=== PATIENT | male | born 1945 | race Caucasian/White ===

== ENCOUNTER 2017-06-06 15:30 | Outpatient (RCR) | payer MEDICARE, OTHER, SELFPAY ==
--- NOTE | 2017-05-15 10:22 | HP.PTEVAL ---
Patient's Visit Information OMAIRA MATTHEWS is a 71 year old M referred to Physical Therapy by Richa Barrientos with a diagnosis of B hip bursitis and balance issues. Date of Evaluation: 05/15/17 Physical Therapist: Jerad Salcedo DPT, OC - Visit Plan Frequency: 2x /Week Duration: 4 Weeks Plan: Neurocom balance assessment then. 2x/week for 4 weeks for balance per results adn stretch ITB/HS/quad/hip flexor also mat based hip strength as needed. - Subjective Subjective: Complained to doctor about dizzyness and balance problems. Feels unsteady but not dizzy. Usually when he walks gets unsteady , no falls. Putting shoes on standing is harder. No spinning, Has neuropathy from diabetes. On gabapentin for foot achiness. Sleep is OK with meds. B hip pain if lies on them, doctor put a shot in them. Has lateral hip pain with walking too much also to 6/10, stretching helps, That is intermittent. Not employed. 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 HEP: walking 1-1.25 miles irregularly. Basic ADLs are OK. Couple steps ion ranch home, they are not a problem - Pain feet ache Pain Intensity (Out of 10): 0 Pain Intensity Range: 0, 1 R hip Pain Intensity (Out of 10): 0 Pain Intensity Range: 0, 6 - Objective Walks into PT stiff but I without AD. Transfers I, steps reciprocally without rail. Slightly neuropathic gait pattern, slow. VOR walk is fair balance. FOAM romberg is challenging. LE AROM WFL, hips tight in the HS andITB adn hip flexors and quads B. Tender to palpation in B ITB and over GT bursa. reflexes LE 2/3 patella and achilles. Has full UE AROM. sensation LE WNL to gross light touch. Strength LE 4/5. - Balance Scores Functional Gait Assessment Score: 20 % Disability: 33.3400 - Goals Goal 1:: I approp HEP to minimize hip pain and maximize balance. Goal Time Frame: 4-6 Weeks Goal 2:: neurocom balance tests and review results. Goal Time Frame: 4-6 Weeks Goal 3:: FGA to minimize fall risk. Goal Time Frame: 4-6 Weeks Goal 4:: Pain in hips 1/10 at worst and no lost sleep. Goal Time Frame: 4-6 Weeks - Rehabilitation Potential Physical Therapy Diagnosis: B hip trochanteric bursitis, Balance deficits likely due to neuropathy Rehabilitation Potential: Fair - Anticipated Interventions Patient/Client Instruction: Educate patient on: Condition, Plan of Care For the Purpose of:: To decrease pain, To improve safety with gait Therapeutic Exercise to Include: Strength training, Balance training, Flexibilty training For the Purpose of:: To decrease pain, To improve ability of physical actions for home/community/work/leisure, To improve balance Thank you for the opportunity to evaluate your patient. For Medicare and Medicare HMO plans, please review the plan of care and approve it. It will need to be FAXED BACK to us at [phone] for Medicare purposes. Please let me know if there are questions or concerns regarding this plan of care. Physician Signature: Date:
--- NOTE | 2017-08-10 11:14 | HP.PT.NRP ---
HP - Discharge Summary (1) - Patient Information OMAIRA MATTHEWS was seen in my office for initial evaluation on 05/15/17. The following Plan of Care was established for this patient: Initial Frequency: 2x /Week Initial Duration: 4 Weeks - Anticipated Interventions Patient/Client Instruction: Educate patient on: Condition, Plan of Care For the Purpose of:: To decrease pain, To improve safety with gait Therapeutic Exercise to Include: Strength training, Balance training, Flexibilty training For the Purpose of:: To decrease pain, To improve ability of physical actions for home/community/work/leisure, To improve balance This patient was last seen in our office 06/06/17. Pertinent comments regarding their Physical therapy will appear below: Pt seen 6 visits of balance activity but neglected to return to complete plan of care including re-examination. At this point, it has been over two months and I will discontinue due to nonattendance. At this point I will be discontinuing this patient from physical therapy. I would be happy to see this patient again in the future if found appropriate by the physician. Thank you! Jerad Salcedo, DPT, OC
== END 2017-06-06 19:00 | disposition home or self-care (01) ==
LOC: PT 15:30
PROVIDERS: Family Provider Internal Medicine; PCP Internal Medicine; Visit Provider Internal Medicine
DX: M70.70 Other bursitis of hip, unspecified hip (principal)
CPT/HCPCS: 97110; 97162; 97530; 97750; G8978; G8979

== ENCOUNTER → 2017-08-02 14:10 | Outpatient (CLI) | payer MEDICARE, OTHER, SELFPAY ==
[2017-08-02 15:13] LABS: Hematocrit 37.9 % (40-54); Hemoglobin 12.4 g/dl (13.0-16.5); Mean Corp Hgb Conc 32.7 g/gl (32-36); Mean Corpuscular Hgb 32.3 pg (27.0-32.0); Mean Corpuscular Volume 98.7 fL (80-94); Mean Platelet Vol. 9.8 fl (6.2-12.0); Platelet Count 283 K/mm3 (150-450); RBC Distribution Width CV 12.8 % (11.6-14.6); RBC Distribution Width SD 45.1 fl (35.1-43.9); Red Blood Count 3.84 M/mm3 (4.6-6.2); White Blood Count 9.2 K/mm3 (4.4-11.0)
[2017-08-02 15:16] LABS: Scan Indicated on CBC? Y/N NO
[2017-08-02 16:03] LABS: Ferritin 87 ng/mL (26-388); Free T3 1.9 pg/mL (2.18-3.98); T4 Free Direct 0.92 ng/dL (0.76-1.46); Thyroid Stim Hormone (TSH) 1.94 uIU/mL (0.358-3.74)
[2017-08-04 07:13] LABS: Thyroid Peroxidase AB 12 IU/mL (0-34)
== END ==
PROVIDERS: Family Provider Internal Medicine; PCP Internal Medicine; Visit Provider Internal Medicine
DX: D50.0 Iron deficiency anemia secondary to blood loss (chronic) (principal); R94.6 Abnormal results of thyroid function studies
CPT/HCPCS: 36415; 82728; 84439; 84443; 84481; 85027; 86376

== ENCOUNTER → 2018-02-23 08:49 | Outpatient (CLI) | payer MEDICARE, OTHER, SELFPAY ==
--- NOTE | 2018-02-23 08:53 | RDU_ITS ---
Reason For Study: CKD stage III Right Renal Artery Left Renal Artery Right renal artery ostium 63/14 Left renal artery ostium 59/12 RSV/EDV. PSV/EDV. Right renal artery proximal 66/16 Left renal artery proximal PSV/EDV PSV/EDV. 55/12 . Right renal artery mid 73/14 Left renal artery mid 61/13 PSV/EDV. PSV/EDV . Right renal artery distal 48/10 Left renal artery distal 75/20 PSV/EDV. PSV/EDV. Right RAR 0.89. Left RAR 0.91. Right Renal Parenchyma Left Renal Parenchyma Upper Pole Medula 18/5 PSV/EDV. Left upper pole medulla 19/4 Right upper pole medulla EDR 0.28 . PSV/EDV . Right upper pole medulla R.I. Left upper pole medulla EDR 0.21 . 0.71 . Left upper pole medulla R.I. 0.79 . Upper [place]illy Cortx 14/4 PSV/EDV. UP Cortex 9/3 PSV/EDV. Right upper pole cortex EDR 0.29 . Left upper pole cortex EDR 0.33 . Right upper pole cortex R.I. 0.70 . Left upper pole cortex R.I. 0.63 . Right lower Pole medulla 16/4 Left lower Pole medulla 17/4 PSV/EDV . PSV/EDV . Right lower pole medulla EDR 0.25 . Left lower pole medulla EDR 0.24 . Right lower pole medulla R.I. Left lower pole medulla R.I. 0.74 . 0.78 . Lower Pole Cortx 12/4 PSV/EDV. Lower Pole Cortex 14/5 PSV/EDV. Left lower pole cortex EDR 0.33 . Right lower pole cortex EDR 0.36 . Left lower pole cortex R.I. 0.70 . Right lower pole cortex R.I. 0.62 . Left Renal Hilar Right Renal Hilar LT Hilar avg 31/7 PSV/EDV . Right Hilar avg 21/5 PSV/EDV. Left hilar acceleration time 44 Right hilar acceleration time 29 m/sec. m/sec. Left Renal Dimensions Right Renal Dimensions Left kidney size 11.7 cm . Right kidney size 12.9 cm . Left cortical dimension 1.38 cm . Right cortical dimension 1.33 cm . Aorta Proximal abdominal aorta 1.90cm x 1.91 cm . Proximal abdominal aorta peak systolic velocity is 82 cm/sec . Distal abdominal aorta 1.84cm x 1.82 cm . Distal abdominal aorta peak systolic velocity is 90 cm/sec . Interpretation Summary Dimensions of the intra-abdominal aorta appear normal, without evidence of aneurysmal dilatation. Renal artery velocities are bilaterally normal. Acceleration times are normal bilaterally. Renal- aortic ratios are also bilaterally normal. There is no evidence of hemodynamically significant renal artery stenosis on either side. Cortical dimensions are bilaterally normal. Kidneys are normal in size bilaterally, though the right kidney is more than one centimeter larger than the left kidney. Ordering Physician: Richa Barrientos Referring Physician: Richa Barrientos Performed By: Maribel Bhatt, RDCS, RVT
--- NOTE | 2018-02-23 08:53 | CDU_ITS ---
Reason For Study: Carotid Atherosclerosis Rt. Velocities/BP Lt. Velocities/BP Prox CCA 61/19 cm/sec. Prox CCA 72/18 cm/sec. Mid CCA 72/19 cm/sec. Mid CCA 89/16 cm/sec. Dist CCA 68/17 cm/sec. Dist CCA 62/20 cm/sec. Prox ICA 82/20 cm/sec. Prox ICA 62/22 cm/sec. Mid ICA 87/21 cm/sec. Mid ICA 66/21 cm/sec. Dist ICA 58/20 cm/sec. Dist ICA 68/25 cm/sec. Rt. ICA/CCA = 1.21. Lt. ICA/CCA = 0.76. Prox ECA 103/13 cm/sec. Prox ECA 118/18 cm/sec. Rt. Vert. 41/9 cm/sec. Lt. Vert. 32/10 cm/sec. Right Extracranial There is heterogeneous, irregular atherosclerotic plaque noted in the right common carotid artery. There is heterogeneous, irregular atherosclerotic plaque noted in the right internal carotid artery. There is heterogeneous, irregular atherosclerotic plaque noted in the right external carotid artery. Antegrade flow is noted in the right vertebral artery. Left Extracranial There is heterogeneous, irregular atherosclerotic plaque noted in the left common carotid artery. There is heterogeneous, irregular atherosclerotic plaque noted in the left internal carotid artery. There is heterogeneous, irregular atherosclerotic plaque noted in the left external carotid artery. Antegrade flow is noted in the left vertebral artery. Procedure Carotid Duplex [id number]. Exam performed in department. Interpretation Summary Mild (<50%) stenosis right extracranial internal carotid. Mild (<50%) stenosis left extracranial internal carotid. Flow within the vertebral arteries is antegrade bilaterally. Ordering Physician: Richa Barrientos Referring Physician: Richa Barrientos Performed By: Maribel Bhatt, RDCS, RVT
== END ==
PROVIDERS: Family Provider Internal Medicine; PCP Internal Medicine; Visit Provider Internal Medicine
DX: I65.23 Occlusion and stenosis of bilateral carotid arteries (principal); I12.9 Hypertensive chronic kidney disease with stage 1 through stage 4 chronic kidney disease, or unspecified chronic kidney disease; N18.3 Chronic kidney disease, stage 3 (moderate)
CPT/HCPCS: 93880; 93975

== ENCOUNTER 2018-04-06 01:50 | Inpatient (IN) | payer MEDICARE, OTHER, SELFPAY ==
[2018-04-06] VITALS (18 sets, daily range): BP systolic 118–148; BP diastolic 41–73; PULSE 46–66; RESP 16–20; TEMP 36.7–37.2; O2SAT 85–95; BMI 31.4; BMI 30.8
--- NOTE | 2018-04-06 02:16 | EKG12_ITS ---
Test Reason : SOB Blood Pressure : / mmHG Vent. Rate : 048 BPM Atrial Rate : 048 BPM P-R Int : 312 ms QRS Dur : 100 ms QT Int : 496 ms P-R-T Axes : -10 043 153 degrees QTc Int : 443 ms Sinus bradycardia with Type I 2nd degree AVB (wenkebach) ST & T wave abnormality, consider lateral ischemia Abnormal ECG Confirmed by SHERITA COUGHLIN ([id number]), food editor SUSY ANGELO ([id number]) on 04/10/2018 8:43:31 AM Referred By: JULEE Confirmed By:SHERITA COUGHLIN
--- NOTE | 2018-04-06 02:18 | ED.VIS.GEN ---
History of Present Illness Chief Complaint: Shortness of Breath Informant: Patient, Family Onset: Days - 2-3 Context: Gradual Onset Timing: Intermittent Quality: wheezing Location: chest Current Severity: Mild Maximum Severity: Severe - panting at home earlier Worsened by: exertion Relieved by: rest Associated Symptoms: MILIEU THERAPIST cough, rhinorrhea Narrative: No chest pain, fevers, sore throat, earache, GI symptoms, or other symptoms with this. Tonight, he had drank some caffeinated tea, so he took his usual gabapentin x2 and sleeping pill which is temazepam 15 mg, but took an additional temazepam to try to counteract the caffeine and get to sleep. states that he was a little more somnolent than usual after this, and was panting/dyspnea, hence coming to the emergency department. He does not have any history of lung problems. He had a CABG remotely and takes aspirin but no other anticoagulants or antiplatelets and no other history of heart problems that he knows of. - Past Medical History (1) H/O aortic valve replacement Status: Chronic Comment: 25 mm Felix-Wilcox Perimount Magna Valve ([facility]: 11/29/2012) (2) H/O coronary artery bypass surgery Status: Chronic Comment: CABG x 3 PATEL to LAD, SVG-Ramus, SVG-PLB of RCA 11/29/2012 (3) HLD (hyperlipidemia) Status: Chronic (4) HTN (hypertension) Status: Chronic (5) Paroxysmal atrial fibrillation Status: Chronic Past Medical History - Allergies and Home Meds Allergies/Adverse Reactions: Allergies No Known Allergies Allergy (Verified 04/06/18 01:55) Primary Care Physician: Richa Barrientos MD [Primary Care Provider] - Surgical History: cholecystectomy, coronary bypass surgery, TURP, - Lives: Spouse/ Significant Other Smoking Status: Never smoker - Family History Maternal Family History: Family History (Last Reviewed 12/19/17 @ 13:51 by Clint Rosas MD) Father CAD (coronary artery disease) Brother CAD (coronary artery disease) Family History: Reports: No pertinent history Paternal Family History: Family History (Last Reviewed 12/19/17 @ 13:51 by Clint Rosas MD) Father CAD (coronary artery disease) Brother CAD (coronary artery disease) Family History: Reports: Heart Disease Sibling Family History: Family History (Last Reviewed 12/19/17 @ 13:51 by Clint Rosas MD) Father CAD (coronary artery disease) Brother CAD (coronary artery disease) Family History: Reports: Heart Disease Review of Systems General: Reports: Malaise. Denies: Chills, Fever, Sweats Eyes: Denies: Visual changes - bilaterally, Diplopia ENT: Denies: Bilateral ear pain, Sore throat Cardiovascular: Denies: Chest pain, Palpitations, Heart racing Respiratory: Reports: Dyspnea, Cough, Dyspnea on exertion. Denies: Sputum, Orthopnea Gastrointestinal: Denies: Abdominal pain, Nausea, Vomiting, Diarrhea, Melena, Hematochezia Genitourinary: Denies: Dysuria, Hematuria, Frequency Musculoskeletal: Reports: Swelling - BLE, chronic. Denies: Neck pain, Back pain, Extremity Pain Skin: Denies: Rash, Wounds Neurological: Denies: Headache, Weakness, Numbness Physical Exam Vital Signs/Narrative: Vital Signs Temp Pulse Resp BP Pulse Ox 04/06/18 01:52 98.0 F 51 L 20 H 147/65 H 85 Inital Vital Signs reviewed: Yes General: Well nourished, Well developed Head: Normocephalic, Atraumatic Eyes: Perrl, EOMI ENT: Moist mucous membranes, No rhinorrhea. Negative for: Sinus tenderness Neck: Supple, Nontender, No lymphadenopathy, No JVD Cardiovascular: Regular rate, Regular rhythm, No murmurs, Irregular - occasionally Respiratory: No distress - conversational, CTA bilaterally, Chest nontender Abdomen: Soft, Nontender, Nondistended, Normal bowel sounds Back: Nontender, Normal Inspection Extremities: Nontender, Edema - 1+ BLE symmetric Skin: Normal color, No rash Neurological: Alert, Oriented x3, Cranial nerves II-XII grossly intact, Normal Strength, Normal Sensation Psychological: Normal affect Diagnostic/Tx/Re-eval Laboratory Tests 04/06/18 04/06/18 04/06/18 Range/Units 04:40 04:40 04:40 WBC (4.4-11.0) K/mm3 RBC (4.6-6.2) M/mm3 Hgb (13.0-16.5) g/dl Hct (40-54) % MCV (80-94) fL MCH (27.0-32.0) pg MCHC (32-36) g/gl RDW (11.6-14.6) % RDW Differential (35.1-43.9) fl Plt Count (150-450) K/mm3 MPV (6.2-12.0) fl Immature Gran % (Auto) (0.0-0.9) % Neut % (Auto) (47-70) % Lymph % (Auto) (19-41) % Gage % (Auto) (0-10) % Eos % (Auto) (0-5) % Baso % (Auto) (0-1) % Absolute Neuts (auto) (2.0-7.7) X10^3/uL Absolute Lymphs (auto) (0.83-4.51) X10^3/ul Total Counted D-Dimer Quant (PE/DVT) 0.61 H* (0.27-0.49) FEU/ug/m Sodium 146 H (136-145) mmol/L Potassium 4.0 (3.5-5.1) mmol/L Chloride 114 H (98-107) mmol/L Carbon Dioxide 25.0 (21.0-32.0) mmol/L Anion Gap 7 (5-15) BUN 35 H (7-18) mg/dL Creatinine 2.41 H (0.70-1.30) mg/dL Estim Creat Clear Calc 28.19 ml/min Est GFR (MDRD) Af Amer 34 L (>60) mL/min Est GFR (MDRD) Non-Af 28 L (>60) mL/min BUN/Creatinine Ratio 14.5 (10-20) RATIO Glucose 117 H (74-106) mg/dL Calcium 8.6 (8.5-10.1) mg/dL Troponin I 0.016 (<0.045) ng/mL B-Natriuretic Peptide 440.1 H (0-100) pg/mL 04/06/18 Range/Units 04:40 WBC 7.7 (4.4-11.0) K/mm3 RBC 3.13 L (4.6-6.2) M/mm3 Hgb 10.1 L (13.0-16.5) g/dl Hct 31.5 L (40-54) % MCV 100.6 H (80-94) fL MCH 32.3 H (27.0-32.0) pg MCHC 32.1 (32-36) g/gl RDW 13.2 (11.6-14.6) % RDW Differential 46.3 H (35.1-43.9) fl Plt Count 239 (150-450) K/mm3 MPV 10.0 (6.2-12.0) fl Immature Gran % (Auto) 0.100 (0.0-0.9) % Neut % (Auto) 74.3 H (47-70) % Lymph % (Auto) 14.0 L (19-41) % Gage % (Auto) 8.3 (0-10) % Eos % (Auto) 3.0 (0-5) % Baso % (Auto) 0.3 (0-1) % Absolute Neuts (auto) 5.8 (2.0-7.7) X10^3/uL Absolute Lymphs (auto) 1.08 (0.83-4.51) X10^3/ul Total Counted Not Reportable D-Dimer Quant (PE/DVT) (0.27-0.49) FEU/ug/m Sodium (136-145) mmol/L Potassium (3.5-5.1) mmol/L Chloride (98-107) mmol/L Carbon Dioxide (21.0-32.0) mmol/L Anion Gap (5-15) BUN (7-18) mg/dL Creatinine (0.70-1.30) mg/dL Estim Creat Clear Calc ml/min Est GFR (MDRD) Af Amer (>60) mL/min Est GFR (MDRD) Non-Af (>60) mL/min BUN/Creatinine Ratio (10-20) RATIO Glucose (74-106) mg/dL Calcium (8.5-10.1) mg/dL Troponin I (<0.045) ng/mL B-Natriuretic Peptide (0-100) pg/mL Clinical Impression(s) from Imaging Studies Chest X-Ray 04/06/18 03:35 IMPRESSION: Cardiomegaly with central vascular congestive changes and a small left-sided pleural effusion. Multiple nodular densities in the right lower lobe. Metastatic disease suspected Electronically Signed: Tez Hurst MD at 4:14 EDT Tel , Service support , Chest CT 04/06/18 05:47 IMPRESSION: Cardiomegaly with central vascular congestive changes and interstitial edema. Bilateral pleural effusions; more on the right than the left Extensive mediastinal adenopathy. Lymphoproliferative disorder suspected. No indication of any metastatic lung disease. A calcified granuloma in the right middle lobe and a 1.1 cm nodular density in the lingula division of the left upper lobe Electronically Signed: Tez Hurst MD at 7:02 EDT Tel , Service support , - Rhythm Strip Rhythm Strip: Sinus Rhythm Rate: 55 Ectopy: None - EKG Initial EKG Interpretation: Sinus Bradycardia, AV Block - Mobitz I / Wenchebach, Inverted T-Waves - lat - Medical Decision Making Labs show an elevated creatinine at 2.4, this is significantly elevated compared to his last creatinine less than 2 although that was a year ago. He states his last creatinine done by his merchandise examiner was 2.6, so that is relatively reassuring. His d-dimer is technically abnormal at 0.61, however when correcting for age, this is well within normal limits for a 72-year-old male, essentially ruling out acute pulmonary embolus in him at this time. His chest x-ray was interpreted by radiology as suspicious for metastatic disease. He had imaging a year ago including CT that simply showed 2 nodules, one in each lung. He does not need CT angiography, and the contrast could injure his kidneys further, so CT of the chest without contrast is performed and shows bilateral pleural effusions, significant mediastinal lymphadenopathy that could be related to a lymphoproliferative disorder. Discussed with Dr. Solis for admission and further workup and treatment. Clinically, on oxygen and resting in bed, he is doing well and feeling okay. With any little exertion he is dyspneic. His monitor has shown bradycardia throughout his visit, and he appears to be in Wenkebach according to his EKG. That will be continued to be monitored. ED Disposition - Plan for ED Patient: Disposition: Acute Care Hospital [facility] Chief Complaint: Overdose Diagnosis: Pleural effusion, bilateral, Hypoxemia, Pulmonary edema, Mediastinal lymphadenopathy, CRF (chronic renal failure), Mobitz (type) I (Wenckebach's) atrioventricular block Referrals: Richa Barrientos MD [Primary Care Provider] -
--- NOTE | 2018-04-06 02:25 | ED.DCSUM_ITS ---
History of Present Illness Chief Complaint: Shortness of Breath Informant: Patient, Family Onset: Days - 2-3 Context: Gradual Onset Timing: Intermittent Quality: wheezing Location: chest Current Severity: Mild Maximum Severity: Severe - panting at home earlier Worsened by: exertion Relieved by: rest Associated Symptoms: [employer] cough, rhinorrhea Narrative: No chest pain, fevers, sore throat, earache, GI symptoms, or other symptoms with this. Tonight, he had drank some caffeinated tea, so he took his usual gabapentin x2 and sleeping pill which is temazepam 15 mg, but took an additional temazepam to try to counteract the caffeine and get to sleep. states that he was a little more somnolent than usual after this, and was panting/dyspnea, hence coming to the emergency department. He does not have any history of lung problems. He had a CABG remotely and takes aspirin but no other anticoagulants or antiplatelets and no other history of heart problems that he knows of. - Past Medical History (1) H/O aortic valve replacement Status: Chronic Comment: 25 mm Felix-Wilcox Perimount Magna Valve ([facility]: 11/29/2012) (2) H/O coronary artery bypass surgery Status: Chronic Comment: CABG x 3 PATEL to LAD, SVG-Ramus, SVG-PLB of RCA 11/29/2012 (3) HLD (hyperlipidemia) Status: Chronic (4) HTN (hypertension) Status: Chronic (5) Paroxysmal atrial fibrillation Status: Chronic Past Medical History - Allergies and Home Meds Allergies/Adverse Reactions: Allergies No Known Allergies Allergy (Verified 04/06/18 01:55) Primary Care Physician: Richa Barrientos MD [Primary Care Provider] - Surgical History: cholecystectomy, coronary bypass surgery, TURP, - Lives: Spouse/ Significant Other Smoking Status: Never smoker - Family History Maternal Family History: Family History (Last Reviewed 12/19/17 @ 13:51 by Clint Rosas MD) Father CAD (coronary artery disease) Brother CAD (coronary artery disease) Family History: Reports: No pertinent history Paternal Family History: Family History (Last Reviewed 12/19/17 @ 13:51 by Clint Rosas MD) Father CAD (coronary artery disease) Brother CAD (coronary artery disease) Family History: Reports: Heart Disease Sibling Family History: Family History (Last Reviewed 12/19/17 @ 13:51 by Clint Rosas MD) Father CAD (coronary artery disease) Brother CAD (coronary artery disease) Family History: Reports: Heart Disease Review of Systems General: Reports: Malaise. Denies: Chills, Fever, Sweats Eyes: Denies: Visual changes - bilaterally, Diplopia ENT: Denies: Bilateral ear pain, Sore throat Cardiovascular: Denies: Chest pain, Palpitations, Heart racing Respiratory: Reports: Dyspnea, Cough, Dyspnea on exertion. Denies: Sputum, Orthopnea Gastrointestinal: Denies: Abdominal pain, Nausea, Vomiting, Diarrhea, Melena, Hematochezia Genitourinary: Denies: Dysuria, Hematuria, Frequency Musculoskeletal: Reports: Swelling - BLE, chronic. Denies: Neck pain, Back pain, Extremity Pain Skin: Denies: Rash, Wounds Neurological: Denies: Headache, Weakness, Numbness Physical Exam Vital Signs/Narrative: Vital Signs Temp Pulse Resp BP Pulse Ox 04/06/18 01:52 98.0 F 51 L 20 H 147/65 H 85 Inital Vital Signs reviewed: Yes General: Well nourished, Well developed Head: Normocephalic, Atraumatic Eyes: Perrl, EOMI ENT: Moist mucous membranes, No rhinorrhea. Negative for: Sinus tenderness Neck: Supple, Nontender, No lymphadenopathy, No JVD Cardiovascular: Regular rate, Regular rhythm, No murmurs, Irregular - occasionally Respiratory: No distress - conversational, CTA bilaterally, Chest nontender Abdomen: Soft, Nontender, Nondistended, Normal bowel sounds Back: Nontender, Normal Inspection Extremities: Nontender, Edema - 1+ BLE symmetric Skin: Normal color, No rash Neurological: Alert, Oriented x3, Cranial nerves II-XII grossly intact, Normal Strength, Normal Sensation Psychological: Normal affect Diagnostic/Tx/Re-eval Laboratory Tests 04/06/18 04/06/18 04/06/18 Range/Units 04:40 04:40 04:40 WBC (4.4-11.0) K/mm3 RBC (4.6-6.2) M/mm3 Hgb (13.0-16.5) g/dl Hct (40-54) % MCV (80-94) fL MCH (27.0-32.0) pg MCHC (32-36) g/gl RDW (11.6-14.6) % RDW Differential (35.1-43.9) fl Plt Count (150-450) K/mm3 MPV (6.2-12.0) fl Immature Gran % (Auto) (0.0-0.9) % Neut % (Auto) (47-70) % Lymph % (Auto) (19-41) % Creek % (Auto) (0-10) % Eos % (Auto) (0-5) % Baso % (Auto) (0-1) % Absolute Neuts (auto) (2.0-7.7) X10^3/uL Absolute Lymphs (auto) (0.83-4.51) X10^3/ul Total Counted D-Dimer Quant (PE/DVT) 0.61 H* (0.27-0.49) FEU/ug/m Sodium 146 H (136-145) mmol/L Potassium 4.0 (3.5-5.1) mmol/L Chloride 114 H (98-107) mmol/L Carbon Dioxide 25.0 (21.0-32.0) mmol/L Anion Gap 7 (5-15) BUN 35 H (7-18) mg/dL Creatinine 2.41 H (0.70-1.30) mg/dL Estim Creat Clear Calc 28.19 ml/min Est GFR (MDRD) Af Amer 34 L (>60) mL/min Est GFR (MDRD) Non-Af 28 L (>60) mL/min BUN/Creatinine Ratio 14.5 (10-20) RATIO Glucose 117 H (74-106) mg/dL Calcium 8.6 (8.5-10.1) mg/dL Troponin I 0.016 (<0.045) ng/mL B-Natriuretic Peptide 440.1 H (0-100) pg/mL 04/06/18 Range/Units 04:40 WBC 7.7 (4.4-11.0) K/mm3 RBC 3.13 L (4.6-6.2) M/mm3 Hgb 10.1 L (13.0-16.5) g/dl Hct 31.5 L (40-54) % MCV 100.6 H (80-94) fL MCH 32.3 H (27.0-32.0) pg MCHC 32.1 (32-36) g/gl RDW 13.2 (11.6-14.6) % RDW Differential 46.3 H (35.1-43.9) fl Plt Count 239 (150-450) K/mm3 MPV 10.0 (6.2-12.0) fl Immature Gran % (Auto) 0.100 (0.0-0.9) % Neut % (Auto) 74.3 H (47-70) % Lymph % (Auto) 14.0 L (19-41) % Creek % (Auto) 8.3 (0-10) % Eos % (Auto) 3.0 (0-5) % Baso % (Auto) 0.3 (0-1) % Absolute Neuts (auto) 5.8 (2.0-7.7) X10^3/uL Absolute Lymphs (auto) 1.08 (0.83-4.51) X10^3/ul Total Counted Not Reportable D-Dimer Quant (PE/DVT) (0.27-0.49) FEU/ug/m Sodium (136-145) mmol/L Potassium (3.5-5.1) mmol/L Chloride (98-107) mmol/L Carbon Dioxide (21.0-32.0) mmol/L Anion Gap (5-15) BUN (7-18) mg/dL Creatinine (0.70-1.30) mg/dL Estim Creat Clear Calc ml/min Est GFR (MDRD) Af Amer (>60) mL/min Est GFR (MDRD) Non-Af (>60) mL/min BUN/Creatinine Ratio (10-20) RATIO Glucose (74-106) mg/dL Calcium (8.5-10.1) mg/dL Troponin I (<0.045) ng/mL B-Natriuretic Peptide (0-100) pg/mL Clinical Impression(s) from Imaging Studies Chest X-Ray 04/06/18 03:35 IMPRESSION: Cardiomegaly with central vascular congestive changes and a small left-sided pleural effusion. Multiple nodular densities in the right lower lobe. Metastatic disease suspected Electronically Signed: Tez Hurst MD at 4:14 EDT Tel , Service support , Chest CT 04/06/18 05:47 IMPRESSION: Cardiomegaly with central vascular congestive changes and interstitial edema. Bilateral pleural effusions; more on the right than the left Extensive mediastinal adenopathy. Lymphoproliferative disorder suspected. No indication of any metastatic lung disease. A calcified granuloma in the right middle lobe and a 1.1 cm nodular density in the lingula division of the left upper lobe Electronically Signed: Tez Hurst MD at 7:02 EDT Tel , Service support , - Rhythm Strip Rhythm Strip: Sinus Rhythm Rate: 55 Ectopy: None - EKG Initial EKG Interpretation: Sinus Bradycardia, AV Block - Mobitz I / Wenchebach, Inverted T- Waves - lat - Medical Decision Making Labs show an elevated creatinine at 2.4, this is significantly elevated compared to his last creatinine less than 2 although that was a year ago. 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 His d-dimer is technically abnormal at 0.61, however when correcting for age, this is well within normal limits for a 72-year-old male, essentially ruling out acute pulmonary embolus in him at this time. His chest x-ray was interpreted by radiology as suspicious for metastatic disease. He had imaging a year ago including CT that simply showed 2 nodules, one in each lung. He does not need CT angiography, and the contrast could injure his kidneys further, so CT of the chest without contrast is performed and shows bilateral pleural effusions, significant mediastinal lymphadenopathy that could be related to a lymphoproliferative disorder. Discussed with Dr. Solis for admission and further workup and treatment. Clinically, on oxygen and resting in bed, he is doing well and feeling okay. With any little exertion he is dyspneic. His monitor has shown bradycardia throughout his visit, and he appears to be in Wenkebach according to his EKG. That will be continued to be monitored. ED Disposition - Plan for ED Patient: Disposition: Acute Care Hospital [facility] Chief Complaint: Overdose Diagnosis: Pleural effusion, bilateral, Hypoxemia, Pulmonary edema, Mediastinal lymphadenopathy, CRF (chronic renal failure), Mobitz (type) I (Wenckebach's) atrioventricular block Referrals: Richa Barrientos MD [Primary Care Provider] -
[2018-04-06] MEDS: Ipratropium/Albuterol Sulfate 3 ML AMPUL.NEB INHALATION (02:28)
--- NOTE | 2018-04-06 03:35 | RAD_ITS ---
STUDY: X-RAY CHEST REASON FOR EXAM: Male, 72 years old. Shortness of breath TECHNIQUE: 2 views COMPARISON: March 19, 2017 FINDINGS: There is cardiomegaly with central vascular congestion and left-sided pleural effusion. Nodular densities are seen in the right lower lobe. Metastatic disease suspected.. Degenerative changes of the thoracic spine. Normal visualized ribs, clavicles, and shoulders. There is no demonstrated abnormality of the visualized soft tissue structures of the upper abdomen. RAD/Chest PA and Lateral IMPRESSION: Cardiomegaly with central vascular congestive changes and a small left-sided pleural effusion. Multiple nodular densities in the right lower lobe. Metastatic disease suspected Electronically Signed: Tez Hurst MD at 4:14 EDT Tel , Service support ,
[2018-04-06 04:50] LABS: Absolute Lymphocyte Count 1.08 X10^3/ul (0.83-4.51); Absolute Neutrophil Count 5.8 X10^3/uL (2.0-7.7); Basophil# 0.02 X10^3/uL; Basophil% 0.3 % (0-1); Eosinophil# 0.23 X10^3/uL; Hematocrit 31.5 % (40-54); Hemoglobin 10.1 g/dl (13.0-16.5); Lymphocyte # 1.08 X10^3/ul (4.0); Mean Corp Hgb Conc 32.1 g/gl (32-36); Mean Corpuscular Hgb 32.3 pg (27.0-32.0); Mean Corpuscular Volume 100.6 fL (80-94); Monocyte# 0.64 X10^3/uL; Monocyte% 8.3 % (0-10); Neutrophil # 5.76 X10^3/uL (2.7-7.7); Neutrophil % 74.3 % (47-70); Platelet Count 239 K/mm3 (150-450); RBC Distribution Width CV 13.2 % (11.6-14.6); RBC Distribution Width SD 46.3 fl (35.1-43.9); Red Blood Count 3.13 M/mm3 (4.6-6.2); White Blood Count 7.7 K/mm3 (4.4-11.0)
[2018-04-06 04:52] LABS: POSITIVE COUNT NO; POSITIVE DIFFERENTIAL NO; POSITIVE MORPHOLOGY NO
[2018-04-06 05:01] LABS: Anion Gap 7 (5-15); BUN 35 mg/dL (7-18); BUN/Creat Ratio 14.5 RATIO (10-20); Calcium,Total 8.6 mg/dL (8.5-10.1); Chloride 114 mmol/L (98-107); Creatinine, Serum 2.41 mg/dL (0.70-1.30); EST Glomerular Filtration Rate 28 mL/min (>60); Est Glom Filt Rate - Afr Amer 34 mL/min (>60); Estimated Creatinine Clearance 28.19 ml/min; Glucose 117 mg/dL (74-106); Sodium Level 146 mmol/L (136-145)
[2018-04-06 05:17] LABS: BNP,B-Type NATRIURETIC PEPTIDE 440.1 pg/mL (0-100)
--- NOTE | 2018-04-06 05:47 | CT_ITS ---
STUDY: CT CHEST WITHOUT CONTRAST REASON FOR EXAM: Male, 72 years old. Shortness of breath RADIATION DOSAGE (If Supplied By Facility): CTDIvol = ( 18.82 ) mGy, DLP = ( 677.30 ) mGycm TECHNIQUE: Transaxial imaging was performed without the administration of intravenous contrast material. Individualized dose optimization techniques were used for this CT. COMPARISON: None. FINDINGS: : TRACHEA, THYROID, ESOPHAGUS: No tracheomalacia,stricture or wall thickening. Thyroid and esophagus are normal CARDIOVASCULAR SYSTEM: The thoracic aorta is grossly within normal limits. The pulmonary trunk and the left and right pulmonary arteries are also grossly within normal limits. There is mild cardiomegaly with aortic valve prosthesis in place. RYAN AND LYMPH NODES: A 1.9 x 1.1 cm Station 3 lymph node (prevascular). Multiple stations 6 lymph nodes (projecting over the arch) with the largest measuring 2.6 x 1.7 cm. A 2.7 x 1.7 cm Station 4R lymph node (right lower paratracheal). A 2.6 x 1.4 cm station 7 lymph node (subcarinal). Bilateral Station 10 lymph nodes (hilar) LUNGS, LOW-ATTENUATION: No traction bronchiectasis, honeycombing,emphysema, lung cysts or cavitations LUNGS, HIGH ATTENUATION: Extensive interstitial edema. A 1.2 cm calcified granuloma in the right middle lobe.. A 1.1 cm nodular density in the lingula division of the left upper lobe LUNGS, MOSAIC/CRAZY PAVING: Not evident PLEURA AND CHEST WALL: Bilateral pleural effusions. More on the right than the left UPPER ABDOMEN: A 2.3 cm benign nodule in the right adrenal gland . CT/Chest without Contrast IMPRESSION: Cardiomegaly with central vascular congestive changes and interstitial edema. Bilateral pleural effusions; more on the right than the left Extensive mediastinal adenopathy. Lymphoproliferative disorder suspected. No indication of any metastatic lung disease. A calcified granuloma in the right middle lobe and a 1.1 cm nodular density in the lingula division of the left upper lobe Electronically Signed: Tez Hurst MD at 7:02 EDT Tel , Service support ,
[2018-04-06 06:18] LABS: D-Dimer Quantitative (DVT/PE) 0.61 FEU/ug/m (0.27-0.49)
--- NOTE | 2018-04-06 06:19 | ED.RN ---
D-DIMER OF 0.[address] THOMPSON. VERBALIZED UNDERSTANDING
--- NOTE | 2018-04-06 07:17 | NURSING ---
DR AYOUB FOR DR THOMPSON
--- NOTE | 2018-04-06 07:35 | NURSING ---
PCU B/L HEART FAILURE, MEDIASTINAL ADENOPATHY DR AYOUB
--- NOTE | 2018-04-06 07:36 | NURSING ---
DR AYOUB IN ER
--- NOTE | 2018-04-06 08:06 | US_ITS ---
STUDY: SUPERFICIAL ULTRASOUND - PLEURAL SPACES. REASON FOR EXAM: Male, 72 years old. Pleural effusions. TECHNIQUE: A superficial ultrasound was performed with real-time and static lama-scale imaging. COMPARISON: None. FINDINGS: There are small bilateral pleural effusions. Not enough fluid for adequate thoracentesis. US/Chest IMPRESSION: Small bilateral pleural effusions. Electronically Signed: Mark Waller MD at 14:42 EDT Tel [phone], Service support ,
--- NOTE | 2018-04-06 08:06 | ECHOD_ITS ---
[id number] ECHO^ECHOD^Echo Complete [id number] TAG_START Cardiovascular Services Echocardiogram [address] [place], [place] [address] Ordering Physician: Kamar Solis TAG_ENDED TAG_START Name: OMAIRA MATTHEWS Study Date: 04/06/2018 02:07 PM BP: 142/41 mmHg [place] [facility] [place] BSA: 2.1 m2 : 1945 Gender: Male Height: 70 in Age: 72 yrs Weight: 214 lb History: ASHD, CABG X 3, HX DVT, GERD, HTN, HLD, MAYE, PAF, DM II., Hx AVR ( 23 mm Felix-Wilcox Perimount Magna Valave - @[facility] 11/29/2012) TAG_ENDED Reason For Study: B/L EFFUSION Procedure This was a 2D Doppler, Color Flow transthoracic echocardiogram. Exam performed portable in patient room. Left Ventricle Normal size and thickness. The estimated ejection fraction is 65 %. Septal motion consistent with IVCD. Stage 2 diastolic dysfunction. No regional wall motion abnormalities noted. TAG_START I Segments Size 1-2 small X - Cannot 1 - Normal 2 - 3 - Akinetic 4 - Dyskinetic3-5 moderate Interpret Hypokinetic 6-14 large 5 - Aneurysmal 15-16 diffuse TAG_ENDED Right Ventricle Mildly dilated right ventricle. Normal systolic function. Atria The left atrium is severely enlarged. Normal right atrium. Normal atrial septum. Mitral Valve Mild diffuse mitral valve thickening. Trivial mitral valve insufficiency. Tricuspid Valve Normal tricuspid valve. Mild (1+) tricuspid valve insufficiency. Right ventricular systolic pressure estimated to be 66 mmHg. Severe pulmonary hypertension. Aortic Valve Peak aortic valve gradient is 24 mmHg. Mean aortic valve gradient is 13 mmHg. Bioprosthetic aortic valve. Stable appearing bioprosthetic aortic valve apparatus. Pulmonic Valve Normal pulmonic valve. Great Vessels Normal aortic root. Normal arch. Normal inferior vena cava. Inferior vena cava collapse with sniff. Pericardium/Pleural No pericardial effusion. MMode/2D Measurements & Calculations LVIDd: 4.8 cm IVSd: 0.89 cm LVOT diam: 2.0 cm LVIDs: 3.2 cm LVPWd: 1.0 cm LVOT area: 3.2 cm2 RVDd: 4.1 cm FS: 34.0 % Ao root diam: 3.6 cm LAV(MOD-bp): 87.2 ml LA A4 area: 27.6 cm2 LA dimension: 5.6 cm LAV(MOD-bp) Indexed: 40.6 ml/m2 LAV(MOD-sp2): 69.8 ml LAV(MOD-sp4): 93.9 ml LA dimension(2D): 5.3 cm RA A4 area: 15.2 cm2 Time Measurements MV dec time: 0.20 sec Doppler Measurements & Calculations MV E max ger: 105.4 cm/sec Lat Peak E' Ger: 11.1 cm/sec Med Peak E' Ger: 5.8 cm/sec MV A max ger: 49.1 cm/sec E/E' lat: 9.5 E/E' med: 18.1 MV E/A: 2.1 Ao V2 max: 213.2 cm/sec LV V1 max: 119.5 cm/sec SV(LVOT): 93.6 ml Ao max P.2 mmHg LV V1 max P.7 mmHg Ao V2 mean: 157.6 cm/sec LV V1 mean P.3 mmHg Ao mean P.9 mmHg LV V1 mean: 85.6 cm/sec Ao V2 VTI: 51.6 cm LV V1 VTI: 29.0 cm DEANDRE(I,D): 1.8 cm2 DEANDRE(V,D): 1.8 cm2 PA V2 max: 115.3 cm/sec TR max ger: 389.3 cm/sec TR max P.6 mmHg Interpretation Summary The estimated ejection fraction is 65 %. Stage 2 diastolic dysfunction. Mildly dilated right ventricle. The left atrium is severely enlarged. Trivial mitral valve insufficiency. Mild (1+) tricuspid valve insufficiency. Right ventricular systolic pressure estimated to be 66 mmHg. Severe pulmonary hypertension. Bioprosthetic aortic valve. Stable appearing bioprosthetic aortic valve apparatus. Compared to echo report dated 10/22/2016, LV Function and AVR have remained the same. RVSP not noted on that exam. TAG_START TAG_ENDED Ordering Physician: Kamar Solis Referring Physician: KATYA WOODS Performed By: Kimmy Sultana, REGLACS, RVT
--- NOTE | 2018-04-06 08:22 | PCM.HP.STD ---
Problem List (1) CHF exacerbation Status: Acute (2) Pleural effusion, bilateral Status: Acute (3) Hypoxemia Status: Acute (4) Pulmonary edema Status: Acute (5) Mediastinal lymphadenopathy Status: Acute (6) CRF (chronic renal failure) Status: Chronic (7) Mobitz (type) I (Wenckebach's) atrioventricular block Status: Acute (8) Paroxysmal atrial fibrillation Status: Chronic (9) H/O aortic valve replacement Status: Chronic Comment: 25 mm Felix-Wilcox Perimount Magna Valve ([facility]: 11/29/2012) (10) Atherosclerosis of coronary artery of [place] heart without angina pectoris Status: Chronic Comment: CABG x 3 PATEL to LAD, SVG-Ramus, SVG-PLB of RCA 11/29/2012 (11) H/O coronary artery bypass surgery Status: Chronic Comment: CABG x 3 PATEL to LAD, SVG-Ramus, SVG-PLB of RCA 11/29/2012 (12) HTN (hypertension) Status: Chronic Qualifiers: Hypertension type: essential hypertension Qualified Code(s): I10 - Essential (primary) hypertension; I10 - Essential (primary) hypertension; I10 - Essential (primary) hypertension (13) HLD (hyperlipidemia) Status: Chronic Qualifiers: Hyperlipidemia type: pure hypercholesterolemia Qualified Code(s): E78.00 - Pure hypercholesterolemia, unspecified; E78.00 - Pure hypercholesterolemia, unspecified; E78.00 - Pure hypercholesterolemia, unspecified; E78.0 - Pure hypercholesterolemia (14) LEO on CKD stage 3 Status: Acute History of Present Illness Date of Admission: 04/06/18 Chief Complaint: Progressive worsening of shortness of breath for 1 month The patient is a 72 year old M with multiple comorbidities as listed including coronary artery disease status post CABG x3 in 2012, bioprosthetic aortic valve [place] [address] santiago came to ED with progressive worsening of shortness of breath for about 1 month. Patient also gets chest tightness, localized in midsternal region on exertion and takes about 5-10 minutes to relieve after taking rest. He denies chest tightness/pressure at rest. No palpitation, near syncope or syncope. In ED, In ED, chest x-ray shows pulmonary vascular congestion which led to chest CT scan which further showed bilateral pleural effusion, right more than left. It also shows extensive interstitial edema and nodular density in the lingular division of left upper lobe. Shows hilar and mediastinal lymphadenopathy EKG shows sinus bradycardia at 48 bpm with first-degree AV block and PACs in a pattern of bigeminy. Similar EKG in April 2017. Patient had echo in October 2016 reported as EF 55% with no regional wall motion abnormality. LA mildly enlarged. RA mildly enlarged. Normal RV size and systolic function. Normal mitral valve with trivial MR. Normal tricuspid valve with trivial TR. No pericardial effusion. the patient is further admitted for evaluation and management [] Past Medical History Past Medical History (Chronic Problems): Chronic Problems (Last Reviewed 12/19/17 @ 13:51 by Clint Santiago MD) CRF (chronic renal failure) (Chronic) Paroxysmal atrial fibrillation (Chronic) H/O aortic valve replacement (Chronic 11/29/12) 25 mm Felix-Wilcox Perimount Magna Valve ([facility]: 11/29/2012) Atherosclerosis of coronary artery of [place] heart without angina pectoris (Chronic) CABG x 3 PATEL to LAD, SVG-Ramus, SVG-PLB of RCA 11/29/2012 H/O coronary artery bypass surgery (Chronic 11/29/12) CABG x 3 PATEL to LAD, SVG-Ramus, SVG-PLB of RCA 11/29/2012 HTN (hypertension) (Chronic) HLD (hyperlipidemia) (Chronic) Medical History: Medical History (Last Reviewed 12/19/17 @ 13:51 by Clint Santiago MD) Paroxysmal atrial fibrillation (Chronic) I48.0 Atherosclerosis of coronary artery of [place] heart without angina pectoris (Chronic) I25.10 CABG x 3 PATEL to LAD, SVG-Ramus, SVG-PLB of RCA 11/29/2012 HTN (hypertension) (Chronic) I10 HLD (hyperlipidemia) (Chronic) E78.5 BPH (benign prostatic hyperplasia) N40.0 DVT (deep venous thrombosis) I82.409 GERD (gastroesophageal reflux disease) K21.9 Obstructive sleep apnea G47.33 Type 2 diabetes mellitus without complications E11.9 Allergies No Known Allergies Allergy (Verified 04/06/18 01:55) Home Medications: Ambulatory Orders Medication Instructions Recorded Amlodipine Besylate 10 mg PO DAILY 07/02/13 Atorvastatin Calcium [Lipitor] 20 mg PO QHS 01/21/14 Insulin Aspart [Novolog] 10 units SC TID 07/02/13 Aspirin [Aspirin, Baby] 81 mg PO DAILY@0800 02/09/15 Doxazosin Mesylate 4 mg PO DAILY 02/09/15 Insulin Glargine,Hum.rec.anlog 30 unit SQ BID 02/09/15 [Lantus] Losartan Potassium [Cozaar] 100 mg PO DAILY 12/09/15 Methyl-B12/l-Mefolate/B6 Phos 2 - 3 ea PO DAILY 12/09/15 [Foltanx Tablet] Temazepam [Restoril] 15 - 30 mg PO QHS PRN PRN 07/19/16 Metoprolol Tartrate [Lopressor 50 mg PO BID #60 tab 10/24/16 (beta hari)] amiodarone 200 mg tablet 100 mg PO DAILY tab 12/19/17 Surgical History: Surgical History (Last Reviewed 12/19/17 @ 13:51 by Clint Santiago MD) H/O aortic valve replacement (Chronic) Onset Date: 11/29/12 Z95.2 25 mm Felix-Wilcox Perimount Magna Valve ([facility]: 11/29/2012) H/O coronary artery bypass surgery (Chronic) Onset Date: 11/29/12 Z95.1 CABG x 3 PATEL to LAD, SVG-Ramus, SVG-PLB of RCA 11/29/2012 History of left heart catheterization Onset Date: 12/09/15 Z98.890 History of transurethral resection of prostate Z98.890, Z90.79 Hx of cholecystectomy Z90.49 Surgical History: cholecystectomy, coronary bypass surgery, TURP, - Lives: Spouse/ Significant Other Smoking Status: Never smoker - *Family History Maternal Family History: Family History (Last Reviewed 12/19/17 @ 13:51 by Clint Santiago MD) Father CAD (coronary artery disease) Brother CAD (coronary artery disease) History Items: No pertinent history Paternal Family History: Family History (Last Reviewed 12/19/17 @ 13:51 by Clint Santiago MD) Father CAD (coronary artery disease) Brother CAD (coronary artery disease) History Items: Heart Disease Sibling Family History: Family History (Last Reviewed 12/19/17 @ 13:51 by Clint Santiago MD) Father CAD (coronary artery disease) Brother CAD (coronary artery disease) History Items: Heart Disease Review of Systems Constitutional: Denies: Chills, Fever, Weight Change Eyes: Reports: - HEENT: Reports: - - Denies URI symptoms/flulike symptoms. Denies: Head Aches, Sinus Congestion, Sinus Drainage Cardiovascular: Reports: Chest Pressure, Chest Tightness, Edema, Orthopnea. Denies: Chest Pain, Palpitations Respiratory: Reports: Shortness of breath upon exertion. Denies: Cough, Shortness of breath at rest, Sputum production Gastrointestinal: Denies: Abdominal Pain, Nausea, Vomiting Genitourinary: Denies: Dysuria, Frequency, Hematuria, Nocturia Musculoskeletal: Denies: Joint Pain, Joint Tenderness Skin: Denies: Rash, Wounds Neurological: Denies: Numbness, Tingling, Focal weakness Psychiatric: Denies: Anxiety, Depression, Homicidal Ideations, Suicidal Ideations Hematologic/ Lymphatic: Denies: Easy Bruising, Easy Bleeding VTE Information - Inpt Only VTE Present on Admission: No VTE Mechan Device Prophylaxis: None VTE Pharm Prophylaxis ordered?: Yes Patient Problems: Active and Suspected Problems (Last Reviewed 12/19/17 @ 13:51 by Clint Santiago MD) Pleural effusion, bilateral (Acute) Hypoxemia (Acute) Pulmonary edema (Acute) Mediastinal lymphadenopathy (Acute) Mobitz (type) I (Wenckebach's) atrioventricular block (Acute) CHF exacerbation (Acute) LEO on CKD stage 3 (Acute) - Physical Exam General: Alert, Oriented x3, Cooperative HEENT: Atraumatic, PERRLA, EOMI, Normocephalic Oral: Moist Mucosa Neck: Supple, No JVD, Negative Carotid Bruits Lungs: Clear to auscultation, No rhonchi, No wheeze, No rales, Diminished - Entry diminished bilaterally, more on the right posterior half of lung., Short of Breath Cardiovascular: Normal S1, Normal S2, No murmurs, Bradycardic, - - Additional aortic valve click Abdomen: Bowel Sounds Present, Soft, Non Tender, Distended - Bursitis Extremities: Capillary Refill Less than 3 Seconds, Edema Skin: No rashes, No breakdown Musculoskeletal: No Tenderness to Palpation of Joints or Extremities, Arthritic Changes Neurological: Cranial nerves II-XII grossly intact Psych/Mental Status: Normal Affect, Appropriate Vital Signs Temp Pulse Resp BP Pulse Ox 98.0 F 56 L 17 141/73 H 95 04/06/18 01:52 04/06/18 07:33 04/06/18 07:33 04/06/18 07:33 04/06/18 07:33 Oxygen Flow Rate (L/min) 3 Oxygen Delivery Method Nasal Cannula Weight: 218 lb 11.177 oz Body Mass Index (BMI) 31.4 Finger Stick Blood Glucose 113 Laboratory Tests Past 24 Hrs 04/06/18 04/06/18 04/06/18 04:40 04:40 04:40 WBC 7.7 RBC 3.13 L Hgb 10.1 L Hct 31.5 L MCV 100.6 H MCH 32.3 H MCHC 32.1 RDW 13.2 RDW Differential 46.3 H Plt Count 239 MPV 10.0 Immature Gran % (Auto) 0.100 Neut % (Auto) 74.3 H Lymph % (Auto) 14.0 L [place] % (Auto) 8.3 Eos % (Auto) 3.0 Baso % (Auto) 0.3 Absolute Neuts (auto) 5.8 Absolute Lymphs (auto) 1.08 Total Counted Not Reportable D-Dimer Quant (PE/DVT) 0.61 H* Sodium 146 H Potassium 4.0 Chloride 114 H Carbon Dioxide 25.0 Anion Gap 7 BUN 35 H Creatinine 2.41 H Estim Creat Clear Calc 28.19 Est GFR (MDRD) Af Amer 34 L Est GFR (MDRD) Non-Af 28 L BUN/Creatinine Ratio 14.5 Glucose 117 H Calcium 8.6 Troponin I 0.016 B-Natriuretic Peptide 04/06/18 04:40 WBC RBC Hgb Hct MCV MCH MCHC RDW RDW Differential Plt Count MPV Immature Gran % (Auto) Neut % (Auto) Lymph % (Auto) [place] % (Auto) Eos % (Auto) Baso % (Auto) Absolute Neuts (auto) Absolute Lymphs (auto) Total Counted D-Dimer Quant (PE/DVT) Sodium Potassium Chloride Carbon Dioxide Anion Gap BUN Creatinine Estim Creat Clear Calc Est GFR (MDRD) Af Amer Est GFR (MDRD) Non-Af BUN/Creatinine Ratio Glucose Calcium Troponin I B-Natriuretic Peptide 440.1 H Assessment/Plan All Active Problems (Last Reviewed 12/19/17 @ 13:51 by Clint Santiago MD) Pleural effusion, bilateral (Acute) Hypoxemia (Acute) Pulmonary edema (Acute) Mediastinal lymphadenopathy (Acute) Mobitz (type) I (Wenckebach's) atrioventricular block (Acute) CHF exacerbation (Acute) LEO on CKD stage 3 (Acute) Chest pressure (Resolved) The patient is a 72 year old M with multiple comorbidities as listed including coronary artery disease status post CABG x3 in 2013, bioprosthetic aortic valve replacement [place] [address] santiago came to ED with progressive worsening of shortness of breath for about 1 month. Patient also gets chest tightness, localized in midsternal region on exertion and takes about 5-10 minutes to relieve after taking rest. He denies chest tightness/pressure at rest. No palpitation, near syncope or syncope. patient also complained of orthopnea. Has mild abdominal distention over 1 month probably from ascites and also bilateral lower extremity edema. In ED, chest x-ray shows pulmonary vascular congestion which led to chest CT scan which further showed bilateral pleural effusion, right more than left. It also shows extensive interstitial edema and nodular density in the lingular division of left upper lobe. Shows hilar and mediastinal lymphadenopathy EKG shows sinus bradycardia at 48 bpm with first-degree AV block and PACs in a pattern of bigeminy. Similar EKG in April 2017. Patient had echo in October 2016 reported as EF 55% with no regional wall motion abnormality. LA mildly enlarged. RA mildly enlarged. Normal RV size and systolic function. Normal mitral valve with trivial MR. Normal tricuspid valve with trivial TR. No pericardial effusion. the patient is further admitted for evaluation and management 1. Acute on chronic heart failure most probably HFpEF: Patient is being admitted in PCU. It is slowly progressive and exact precipitating factor unclear but will rule ACS. Serial cardiac enzymes. Cardiology consult. Repeat 2D echo. On Lasix 40 mg IV twice daily. Hold on beta-hari and SANIA inhibitor as patient is bradycardic and has LEO on CKD. BNP elevated. Chest x-ray and CT chest suggestive of heart failure. 2. Bilateral pleural effusion, right more than left with hilar and mediastinal adenopathy: Ultrasound-guided thoracocentesis ordered. PT/PTT ordered. Thoracocentesis panel ordered. Pulmonary consult for further opinion and recommendation. Chest x-ray and CT chest reviewed. 3. Probably unstable angina: Patient is on baby aspirin, nitro sublingual as needed. Rest as mentioned above. 4. LEO on CKD stage III: Admitting BUN/creatinine is 35/2.4. Baseline harbors around 1.5. Monitor intake and output. Monitor electrolytes and kidney function. If needed will consult transition nurse. 5. Other cardiac history: Arrhythmia, sinus bradycardia, Wenckebach Mobitz type I type I AV block coronary artery disease status post CABG and bioprosthetic aortic valve: 6. Diabetes mellitus type 2: On Accu-Cheks before meals and at bedtime and cover with NovoLog sliding scale. Continue home dose of NovoLog insulin. 7. Other comorbidities include dyslipidemia, BPH, hypertension and DVT joint disease: Home medication reconciliation done. DVT prophylaxis: On heparin 500 seconds twice daily. Hold the patient is going for thoracocentesis now Total time spent: 60 minutes in history, review of labs, imaging, previous record, and explanation of plan of management to the patient in the room. This note was generated with [employer] dictation software. Every effort was made to ensure accuracy, however computerized radio mechanic apprentice mistakes may persist. Code Visit Inpatient E&M: 97231 Init Hosp L3
--- NOTE | 2018-04-06 08:56 | CON.PCM_ITS ---
Reason for Consult Date of Consultation: 04/06/18 Reason for Consultation: Bilateral pleural effusions/mediastinal lymphadenopathy History of Present Illness: The patient is a 72-year-old male, with a history as outlined below, who presented to the emergency department on April 06 with complaints of shortness of breath. It appears that the patient follows with Dr. Rosas on an outpatient basis due to a history of coronary artery disease for which he is status post CABG x3, aortic valve replacement and paroxysmal atrial fibrillation. The patient's last surface echocardiogram revealed normal LV size and function with an ejection fraction of 55%. The patient denies a current or remote smoking history. On presentation to the emergency department, the patient was noted to be afebrile hemodynamically stable. He was hypoxic, requiring 3 L/min of supplemental oxygen to maintain appropriate saturations. Laboratory evaluation revealed no evidence of a leukocytosis. Chemistry profile revealed evidence of acute on chronic kidney disease with a creatinine of 2.41. D-dimer was elevated to 0.61. Troponin was negative. BNP was elevated to 440. CT chest was obtained. That imaging study revealed cardiomegaly and interstitial edema, along with mediastinal and hilar lymphadenopathy and bilateral pleural effusions. Prior chest CT from February 2017 did not reveal the adenopathy noted on this study. The patient was subsequently started on diuretics and admitted to the progressive care unit for ongoing management. Past Medical History Past Medical History (Chronic Problems): Chronic Problems (Last Reviewed 12/19/17 @ 13:51 by Clint Rosas MD) CRF (chronic renal failure) (Chronic) Paroxysmal atrial fibrillation (Chronic) H/O aortic valve replacement (Chronic 11/29/12) 25 mm Felix-Wilcox Perimount Magna Valve ([facility]: 11/29/2012) Atherosclerosis of coronary artery of [place] heart without angina pectoris (Chronic) CABG x 3 PATEL to LAD, SVG-Ramus, SVG-PLB of RCA 11/29/2012 H/O coronary artery bypass surgery (Chronic 11/29/12) CABG x 3 PATEL to LAD, SVG-Ramus, SVG-PLB of RCA 11/29/2012 HTN (hypertension) (Chronic) HLD (hyperlipidemia) (Chronic) Medical History: Medical History (Last Reviewed 12/19/17 @ 13:51 by Clint Rosas MD) Paroxysmal atrial fibrillation (Chronic) I48.0 Atherosclerosis of coronary artery of [place] heart without angina pectoris (Ch ronic) I25.10 CABG x 3 PATEL to LAD, SVG-Ramus, SVG-PLB of RCA 11/29/2012 HTN (hypertension) (Chronic) I10 HLD (hyperlipidemia) (Chronic) E78.5 BPH (benign prostatic hyperplasia) N40.0 DVT (deep venous thrombosis) I82.409 GERD (gastroesophageal reflux disease) K21.9 Obstructive sleep apnea G47.33 Type 2 diabetes mellitus without complications E11.9 Allergies No Known Allergies Allergy (Verified 04/06/18 01:55) Home Medications: Ambulatory Orders Medication Instructions Recorded Amlodipine Besylate 10 mg PO DAILY 07/02/13 Atorvastatin Calcium [Lipitor] 20 mg PO QHS 07/02/13 Insulin Aspart [Novolog] 10 units SC TID 07/02/13 Aspirin [Aspirin, Baby] 81 mg PO DAILY@0800 02/09/15 Doxazosin Mesylate 4 mg PO DAILY 02/09/15 Insulin Glargine,Hum.rec.anlog 30 unit SQ BID 02/09/15 [Lantus] Losartan Potassium [Cozaar] 100 mg PO DAILY 12/09/15 Methyl-B12/l-Mefolate/B6 Phos 2 - 3 ea PO DAILY 12/09/15 [Foltanx Tablet] Temazepam [Restoril] 15 - 30 mg PO QHS PRN PRN 07/19/16 Metoprolol Tartrate [Lopressor 50 mg PO BID #60 tab 10/24/16 (beta hari)] amiodarone 200 mg tablet 100 mg PO DAILY tab 12/19/17 Surgical History: Surgical History (Last Reviewed 12/19/17 @ 13:51 by Clint Rosas MD) H/O aortic valve replacement (Chronic) Onset Date: 11/29/12 Z95.2 25 mm Felix-Wilcox Perimount Magna Valve ([facility]: 11/29/2012) H/O coronary artery bypass surgery (Chronic) Onset Date: 11/29/12 Z95.1 CABG x 3 PATEL to LAD, SVG-Ramus, SVG-PLB of RCA 11/29/2012 History of left heart catheterization Onset Date: 12/09/15 Z98.890 History of transurethral resection of prostate Z98.890, Z90.79 Hx of cholecystectomy Z90.49 Surgical History: cholecystectomy, coronary bypass surgery, TURP, - Lives: Spouse/ Significant Other Smoking Status: Never smoker - *Family History Maternal Family History: Family History (Last Reviewed 12/19/17 @ 13:51 by Clint Rosas MD) Father CAD (coronary artery disease) Brother CAD (coronary artery disease) History Items: No pertinent history Paternal Family History: Family History (Last Reviewed 12/19/17 @ 13:51 by Clint Rosas MD) Father CAD (coronary artery disease) Brother CAD (coronary artery disease) History Items: Heart Disease Sibling Family History: Family History (Last Reviewed 12/19/17 @ 13:51 by Clint Rosas MD) Father CAD (coronary artery disease) Brother CAD (coronary artery disease) History Items: Heart Disease Review of Systems Constitutional: Denies: Chills, Fever, Fatigue Eyes: Denies: Blurred vision, Double vision HEENT: Denies: Head Aches, Sinus Congestion, Sinus Drainage Cardiovascular: Denies: Chest Pain, Palpitations Respiratory: Reports: Shortness of Breath. Denies: Cough Gastrointestinal: Denies: Abdominal Pain, Nausea, Vomiting Genitourinary: Denies: Dysuria Musculoskeletal: Denies: Joint Pain, Joint Tenderness Skin: Denies: Rash, Wounds Neurological: Denies: Numbness, Tingling, Focal weakness Psychiatric: Denies: Anxiety, Depression, Homicidal Ideations, Suicidal Ideations Hematologic/ Lymphatic: Denies: Easy Bruising, Easy Bleeding Patient Problems: Active and Suspected Problems (Last Reviewed 12/19/17 @ 13:51 by Clint Rosas MD) Pleural effusion, bilateral (Acute) Hypoxemia (Acute) Pulmonary edema (Acute) Mediastinal lymphadenopathy (Acute) Mobitz (type) I (Wenckebach's) atrioventricular block (Acute) CHF exacerbation (Acute) LEO on CKD stage 3 (Acute) Objective: The patient's most recent lab work, culture data and imaging studies have all been personally reviewed. - Physical Exam General: Alert, Oriented x3, Cooperative, No apparent distress, - - is present at the bedside. HEENT: Atraumatic, PERRLA, Normocephalic Oral: No Gingival or Mucosal Lesions/ Ulcerations Neck: Supple, No Nodes, Trachea Midline Lungs: No rhonchi, No wheeze, No rales, Diminished Cardiovascular: Normal S1, Normal S2, Bradycardic, Murmur - Click Abdomen: Bowel Sounds Present, Soft, Non Tender, Obese Extremities: No clubbing, No cyanosis, Edema Skin: No breakdown Musculoskeletal: No Tenderness to Palpation of Joints or Extremities, No Muscle Wasting Lymphatic: No Cervical, Supraclavicular, or Inguinal Adenopathy Neurological: Cranial nerves II-XII grossly intact, Neuro grossly intact Psych/Mental Status: Alert and oriented to time, place, person, mood and affect Vital Signs Temp Pulse Resp BP Pulse Ox 98.0 F 57 L 16 142/41 H 93 04/06/18 08:31 04/06/18 08:31 04/06/18 08:31 04/06/18 08:31 04/06/18 08:31 Oxygen Flow Rate (L/min) 2 Oxygen Delivery Method Nasal Cannula Weight: 214 lb 11.684 oz Body Mass Index (BMI) 30.8 Finger Stick Blood Glucose 113 Laboratory Tests Past 24 Hrs 04/06/18 04/06/18 04/06/18 04:40 04:40 04:40 WBC 7.7 RBC 3.13 L Hgb 10.1 L Hct 31.5 L MCV 100.6 H MCH 32.3 H MCHC 32.1 RDW 13.2 RDW Differential 46.3 H Plt Count 239 MPV 10.0 Immature Gran % (Auto) 0.100 Neut % (Auto) 74.3 H Lymph % (Auto) 14.0 L Mer[place] % (Auto) 8.3 Eos % (Auto) 3.0 Baso % (Auto) 0.3 Absolute Neuts (auto) 5.8 Absolute Lymphs (auto) 1.08 Total Counted Not Reportable D-Dimer Quant (PE/DVT) 0.61 H* Sodium 146 H Potassium 4.0 Chloride 114 H Carbon Dioxide 25.0 Anion Gap 7 BUN 35 H Creatinine 2.41 H Estim Creat Clear Calc 28.19 Est GFR (MDRD) Af Amer 34 L Est GFR (MDRD) Non-Af 28 L BUN/Creatinine Ratio 14.5 Glucose 117 H Calcium 8.6 Troponin I 0.016 B-Natriuretic Peptide 04/06/18 04:40 WBC RBC Hgb Hct MCV MCH MCHC RDW RDW Differential Plt Count MPV Immature Gran % (Auto) Neut % (Auto) Lymph % (Auto) Merrick % (Auto) Eos % (Auto) Baso % (Auto) Absolute Neuts (auto) Absolute Lymphs (auto) Total Counted D-Dimer Quant (PE/DVT) Sodium Potassium Chloride Carbon Dioxide Anion Gap BUN Creatinine Estim Creat Clear Calc Est GFR (MDRD) Af Amer Est GFR (MDRD) Non-Af BUN/Creatinine Ratio Glucose Calcium Troponin I B-Natriuretic Peptide 440.1 H Clinical Impression(s) from Imaging Studies Chest X-Ray 04/06/18 03:35 IMPRESSION: Cardiomegaly with central vascular congestive changes and a small left-sided pleural effusion. Multiple nodular densities in the right lower lobe. Metastatic disease suspected Electronically Signed: Tez Hurst MD at 4:14 EDT Tel , Service support , Chest CT 04/06/18 05:47 IMPRESSION: Cardiomegaly with central vascular congestive changes and interstitial edema. Bilateral pleural effusions; more on the right than the left Extensive mediastinal adenopathy. Lymphoproliferative disorder suspected. No indication of any metastatic lung disease. A calcified granuloma in the right middle lobe and a 1.1 cm nodular density in the lingula division of the left upper lobe Electronically Signed: Tez Hurst MD at 7:02 EDT Tel , Service support , Assessment/Plan All Active Problems (Last Reviewed 12/19/17 @ 13:51 by Clint Rosas MD) Pleural effusion, bilateral (Acute) Hypoxemia (Acute) Pulmonary edema (Acute) Mediastinal lymphadenopathy (Acute) Mobitz (type) I (Wenckebach's) atrioventricular block (Acute) CHF exacerbation (Acute) LEO on CKD stage 3 (Acute) Chest pressure (Resolved) RECOMMENDATIONS: 1. Agree with IV diuretics. 2. Obtain ultrasound guided thoracentesis. 3. Send pleural fluid for LDH, total protein, cell count, cultures and cytology. 4. In addition to the above, given the patient's adenopathy noted on CT chest, send pleural fluid for flow cytometry. 5. Wean supplemental oxygen as tolerated. 6. Encourage incentive spirometer use and mobilize patient as tolerated. IMPRESSIONS: 1. Acute hypoxic respiratory insufficiency in the setting of bilateral pleural effusions Initial concern for decompensated heart failure with preserved ejection fraction. Cardiology is following. Agree with volume optimization with IV diuretics. An order has been placed for an ultrasound-guided thoracentesis. Please send pleural fluid studies, including LDH, total protein, cell count, cultures and cytology. In addition, given the patient's mediastinal adenopathy noted on CT chest, recommend adding flow cytometry as well. Wean supplemental oxygen to maintain saturations at or above 90%. Encourage incentive spirometer use. Mobilize patient as tolerated. Additional recommendations will be forthcoming, pending the results of his pleural fluid analysis. 2. Mediastinal and hilar lymphadenopathy Unclear etiology, although it does not appear that this degree of adenopathy was present on his prior chest CT. Considerations include infectious, inflammatory and malignant etiologies. Will await pleural fluid analysis. If additional workup is to be undertaken, this would need to be accomplished on an outpatient basis. This can be discussed and coordinated further pending the outcome of his current hospital course. 3. Acute on chronic kidney disease Agree with diuretics. Continue to monitor urine output. No indication for renal replacement therapy at this time. 4. Obesity/diabetes/hyperlipidemia/hypertension Complicates care, management, recovery and prognosis. Likely okay to continue home medications at this time. This note was generated with boo-box dictation software. It may contain incorrect words, spelling, and punctuation that were not noted in checking the note before signing. Code Visit Inpatient E&M: 32427 Init Hosp L3
[2018-04-06 09:02] LABS: International Normalized Ratio 1.2; Prothrombin Time (Protime)PT. 14.7 SECONDS (11.7-14.9)
[2018-04-06 09:03] LABS: Partial Thromboplast Time 33.7 Seconds (24.1-36.2)
[2018-04-06 09:15] LABS: AST(SGOT) 17 U/L (15-37); Alanine Aminotransfer ALT/SGPT 23 U/L (16-61); Albumin, Serum 3.2 g/dL (3.2-5.0); Alkaline Phosphatase 91 U/L (45-117); Bilirubin, Direct 0.17 mg/dL (0.00-0.30); Globulin 3.6 g/dL (2.2-4.2); LDH 201 U/L (87-241); Protein, Total 6.8 g/dL (6.4-8.2)
[2018-04-06 09:54] LABS: BNP,B-Type NATRIURETIC PEPTIDE 420.3 pg/mL (0-100)
--- NOTE | 2018-04-06 10:06 | EKG12_ITS ---
Test Reason : CP ADMISSION Blood Pressure : / mmHG Vent. Rate : 052 BPM Atrial Rate : 052 BPM P-R Int : 272 ms QRS Dur : 100 ms QT Int : 474 ms P-R-T Axes : 021 043 123 degrees QTc Int : 440 ms Sinus bradycardia with marked sinus arrhythmia with 1st degree A-V block ST & T wave abnormality, consider lateral ischemia Abnormal ECG When compared with ECG of 06-APR-2018 02:05, MANUAL COMPARISON REQUIRED, DATA IS UNCONFIRMED Confirmed by SHERITA COUGHLIN ([id number]), multimedia editor SUSY ANGELO ([id number]) on 04/10/2018 12:50:17 PM Referred By: KIRA AYOUB Confirmed By:SHERITA COUGHLIN
[2018-04-06] MEDS: Doxazosin 4 MG Tablet PO (10:34)
[2018-04-06] MEDS: Amiodarone 200 MG Tablet 100 MG PO (10:34)
[2018-04-06] MEDS: Furosemide 40 MG/4 ML Vial IV ×2 (10:35→17:00)
[2018-04-06] MEDS: Metoprolol Tartrate 25 MG Tablet 12.5 MG PO (10:35)
[2018-04-06] MEDS: amLODIPine 10 MG Tablet PO (10:35)
[2018-04-06] MEDS: Polyethylene Glycol 3350 17 GM PACKET PO (10:35)
[2018-04-06 11:01] LABS: Bedside Glucose 98 mg/dL (70-110)
--- NOTE | 2018-04-06 11:59 | CASEMGMT ---
LISETTE STEVENS INITIAL ASSESSMENT D/C PLAN: Home Face to Face with patient for initial transition planning/care coordination assessment. LISETTE STEVENS introduced self and role at [facility]. Care providers, pharmacy, and demographics verified. PCP: Dr Barrientos Specialists: Dr Harvey, Dr Rosas Preferred Pharmacy: [facility] Insurance: [employer], [facility] Prescription Benefit: [employer] Living Will/HPOA: Pt has both LW and HPOA who is his , Angelito. may be able to have someone bring in. LNOK: , Angelito Living Arrangements: Lives at home with his , Angelito. Lives in a one-story home with 1 step to enter. Transportation: Pt and . DME: Denies using any DME and denies needs. HHC/SNF: States has never used HHC or been to a SNF. Denies needs. Pt's plans on D/C: Wishes to return home. Pt denies any needs or concerns on discharge. States does not smoke or drink alcohol. CM to follow for any further discharge planning needs that may arise. Ceasar TIERNEY RN, CM
--- NOTE | 2018-04-06 12:37 | PCM.CONS.R ---
Problem List (1) CRF (chronic renal failure) Status: Chronic (2) CHF exacerbation Status: Acute (3) LEO on CKD stage 3 Status: Acute Consultation - Renal 04/06/18 PCP/ Referring MD: Requesting physician: Dr Solis Primary care physician: Richa Barrientos Reason for Consultation:: LEO - History of Present Illness History of Present Illness: The patient is a 72 year old M known to us from office. he has known history of CKD stage 3 with baseline creatinine around 1.4. recently creatinine increased from 1.4 to 2.1 within last 3 months. Renal USG last year was ok. ordered serology and other work up and was supposed to see me next week in office. now admitted to hospital with progressively worsening abdominal distention and dyspnea. CT chest showed effusions, lymphadenopathy. going for pleural tap today - Allergies Allergies: Allergies No Known Allergies Allergy (Verified 04/06/18 01:55) - Current Medications Current Medications: Current Medications Acetaminophen (Tylenol) 650 mg PO Q6H PRN PRN PRN Reason: Mild Pain (scale 0-3)/T>100.7 Al Hydroxide/Mg Hydroxide (Mylanta Ii) 30 ml PO Q6H PRN PRN PRN Reason: Gastric Burning Amiodarone HCl (Cordarone) 100 mg PO DAILY [facility] Last Admin: 04/06/18 10:34 Dose: 100 mg Amlodipine Besylate (Norvasc) 10 mg PO DAILY [facility] Last Admin: 04/06/18 10:35 Dose: 10 mg Aspirin (Aspirin, Baby) 81 mg PO DAILY@0800 [facility] Atorvastatin Calcium (Lipitor) 20 mg PO QHS [facility] Bisacodyl (Dulcolax) 10 mg RECTAL DAILY PRN PRN PRN Reason: Constipation Dextrose (D50w Syringe) 0 gm IV X1 PRN; Protocol PRN Reason: Hypoglycemia Docusate Sodium (Colace) 200 mg PO BID PRN PRN PRN Reason: Constipation Doxazosin Mesylate (Cardura) 4 mg PO DAILY [facility] Last Admin: 04/06/18 10:34 Dose: 4 mg Furosemide (Lasix) 40 mg IV BIDLX [facility] Last Admin: 04/06/18 10:35 Dose: 40 mg Glucagon () 1 mg IM .X1 PRN PRN Reason: Hypoglycemia Heparin Sodium (Porcine) (Heparin Na) 5,000 unit SC BID [facility] Last Admin: 04/06/18 10:50 Dose: Not Given Insulin Glargine (Lantus (Bkc)) 30 units SC 0800,2200 [facility] Insulin Human Lispro (Humalog Kwikpen (Bkc)) 10 unit SC 0800,1200,1700 [facility] Last Admin: 04/06/18 10:50 Dose: Not Given Insulin Human Lispro (Humalog Kwikpen (Bkc)) 0 unit SQ ACHS [facility]; Protocol Last Admin: 04/06/18 10:50 Dose: Not Given Metoprolol Tartrate (Lopressor (Beta Renee)) 12.5 mg PO BID [facility] Last Admin: 04/06/18 10:35 Dose: 12.5 mg Ondansetron HCl (Zofran) 4 mg IV Q8H PRN PRN PRN Reason: Nausea Oxycodone HCl (Oxyir) 5 mg PO Q4H PRN PRN PRN Reason: Moderate Pain (pain scale 4-5) Polyethylene Glycol (Miralax) 17 gm PO DAILY [facility] Last Admin: 04/06/18 10:35 Dose: 17 gm Temazepam (Restoril) 15 mg PO QHS PRN PRN PRN Reason: SLEEP - Past Medical History Past Medical History (Chronic Problems): Chronic Problems (Last Reviewed 12/19/17 @ 13:51 by Clint Rosas MD) CRF (chronic renal failure) (Chronic) Paroxysmal atrial fibrillation (Chronic) H/O aortic valve replacement (Chronic 11/29/12) 25 mm Felix-Wilcox Perimount Magna Valve ([facility]: 11/29/2012) Atherosclerosis of coronary artery of [place] heart without angina pectoris (Chronic) CABG x 3 PATEL to LAD, SVG-Ramus, SVG-PLB of RCA 11/29/2012 H/O coronary artery bypass surgery (Chronic 11/29/12) CABG x 3 PATEL to LAD, SVG-Ramus, SVG-PLB of RCA 11/29/2012 HTN (hypertension) (Chronic) HLD (hyperlipidemia) (Chronic) - Past Surgical History Surgical History: cholecystectomy, coronary bypass surgery, TURP, - - Social History Smoking Status: Never smoker - Family History Maternal Family History: Family History (Last Reviewed 12/19/17 @ 13:51 by Clint Rosas MD) Father CAD (coronary artery disease) Brother CAD (coronary artery disease) History Items: No pertinent history Paternal Family History: Family History (Last Reviewed 12/19/17 @ 13:51 by Clint Rosas MD) Father CAD (coronary artery disease) Brother CAD (coronary artery disease) History Items: Heart Disease Sibling Family History: Family History (Last Reviewed 12/19/17 @ 13:51 by Clint Rosas MD) Father CAD (coronary artery disease) Brother CAD (coronary artery disease) History Items: Heart Disease Review of Systems Comment: ROS negative except above Patient Problems: Active and Suspected Problems (Last Reviewed 12/19/17 @ 13:51 by Clint Rosas MD) Pleural effusion, bilateral (Acute) Hypoxemia (Acute) Pulmonary edema (Acute) Mediastinal lymphadenopathy (Acute) Mobitz (type) I (Wenckebach's) atrioventricular block (Acute) CHF exacerbation (Acute) LEO on CKD stage 3 (Acute) - Physical Exam General: Alert, Oriented x3, Cooperative HEENT: Atraumatic, PERRLA, EOMI, Normocephalic Neck: Supple, No JVD, Negative Carotid Bruits Lungs: Clear to auscultation, Normal air movement Cardiovascular: Regular rate, No murmurs Abdomen: Bowel Sounds Present, Soft, Non Tender Extremities: No edema, Capillary Refill Less than 3 Seconds Skin: No rashes, No breakdown Musculoskeletal: No Tenderness to Palpation of Joints or Extremities Neurological: Cranial nerves II-XII grossly intact Psych/Mental Status: Normal Affect, Appropriate Vital Signs Temp Pulse Resp BP Pulse Ox 98.0 F 66 16 142/41 H 93 04/06/18 08:31 04/06/18 10:58 04/06/18 08:31 04/06/18 08:31 04/06/18 08:31 Oxygen Flow Rate (L/min) 2 Oxygen Delivery Method Nasal Cannula Weight: 97.4 kg Body Mass Index (BMI) 30.8 Finger Stick Blood Glucose 113 Intake and Output for Last 24 Hours 04/04/18 04/05/18 04/06/18 23:59 23:59 23:59 Intake Total 360 / 360 Output Total 600 / 600 Balance -240 / -240 Laboratory Tests Past 24 Hrs 04/06/18 04/06/18 04/06/18 04:40 04:40 04:40 WBC 7.7 RBC 3.13 L Hgb 10.1 L Hct 31.5 L MCV 100.6 H MCH 32.3 H MCHC 32.1 RDW 13.2 RDW Differential 46.3 H Plt Count 239 MPV 10.0 Immature Gran % (Auto) 0.100 Neut % (Auto) 74.3 H Lymph % (Auto) 14.0 L [place] % (Auto) 8.3 Eos % (Auto) 3.0 Baso % (Auto) 0.3 Absolute Neuts (auto) 5.8 Absolute Lymphs (auto) 1.08 Total Counted Not Reportable PT INR APTT D-Dimer Quant (PE/DVT) 0.61 H* Sodium 146 H Potassium 4.0 Chloride 114 H Carbon Dioxide 25.0 Anion Gap 7 BUN 35 H Creatinine 2.41 H Estim Creat Clear Calc 28.19 Est GFR (MDRD) Af Amer 34 L Est GFR (MDRD) Non-Af 28 L BUN/Creatinine Ratio 14.5 Glucose 117 H Calcium 8.6 Total Bilirubin Direct Bilirubin AST ALT Alkaline Phosphatase Lactate Dehydrogenase Troponin I 0.016 B-Natriuretic Peptide Total Protein Albumin Globulin 04/06/18 04/06/18 04/06/18 04:40 04:40 04:40 WBC RBC Hgb Hct MCV MCH MCHC RDW RDW Differential Plt Count MPV Immature Gran % (Auto) Neut % (Auto) Lymph % (Auto) [place] % (Auto) Eos % (Auto) Baso % (Auto) Absolute Neuts (auto) Absolute Lymphs (auto) Total Counted PT 14.7 INR 1.2 APTT 33.7 D-Dimer Quant (PE/DVT) Sodium Potassium Chloride Carbon Dioxide Anion Gap BUN Creatinine Estim Creat Clear Calc Est GFR (MDRD) Af Amer Est GFR (MDRD) Non-Af BUN/Creatinine Ratio Glucose Calcium Total Bilirubin 0.60 Direct Bilirubin 0.17 AST 17 ALT 23 Alkaline Phosphatase 91 Lactate Dehydrogenase Troponin I B-Natriuretic Peptide 440.1 H Total Protein 6.8 Albumin 3.2 Globulin 3.6 04/06/18 04/06/18 04/06/18 04:40 08:58 09:23 WBC RBC Hgb Hct MCV MCH MCHC RDW RDW Differential Plt Count MPV Immature Gran % (Auto) Neut % (Auto) Lymph % (Auto) [place] % (Auto) Eos % (Auto) Baso % (Auto) Absolute Neuts (auto) Absolute Lymphs (auto) Total Counted PT INR APTT D-Dimer Quant (PE/DVT) Sodium Potassium Chloride Carbon Dioxide Anion Gap BUN Creatinine Estim Creat Clear Calc Est GFR (MDRD) Af Amer Est GFR (MDRD) Non-Af BUN/Creatinine Ratio Glucose Calcium Total Bilirubin Direct Bilirubin AST ALT Alkaline Phosphatase Lactate Dehydrogenase 201 Troponin I < 0.015 B-Natriuretic Peptide 420.3 H Total Protein Albumin Globulin 04/06/18 12:05 WBC RBC Hgb Hct MCV MCH MCHC RDW RDW Differential Plt Count MPV Immature Gran % (Auto) Neut % (Auto) Lymph % (Auto) [place] % (Auto) Eos % (Auto) Baso % (Auto) Absolute Neuts (auto) Absolute Lymphs (auto) Total Counted PT INR APTT D-Dimer Quant (PE/DVT) Sodium Potassium Chloride Carbon Dioxide Anion Gap BUN Creatinine Estim Creat Clear Calc Est GFR (MDRD) Af Amer Est GFR (MDRD) Non-Af BUN/Creatinine Ratio Glucose Calcium Total Bilirubin Direct Bilirubin AST ALT Alkaline Phosphatase Lactate Dehydrogenase Troponin I Pending B-Natriuretic Peptide Total Protein Albumin Globulin POC Glucose 04/06/18 10:33 POC Glucose 98 Assessment/Plan All Active Problems (Last Reviewed 12/19/17 @ 13:51 by Clint Rosas MD) Pleural effusion, bilateral (Acute) Hypoxemia (Acute) Pulmonary edema (Acute) Mediastinal lymphadenopathy (Acute) Mobitz (type) I (Wenckebach's) atrioventricular block (Acute) CHF exacerbation (Acute) LEO on CKD stage 3 (Acute) Chest pressure (Resolved) LEO CKD stage 3 CKD stage 3 was likely related to diabetes and HTN. last baseline from November was 1.6 creatinine is at 2.1 in february and now at 2.4 CT chest shows effusions, diffuse interstitial edema, lymphadenopathy ? infiltrative process will check ACEI, SPEP, complements and ANCA UA in office was benign. will repeat UA now will check USG abdomen to see if he has any ascitis and to r/o obstruction CHF. continue lasix IV
--- NOTE | 2018-04-06 12:42 | CON.PCM_ITS ---
Problem List (1) CRF (chronic renal failure) Status: Chronic (2) CHF exacerbation Status: Acute (3) LEO on CKD stage 3 Status: Acute Consultation - Renal 04/06/18 PCP/ Referring MD: Requesting physician: Dr Solis Primary care physician: Richa Barrientos Reason for Consultation:: LEO - History of Present Illness History of Present Illness: The patient is a 72 year old M known to us from office. he has known history of CKD stage 3 with baseline creatinine around 1.4. recently creatinine increased from 1.4 to 2.1 within last 3 months. Renal USG last year was ok. ordered serology and other work up and was supposed to see me next week in office. now admitted to hospital with progressively worsening abdominal distention and dyspnea. CT chest showed effusions, lymphadenopathy. going for pleural tap today - Allergies Allergies: Allergies No Known Allergies Allergy (Verified 04/06/18 01:55) - Current Medications Current Medications: Current Medications Acetaminophen (Tylenol) 650 mg PO Q6H PRN PRN PRN Reason: Mild Pain (scale 0-3)/T>100.7 Al Hydroxide/Mg Hydroxide (Mylanta Ii) 30 ml PO Q6H PRN PRN PRN Reason: Gastric Burning Amiodarone HCl (Cordarone) 100 mg PO DAILY [facility] Last Admin: 04/06/18 10:34 Dose: 100 mg Amlodipine Besylate (Norvasc) 10 mg PO DAILY [facility] Last Admin: 04/06/18 10:35 Dose: 10 mg Aspirin (Aspirin, Baby) 81 mg PO DAILY@0800 [facility] Atorvastatin Calcium (Lipitor) 20 mg PO QHS [facility] Bisacodyl (Dulcolax) 10 mg RECTAL DAILY PRN PRN PRN Reason: Constipation Dextrose (D50w Syringe) 0 gm IV X1 PRN; Protocol PRN Reason: Hypoglycemia Docusate Sodium (Colace) 200 mg PO BID PRN PRN PRN Reason: Constipation Doxazosin Mesylate (Cardura) 4 mg PO DAILY [facility] Last Admin: 04/06/18 10:34 Dose: 4 mg Furosemide (Lasix) 40 mg IV BIDLX [facility] Last Admin: 04/06/18 10:35 Dose: 40 mg Glucagon () 1 mg IM .X1 PRN PRN Reason: Hypoglycemia Heparin Sodium (Porcine) (Heparin Na) 5,000 unit SC BID [facility] Last Admin: 04/06/18 10:50 Dose: Not Given Insulin Glargine (Lantus (Bkc)) 30 units SC 0800,2200 EF[facility] Insulin Human Lispro (Humalog Kwikpen (Bkc)) 10 unit SC 0800,1200,1700 [facility]N Last Admin: 04/06/18 10:50 Dose: Not Given Insulin Human Lispro (Humalog Kwikpen (Bkc)) 0 unit SQ ACHS [facility]RAÍN; Protocol Last Admin: 04/06/18 10:50 Dose: Not Given Metoprolol Tartrate (Lopressor (Beta Renee)) 12.5 mg PO BID [facility] Last Admin: 04/06/18 10:35 Dose: 12.5 mg Ondansetron HCl (Zofran) 4 mg IV Q8H PRN PRN PRN Reason: Nausea Oxycodone HCl (Oxyir) 5 mg PO Q4H PRN PRN PRN Reason: Moderate Pain (pain scale 4-5) Polyethylene Glycol (Miralax) 17 gm PO DAILY [facility] Last Admin: 04/06/18 10:35 Dose: 17 gm Temazepam (Restoril) 15 mg PO QHS PRN PRN PRN Reason: SLEEP - Past Medical History Past Medical History (Chronic Problems): Chronic Problems (Last Reviewed 12/19/17 @ 13:51 by Clint Rosas MD) CRF (chronic renal failure) (Chronic) Paroxysmal atrial fibrillation (Chronic) H/O aortic valve replacement (Chronic 11/29/12) 25 mm Felix-Wilcox Perimount Magna Valve ([facility]: 11/29/2012) Atherosclerosis of coronary artery of [place] heart without angina pectoris (Chronic) CABG x 3 PATEL to LAD, SVG-Ramus, SVG-PLB of RCA 11/29/2012 H/O coronary artery bypass surgery (Chronic 11/29/12) CABG x 3 PATEL to LAD, SVG-Ramus, SVG-PLB of RCA 11/29/2012 HTN (hypertension) (Chronic) HLD (hyperlipidemia) (Chronic) - Past Surgical History Surgical History: cholecystectomy, coronary bypass surgery, TURP, - - Social History Smoking Status: Never smoker - Family History Maternal Family History: Family History (Last Reviewed 12/19/17 @ 13:51 by Clint Rosas MD) Father CAD (coronary artery disease) Brother CAD (coronary artery disease) History Items: No pertinent history Paternal Family History: Family History (Last Reviewed 12/19/17 @ 13:51 by Clint Rosas MD) Father CAD (coronary artery disease) Brother CAD (coronary artery disease) History Items: Heart Disease Sibling Family History: Family History (Last Reviewed 12/19/17 @ 13:51 by Clint Rosas MD) Father CAD (coronary artery disease) Brother CAD (coronary artery disease) History Items: Heart Disease Review of Systems Comment: ROS negative except above Patient Problems: Active and Suspected Problems (Last Reviewed 12/19/17 @ 13:51 by Clint Rosas MD) Pleural effusion, bilateral (Acute) Hypoxemia (Acute) Pulmonary edema (Acute) Mediastinal lymphadenopathy (Acute) Mobitz (type) I (Wenckebach's) atrioventricular block (Acute) CHF exacerbation (Acute) LEO on CKD stage 3 (Acute) - Physical Exam General: Alert, Oriented x3, Cooperative HEENT: Atraumatic, PERRLA, EOMI, Normocephalic Neck: Supple, No JVD, Negative Carotid Bruits Lungs: Clear to auscultation, Normal air movement Cardiovascular: Regular rate, No murmurs Abdomen: Bowel Sounds Present, Soft, Non Tender Extremities: No edema, Capillary Refill Less than 3 Seconds Skin: No rashes, No breakdown Musculoskeletal: No Tenderness to Palpation of Joints or Extremities Neurological: Cranial nerves II-XII grossly intact Psych/Mental Status: Normal Affect, Appropriate Vital Signs Temp Pulse Resp BP Pulse Ox 98.0 F 66 16 142/41 H 93 04/06/18 08:31 04/06/18 10:58 04/06/18 08:31 04/06/18 08:31 04/06/18 08:31 Oxygen Flow Rate (L/min) 2 Oxygen Delivery Method Nasal Cannula Weight: 97.4 kg Body Mass Index (BMI) 30.8 Finger Stick Blood Glucose 113 Intake and Output for Last 24 Hours 04/04/18 04/05/18 04/06/18 23:59 23:59 23:59 Intake Total 360 / 360 Output Total 600 / 600 Balance -240 / -240 Laboratory Tests Past 24 Hrs 04/06/18 04/06/18 04/06/18 04:40 04:40 04:40 WBC 7.7 RBC 3.13 L Hgb 10.1 L Hct 31.5 L MCV 100.6 H MCH 32.3 H MCHC 32.1 RDW 13.2 RDW Differential 46.3 H Plt Count 239 MPV 10.0 Immature Gran % (Auto) 0.100 Neut % (Auto) 74.3 H Lymph % (Auto) 14.0 L [place] % (Auto) 8.3 Eos % (Auto) 3.0 Baso % (Auto) 0.3 Absolute Neuts (auto) 5.8 Absolute Lymphs (auto) 1.08 Total Counted Not Reportable PT INR APTT D-Dimer Quant (PE/DVT) 0.61 H* Sodium 146 H Potassium 4.0 Chloride 114 H Carbon Dioxide 25.0 Anion Gap 7 BUN 35 H Creatinine 2.41 H Estim Creat Clear Calc 28.19 Est GFR (MDRD) Af Amer 34 L Est GFR (MDRD) Non-Af 28 L BUN/Creatinine Ratio 14.5 Glucose 117 H Calcium 8.6 Total Bilirubin Direct Bilirubin AST ALT Alkaline Phosphatase Lactate Dehydrogenase Troponin I 0.016 B-Natriuretic Peptide Total Protein Albumin Globulin 04/06/18 04/06/18 04/06/18 04:40 04:40 04:40 WBC RBC Hgb Hct MCV MCH MCHC RDW RDW Differential Plt Count MPV Immature Gran % (Auto) Neut % (Auto) Lymph % (Auto) [place] % (Auto) Eos % (Auto) Baso % (Auto) Absolute Neuts (auto) Absolute Lymphs (auto) Total Counted PT 14.7 INR 1.2 APTT 33.7 D-Dimer Quant (PE/DVT) Sodium Potassium Chloride Carbon Dioxide Anion Gap BUN Creatinine Estim Creat Clear Calc Est GFR (MDRD) Af Amer Est GFR (MDRD) Non-Af BUN/Creatinine Ratio Glucose Calcium Total Bilirubin 0.60 Direct Bilirubin 0.17 AST 17 ALT 23 Alkaline Phosphatase 91 Lactate Dehydrogenase Troponin I B-Natriuretic Peptide 440.1 H Total Protein 6.8 Albumin 3.2 Globulin 3.6 04/06/18 04/06/18 04/06/18 04:40 08:58 09:23 WBC RBC Hgb Hct MCV MCH MCHC RDW RDW Differential Plt Count MPV Immature Gran % (Auto) Neut % (Auto) Lymph % (Auto) [place] % (Auto) Eos % (Auto) Baso % (Auto) Absolute Neuts (auto) Absolute Lymphs (auto) Total Counted PT INR APTT D-Dimer Quant (PE/DVT) Sodium Potassium Chloride Carbon Dioxide Anion Gap BUN Creatinine Estim Creat Clear Calc Est GFR (MDRD) Af Amer Est GFR (MDRD) Non-Af BUN/Creatinine Ratio Glucose Calcium Total Bilirubin Direct Bilirubin AST ALT Alkaline Phosphatase Lactate Dehydrogenase 201 Troponin I < 0.015 B-Natriuretic Peptide 420.3 H Total Protein Albumin Globulin 04/06/18 12:05 WBC RBC Hgb Hct MCV MCH MCHC RDW RDW Differential Plt Count MPV Immature Gran % (Auto) Neut % (Auto) Lymph % (Auto) [place] % (Auto) Eos % (Auto) Baso % (Auto) Absolute Neuts (auto) Absolute Lymphs (auto) Total Counted PT INR APTT D-Dimer Quant (PE/DVT) Sodium Potassium Chloride Carbon Dioxide Anion Gap BUN Creatinine Estim Creat Clear Calc Est GFR (MDRD) Af Amer Est GFR (MDRD) Non-Af BUN/Creatinine Ratio Glucose Calcium Total Bilirubin Direct Bilirubin AST ALT Alkaline Phosphatase Lactate Dehydrogenase Troponin I Pending B-Natriuretic Peptide Total Protein Albumin Globulin POC Glucose 04/06/18 10:33 POC Glucose 98 Assessment/Plan All Active Problems (Last Reviewed 12/19/17 @ 13:51 by Clint Rosas MD) Pleural effusion, bilateral (Acute) Hypoxemia (Acute) Pulmonary edema (Acute) Mediastinal lymphadenopathy (Acute) Mobitz (type) I (Wenckebach's) atrioventricular block (Acute) CHF exacerbation (Acute) LEO on CKD stage 3 (Acute) Chest pressure (Resolved) LEO CKD stage 3 CKD stage 3 was likely related to diabetes and HTN. last baseline from November was 1.6 creatinine is at 2.1 in february and now at 2.4 CT chest shows effusions, diffuse interstitial edema, lymphadenopathy ? infiltrative process will check ACEI, SPEP, complements and ANCA UA in office was benign. will repeat UA now will check USG abdomen to see if he has any ascitis and to r/o obstruction CHF. continue lasix IV
--- NOTE | 2018-04-06 12:42 | VDLE_ITS ---
[id number] VL^VDU^Venous Duplex US - Jarrett Extrem [id number] TAG_START [facility] Venous Doppler [address] [place] [address] Ordering Physician: Kamar Solis TAG_ENDED TAG_START Name: OMAIRA MATTHEWS Study Date: 04/06/2018 03:07 PM Patient Location: [facility]^1 : 1945 Gender: Male Age: 72 yrs TAG_ENDED Reason For Study: SHORTNESS OF BREATH RIGHT LEFT GSV is normal. CFV is compressible, spontaneous, phasic, CFV is compressible, spontaneous, phasic, competent, and demonstrates normal competent and demonstrates normal augmentation. augmentation. FV is compressible, spontaneous, phasic, FV is compressible, spontaneous, phasic, competent and demonstrates normal competent and demonstrates normal augmentation. augmentation. POP V is compressible, spontaneous, phasic, POP V is compressible, spontaneous, phasic, competent and demonstrates normal competent and demonstrates normal augmentation. augmentation. T/P Trunk is compressible. T/P Trunk is compressible. PTV is compressible. PTV is compressible. LT PerV is compressible. RT PerV is compressible. GSV harvested. Procedure Exam performed portable in patient room. A preliminary report was called and/or faxed to [facility]. <> Interpretation Summary No evidence for acute deep venous thrombosis bilateral lower extremities with patent and compressible right great saphenous and surgically absent left great saphenous vein. TAG_START TAG_ENDED Ordering Physician: Kamar Solis Referring Physician: Richa Barrientos M.D. Performed By: Sera Doe RVT
--- NOTE | 2018-04-06 12:48 | CT_ITS ---
STUDY: CT ABDOMEN AND PELVIS WITHOUT CONTRAST REASON FOR EXAM: Male, 72 years old. Lymphadenopathy RADIATION DOSAGE (If Supplied By Facility): CTDIvol = ( ) mGy, DLP = ( 858.96 ) mGycm TECHNIQUE: Transaxial images were obtained from the dome of the diaphragm to the symphysis pubis with oral contrast, and without intravenous contrast. Sagittal and coronal images were reconstructed. Individualized dose optimization techniques were used for this CT. COMPARISON: Previous study of 02/09/2015 FINDINGS: There is bilateral lower lobe atelectasis. There is a moderate-sized right-sided pleural effusion and small left-sided effusion. The heart size is within normal limits. There is no pericardial effusion. Coronary arterial calcifications are present. Normal liver. There is non-visualization of the gallbladder, which may be secondary to either contraction or a prior cholecystectomy. Normal spleen. Normal pancreas. There is a low-attenuation nodule of the right adrenal measuring 1.7 x 1.3 cm consistent with an adenoma. 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 Normal right kidney. There is a nonobstructing 3 mm calculus of the lower pole of the left kidney. There is a 1.6 cm left renal cyst. Normal visualized stomach. Normal small intestine. There is colonic diverticulosis with no evidence of associated diverticulitis. There is non-visualization of the appendix. There are calcified plaques of the abdominal aorta. Normal inferior vena cava. Normal retroperitoneum. Normal urinary bladder. The prostate, seminal vesicles, and seminal vesicle angles appear within normal limits. There is a small fat-containing umbilical hernia. There are diffuse degenerative changes of the visualized thoracolumbar spine. CT/Abdomen/Pelvis without Cont IMPRESSION: 1. Bilateral lower lobe atelectasis. 2. Moderate sized right-sided pleural effusion and small left-sided effusion. 3. Nonvisualization of the gallbladder. 4. Low-attenuation right adrenal nodule measuring 1.7 x 1.3 cm consistent with an adenoma. This is slightly increased in size from the prior study. 5. 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 6. Nonobstructing 3 mm calculus of the lower pole of the left kidney. 1.6 cm left renal cyst. 7. Colonic diverticulosis with no evidence of associated diverticulitis. 8. Small fat-containing umbilical hernia. 9. There is no evidence of free intra-abdominal or intrapelvic air or fluid. Electronically Signed: Paul Dozier MD at 17:34 EDT , Service support ,
[2018-04-06 16:40] LABS: Bedside Glucose 155 mg/dL (70-110)
--- NOTE | 2018-04-06 16:46 | CON.PCM_ITS ---
Problem List (1) Pleural effusion, bilateral Status: Acute (2) Hypoxemia Status: Acute (3) Pulmonary edema Status: Acute (4) Mobitz (type) I (Wenckebach's) atrioventricular block Status: Acute (5) CHF exacerbation Status: Acute (6) LEO on CKD stage 3 Status: Acute (7) Paroxysmal atrial fibrillation Status: Chronic (8) H/O aortic valve replacement Status: Chronic Comment: 25 mm Felix-Wilcox Perimount Magna Valve ([facility]: 11/29/2012) (9) Atherosclerosis of coronary artery of [place] heart without angina pectoris Status: Chronic Comment: CABG x 3 PATEL to LAD, SVG-Ramus, SVG-PLB of RCA 11/29/2012 (10) H/O coronary artery bypass surgery Status: Chronic Comment: CABG x 3 PATEL to LAD, SVG-Ramus, SVG-PLB of RCA 11/29/2012 (11) HTN (hypertension) Status: Chronic Qualifiers: Hypertension type: essential hypertension Qualified Code(s): I10 - Essential (primary) hypertension; I10 - Essential (primary) hypertension; I10 - Essential (primary) hypertension (12) HLD (hyperlipidemia) Status: Chronic Qualifiers: Hyperlipidemia type: pure hypercholesterolemia Qualified Code(s): E78.00 - Pure hypercholesterolemia, unspecified; E78.00 - Pure hypercholesterolemia, unspecified; E78.00 - Pure hypercholesterolemia, unspecified; E78.0 - Pure hypercholesterolemia Reason for Consult Date of Consultation: 04/06/18 Reason for Consultation: Coronary artery disease status post bypass, aortic valve replacement, hypertension, hyperlipidemia, diabetes, paroxysmal atrial fibrillation History of Present Illness: The patient is a 72 year old M, patient of Dr. Garrett, last seen on 12/19/17 with a history of hypertension, hypercholesterolemia, coronary artery disease status post bypass surgery as well as aortic valve replacement. He underwent a PATEL to the LAD, saphenous vein graft to the ramus intermedius, saphenous vein graft to the posterior circumflex, and saphenous vein graft to the RCA as well as a compartment TA Wilcox bioprosthetic aortic valve on 11/29/12 at [facility]. Apparently his most recent catheterization took place on 12/09/15 which showed severe three-vessel coronary disease, and widely patent grafts. No additional intervention was performed at that time. Addition the patient apparently has a history of atrial fibrillation and is on chronic amiodarone therapy. He does not appear to be on anticoagulation. The patient was in normal health up into the last 2-1/2-3 weeks but actually his symptoms started around 6 months ago. Recently he has had increasing fatigue, exhaustion, shortness of breath and dyspnea on exertion. He denies any fevers, chills, dizziness. Patient underwent a walking stress echocardiogram on 03/30/17 which was negative for inducible ischemia at an average workload. Apparently last evening he took 2 sleeping pills as well as a gabapentin for his lower extremity neuropathy, and became somewhat confused and slurred his speech. With his shortness of breath he was brought to the emergency room where he was evaluated and underwent a chest x-ray which showed a small left pleural effusion. He underwent a CTA which showed bilateral pleural effusions, right greater than left. He was evaluated with ultrasound for possible thoracentesis but was then canceled due to small amount of fluid. [] Past Medical History Allergies/Adverse Reactions: Allergies No Known Allergies Allergy (Verified 04/06/18 01:55) Home Medications: Ambulatory Orders Medication Instructions Recorded Amlodipine Besylate 10 mg PO DAILY 07/02/13 Atorvastatin Calcium [Lipitor] 20 mg PO QHS 07/02/13 Insulin Aspart [Novolog] 10 units SC TID 07/02/13 Aspirin [Aspirin, Baby] 81 mg PO DAILY@0800 02/09/15 Doxazosin Mesylate 4 mg PO DAILY 02/09/15 Insulin Glargine,Hum.rec.anlog 30 unit SQ BID 02/09/15 [Lantus] Losartan Potassium [Cozaar] 100 mg PO DAILY 12/09/15 Methyl-B12/l-Mefolate/B6 Phos 2 - 3 ea PO DAILY 12/09/15 [Foltanx Tablet] Temazepam [Restoril] 15 - 30 mg PO QHS PRN PRN 07/19/16 Metoprolol Tartrate [Lopressor 50 mg PO BID #60 tab 10/24/16 (beta hari)] amiodarone 200 mg tablet 100 mg PO DAILY tab 12/19/17 Past Medical History (Chronic Problems): Chronic Problems (Last Reviewed 12/19/17 @ 13:51 by Clint Rosas MD) CRF (chronic renal failure) (Chronic) Paroxysmal atrial fibrillation (Chronic) H/O aortic valve replacement (Chronic 11/29/12) 25 mm Felix-Wilcox Perimount Magna Valve ([facility]: 11/29/2012) Atherosclerosis of coronary artery of [place] heart without angina pectoris (Chronic) CABG x 3 PATEL to LAD, SVG-Ramus, SVG-PLB of RCA 11/29/2012 H/O coronary artery bypass surgery (Chronic 11/29/12) CABG x 3 PATEL to LAD, SVG-Ramus, SVG-PLB of RCA 11/29/2012 HTN (hypertension) (Chronic) HLD (hyperlipidemia) (Chronic) Surgical History: cholecystectomy, coronary bypass surgery, TURP, - - *Family History Maternal Family History: Family History (Last Reviewed 12/19/17 @ 13:51 by Clint Rosas MD) Father CAD (coronary artery disease) Brother CAD (coronary artery disease) History Items: No pertinent history Paternal Family History: Family History (Last Reviewed 12/19/17 @ 13:51 by Clint Rosas MD) Father CAD (coronary artery disease) Brother CAD (coronary artery disease) History Items: Heart Disease Sibling Family History: Family History (Last Reviewed 12/19/17 @ 13:51 by Clint Rosas MD) Father CAD (coronary artery disease) Brother CAD (coronary artery disease) History Items: Heart Disease Lives: Spouse/ Significant Other Smoking Status: Never smoker Review of Systems - Review of Systems General: Reports: Weakness. Denies: Fever, Fatigue, Night Sweats Cardiovascular: Reports: Shortness of Breath, Shortness of Breath at Rest. Denies: Chest Discomfort, Orthopnea, PND, Peripheral Edema, Palpitations, Lightheadedness, Dizziness, Near Syncope, Syncope Respiratory: Denies: Cough, Sputum Production, Hemoptysis Gastrointestinal: Denies: Hematemesis, Hematochezia, Melena Genitourinary: Denies: Dysuria, Hematuria Skin: Denies: Rash Subjectve: Patient laying in bed, no acute distress. Objective: Vital Signs Temp Pulse Resp BP Pulse Ox 98.9 F 57 L 16 121/45 H 93 04/06/18 14:31 04/06/18 14:45 04/06/18 14:31 04/06/18 14:31 04/06/18 14:50 Oxygen Flow Rate (L/min) 1 Oxygen Delivery Method Nasal Cannula Weight: 214 lb 11.684 oz Body Mass Index (BMI) 30.8 Finger Stick Blood Glucose 113 Intake and Output for Last 24 Hours 04/04/18 04/05/18 04/06/18 23:59 23:59 23:59 Intake Total 360 / 360 Output Total 600 / 600 Balance -240 / -240 General: Awake, Alert, Oriented x 3 HEENT: PERRL, EOMI, Sclera Non Icteric Neck: Supple, Good ROM, No Lymph Node Enlargement Lungs: Clear to auscultation Cardiovascular: Regular Rhythm, Normal S1, Normal S2, No Murmurs, No Rubs, No Gallops 04/06/18 04:40: WBC 7.7, RBC 3.13 L, Hgb 10.1 L, Hct 31.5 L, MCV 100.6 H, MCH 32.3 H, MCHC 32.1, RDW 13.2, RDW Differential 46.3 H, Plt Count 239, MPV 10.0, Immature Gran % (Auto) 0.100, Neut % (Auto) 74.3 H, Lymph % (Auto) 14.0 L, [place] % (Auto) 8.3, Eos % (Auto) 3.0, Baso % (Auto) 0.3, Absolute Neuts (auto) 5.8, Total Counted Not Reportable 04/06/18 04:40: D-Dimer Quant (PE/DVT) 0.61 H* 04/06/18 04:40: Sodium 146 H, Potassium 4.0, Chloride 114 H, Carbon Dioxide 25.0, Anion Gap 7, BUN 35 H, Creatinine 2.41 H, Est GFR (MDRD) Af Amer 34 L, Est GFR (MDRD) Non-Af 28 L, BUN/Creatinine Ratio 14.5, Glucose 117 H, Calcium 8.6, Troponin I 0.016 04/06/18 04:40: B-Natriuretic Peptide 440.1 H 04/06/18 04:40: PT 14.7, INR 1.2, APTT 33.7 04/06/18 04:40: Total Bilirubin 0.60, Direct Bilirubin 0.17 04/06/18 08:58: B-Natriuretic Peptide 420.3 H 04/06/18 09:23: Troponin I < 0.015 04/06/18 12:05: Troponin I < 0.015 Rhythm: EKG: Sinus bradycardia with type I second-degree AV block, nonspecific ST and T wave changes. ECHO: Pending Stress Test: Cardiac Cath: PCI: CT Surgery: Holter monitor: EPS: PPM: CXR: Chest CT Scan: Assessment/Plan 1. Congestive heart failure: Patient apparently has normal LV function with what appears to be bilateral pleural effusions, right greater than left. However, they appear to be too small for ultrasound-guided thoracenteses. Would recommend Lasix 40 mg IV twice daily until his pleural effusions improve to the point where he is able to lay down flat. He recently underwent a walking treadmill echocardiogram in 2016 which was negative for inducible ischemia. Prior to that in 2015 he underwent repeat catheterization which showed widely patent grafts and no intervention was performed. CT scan of his chest was negative for pulmonary emboli. Patient had abdominal CT with results pending later on today. 2. Coronary artery disease: The patient has no anginal symptoms and his most recent stress test in March 2017 was negative for inducible ischemia. Do not believe a repeat stress test or catheterization is indicated at this time. I would however recommend a repeat echocardiogram and if his LV function has deteriorated since his last one he may require repeat catheterization. His troponins have been negative thus far. 3. Hyperlipidemia: Continue Lipitor therapy. 4. Paroxysmal atrial fibrillation: Patient's EKG showed sinus bradycardia with intermittent type I second-degree AV block. And this is most likely con tributing to the patient's congestive heart failure symptoms and overall fatigue. He is currently on low-dose amiodarone therapy and may require a dual- chamber pacemaker to be implanted by Dr. Rosas when he returns this Monday. My suspicion is the patient may require long-standing amiodarone therapy to protect against paroxysmal atrial fibrillation. In the meantime recommend discontinuation of Lopressor, and we use the beta- hari component of amiodarone for heart rate control. If the patient continues to have intermittent high-grade AV block, particularly if it symptomatic, he will require a dual-chamber pacemaker at some point in the near future. We will check an echocardiogram tomorrow to evaluate his bioprosthetic aortic valve as well. He has had no fevers or chills, so my suspicion of endocarditis is low, but he has been fairly fatigued. 5. Thank you very much for the opportunity to participate in the cardiac care of your patient. Consultation time took place between 930 and 10 AM. Code Visit Inpatient E&M: 37190 Init Hosp L2
[2018-04-06] MEDS: Insulin Lispro 100 UNIT/ML INSULN.PEN 10 UNIT SC (16:57)
[2018-04-06] MEDS: Insulin Lispro 100 UNIT/ML INSULN.PEN SQ ×2 (16:58→21:37)
[2018-04-06] MEDS: 0.9% NaCl Peripheral Flush Adult/Peds IV (17:00)
[2018-04-06] MEDS: Heparin Injection (Vial) 5,000 UNIT/ML VIAL 5000 UNIT SC (21:36)
[2018-04-06] MEDS: Atorvastatin Calcium 20 MG Tablet PO (21:37)
[2018-04-06 22:35] LABS: Bedside Glucose 203 mg/dL (70-110)
[2018-04-06] MEDS: Temazepam 15 MG Capsule PO (23:21)
[2018-04-07] VITALS (12 sets, daily range): BP systolic 97–126; BP diastolic 53–87; PULSE 54–87; RESP 10–21; TEMP 36.6–37; O2SAT 93–96
[2018-04-07 06:54] LABS: Absolute Neutrophil Count 5.3 X10^3/uL (2.0-7.7); Basophil# 0.01 X10^3/uL; Basophil% 0.1 % (0-1); Eosinophil# 0.24 X10^3/uL; Eosinophils% 3.4 % (0-5); Hemoglobin 11.9 g/dl (13.0-16.5); Lymphocyte % 12.8 % (19-41); Mean Corp Hgb Conc 32.2 g/gl (32-36); Mean Corpuscular Hgb 31.9 pg (27.0-32.0); Mean Corpuscular Volume 99.2 fL (80-94); Mean Platelet Vol. 10.1 fl (6.2-12.0); Monocyte# 0.55 X10^3/uL; Monocyte% 7.8 % (0-10); Neutrophil # 5.32 X10^3/uL (2.7-7.7); Neutrophil % 75.6 % (47-70); POSITIVE COUNT NO; POSITIVE DIFFERENTIAL NO; POSITIVE MORPHOLOGY NO; Platelet Count 263 K/mm3 (150-450); RBC Distribution Width CV 13.3 % (11.6-14.6); Red Blood Count 3.73 M/mm3 (4.6-6.2)
[2018-04-07 06:55] LABS: Bedside Glucose 121 mg/dL (70-110)
--- NOTE | 2018-04-07 06:56 | PCM.PROGNOTE ---
Patient Problems: Active and Suspected Problems (Last Reviewed 12/19/17 @ 13:51 by Clint Rosas MD) Pleural effusion, bilateral (Acute) Hypoxemia (Acute) Pulmonary edema (Acute) Mediastinal lymphadenopathy (Acute) Mobitz (type) I (Wenckebach's) atrioventricular block (Acute) CHF exacerbation (Acute) LEO on CKD stage 3 (Acute) Subjective: The patient was seen and examined at the bedside this morning. Events from the last 24 hours have been reviewed. The patient is currently afebrile, hemodynamically stable and maintaining appropriate oxygen saturations on room air. The patient is currently overall net -2.1 L for the admission. The patient's thoracentesis was canceled yesterday. Breathing is improved. Objective: The patient's most recent lab work, culture data and imaging studies have all been personally reviewed. CT chest revealed cardiomegaly and interstitial edema, along with mediastinal and hilar lymphadenopathy and bilateral pleural effusions. Prior chest CT from February 2017 did not reveal the adenopathy noted on this study. - Physical Exam General: Alert, Cooperative, No apparent distress HEENT: Atraumatic, PERRLA, Normocephalic Oral: Moist Mucosa Neck: Supple, No Nodes, Trachea Midline Lungs: No rhonchi, No wheeze, No rales, Diminished Cardiovascular: Regular rate, Regular Rhythm, Normal S1, Normal S2, Murmur Abdomen: Bowel Sounds Present, Soft, Non Tender Extremities: No clubbing, No cyanosis, No edema Skin: No breakdown Musculoskeletal: No Tenderness to Palpation of Joints or Extremities, No Muscle Wasting Lymphatic: No Cervical, Supraclavicular, or Inguinal Adenopathy Neurological: Neuro grossly intact Psych/Mental Status: Normal Affect, Appropriate Vital Signs Temp Pulse Resp BP Pulse Ox 98.3 F 62 21 H 126/87 H 96 04/07/18 02:19 04/07/18 03:00 04/07/18 02:19 04/07/18 02:19 04/07/18 02:19 Oxygen Flow Rate (L/min) 1 Oxygen Delivery Method Room Air Weight: 214 lb 11.684 oz Body Mass Index (BMI) 30.8 Finger Stick Blood Glucose 113 Intake and Output for Last 24 Hours 04/05/18 04/06/18 04/07/18 23:59 23:59 23:59 Intake Total 1000 / 1000 Output Total 3125 / 3125 Balance -2125 / -2125 Laboratory Tests Past 24 Hrs 04/06/18 04/06/18 04/06/18 04:40 04:40 04:40 WBC RBC Hgb Hct MCV MCH MCHC RDW RDW Differential Plt Count MPV Immature Gran % (Auto) Neut % (Auto) Lymph % (Auto) [place] % (Auto) Eos % (Auto) Baso % (Auto) Absolute Neuts (auto) Absolute Lymphs (auto) Total Counted PT 14.7 INR 1.2 APTT 33.7 Sodium Potassium Chloride Carbon Dioxide Anion Gap BUN Creatinine Est GFR (MDRD) Af Amer Est GFR (MDRD) Non-Af BUN/Creatinine Ratio Glucose Calcium Total Bilirubin 0.60 Direct Bilirubin 0.17 AST 17 ALT 23 Alkaline Phosphatase 91 Lactate Dehydrogenase 201 Troponin I B-Natriuretic Peptide Total Protein 6.8 Total Protein (PEP) Albumin 3.2 Globulin 3.6 Triglycerides Cholesterol LDL Cholesterol VLDL Cholesterol HDL Cholesterol Angiotensin Convert Enz TSH IgG IgA IgM Albumin (ALEIDA) Albumin/Globulin (ALEIDA) Txqao-7-Lxtaufdcg ALEIDA Lbzbf-8-Quyuffood ALEIDA Beta-Globulins (ALEIDA) Gamma Globulins (ALEIDA) ALEIDA M-Paulie c-ANCA Antibody p-ANCA Antibody 04/06/18 04/06/18 04/06/18 08:58 09:23 12:05 WBC RBC Hgb Hct MCV MCH MCHC RDW RDW Differential Plt Count MPV Immature Gran % (Auto) Neut % (Auto) Lymph % (Auto) [place] % (Auto) Eos % (Auto) Baso % (Auto) Absolute Neuts (auto) Absolute Lymphs (auto) Total Counted PT INR APTT Sodium Potassium Chloride Carbon Dioxide Anion Gap BUN Creatinine Est GFR (MDRD) Af Amer Est GFR (MDRD) Non-Af BUN/Creatinine Ratio Glucose Calcium Total Bilirubin Direct Bilirubin AST ALT Alkaline Phosphatase Lactate Dehydrogenase Troponin I < 0.015 < 0.015 B-Natriuretic Peptide 420.3 H Total Protein Total Protein (PEP) Albumin Globulin Triglycerides Cholesterol LDL Cholesterol VLDL Cholesterol HDL Cholesterol Angiotensin Convert Enz TSH IgG IgA IgM Albumin (ALEIDA) Albumin/Globulin (ALEIDA) Onqwe-1-Utylczfnp ALEIDA Pzgky-9-Bygjobaql ALEIDA Beta-Globulins (ALEIDA) Gamma Globulins (ALEIDA) ALEIDA M-Paulie c-ANCA Antibody p-ANCA Antibody 04/07/18 04/07/18 04/07/18 06:20 06:20 06:20 WBC 7.0 RBC 3.73 L Hgb 11.9 L Hct 37.0 L MCV 99.2 H MCH 31.9 MCHC 32.2 RDW 13.3 RDW Differential 46.0 H Plt Count 263 MPV 10.1 Immature Gran % (Auto) 0.300 Neut % (Auto) 75.6 H Lymph % (Auto) 12.8 L [place] % (Auto) 7.8 Eos % (Auto) 3.4 Baso % (Auto) 0.1 Absolute Neuts (auto) 5.3 Absolute Lymphs (auto) 0.90 Total Counted Not Reportable PT INR APTT Sodium Pending Potassium Pending Chloride Pending Carbon Dioxide Pending Anion Gap Pending BUN Pending Creatinine Pending Est GFR (MDRD) Af Amer Pending Est GFR (MDRD) Non-Af Pending BUN/Creatinine Ratio Pending Glucose Pending Calcium Pending Total Bilirubin Direct Bilirubin AST ALT Alkaline Phosphatase Lactate Dehydrogenase Pending Troponin I B-Natriuretic Peptide Total Protein Total Protein (PEP) Pending Albumin Globulin Triglycerides Pending Cholesterol Pending LDL Cholesterol Pending VLDL Cholesterol Pending HDL Cholesterol Pending Angiotensin Convert Enz Pending TSH Pending IgG Pending IgA Pending IgM Pending Albumin (ALEIDA) Pending Albumin/Globulin (ALEIDA) Pending Fmauz-8-Dcxbqflod ALEIDA Pending Wumti-8-Ivhzdlmlp ALEIDA Pending Beta-Globulins (ALEIDA) Pending Gamma Globulins (ALEIDA) Pending ALEIDA M-Paulie Pending c-ANCA Antibody p-ANCA Antibody 04/07/18 06:20 WBC RBC Hgb Hct MCV MCH MCHC RDW RDW Differential Plt Count MPV Immature Gran % (Auto) Neut % (Auto) Lymph % (Auto) [place] % (Auto) Eos % (Auto) Baso % (Auto) Absolute Neuts (auto) Absolute Lymphs (auto) Total Counted PT INR APTT Sodium Potassium Chloride Carbon Dioxide Anion Gap BUN Creatinine Est GFR (MDRD) Af Amer Est GFR (MDRD) Non-Af BUN/Creatinine Ratio Glucose Calcium Total Bilirubin Direct Bilirubin AST ALT Alkaline Phosphatase Lactate Dehydrogenase Troponin I B-Natriuretic Peptide Total Protein Total Protein (PEP) Albumin Globulin Triglycerides Cholesterol LDL Cholesterol VLDL Cholesterol HDL Cholesterol Angiotensin Convert Enz TSH IgG IgA IgM Albumin (ALEIDA) Albumin/Globulin (ALEIDA) Dqffb-5-Ejtjsyowf ALEIDA Ajciw-8-Iwuwcycdb ALEIDA Beta-Globulins (ALEIDA) Gamma Globulins (ALEIDA) ALEIDA M-Paulie c-ANCA Antibody Pending p-ANCA Antibody Pending POC Glucose 04/07/18 04/06/18 04/06/18 06:48 21:34 16:03 POC Glucose 121 H 203 H 155 H 04/06/18 10:33 POC Glucose 98 Clinical Impression(s) from Imaging Studies Chest X-Ray 04/06/18 03:35 IMPRESSION: Cardiomegaly with central vascular congestive changes and a small left-sided pleural effusion. Multiple nodular densities in the right lower lobe. Metastatic disease suspected Electronically Signed: Tez Hurst MD at 4:14 EDT Tel , Service support , Chest CT 04/06/18 05:47 IMPRESSION: Cardiomegaly with central vascular congestive changes and interstitial edema. Bilateral pleural effusions; more on the right than the left Extensive mediastinal adenopathy. Lymphoproliferative disorder suspected. No indication of any metastatic lung disease. A calcified granuloma in the right middle lobe and a 1.1 cm nodular density in the lingula division of the left upper lobe Electronically Signed: Tez Hurst MD at 7:02 EDT Tel , Service support , Chest Ultrasound 04/06/18 08:06 IMPRESSION: Small bilateral pleural effusions. Electronically Signed: Mark Waller MD at 14:42 EDT Tel [phone], Service support , Abdomen/Pelvis CT 04/06/18 12:48 IMPRESSION: 1. Bilateral lower lobe atelectasis. 2. Moderate sized right-sided pleural effusion and small left-sided effusion. 3. Nonvisualization of the gallbladder. 4. Low-attenuation right adrenal nodule measuring 1.7 x 1.3 cm consistent with an adenoma. This is slightly increased in size from the prior study. 5. 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 6. Nonobstructing 3 mm calculus of the lower pole of the left kidney. 1.6 cm left renal cyst. 7. Colonic diverticulosis with no evidence of associated diverticulitis. 8. Small fat-containing umbilical hernia. 9. There is no evidence of free intra-abdominal or intrapelvic air or fluid. Electronically Signed: Paul Dozier MD at 17:34 EDT , Service support , Medical Necessity - Tobacco Use Smoking Status: Never smoker Assessment/Plan All Active Problems (Last Reviewed 12/19/17 @ 13:51 by Clint Rosas MD) Pleural effusion, bilateral (Acute) Hypoxemia (Acute) Pulmonary edema (Acute) Mediastinal lymphadenopathy (Acute) Mobitz (type) I (Wenckebach's) atrioventricular block (Acute) CHF exacerbation (Acute) LEO on CKD stage 3 (Acute) Chest pressure (Resolved) RECOMMENDATIONS: 1. Continue diuretics 2. Wean oxygen as tolerated. 3. Encourage incentive spirometer use and mobilize patient as tolerated. 4. Recommend outpatient pulmonary follow-up. IMPRESSIONS: 1. Acute hypoxic respiratory insufficiency in the setting of bilateral pleural effusions Initial concern for decompensated heart failure with preserved ejection fraction. Cardiology is following. Agree with volume optimization with IV diuretics. Although initially considered, an ultrasound-guided thoracentesis was subsequently canceled. Wean supplemental oxygen to maintain saturations at or above 90. Encourage incentive spirometer use. Mobilize patient as tolerated. 2. Mediastinal and hilar lymphadenopathy Unclear etiology, although it does not appear that this degree of adenopathy was present on his prior chest CT. Considerations include infectious, inflammatory and malignant etiologies. Will await pleural fluid analysis. If additional workup is to be undertaken, this would need to be accomplished on an outpatient basis. This can be discussed and coordinated further pending the outcome of his current hospital course. 3. Acute on chronic kidney disease Agree with diuretics. Continue to monitor urine output. No indication for renal replacement therapy at this time. 4. Obesity/diabetes/hyperlipidemia/hypertension Complicates care, management, recovery and prognosis. Likely okay to continue home medications at this time. This note was generated with [employer]ome[employer] software. It may contain incorrect words, spelling, and punctuation that were not noted in checking the note before signing. Code Visit Inpatient E&M: 31472 Subs Hosp L2
--- NOTE | 2018-04-07 06:59 | PN_ITS ---
Patient Problems: Active and Suspected Problems (Last Reviewed 12/19/17 @ 13:51 by Clint Rosas MD) Pleural effusion, bilateral (Acute) Hypoxemia (Acute) Pulmonary edema (Acute) Mediastinal lymphadenopathy (Acute) Mobitz (type) I (Wenckebach's) atrioventricular block (Acute) CHF exacerbation (Acute) LEO on CKD stage 3 (Acute) Subjective: The patient was seen and examined at the bedside this morning. Events from the last 24 hours have been reviewed. The patient is currently afebrile, hemodynamically stable and maintaining appropriate oxygen saturations on room air. The patient is currently overall net -2.1 L for the admission. The patient's thoracentesis was canceled yesterday. Breathing is improved. Objective: The patient's most recent lab work, culture data and imaging studies have all been personally reviewed. CT chest revealed cardiomegaly and interstitial edema, along with mediastinal and hilar lymphadenopathy and bilateral pleural effusions. Prior chest CT from February 2017 did not reveal the adenopathy noted on this study. - Physical Exam General: Alert, Cooperative, No apparent distress HEENT: Atraumatic, PERRLA, Normocephalic Oral: Moist Mucosa Neck: Supple, No Nodes, Trachea Midline Lungs: No rhonchi, No wheeze, No rales, Diminished Cardiovascular: Regular rate, Regular Rhythm, Normal S1, Normal S2, Murmur Abdomen: Bowel Sounds Present, Soft, Non Tender Extremities: No clubbing, No cyanosis, No edema Skin: No breakdown Musculoskeletal: No Tenderness to Palpation of Joints or Extremities, No Muscle Wasting Lymphatic: No Cervical, Supraclavicular, or Inguinal Adenopathy Neurological: Neuro grossly intact Psych/Mental Status: Normal Affect, Appropriate Vital Signs Temp Pulse Resp BP Pulse Ox 98.3 F 62 21 H 126/87 H 96 04/07/18 02:19 04/07/18 03:00 04/07/18 02:19 04/07/18 02:19 04/07/18 02:19 Oxygen Flow Rate (L/min) 1 Oxygen Delivery Method Room Air Weight: 214 lb 11.684 oz Body Mass Index (BMI) 30.8 Finger Stick Blood Glucose 113 Intake and Output for Last 24 Hours 04/05/18 04/06/18 04/07/18 23:59 23:59 23:59 Intake Total 1000 / 1000 Output Total 3125 / 3125 Balance -2125 / -2125 Laboratory Tests Past 24 Hrs 04/06/18 04/06/18 04/06/18 04:40 04:40 04:40 WBC RBC Hgb Hct MCV MCH MCHC RDW RDW Differential Plt Count MPV Immature Gran % (Auto) Neut % (Auto) Lymph % (Auto) [place] % (Auto) Eos % (Auto) Baso % (Auto) Absolute Neuts (auto) Absolute Lymphs (auto) Total Counted PT 14.7 INR 1.2 APTT 33.7 Sodium Potassium Chloride Carbon Dioxide Anion Gap BUN Creatinine Est GFR (MDRD) Af Amer Est GFR (MDRD) Non-Af BUN/Creatinine Ratio Glucose Calcium Total Bilirubin 0.60 Direct Bilirubin 0.17 AST 17 ALT 23 Alkaline Phosphatase 91 Lactate Dehydrogenase 201 Troponin I B-Natriuretic Peptide Total Protein 6.8 Total Protein (PEP) Albumin 3.2 Globulin 3.6 Triglycerides Cholesterol LDL Cholesterol VLDL Cholesterol HDL Cholesterol Angiotensin Convert Enz TSH IgG IgA IgM Albumin (ALEIDA) Albumin/Globulin (ALEIDA) Dtata-6-Aobdgolqy ALEIDA Bjdxr-8-Letaqbcax ALEIDA Beta-Globulins (ALEIDA) Gamma Globulins (ALEIDA) ALEIDA M-Paulie c-ANCA Antibody p-ANCA Antibody 04/06/18 04/06/18 04/06/18 08:58 09:23 12:05 WBC RBC Hgb Hct MCV MCH MCHC RDW RDW Differential Plt Count MPV Immature Gran % (Auto) Neut % (Auto) Lymph % (Auto) [place] % (Auto) Eos % (Auto) Baso % (Auto) Absolute Neuts (auto) Absolute Lymphs (auto) Total Counted PT INR APTT Sodium Potassium Chloride Carbon Dioxide Anion Gap BUN Creatinine Est GFR (MDRD) Af Amer Est GFR (MDRD) Non-Af BUN/Creatinine Ratio Glucose Calcium Total Bilirubin Direct Bilirubin AST ALT Alkaline Phosphatase Lactate Dehydrogenase Troponin I < 0.015 < 0.015 B-Natriuretic Peptide 420.3 H Total Protein Total Protein (PEP) Albumin Globulin Triglycerides Cholesterol LDL Cholesterol VLDL Cholesterol HDL Cholesterol Angiotensin Convert Enz TSH IgG IgA IgM Albumin (ALEIDA) Albumin/Globulin (ALEIDA) Tcehg-4-Xohaxugww ALEIDA Evggy-9-Bfxhuesew ALEIDA Beta-Globulins (ALEIDA) Gamma Globulins (ALEIDA) ALEIDA M-Paulie c-ANCA Antibody p-ANCA Antibody 04/07/18 04/07/18 04/07/18 06:20 06:20 06:20 WBC 7.0 RBC 3.73 L Hgb 11.9 L Hct 37.0 L MCV 99.2 H MCH 31.9 MCHC 32.2 RDW 13.3 RDW Differential 46.0 H Plt Count 263 MPV 10.1 Immature Gran % (Auto) 0.300 Neut % (Auto) 75.6 H Lymph % (Auto) 12.8 L [place] % (Auto) 7.8 Eos % (Auto) 3.4 Baso % (Auto) 0.1 Absolute Neuts (auto) 5.3 Absolute Lymphs (auto) 0.90 Total Counted Not Reportable PT INR APTT Sodium Pending Potassium Pending Chloride Pending Carbon Dioxide Pending Anion Gap Pending BUN Pending Creatinine Pending Est GFR (MDRD) Af Amer Pending Est GFR (MDRD) Non-Af Pending BUN/Creatinine Ratio Pending Glucose Pending Calcium Pending Total Bilirubin Direct Bilirubin AST ALT Alkaline Phosphatase Lactate Dehydrogenase Pending Troponin I B-Natriuretic Peptide Total Protein Total Protein (PEP) Pending Albumin Globulin Triglycerides Pending Cholesterol Pending LDL Cholesterol Pending VLDL Cholesterol Pending HDL Cholesterol Pending Angiotensin Convert Enz Pending TSH Pending IgG Pending IgA Pending IgM Pending Albumin (ALEIDA) Pending Albumin/Globulin (ALEIDA) Pending Micoq-7-Hiohcyelt ALEIDA Pending Fpwmk-8-Grotxnard ALEIDA Pending Beta-Globulins (ALEIDA) Pending Gamma Globulins (ALEIDA) Pending ALEIDA M-Paulie Pending c-ANCA Antibody p-ANCA Antibody 04/07/18 06:20 WBC RBC Hgb Hct MCV MCH MCHC RDW RDW Differential Plt Count MPV Immature Gran % (Auto) Neut % (Auto) Lymph % (Auto) [place] % (Auto) Eos % (Auto) Baso % (Auto) Absolute Neuts (auto) Absolute Lymphs (auto) Total Counted PT INR APTT Sodium Potassium Chloride Carbon Dioxide Anion Gap BUN Creatinine Est GFR (MDRD) Af Amer Est GFR (MDRD) Non-Af BUN/Creatinine Ratio Glucose Calcium Total Bilirubin Direct Bilirubin AST ALT Alkaline Phosphatase Lactate Dehydrogenase Troponin I B-Natriuretic Peptide Total Protein Total Protein (PEP) Albumin Globulin Triglycerides Cholesterol LDL Cholesterol VLDL Cholesterol HDL Cholesterol Angiotensin Convert Enz TSH IgG IgA IgM Albumin (ALEIDA) Albumin/Globulin (ALEIDA) Pahdo-8-Rgcpgmrwe ALEIDA Qykll-7-Dypydamgb ALEIDA Beta-Globulins (ALEIDA) Gamma Globulins (ALEIDA) ALEIDA M-Paulie c-ANCA Antibody Pending p-ANCA Antibody Pending POC Glucose 04/07/18 04/06/18 04/06/18 06:48 21:34 16:03 POC Glucose 121 H 203 H 155 H 04/06/18 10:33 POC Glucose 98 Clinical Impression(s) from Imaging Studies Chest X-Ray 04/06/18 03:35 IMPRESSION: Cardiomegaly with central vascular congestive changes and a small left-sided pleural effusion. Multiple nodular densities in the right lower lobe. Metastatic disease suspected Electronically Signed: Tez Hurst MD at 4:14 EDT Tel , Service support , Chest CT 04/06/18 05:47 IMPRESSION: Cardiomegaly with central vascular congestive changes and interstitial edema. Bilateral pleural effusions; more on the right than the left Extensive mediastinal adenopathy. Lymphoproliferative disorder suspected. No indication of any metastatic lung disease. A calcified granuloma in the right middle lobe and a 1.1 cm nodular density in the lingula division of the left upper lobe Electronically Signed: Tez Hurst MD at 7:02 EDT Tel , Service support , Chest Ultrasound 04/06/18 08:06 IMPRESSION: Small bilateral pleural effusions. Electronically Signed: Mark Waller MD at 14:42 EDT Tel [phone], Service support , Abdomen/Pelvis CT 04/06/18 12:48 IMPRESSION: 1. Bilateral lower lobe atelectasis. 2. Moderate sized right-sided pleural effusion and small left-sided effusion. 3. Nonvisualization of the gallbladder. 4. Low-attenuation right adrenal nodule measuring 1.7 x 1.3 cm consistent with an adenoma. This is slightly increased in size from the prior study. 5. 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 6. Nonobstructing 3 mm calculus of the lower pole of the left kidney. 1.6 cm left renal cyst. 7. Colonic diverticulosis with no evidence of associated diverticulitis. 8. Small fat-containing umbilical hernia. 9. There is no evidence of free intra-abdominal or intrapelvic air or fluid. Electronically Signed: Paul Dozier MD at 17:34 EDT , Service support , Medical Necessity - Tobacco Use Smoking Status: Never smoker Assessment/Plan All Active Problems (Last Reviewed 12/19/17 @ 13:51 by Clint Rosas MD) Pleural effusion, bilateral (Acute) Hypoxemia (Acute) Pulmonary edema (Acute) Mediastinal lymphadenopathy (Acute) Mobitz (type) I (Wenckebach's) atrioventricular block (Acute) CHF exacerbation (Acute) LEO on CKD stage 3 (Acute) Chest pressure (Resolved) RECOMMENDATIONS: 1. Continue diuretics 2. Wean oxygen as tolerated. 3. Encourage incentive spirometer use and mobilize patient as tolerated. 4. Recommend outpatient pulmonary follow-up. IMPRESSIONS: 1. Acute hypoxic respiratory insufficiency in the setting of bilateral pleural effusions Initial concern for decompensated heart failure with preserved ejection fraction. Cardiology is following. Agree with volume optimization with IV diuretics. Although initially considered, an ultrasound-guided thoracentesis was subsequently canceled. Wean supplemental oxygen to maintain saturations at or above 90. Encourage incentive spirometer use. Mobilize patient as tolerated. 2. Mediastinal and hilar lymphadenopathy Unclear etiology, although it does not appear that this degree of adenopathy was present on his prior chest CT. Considerations include infectious, inflammatory and malignant etiologies. Will await pleural fluid analysis. If additional workup is to be undertaken, this would need to be accomplished on an outpatient basis. This can be discussed and coordinated further pending the outcome of his current hospital course. 3. Acute on chronic kidney disease Agree with diuretics. Continue to monitor urine output. No indication for renal replacement therapy at this time. 4. Obesity/diabetes/hyperlipidemia/hypertension Complicates care, management, recovery and prognosis. Likely okay to continue home medications at this time. This note was generated with [employer] software. It may contain incorrect words, spelling, and punctuation that were not noted in checking the note before signing. Code Visit Inpatient E&M: 07951 Subs Hosp L2
[2018-04-07 07:45] LABS: Anion Gap 9 (5-15); BUN 29 mg/dL (7-18); BUN/Creat Ratio 11.8 RATIO (10-20); Calcium,Total 8.9 mg/dL (8.5-10.1); Chloride 107 mmol/L (98-107); Cholesterol 103 mg/dL (200); Creatinine, Serum 2.45 mg/dL (0.70-1.30); EST Glomerular Filtration Rate 28 mL/min (>60); Est Glom Filt Rate - Afr Amer 33 mL/min (>60); Estimated Creatinine Clearance 27.73 ml/min; Glucose 105 mg/dL (74-106); High Density Lipoprotein 43 mg/dL; LDH 218 U/L (87-241); Potassium 3.8 mmol/L (3.5-5.1); Sodium Level 144 mmol/L (136-145); Thyroid Stim Hormone (TSH) 3.06 uIU/mL (0.358-3.74); Triglycerides 119 mg/dL; Very Low Density Lipoprotein 24 mg/dL (5-40)
[2018-04-07] MEDS: Aspirin 81 MG TAB.CHEW PO (08:28)
[2018-04-07] MEDS: Insulin Lispro 100 UNIT/ML INSULN.PEN 10 UNIT SC ×3 (08:28→16:32)
[2018-04-07] MEDS: Doxazosin 4 MG Tablet PO (08:30)
[2018-04-07] MEDS: Amiodarone 200 MG Tablet 100 MG PO (08:31)
[2018-04-07] MEDS: Furosemide 40 MG/4 ML Vial IV (08:32)
[2018-04-07] MEDS: Heparin Injection (Vial) 5,000 UNIT/ML VIAL 5000 UNIT SC ×2 (08:32→21:32)
[2018-04-07] MEDS: amLODIPine 10 MG Tablet PO (08:33)
[2018-04-07] MEDS: Polyethylene Glycol 3350 17 GM PACKET PO (08:42)
--- NOTE | 2018-04-07 11:09 | PCM.PN.CARD ---
Subjectve: Patient doing very well this morning. Telemetry showed normal sinus rhythm, no Wenckebach, beta-hari held yesterday and the patient feels much better. Patient able to lay down flat. Bilateral pleural effusions were too small for thoracentesis. Patient had net -2700 cc diuresed since admission. Objective: Vital Signs Temp Pulse Resp BP Pulse Ox 97.9 F 74 16 118/87 H 93 04/07/18 08:23 04/07/18 08:23 04/07/18 08:23 04/07/18 08:23 04/07/18 08:23 Oxygen Flow Rate (L/min) 1 Oxygen Delivery Method Room Air Weight: 214 lb 11.684 oz Body Mass Index (BMI) 30.8 Finger Stick Blood Glucose 113 Intake and Output for Last 24 Hours 04/05/18 04/06/18 04/07/18 23:59 23:59 23:59 Intake Total 1000 / 1000 0 / 0 Output Total 3125 / 3125 585 / 585 Balance -2125 / -2125 -585 / -585 General: Awake, Alert, Oriented x 3 HEENT: PERRL, EOMI, Sclera Non Icteric Neck: Supple, Good ROM, No Lymph Node Enlargement Lungs: Clear to auscultation Cardiovascular: Regular Rhythm, Normal S1, Normal S2, No Rubs, No Gallops Murmur Murmur: Grade 2/6, Crescendo-Decrescendo Vascular: No Carotid Bruits, Normal Femoral Pulses, Normal Radial Pulses, Normal Dorsalis Pedal Pulse, Normal Posterior Tibial Pulses Abdomen: Bowel Sounds Present, Soft, Non Tender, No HSM, No Organomegaly Extremities: No Cyanosis, No Clubbing, No edema Neurological: No Focal Motor or Sensory Deficit 04/06/18 12:05: Troponin I < 0.015 04/07/18 06:20: WBC 7.0, RBC 3.73 L, Hgb 11.9 L, Hct 37.0 L, MCV 99.2 H, MCH 31.9, MCHC 32.2, RDW 13.3, RDW Differential 46.0 H, Plt Count 263, MPV 10.1, Immature Gran % (Auto) 0.300, Neut % (Auto) 75.6 H, Lymph % (Auto) 12.8 L, [place] % (Auto) 7.8, Eos % (Auto) 3.4, Baso % (Auto) 0.1, Absolute Neuts (auto) 5.3, Total Counted Not Reportable 04/07/18 06:20: Sodium 144, Potassium 3.8, Chloride 107, Carbon Dioxide 28.0, Anion Gap 9, BUN 29 H, Creatinine 2.45 H, Est GFR (MDRD) Af Amer 33 L, Est GFR (MDRD) Non-Af 28 L, BUN/Creatinine Ratio 11.8, Glucose 105, Calcium 8.9, Triglycerides 119, Cholesterol 103, LDL Cholesterol 36, VLDL Cholesterol 24, HDL Cholesterol 43 Rhythm: EKG: ECHO: LVEF of 65%, normal functioning bioprosthetic aortic valve, RVSP of approximately 66 mmHg. Stress Test: Cardiac Cath: PCI: CT Surgery: Holter monitor: EPS: PPM: CXR: Chest CT Scan: Medical Necessity - Tobacco Use Smoking Status: Never smoker Assessment/Plan 1. Congestive heart failure: Patient apparently has normal LV function with what appears to be bilateral pleural effusions, right greater than left. However, they appear to be too small for ultrasound-guided thoracenteses. Patient responded very well to IV diuretic therapy, with a net -2700 cc diuresis since admission. Recommend switching him to Lasix 40 mg p.o. daily. He was on no diuretic at home prior to this. He recently underwent a walking treadmill echocardiogram in 2016 which was negative for inducible ischemia. Prior to that in 2015 he underwent repeat catheterization which showed widely patent grafts and no intervention was performed. CT scan of his chest was negative for pulmonary emboli. Patient had abdominal CT with results pending later on today. Echocardiogram done yesterday demonstrated severe pulmonary hypertension with an RVSP of 66 mmHg. Again recommend diuretic therapy for pulmonary hypertension. Continue losartan and amlodipine for hypertension. Will hold beta-hari therapy given his congestive heart failure symptoms, and may resume at 25 mg p.o. daily assuming his heart rate and blood pressure are stable. 2. Coronary artery disease: The patient has no anginal symptoms and his most recent stress test in March 2017 was negative for inducible ischemia. Do not believe a repeat stress test or catheterization is indicated at this time. I would however recommend a repeat echocardiogram and if his LV function has deteriorated since his last one he may require repeat catheterization. His troponins have been negative thus far. 3. Hyperlipidemia: Continue Lipitor therapy. 4. Paroxysmal atrial fibrillation: Patient's EKG showed sinus bradycardia with intermittent type I second-degree AV block. And this is most likely contributing to the patient's congestive heart failure symptoms and overall fatigue. He is currently on low-dose amiodarone therapy and may require a dual-chamber pacemaker to be implanted by Dr. Rosas when he returns this Monday. My suspicion is the patient may require long-standing amiodarone therapy to protect against paroxysmal atrial fibrillation. In the meantime recommend discontinuation of Lopressor, and we use the beta-hari component of amiodarone for heart rate control. If the patient continues to have intermittent high-grade AV block, particularly if it symptomatic, he will require a dual-chamber pacemaker at some point in the near future. Would recommend a 30-day event monitor to determine if the patient has intermittent symptomatic low-grade or high-grade block which may mandate dual-chamber pacemaker in order for the patient to enjoy the benefits of beta-hari therapy. He will follow-up with Dr. Rosas. 5. Thank you very much for the opportunity to participate in the cardiac care of your patient. Patient may be discharged home tomorrow morning assuming he has no spikes in his blood pressure or heart rate. Code Visit Inpatient E&M: 37860 Subs Hosp L2
--- NOTE | 2018-04-07 11:13 | PN.CARD_ITS ---
Subjectve: Patient doing very well this morning. Telemetry showed normal sinus rhythm, no Wenckebach, beta-hari held yesterday and the patient feels much better. Patient able to lay down flat. Bilateral pleural effusions were too small for thoracentesis. Patient had net -2700 cc diuresed since admission. Objective: Vital Signs Temp Pulse Resp BP Pulse Ox 97.9 F 74 16 118/87 H 93 04/07/18 08:23 04/07/18 08:23 04/07/18 08:23 04/07/18 08:23 04/07/18 08:23 Oxygen Flow Rate (L/min) 1 Oxygen Delivery Method Room Air Weight: 214 lb 11.684 oz Body Mass Index (BMI) 30.8 Finger Stick Blood Glucose 113 Intake and Output for Last 24 Hours 04/05/18 04/06/18 04/07/18 23:59 23:59 23:59 Intake Total 1000 / 1000 0 / 0 Output Total 3125 / 3125 585 / 585 Balance -2125 / -2125 -585 / -585 General: Awake, Alert, Oriented x 3 HEENT: PERRL, EOMI, Sclera Non Icteric Neck: Supple, Good ROM, No Lymph Node Enlargement Lungs: Clear to auscultation Cardiovascular: Regular Rhythm, Normal S1, Normal S2, No Rubs, No Gallops Murmur Murmur: Grade 2/6, Crescendo-Decrescendo Vascular: No Carotid Bruits, Normal Femoral Pulses, Normal Radial Pulses, Normal Dorsalis Pedal Pulse, Normal Posterior Tibial Pulses Abdomen: Bowel Sounds Present, Soft, Non Tender, No HSM, No Organomegaly Extremities: No Cyanosis, No Clubbing, No edema Neurological: No Focal Motor or Sensory Deficit 04/06/18 12:05: Troponin I < 0.015 04/07/18 06:20: WBC 7.0, RBC 3.73 L, Hgb 11.9 L, Hct 37.0 L, MCV 99.2 H, MCH 31.9, MCHC 32.2, RDW 13.3, RDW Differential 46.0 H, Plt Count 263, MPV 10.1, Immature Gran % (Auto) 0.300, Neut % (Auto) 75.6 H, Lymph % (Auto) 12.8 L, [place] % (Auto) 7.8, Eos % (Auto) 3.4, Baso % (Auto) 0.1, Absolute Neuts (auto) 5.3, Total Counted Not Reportable 04/07/18 06:20: Sodium 144, Potassium 3.8, Chloride 107, Carbon Dioxide 28.0, Anion Gap 9, BUN 29 H, Creatinine 2.45 H, Est GFR (MDRD) Af Amer 33 L, Est GFR (MDRD) Non-Af 28 L, BUN/Creatinine Ratio 11.8, Glucose 105, Calcium 8.9, Triglycerides 119, Cholesterol 103, LDL Cholesterol 36, VLDL Cholesterol 24, HDL Cholesterol 43 Rhythm: EKG: ECHO: LVEF of 65%, normal functioning bioprosthetic aortic valve, RVSP of approximately 66 mmHg. Stress Test: Cardiac Cath: PCI: CT Surgery: Holter monitor: EPS: PPM: CXR: Chest CT Scan: Medical Necessity - Tobacco Use Smoking Status: Never smoker Assessment/Plan 1. Congestive heart failure: Patient apparently has normal LV function with what appears to be bilateral pleural effusions, right greater than left. Seals calixto, they appear to be too small for ultrasound-guided thoracenteses. Patient responded very well to IV diuretic therapy, with a net -2700 cc diuresis since admission. Recommend switching him to Lasix 40 mg p.o. daily. He was on no diuretic at home prior to this. He recently underwent a walking treadmill echocardiogram in 2016 which was negative for inducible ischemia. Prior to that in 2015 he underwent repeat catheterization which showed widely patent grafts and no intervention was performed. CT scan of his chest was negative for pulmonary emboli. Patient had abdominal CT with results pending later on today. Echocardiogram done yesterday demonstrated severe pulmonary hypertension with an RVSP of 66 mmHg. Again recommend diuretic therapy for pulmonary hypertension. Continue losartan and amlodipine for hypertension. Will hold beta-hari therapy given his congestive heart failure symptoms, and may resume at 25 mg p.o. daily assuming his heart rate and blood pressure are stable. 2. Coronary artery disease: The patient has no anginal symptoms and his most recent stress test in March 2017 was negative for inducible ischemia. Do not believe a repeat stress test or catheterization is indicated at this time. I would however recommend a repeat echocardiogram and if his LV function has deteriorated since his last one he may require repeat catheterization. His troponins have been negative thus far. 3. Hyperlipidemia: Continue Lipitor therapy. 4. Paroxysmal atrial fibrillation: Patient's EKG showed sinus bradycardia with intermittent type I second-degree AV block. And this is most likely contributing to the patient's congestive heart failure symptoms and overall fatigue. He is currently on low-dose amiodarone therapy and may require a dual- chamber pacemaker to be implanted by Dr. Rosas when he returns this Monday. My suspicion is the patient may require long-standing amiodarone therapy to protect against paroxysmal atrial fibrillation. In the meantime recommend discontinuation of Lopressor, and we use the beta- hari component of amiodarone for heart rate control. If the patient continues to have intermittent high-grade AV block, particularly if it symptomatic, he will require a dual-chamber pacemaker at some point in the near future. Would recommend a 30-day event monitor to determine if the patient has intermittent symptomatic low-grade or high-grade block which may mandate dual- chamber pacemaker in order for the patient to enjoy the benefits of beta-hari therapy. He will follow-up with Dr. Rosas. 5. Thank you very much for the opportunity to participate in the cardiac care of your patient. Patient may be discharged home tomorrow morning assuming he has no spikes in his blood pressure or heart rate. Code Visit Inpatient E&M: 76808 Subs Hosp L2
[2018-04-07] MEDS: Insulin Lispro 100 UNIT/ML INSULN.PEN SQ ×2 (11:22→16:33)
[2018-04-07 11:56] LABS: Bedside Glucose 201 mg/dL (70-110)
--- NOTE | 2018-04-07 16:02 | PCM.PN.HOSP ---
Patient Problems: Active and Suspected Problems (Last Reviewed 12/19/17 @ 13:51 by Clint Rosas MD) Pleural effusion, bilateral (Acute) Hypoxemia (Acute) Pulmonary edema (Acute) Mediastinal lymphadenopathy (Acute) Mobitz (type) I (Wenckebach's) atrioventricular block (Acute) CHF exacerbation (Acute) LEO on CKD stage 3 (Acute) Subjective: Patient was seen and examined. Denies any complaint. Denies chest pain or dizziness or shortness of breath. He is eager to be discharged. Vitals/I&O's: Vital Signs Temp Pulse Resp BP Pulse Ox 97.8 F 63 16 97/63 95 04/07/18 14:15 04/07/18 15:07 04/07/18 14:15 04/07/18 14:15 04/07/18 14:15 Oxygen Flow Rate (L/min) 1 Oxygen Delivery Method Room Air Weight: 97.4 kg Body Mass Index (BMI) 30.8 Finger Stick Blood Glucose 113 Intake and Output for Last 24 Hours 04/05/18 04/06/18 04/07/18 23:59 23:59 23:59 Intake Total 1000 / 1000 720 / 720 Output Total 3125 / 3125 1085 / 1085 Balance -2125 / -2125 -365 / -365 General: Alert, Oriented x3, Cooperative, No apparent distress HEENT: Atraumatic, PERRLA, EOMI, Normocephalic Neck: Supple, No JVD Lungs: Clear to auscultation, Normal air movement Cardiovascular: Regular rate, Regular Rhythm, Normal S1, Normal S2, No murmurs Abdomen: Bowel Sounds Present, Soft, Non Tender, Non-Distended, No Hepato-splenomegaly Extremities: No edema Skin: No rashes, No breakdown Musculoskeletal: No Tenderness to Palpation of Joints or Extremities Lymphatic: No Cervical, Supraclavicular, or Inguinal Adenopathy Neurological: Cranial nerves II-XII grossly intact, Neuro grossly intact Psych/Mental Status: Normal Affect, Appropriate Laboratory Results 04/06/18 16:03: POC Glucose 155 H 04/06/18 21:34: POC Glucose 203 H 04/07/18 06:20: WBC 7.0, RBC 3.73 L, Hgb 11.9 L, Hct 37.0 L, MCV 99.2 H, MCH 31.9, MCHC 32.2, RDW 13.3, RDW Differential 46.0 H, Plt Count 263, MPV 10.1, Immature Gran % (Auto) 0.300, Neut % (Auto) 75.6 H, Lymph % (Auto) 12.8 L, [place] % (Auto) 7.8, Eos % (Auto) 3.4, Baso % (Auto) 0.1, Absolute Neuts (auto) 5.3, Absolute Lymphs (auto) 0.90, Total Counted Not Reportable 04/07/18 06:20: Sodium 144, Potassium 3.8, Chloride 107, Carbon Dioxide 28.0, Anion Gap 9, BUN 29 H, Creatinine 2.45 H, Estim Creat Clear Calc 27.73, Est GFR (MDRD) Af Amer 33 L, Est GFR (MDRD) Non-Af 28 L, BUN/Creatinine Ratio 11.8, Glucose 105, Calcium 8.9, Lactate Dehydrogenase 218, Triglycerides 119, Cholesterol 103, LDL Cholesterol 36, VLDL Cholesterol 24, HDL Cholesterol 43, TSH 3.06 04/07/18 06:20: Total Protein (PEP) Pending, Angiotensin Convert Enz Pending, IgG Pending, IgA Pending, IgM Pending, Albumin (ALEIDA) Pending, Albumin/Globulin (ALEIDA) Pending, [id number] ALEIDA Pending, [id number] ALEIDA Pending, Beta-Globulins (ALEIDA) Pending, Gamma Globulins (ALEIDA) Pending, ALEIDA M-Paulie Pending 04/07/18 06:20: c-ANCA Antibody Pending, p-ANCA Antibody Pending 04/07/18 06:48: POC Glucose 121 H 04/07/18 11:19: POC Glucose 201 H Current Medications Acetaminophen (Tylenol) 650 mg PO Q6H PRN PRN PRN Reason: Mild Pain (scale 0-3)/T>100.7 Al Hydroxide/Mg Hydroxide (Mylanta Ii) 30 ml PO Q6H PRN PRN PRN Reason: Gastric Burning Amiodarone HCl (Cordarone) 100 mg PO DAILY [facility] Last Admin: 04/07/18 08:31 Dose: 100 mg Amlodipine Besylate (Norvasc) 10 mg PO DAILY [facility] Last Admin: 04/07/18 08:33 Dose: 10 mg Aspirin (Aspirin, Baby) 81 mg PO DAILY@0800 [facility] Last Admin: 04/07/18 08:28 Dose: 81 mg Atorvastatin Calcium (Lipitor) 20 mg PO QHS [facility] Last Admin: 04/06/18 21:37 Dose: 20 mg Bisacodyl (Dulcolax) 10 mg RECTAL DAILY PRN PRN PRN Reason: Constipation Dextrose (D50w Syringe) 0 gm IV X1 PRN; Protocol PRN Reason: Hypoglycemia Docusate Sodium (Colace) 200 mg PO BID PRN PRN PRN Reason: Constipation Doxazosin Mesylate (Cardura) 4 mg PO DAILY [facility] Last Admin: 04/07/18 08:30 Dose: 4 mg Furosemide (Lasix) 40 mg PO DAILY [facility] Glucagon () 1 mg IM .X1 PRN PRN Reason: Hypoglycemia Heparin Sodium (Porcine) (Heparin Na) 5,000 unit SC BID [facility] Last Admin: 04/07/18 08:32 Dose: 5,000 unit Insulin Glargine (Lantus (Bkc)) 30 units SC 0800,2200 [facility] Last Admin: 04/07/18 08:29 Dose: 30 u Insulin Human Lispro (Humalog Kwikpen (Bkc)) 10 unit SC 0800,1200,1700 [facility] Last Admin: 04/07/18 11:21 Dose: 10 units Insulin Human Lispro (Humalog Kwikpen (Bkc)) 0 unit SQ ACHS [facility]; Protocol Last Admin: 04/07/18 11:22 Dose: 4 units Ondansetron HCl (Zofran) 4 mg IV Q8H PRN PRN PRN Reason: Nausea Oxycodone HCl (Oxyir) 5 mg PO Q4H PRN PRN PRN Reason: Moderate Pain (pain scale 4-5) Polyethylene Glycol (Miralax) 17 gm PO DAILY [facility] Last Admin: 04/07/18 08:42 Dose: 17 gm Sodium Chloride () 5 - 30 ml IV UD PRN PRN Reason: SALINE FLUSH Last Admin: 04/06/18 17:00 Dose: 10 ml Temazepam (Restoril) 15 mg PO QHS PRN PRN PRN Reason: SLEEP Last Admin: 04/06/18 23:21 Dose: 15 mg Medical Necessity - Tobacco Use Smoking Status: Never smoker Assessment/Plan All Active Problems (Last Reviewed 12/19/17 @ 13:51 by Clint Rosas MD) Pleural effusion, bilateral (Acute) Hypoxemia (Acute) Pulmonary edema (Acute) Mediastinal lymphadenopathy (Acute) Mobitz (type) I (Wenckebach's) atrioventricular block (Acute) CHF exacerbation (Acute) LEO on CKD stage 3 (Acute) Chest pressure (Resolved) 72 y/o male with CAD status post CABG x3, status post bioprosthetic aortic valve replacement, follows with cardiology comes in with progressive shortness of breath and has been managed as acute on chronic heart failure. 1. Acute hypoxic respiratory insufficiency secondary to acute on chronic CHF exacerbation/bilateral pleural effusion, resolved, patient is saturating well on room air 2. Acute on chronic diastolic CHF, improved, currently on Lasix 40 mg p.o. daily, continue strict I's and O's, daily weights, blood restriction 3. Paroxysmal atrial fibrillation, sinus rhythm, 10 EKG shows sinus bradycardia with type I second-degree AV block ,patient will be discharged on 30-day event monitor, not on beta-blockers on account of tachycardia, continue on amiodarone, will up with cardiology in the outpatient 4. Bilateral pleural effusion secondary to acute on chronic CHF, improving, will continue as above 5. LEO on CKD stage III, creatinine remains the same, baseline creatinine is around 1.4, nephrology consulted, will continue to trend labs 6. Type II DM, on Lantus and premeal insulin, sugars are fairly controlled 7. Hypertension, controlled, continue on amlodipine and doxazosin 8. Hyperlipidemia, on statin 9. BPH, on cardura 10. DVT prophylaxis -heparin subcu 11. Disposition: Possible DC in a.m. Code Visit Inpatient E&M: 88273 Subs Hosp L2
--- NOTE | 2018-04-07 16:09 | PN_ITS ---
Patient Problems: Active and Suspected Problems (Last Reviewed 12/19/17 @ 13:51 by Clint Rosas MD) Pleural effusion, bilateral (Acute) Hypoxemia (Acute) Pulmonary edema (Acute) Mediastinal lymphadenopathy (Acute) Mobitz (type) I (Wenckebach's) atrioventricular block (Acute) CHF exacerbation (Acute) LEO on CKD stage 3 (Acute) Subjective: Patient was seen and examined. Denies any complaint. Denies chest pain or dizziness or shortness of breath. He is eager to be discharged. Vitals/I&O's: Vital Signs Temp Pulse Resp BP Pulse Ox 97.8 F 63 16 97/63 95 04/07/18 14:15 04/07/18 15:07 04/07/18 14:15 04/07/18 14:15 04/07/18 14:15 Oxygen Flow Rate (L/min) 1 Oxygen Delivery Method Room Air Weight: 97.4 kg Body Mass Index (BMI) 30.8 Finger Stick Blood Glucose 113 Intake and Output for Last 24 Hours 04/05/18 04/06/18 04/07/18 23:59 23:59 23:59 Intake Total 1000 / 1000 720 / 720 Output Total 3125 / 3125 1085 / 1085 Balance -2125 / -2125 -365 / -365 General: Alert, Oriented x3, Cooperative, No apparent distress HEENT: Atraumatic, PERRLA, EOMI, Normocephalic Neck: Supple, No JVD Lungs: Clear to auscultation, Normal air movement Cardiovascular: Regular rate, Regular Rhythm, Normal S1, Normal S2, No murmurs Abdomen: Bowel Sounds Present, Soft, Non Tender, Non-Distended, No Hepato- splenomegaly Extremities: No edema Skin: No rashes, No breakdown Musculoskeletal: No Tenderness to Palpation of Joints or Extremities Lymphatic: No Cervical, Supraclavicular, or Inguinal Adenopathy Neurological: Cranial nerves II-XII grossly intact, Neuro grossly intact Psych/Mental Status: Normal Affect, Appropriate Laboratory Results 04/06/18 16:03: POC Glucose 155 H 04/06/18 21:34: POC Glucose 203 H 04/07/18 06:20: WBC 7.0, RBC 3.73 L, Hgb 11.9 L, Hct 37.0 L, MCV 99.2 H, MCH 31.9, MCHC 32.2, RDW 13.3, RDW Differential 46.0 H, Plt Count 263, MPV 10.1, Immature Gran % (Auto) 0.300, Neut % (Auto) 75.6 H, Lymph % (Auto) 12.8 L, [place] % (Auto) 7.8, Eos % (Auto) 3.4, Baso % (Auto) 0.1, Absolute Neuts (auto) 5.3, Absolute Lymphs (auto) 0.90, Total Counted Not Reportable 04/07/18 06:20: Sodium 144, Potassium 3.8, Chloride 107, Carbon Dioxide 28.0, Anion Gap 9, BUN 29 H, Creatinine 2.45 H, Estim Creat Clear Calc 27.73, Est GFR (MDRD) Af Amer 33 L, Est GFR (MDRD) Non-Af 28 L, BUN/Creatinine Ratio 11.8, Glucose 105, Calcium 8.9, Lactate Dehydrogenase 218, Triglycerides 119, Cholesterol 103, LDL Cholesterol 36, VLDL Cholesterol 24, HDL Cholesterol 43, TSH 3.06 04/07/18 06:20: Total Protein (PEP) Pending, Angiotensin Convert Enz Pending, IgG Pending, IgA Pending, IgM Pending, Albumin (ALEIDA) Pending, Albumin/Globulin (ALEIDA) Pending, Bwcib-2-Lzknzmqve ALEIDA Pending, Ldcoe-3-Xcvuwhgzy ALEIDA Pending, Beta-Globulins (ALEIDA) Pending, Gamma Globulins (ALEIDA) Pending, ALEIDA M-Paulie Pending 04/07/18 06:20: c-ANCA Antibody Pending, p-ANCA Antibody Pending 04/07/18 06:48: POC Glucose 121 H 04/07/18 11:19: POC Glucose 201 H Current Medications Acetaminophen (Tylenol) 650 mg PO Q6H PRN PRN PRN Reason: Mild Pain (scale 0-3)/T>100.7 Al Hydroxide/Mg Hydroxide (Mylanta Ii) 30 ml PO Q6H PRN PRN PRN Reason: Gastric Burning Amiodarone HCl (Cordarone) 100 mg PO DAILY [facility] Last Admin: 04/07/18 08:31 Dose: 100 mg Amlodipine Besylate (Norvasc) 10 mg PO DAILY [facility] Last Admin: 04/07/18 08:33 Dose: 10 mg Aspirin (Aspirin, Baby) 81 mg PO DAILY@0800 [facility] Last Admin: 04/07/18 08:28 Dose: 81 mg Atorvastatin Calcium (Lipitor) 20 mg PO QHS [facility] Last Admin: 04/06/18 21:37 Dose: 20 mg Bisacodyl (Dulcolax) 10 mg RECTAL DAILY PRN PRN PRN Reason: Constipation Dextrose (D50w Syringe) 0 gm IV X1 PRN; Protocol PRN Reason: Hypoglycemia Docusate Sodium (Colace) 200 mg PO BID PRN PRN PRN Reason: Constipation Doxazosin Mesylate (Cardura) 4 mg PO DAILY [facility] Last Admin: 04/07/18 08:30 Dose: 4 mg Furosemide (Lasix) 40 mg PO DAILY [facility] Glucagon () 1 mg IM .X1 PRN PRN Reason: Hypoglycemia Heparin Sodium (Porcine) (Heparin Na) 5,000 unit SC BID [facility] Last Admin: 04/07/18 08:32 Dose: 5,000 unit Insulin Glargine (Lantus (Bkc)) 30 units SC 0800,2200 [facility] Last Admin: 04/07/18 08:29 Dose: 30 u Insulin Human Lispro (Humalog Kwikpen (Bkc)) 10 unit SC 0800,1200,1700 [facility] Last Admin: 04/07/18 11:21 Dose: 10 units Insulin Human Lispro (Humalog Kwikpen (Bkc)) 0 unit SQ ACHS [facility]; Protocol Last Admin: 04/07/18 11:22 Dose: 4 units Ondansetron HCl (Zofran) 4 mg IV Q8H PRN PRN PRN Reason: Nausea Oxycodone HCl (Oxyir) 5 mg PO Q4H PRN PRN PRN Reason: Moderate Pain (pain scale 4-5) Polyethylene Glycol (Miralax) 17 gm PO DAILY [facility] Last Admin: 04/07/18 08:42 Dose: 17 gm Sodium Chloride () 5 - 30 ml IV UD PRN PRN Reason: SALINE FLUSH Last Admin: 04/06/18 17:00 Dose: 10 ml Temazepam (Restoril) 15 mg PO QHS PRN PRN PRN Reason: SLEEP Last Admin: 04/06/18 23:21 Dose: 15 mg Medical Necessity - Tobacco Use Smoking Status: Never smoker Assessment/Plan All Active Problems (Last Reviewed 12/19/17 @ 13:51 by Clint Rosas MD) Pleural effusion, bilateral (Acute) Hypoxemia (Acute) Pulmonary edema (Acute) Mediastinal lymphadenopathy (Acute) Mobitz (type) I (Wenckebach's) atrioventricular block (Acute) CHF exacerbation (Acute) LEO on CKD stage 3 (Acute) Chest pressure (Resolved) 72 y/o male with CAD status post CABG x3, status post bioprosthetic aortic valve replacement, follows with cardiology comes in with progressive shortness of breath and has been managed as acute on chronic heart failure. 1. Acute hypoxic respiratory insufficiency secondary to acute on chronic CHF exacerbation/bilateral pleural effusion, resolved, patient is saturating well on room air 2. Acute on chronic diastolic CHF, improved, currently on Lasix 40 mg p.o. daily, continue strict I's and O's, daily weights, blood restriction 3. Paroxysmal atrial fibrillation, sinus rhythm, 10 EKG shows sinus bradycardia with type I second-degree AV block ,patient will be discharged on 30-day event monitor, not on beta-blockers on account of tachycardia, continue on amiodarone, will up with cardiology in the outpatient 4. Bilateral pleural effusion secondary to acute on chronic CHF, improving, will continue as above 5. LEO on CKD stage III, creatinine remains the same, baseline creatinine is around 1.4, nephrology consulted, will continue to trend labs 6. Type II DM, on Lantus and premeal insulin, sugars are fairly controlled 7. Hypertension, controlled, continue on amlodipine and doxazosin 8. Hyperlipidemia, on statin 9. BPH, on cardura 10. DVT prophylaxis -heparin subcu 11. Disposition: Possible DC in a.m. Code Visit Inpatient E&M: 35943 Subs Hosp L2
--- NOTE | 2018-04-07 18:19 | PN.RENAL_ITS ---
Patient Problems: Active and Suspected Problems (Last Reviewed 12/19/17 @ 13:51 by Clint Rosas MD) Pleural effusion, bilateral (Acute) Hypoxemia (Acute) Pulmonary edema (Acute) Mediastinal lymphadenopathy (Acute) Mobitz (type) I (Wenckebach's) atrioventricular block (Acute) CHF exacerbation (Acute) LEO on CKD stage 3 (Acute) Subjective: Patient is doing fine. Breathing is okay. No chest pain. No nausea no vomiting - Physical Exam General: Alert, Oriented x3 HEENT: Atraumatic Oral: Moist Mucosa Neck: Supple, No JVD Lungs: Clear to auscultation, Normal air movement, No rhonchi, No wheeze Cardiovascular: Regular rate, Regular Rhythm, Normal S1, Normal S2 Abdomen: Bowel Sounds Present, Soft, Non Tender Extremities: No clubbing, No cyanosis, No edema Skin: No rashes Musculoskeletal: No Tenderness to Palpation of Joints or Extremities Lymphatic: No Cervical, Supraclavicular, or Inguinal Adenopathy Neurological: Cranial nerves II-XII grossly intact, Neuro grossly intact Psych/Mental Status: Normal Affect Vital Signs Temp Pulse Resp BP Pulse Ox 97.8 F 63 16 97/63 95 04/07/18 14:15 04/07/18 15:07 04/07/18 14:15 04/07/18 14:15 04/07/18 14:15 Oxygen Flow Rate (L/min) 1 Oxygen Delivery Method Room Air Weight: 97.4 kg Body Mass Index (BMI) 30.8 Finger Stick Blood Glucose 113 Intake and Output for Last 24 Hours 04/05/18 04/06/18 04/07/18 23:59 23:59 23:59 Intake Total 1000 / 1000 1200 / 1200 Output Total 3125 / 3125 1635 / 1635 Balance -2125 / -2125 -435 / -435 Laboratory Tests Past 24 Hrs 04/07/18 04/07/18 04/07/18 06:20 06:20 06:20 WBC 7.0 RBC 3.73 L Hgb 11.9 L Hct 37.0 L MCV 99.2 H MCH 31.9 MCHC 32.2 RDW 13.3 RDW Differential 46.0 H Plt Count 263 MPV 10.1 Immature Gran % (Auto) 0.300 Neut % (Auto) 75.6 H Lymph % (Auto) 12.8 L [place] % (Auto) 7.8 Eos % (Auto) 3.4 Baso % (Auto) 0.1 Absolute Neuts (auto) 5.3 Absolute Lymphs (auto) 0.90 Total Counted Not Reportable Sodium 144 Potassium 3.8 Chloride 107 Carbon Dioxide 28.0 Anion Gap 9 BUN 29 H Creatinine 2.45 H Estim Creat Clear Calc 27.73 Est GFR (MDRD) Af Amer 33 L Est GFR (MDRD) Non-Af 28 L BUN/Creatinine Ratio 11.8 Glucose 105 Calcium 8.9 Lactate Dehydrogenase 218 Total Protein (PEP) Pending Triglycerides 119 Cholesterol 103 LDL Cholesterol 36 VLDL Cholesterol 24 HDL Cholesterol 43 Angiotensin Convert Enz Pending TSH 3.06 IgG Pending IgA Pending IgM Pending Albumin (ALEIDA) Pending Albumin/Globulin (ALEIDA) Pending [id number]-[id number] ALEIDA Pending Xjlrr-1-Dzwvfrzyn ALEIDA Pending Beta-Globulins (ALEIDA) Pending Gamma Globulins (ALEIDA) Pending ALEIDA M-Paulie Pending c-ANCA Antibody p-ANCA Antibody 04/07/18 06:20 WBC RBC Hgb Hct MCV MCH MCHC RDW RDW Differential Plt Count MPV Immature Gran % (Auto) Neut % (Auto) Lymph % (Auto) [place] % (Auto) Eos % (Auto) Baso % (Auto) Absolute Neuts (auto) Absolute Lymphs (auto) Total Counted Sodium Potassium Chloride Carbon Dioxide Anion Gap BUN Creatinine Estim Creat Clear Calc Est GFR (MDRD) Af Amer Est GFR (MDRD) Non-Af BUN/Creatinine Ratio Glucose Calcium Lactate Dehydrogenase Total Protein (PEP) Triglycerides Cholesterol LDL Cholesterol VLDL Cholesterol HDL Cholesterol Angiotensin Convert Enz TSH IgG IgA IgM Albumin (ALEIDA) Albumin/Globulin (ALEIDA) Zjmxv-2-Sqtrempow ALEIDA Qvbtv-1-Abeinnffm ALEIDA Beta-Globulins (ALEIDA) Gamma Globulins (ALEIDA) ALEIDA M-Paulie c-ANCA Antibody Pending p-ANCA Antibody Pending POC Glucose 04/07/18 04/07/18 04/06/18 11:19 06:48 21:34 POC Glucose 201 H 121 H 203 H Medical Necessity - Tobacco Use Smoking Status: Never smoker Assessment/Plan All Active Problems (Last Reviewed 12/19/17 @ 13:51 by Clint Rosas MD) Pleural effusion, bilateral (Acute) Hypoxemia (Acute) Pulmonary edema (Acute) Mediastinal lymphadenopathy (Acute) Mobitz (type) I (Wenckebach's) atrioventricular block (Acute) CHF exacerbation (Acute) LEO on CKD stage 3 (Acute) Chest pressure (Resolved) LEO on chronic kidney disease. Baseline creatinine seems around 1.6 two, three months ago. Creatinine increased slightly to 2.1. This might be from cardiorenal syndrome. Patient was admitted with CHF. I agree with diuresing the patient with Lasix 40 mg once a day now. Creatinine stable at 2.4 for the last 24-hour. I will do UA along with urine sodium and urine creatinine to calculate FeNa Abdomen/pelvis CAT scan did not show hydronephrosis. Hypertension: Blood pressure is well controlled. Continue Norvasc. Avoid SANIA inhibitor/ARB with diuresis CHF. There is service is following. Continue Lasix daily weight. Renal team will continue to follow
[2018-04-07 21:12] LABS: Bacteria 0 SEEN /hpf (None Seen); Mucous, Urine 0 SEEN /hpf (<or=2+); Red Blood Cells-Urine 0 SEEN /hpf (0-5); Squamous Epithelial Cells - UA 0 SEEN /hpf (0-5); White Blood Cells 0 SEEN /hpf (0-5)
[2018-04-07 21:14] LABS: Color, Urine Yellow (Yellow); Glucose, Dipstick Normal (Normal); Ketone-Dipstick Negative (Negative); Leukocyte Esterase-Dipstick Negative /ul (Negative); Nitrite-Dipstick Negative (Negative); Occult Blood-Urine Negative /ul (Negative); Protein-Dipstick 30 mg/dl (Negative); Urine Bilirubin Dipstick Negative (Negative); Urine Clarity Clear (Clear); Urine Urobilinogen Normal (Normal)
[2018-04-07 21:15] LABS: Bedside Glucose 186 mg/dL (70-110)
[2018-04-07 21:20] LABS: Urine Sodium 89 mmol/L (Not Establ.)
[2018-04-07] MEDS: Atorvastatin Calcium 20 MG Tablet PO (21:32)
[2018-04-07] MEDS: Temazepam 15 MG Capsule PO (23:52)
[2018-04-08 01:01] LABS: Bedside Glucose 143 mg/dL (70-110)
[2018-04-08 03:05] VITALS: PULSE 83
[2018-04-08] MEDS: Acetaminophen 325 MG Tablet 650 MG PO (03:31)
[2018-04-08 03:34] VITALS: BP 128/65; PULSE 82; RESP 17; TEMP 36.4; O2SAT 94
[2018-04-08 07:00] LABS: Bedside Glucose 133 mg/dL (70-110)
--- NOTE | 2018-04-08 07:17 | PN_ITS ---
Patient Problems: Active and Suspected Problems (Last Reviewed 12/19/17 @ 13:51 by Clint Rosas MD) Pleural effusion, bilateral (Acute) Hypoxemia (Acute) Pulmonary edema (Acute) Mediastinal lymphadenopathy (Acute) Mobitz (type) I (Wenckebach's) atrioventricular block (Acute) CHF exacerbation (Acute) LEO on CKD stage 3 (Acute) Subjective: The patient was seen and examined at the bedside this morning. Events from the last 24 hours have been reviewed. The patient is currently afebrile, hemodynamically stable and maintaining appropriate oxygen saturations on room air. The patient denies any shortness of breath, chest pain or cough this morning. He is anxious to be discharged home. Objective: The patient's most recent lab work, culture data and imaging studies have all been personally reviewed. CT chest revealed cardiomegaly and interstitial edema, along with mediastinal and hilar lymphadenopathy and bilateral pleural effusions. Prior chest CT from February 2017 did not reveal the adenopathy noted on this study. Surface echocardiogram revealed stage II diastolic dysfunction with preserved ejection fraction. Right ventricular systolic pressure was estimated to be 66 mmHg. - Physical Exam General: Alert, Oriented x3, Cooperative, No apparent distress HEENT: Atraumatic, PERRLA, Normocephalic Oral: No Gingival or Mucosal Lesions/ Ulcerations Neck: Supple, No Nodes, Trachea Midline Lungs: Normal air movement, No rhonchi, No wheeze, No rales Cardiovascular: Regular rate, Regular Rhythm, Normal S1, Normal S2, Murmur Abdomen: Bowel Sounds Present, Soft, Non Tender, Non-Distended Extremities: No clubbing, No cyanosis, No edema Skin: No breakdown Musculoskeletal: No Tenderness to Palpation of Joints or Extremities, No Muscle Wasting Lymphatic: No Cervical, Supraclavicular, or Inguinal Adenopathy Neurological: Cranial nerves II-XII grossly intact, Neuro grossly intact Psych/Mental Status: Alert and oriented to time, place, person, mood and affect Vital Signs Temp Pulse Resp BP Pulse Ox 97.6 F L 82 17 128/65 H 94 04/08/18 03:34 04/08/18 03:34 04/08/18 03:34 04/08/18 03:34 04/08/18 03:34 Oxygen Flow Rate (L/min) 1 Oxygen Delivery Method Room Air Weight: 202 lb 2.622 oz Body Mass Index (BMI) 30.8 Finger Stick Blood Glucose 113 Intake and Output for Last 24 Hours 04/06/18 04/07/18 04/08/18 23:59 23:59 23:59 Intake Total 1000 / 1000 1680 / 1680 120 / 120 Output Total 3125 / 3125 2460 / 2460 Balance -2125 / -2125 -780 / -780 120 / 120 Laboratory Tests Past 24 Hrs 04/07/18 04/07/18 04/07/18 06:20 20:15 20:15 Sodium 144 Potassium 3.8 Chloride 107 Carbon Dioxide 28.0 Anion Gap 9 BUN 29 H Creatinine 2.45 H Estim Creat Clear Calc 27.73 Est GFR (MDRD) Af Amer 33 L Est GFR (MDRD) Non-Af 28 L BUN/Creatinine Ratio 11.8 Glucose 105 Calcium 8.9 Lactate Dehydrogenase 218 Triglycerides 119 Cholesterol 103 LDL Cholesterol 36 VLDL Cholesterol 24 HDL Cholesterol 43 TSH 3.06 Urine Color Yellow Urine Clarity Clear Urine pH 8.0 Ur Specific [place] 1.010 Urine Protein 30 H Urine Glucose (UA) Normal Urine Ketones Negative Urine Occult Blood Negative Urine Nitrite Negative Urine Bilirubin Negative Urine Urobilinogen Normal Ur Leukocyte Esterase Negative Urine RBC 0 SEEN Urine WBC 0 SEEN Ur Squamous Epith Cells 0 SEEN Urine Bacteria 0 SEEN Urine Mucus 0 SEEN Ur Random Sodium Urine Creatinine 106.00 04/07/18 04/08/18 20:15 06:15 Sodium Pending Potassium Pending Chloride Pending Carbon Dioxide Pending Anion Gap Pending BUN Pending Creatinine Pending Estim Creat Clear Calc Est GFR (MDRD) Af Amer Pending Est GFR (MDRD) Non-Af Pending BUN/Creatinine Ratio Pending Glucose Pending Calcium Pending Lactate Dehydrogenase Triglycerides Cholesterol LDL Cholesterol VLDL Cholesterol HDL Cholesterol TSH Urine Color Urine Clarity Urine pH Ur Specific [place] Urine Protein Urine Glucose (UA) Urine Ketones Urine Occult Blood Urine Nitrite Urine Bilirubin Urine Urobilinogen Ur Leukocyte Esterase Urine RBC Urine WBC Ur Squamous Epith Cells Urine Bacteria Urine Mucus Ur Random Sodium 89 Urine Creatinine POC Glucose 04/08/18 04/07/18 04/07/18 06:44 21:30 16:30 POC Glucose 133 H 143 H 186 H 04/07/18 11:19 POC Glucose 201 H Clinical Impression(s) from Imaging Studies Chest X-Ray 04/06/18 03:35 IMPRESSION: Cardiomegaly with central vascular congestive changes and a small left-sided pleural effusion. Multiple nodular densities in the right lower lobe. Metastatic disease suspected Electronically Signed: Tez Hurst MD at 4:14 EDT Tel , Service support , Chest CT 04/06/18 05:47 IMPRESSION: Cardiomegaly with central vascular congestive changes and interstitial edema. Bilateral pleural effusions; more on the right than the left Extensive mediastinal adenopathy. Lymphoproliferative disorder suspected. No indication of any metastatic lung disease. A calcified granuloma in the right middle lobe and a 1.1 cm nodular density in the lingula division of the left upper lobe Electronically Signed: Tez Hurst MD at 7:02 EDT Tel , Service support , Chest Ultrasound 04/06/18 08:06 IMPRESSION: Small bilateral pleural effusions. Electronically Signed: Mark Waller MD at 14:42 EDT Tel [phone], Service support , Abdomen/Pelvis CT 04/06/18 12:48 IMPRESSION: 1. Bilateral lower lobe atelectasis. 2. Moderate sized right-sided pleural effusion and small left-sided effusion. 3. Nonvisualization of the gallbladder. 4. Low-attenuation right adrenal nodule measuring 1.7 x 1.3 cm consistent with an adenoma. This is slightly increased in size from the prior study. 5. 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 6. Nonobstructing 3 mm calculus of the lower pole of the left kidney. 1.6 cm left renal cyst. 7. Colonic diverticulosis with no evidence of associated diverticulitis. 8. Small fat-containing umbilical hernia. 9. There is no evidence of free intra-abdominal or intrapelvic air or fluid. Electronically Signed: Paul Dozier MD at 17:34 EDT , Service support , Medical Necessity - Tobacco Use Smoking Status: Never smoker Assessment/Plan All Active Problems (Last Reviewed 12/19/17 @ 13:51 by Clint Rosas MD) Pleural effusion, bilateral (Acute) Hypoxemia (Acute) Pulmonary edema (Acute) Mediastinal lymphadenopathy (Acute) Mobitz (type) I (Wenckebach's) atrioventricular block (Acute) CHF exacerbation (Acute) LEO on CKD stage 3 (Acute) Chest pressure (Resolved) RECOMMENDATIONS: 1. Encourage incentive spirometer use and mobilize patient as tolerated. 2. Continue diuretic regimen per cardiology recommendations. 3. Recommend that the patient follow-up with the pulmonary medicine clinic within 2 weeks of his discharge from the hospital for additional workup and longitudinal monitoring of the patient's mediastinal adenopathy. IMPRESSIONS: 1. Acute hypoxic respiratory insufficiency in the setting of bilateral pleural effusions Concern for decompensated heart failure with preserved ejection fraction. Cardiology is following. Agree with volume optimization with diuretics. Although initially considered, an ultrasound-guided thoracentesis was subsequently canceled, as there was not enough pleural fluid present to perform the procedure. The patient has been subsequently weaned to room air and is doing well from a respiratory perspective. 2. Mediastinal and hilar lymphadenopathy Unclear etiology, although it does not appear that this degree of adenopathy was present on his prior chest CT. Considerations include infectious, inflammatory and malignant etiologies. If additional workup is to be undertaken, this would need to be accomplished on an outpatient basis. I recommended that the patient follow-up in the pulmonary medicine clinic so that the adenopathy can be followed longitudinally in additional testing undertaken, if clinically ind icated. 3. Acute on chronic kidney disease Agree with diuretics. Continue to monitor urine output. No indication for renal replacement therapy at this time. 4. Obesity/diabetes/hyperlipidemia/hypertension Complicates care, management, recovery and prognosis. Likely okay to continue home medications at this time. This note was generated with [employer] dictation software. It may contain incorrect words, spelling, and punctuation that were not noted in checking the note before signing. DISPOSITION: Given the patient's lack of ongoing pulmonary needs, will sign off. Please call with any additional questions. The patient should ideally follow up in the pulmonary medicine clinic within 2 weeks of his discharge from the hos pital. Code Visit Inpatient E&M: [id number] Subs Hosp L2
[2018-04-08 07:30] VITALS: PULSE 81
[2018-04-08 07:49] LABS: Anion Gap 10 (5-15); BUN 29 mg/dL (7-18); BUN/Creat Ratio 11.2 RATIO (10-20); Calcium,Total 8.8 mg/dL (8.5-10.1); Chloride 108 mmol/L (98-107); Creatinine, Serum 2.59 mg/dL (0.70-1.30); EST Glomerular Filtration Rate 26 mL/min (>60); Est Glom Filt Rate - Afr Amer 31 mL/min (>60); Estimated Creatinine Clearance 26.23 ml/min; Glucose 129 mg/dL (74-106); Potassium 3.6 mmol/L (3.5-5.1); Sodium Level 145 mmol/L (136-145)
[2018-04-08] MEDS: Aspirin 81 MG TAB.CHEW PO (08:23)
[2018-04-08] MEDS: Insulin Lispro 100 UNIT/ML INSULN.PEN 10 UNIT SC ×2 (08:25→11:16)
[2018-04-08] MEDS: Doxazosin 4 MG Tablet PO (08:26)
[2018-04-08] MEDS: Amiodarone 200 MG Tablet 100 MG PO (08:26)
[2018-04-08] MEDS: Heparin Injection (Vial) 5,000 UNIT/ML VIAL 5000 UNIT SC (08:28)
[2018-04-08] MEDS: amLODIPine 10 MG Tablet PO (08:29)
[2018-04-08] MEDS: Polyethylene Glycol 3350 17 GM PACKET PO (08:42)
[2018-04-08] MEDS: Furosemide 40 MG Tablet PO (08:42)
[2018-04-08 09:34] VITALS: BP 112/60; PULSE 69; RESP 16; TEMP 36.6; O2SAT 98
[2018-04-08] MEDS: Insulin Lispro 100 UNIT/ML INSULN.PEN SQ (11:18)
--- NOTE | 2018-04-08 11:29 | DCINST_ITS ---
- Discharge Diagnoses Current Active Problems: Current Active and Chronic Problems (Last Reviewed 12/19/17 @ 13:51 by Clint Rosas MD) Pleural effusion, bilateral (Acute) Hypoxemia (Acute) Pulmonary edema (Acute) Mediastinal lymphadenopathy (Acute) CRF (chronic renal failure) (Chronic) Mobitz (type) I (Wenckebach's) atrioventricular block (Acute) CHF exacerbation (Acute) LEO on CKD stage 3 (Acute) Reason(s) for Visit for Discharge Instructions: Shortness of breath You will use the following diet at home:: Calorie/Carbohydrate Controlled (specify 1200, 1400, etc), Cardiac, Fluid restricted (specify 2000 mls, 1500 mls) - 1500mls Your food should be the consistency of: Regular Your liquids should be the consistency of: Regular/Thin Discharge Activity: Return to Normal Activity Additional Instructions: Please follow a low salt diet. Continue to remain active. Follow-up closely with pulmonology, nephrology and cardiology in the outpatient in 2 weeks. Weigh daily; let your doctor know if you gain weight more 4 pounds. Allergies/Adverse Reactions: Allergies No Known Allergies Allergy (Verified 04/06/18 01:55) Medications to take at Discharge Amlodipine Besylate 10 mg PO DAILY 07/02/13 Atorvastatin Calcium [Lipitor] 20 mg PO QHS 07/02/13 Insulin Aspart [Novolog] 10 units SC TID 07/02/13 Aspirin [Aspirin, Baby] 81 mg PO DAILY@0800 02/09/15 Doxazosin Mesylate 4 mg PO DAILY 02/09/15 Insulin Glargine,Hum.rec.anlog [Lantus] 30 unit SQ BID 02/09/15 Methyl-B12/l-Mefolate/B6 Phos [Foltanx Tablet] 2 - 3 ea PO DAILY 12/09/15 Temazepam [Restoril] 15 - 30 mg PO QHS PRN PRN 07/19/16 amiodarone 200 mg tablet 100 mg PO DAILY tab 12/19/17 Furosemide [Lasix] 20 mg PO DAILY #30 tablet 04/08/18 The following prescriptions were given: Furosemide [Lasix] 20 mg PO DAILY #30 tablet Orders to be completed after discharge: Basic Metabolic Profile (BMP) Location: Laboratory Primary Care Physician: Richa Barrientos MD [Primary Care Provider] - Please follow up with your Primary Care Physician in: within 1-2 weeks Test Results: Test results from this visit will be discussed in further detail at your follow- up appointment, if applicable. Please Follow Up With: Armani Garcia MD When: in 2 weeks When: Wes Please Follow Up With: within 1-2 weeks Proposed Discharge Date: 04/08/18
--- NOTE | 2018-04-08 11:34 | DS.PCM_ITS ---
Discharge Date and Diagnosis Date of Admission: 04/06/18 Date of Discharge: 04/08/18 - Primary Discharge Diagnosis Active and Suspected Problems (Last Reviewed 12/19/17 @ 13:51 by Clint Rosas MD) Pleural effusion, bilateral (Acute) Hypoxemia (Acute) Pulmonary edema (Acute) Mediastinal lymphadenopathy (Acute) Mobitz (type) I (Wenckebach's) atrioventricular block (Acute) CHF exacerbation (Acute), acute on chronic diastolic CHF LEO on CKD stage 3 (Acute) Acute hypoxic respiratory failure - Secondary Discharge Diagnosis Chronic Problems (Last Reviewed 12/19/17 @ 13:51 by Clint Rosas MD) CRF (chronic renal failure) (Chronic) Paroxysmal atrial fibrillation (Chronic) H/O aortic valve replacement (Chronic 11/29/12) 25 mm Felix-Wilcox [place] Magna Valve ([facility]: 11/29/2012) Atherosclerosis of coronary artery of [place] without angina pectoris (Chronic) CABG x 3 PATEL to LAD, SVG-Ramus, SVG-PLB of RCA 11/29/2012 H/O coronary artery bypass surgery (Chronic 11/29/12) CABG x 3 PATEL to LAD, SVG-Ramus, SVG-PLB of RCA 11/29/2012 HTN (hypertension) (Chronic) HLD (hyperlipidemia) (Chronic) Hospital Course and Treatment Imaging Results: Clinical Impression(s) from Imaging Studies Chest X-Ray 04/06/18 03:35 IMPRESSION: Cardiomegaly with central vascular congestive changes and a small left-sided pleural effusion. Multiple nodular densities in the right lower lobe. Metastatic disease suspected Electronically Signed: Tez Hurst MD at 4:14 EDT Tel , Service support , Chest CT 04/06/18 05:47 IMPRESSION: Cardiomegaly with central vascular congestive changes and interstitial edema. Bilateral pleural effusions; more on the right than the left Extensive mediastinal adenopathy. Lymphoproliferative disorder suspected. No indication of any metastatic lung disease. A calcified granuloma in the right middle lobe and a 1.1 cm nodular density in the lingula division of the left upper lobe Electronically Signed: Tez Hurst MD at 7:02 EDT Tel , Service support , Chest Ultrasound 04/06/18 08:06 IMPRESSION: Small bilateral pleural effusions. Electronically Signed: Mark Waller MD at 14:42 EDT Tel [phone], Service support , Abdomen/Pelvis CT 04/06/18 12:48 IMPRESSION: 1. Bilateral lower lobe atelectasis. 2. Moderate sized right-sided pleural effusion and small left-sided effusion. 3. Nonvisualization of the gallbladder. 4. Low-attenuation right adrenal nodule measuring 1.7 x 1.3 cm consistent with an adenoma. This is slightly increased in size from the prior study. 5. 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 6. Nonobstructing 3 mm calculus of the lower pole of the left kidney. 1.6 cm left renal cyst. 7. Colonic diverticulosis with no evidence of associated diverticulitis. 8. Small fat-containing umbilical hernia. 9. There is no evidence of free intra-abdominal or intrapelvic air or fluid. Electronically Signed: Paul Dozier MD at 17:34 EDT , Service support , Cardiology Nephrology Operations: None, TURP Procedures: 2-D Echocardiogram Summary of Care Provided: 72 y/o male with CAD status post CABG x3, status post bioprosthetic aortic valve replacement, follows with cardiology admitted with progressive shortness of breath and managed as acute on chronic heart failure. 1. Acute hypoxic respiratory insufficiency secondary to acute on chronic CHF exacerbation/bilateral pleural effusion, resolved, patient did not qualify for home oxygen 2. Acute on chronic diastolic CHF, improved, discharged on Lasix 20 mg p.o. d aily, CHF education was given 3. Paroxysmal atrial fibrillation, sinus rhythm, admitting EKG shows sinus bradycardia with type I second-degree AV block, Discharged on a beta-hari account of bradycardia Discharged in a 30-day event monitor continued on amiodarone, will follow-up with cardiology in the outpatient 4. Bilateral pleural effusion secondary to acute on chronic CHF, improving, tho racocentesis was not done as planned because pleural effusion that appears to have improved. Follow-up with pulmonology in the outpatient 5. LEO on CKD stage III, creatinine appears to have trended up, nephrology was consulted, discharge creatinine was 2.59, he would repeat labs in the outpatient and follow with nephrology 6. Type II DM, on Lantus and premeal insulin 7. Hypertension, on amlodipine and doxazosin 8. Hyperlipidemia, on statin 9. BPH, on cardura Subjective: On the day of discharge, patient was seen and examined. Denied any new complain ts. Eager to be discharged. No acute events on telemetry. Plan of care was discussed with the patient and his at the bedside on discharge. Objective: General: Alert, Oriented x3, Cooperative, No apparent distress HEENT: Atraumatic, PERRLA, EOMI, Normocephalic Neck: Supple, No JVD Lungs: Clear to auscultation, Normal air movement Cardiovascular: Regular rate, Regular Rhythm, Normal S1, Normal S2, No murmurs Abdomen: Bowel Sounds Present, Soft, Non Tender, Non-Distended, No Hepato- splenomegaly Extremities: No edema Skin: No rashes, No breakdown Musculoskeletal: No Tenderness to Palpation of Joints or Extremities Lymphatic: No Cervical, Supraclavicular, or Inguinal Adenopathy Neurological: Cranial nerves II-XII grossly intact, Neuro grossly intact Psych/Mental Status: Normal Affect, Appropriate - Physical Exam Vital Signs Temp Pulse Resp BP Pulse Ox 97.8 F 69 16 112/60 98 04/08/18 09:34 04/08/18 09:34 04/08/18 09:34 04/08/18 09:34 04/08/18 09:34 Oxygen Flow Rate (L/min) 1 Oxygen Delivery Method Room Air Weight: 91.7 kg Body Mass Index (BMI) 30.8 Finger Stick Blood Glucose 113 Intake and Output for Last 24 Hours 04/06/18 04/07/18 04/08/18 23:59 23:59 23:59 Intake Total 1000 / 1000 1680 / 1680 600 / 600 Output Total 3125 / 3125 2460 / 2460 450 / 450 Balance -2125 / -2125 -780 / -780 150 / 150 Laboratory Tests Past 24 Hrs 04/07/18 04/07/18 04/07/18 20:15 20:15 20:15 Sodium Potassium Chloride Carbon Dioxide Anion Gap BUN Creatinine Estim Creat Clear Calc Est GFR (MDRD) Af Amer Est GFR (MDRD) Non-Af BUN/Creatinine Ratio Glucose Calcium Urine Color Yellow Urine Clarity Clear Urine pH 8.0 Ur Specific [place] 1.010 Urine Protein 30 H Urine Glucose (UA) Normal Urine Ketones Negative Urine Occult Blood Negative Urine Nitrite Negative Urine Bilirubin Negative Urine Urobilinogen Normal Ur Leukocyte Esterase Negative Urine RBC 0 SEEN Urine WBC 0 SEEN Ur Squamous Epith Cells 0 SEEN Urine Bacteria 0 SEEN Urine Mucus 0 SEEN Ur Random Sodium 89 Urine Creatinine 106.00 04/08/18 06:15 Sodium 145 Potassium 3.6 Chloride 108 H Carbon Dioxide 27.0 Anion Gap 10 BUN 29 H Creatinine 2.59 H Estim Creat Clear Calc 26.23 Est GFR (MDRD) Af Amer 31 L Est GFR (MDRD) Non-Af 26 L BUN/Creatinine Ratio 11.2 Glucose 129 H Calcium 8.8 Urine Color Urine Clarity Urine pH Ur Specific [place] Urine Protein Urine Glucose (UA) Urine Ketones Urine Occult Blood Urine Nitrite Urine Bilirubin Urine Urobilinogen Ur Leukocyte Esterase Urine RBC Urine WBC Ur Squamous Epith Cells Urine Bacteria Urine Mucus Ur Random Sodium Urine Creatinine POC Glucose 04/08/18 04/07/18 04/07/18 06:44 21:30 16:30 POC Glucose 133 H 143 H 186 H 04/07/18 11:19 POC Glucose 201 H Discharge Diet: Low fat/ Low Cholesterol, 8 Cup Fluid Restriciton, 2000 mg Sodium Diet Discharge Activity: Return to Normal Activity Home Medications: Medications to take at Discharge Amlodipine Besylate 10 mg PO DAILY 07/02/13 Atorvastatin Calcium [Lipitor] 20 mg PO QHS 07/02/13 Insulin Aspart [Novolog] 10 units SC TID 07/02/13 Aspirin [Aspirin, Baby] 81 mg PO DAILY@0800 02/09/15 Doxazosin Mesylate 4 mg PO DAILY 02/09/15 Insulin Glargine,Hum.rec.anlog [Lantus] 30 unit SQ BID 02/09/15 Methyl-B12/l-Mefolate/B6 Phos [Foltanx Tablet] 2 - 3 ea PO DAILY 06/29/16 Temazepam [Restoril] 15 - 30 mg PO QHS PRN PRN 07/19/16 amiodarone 200 mg tablet 100 mg PO DAILY tab 12/19/17 Furosemide [Lasix] 20 mg PO DAILY #30 tablet 04/08/18 Following Prescrptions Were Given to Patient: Furosemide [Lasix] 20 mg PO DAILY #30 tablet Other Amb Orders: 30-Day Event Recorder [[facility]] Location: None Selected Basic Metabolic Profile (BMP) Location: Laboratory Primary Care Physician: Richa Barrientos MD [Primary Care Provider] - Please follow up with your Primary Care Physician in: within 1-2 weeks Please Follow Up With: Armani Garcia MD When: in 2 weeks When: Wes Please Follow Up With: within 1-2 weeks Disposition: Home Minutes spent on discharge:: 45 Patient Condition:: Stable Medical Necessity - Tobacco Use Smoking Status: Never smoker Meaningful Use Info Meaningful Use Diagnoses (Choose all that apply): CHF - CHF SANIA/ARB ordered at discharge?: Yes Documented LVEF (%): 65 Code Visit Inpatient E&M: 33047 Disch Hosp
[2018-04-08 12:16] LABS: Bedside Glucose 162 mg/dL (70-110)
--- NOTE | 2018-04-08 12:38 | PCM.PN.CARD ---
Subjectve: Patient doing very well today. Ambulated without difficulty. Telemetry shows normal sinus rhythm with PAC, no low-grade or high-grade blocks. Lower extremity edema markedly improved and shortness of breath resolved. Objective: Vital Signs Temp Pulse Resp BP Pulse Ox 97.8 F 69 16 112/60 98 04/08/18 09:34 04/08/18 09:34 04/08/18 09:34 04/08/18 09:34 04/08/18 09:34 Oxygen Flow Rate (L/min) 1 Oxygen Delivery Method Room Air Weight: 202 lb 2.622 oz Body Mass Index (BMI) 30.8 Finger Stick Blood Glucose 113 Intake and Output for Last 24 Hours 04/06/18 04/07/18 04/08/18 23:59 23:59 23:59 Intake Total 1000 / 1000 1680 / 1680 600 / 600 Output Total 3125 / 3125 2460 / 2460 450 / 450 Balance -2125 / -2125 -780 / -780 150 / 150 General: Awake, Alert, Oriented x 3 HEENT: PERRL, EOMI, Sclera Non Icteric Neck: Supple, Good ROM, No Lymph Node Enlargement Lungs: Clear to auscultation Cardiovascular: Regular Rhythm, Normal S1, Normal S2, No Murmurs, No Rubs, No Gallops Vascular: No Carotid Bruits, Normal Femoral Pulses, Normal Radial Pulses, Normal Dorsalis Pedal Pulse, Normal Posterior Tibial Pulses Abdomen: Bowel Sounds Present, Soft, Non Tender, No HSM, No Organomegaly Extremities: No Cyanosis, No Clubbing, No edema Neurological: No Focal Motor or Sensory Deficit 04/07/18 20:15: Urine Color Yellow, Urine Clarity Clear, Urine pH 8.0, Ur Specific [place] 1.010, Urine Protein 30 H, Urine Glucose (UA) Normal, Urine Ketones Negative, Urine Occult Blood Negative, Urine Nitrite Negative, Urine Bilirubin Negative, Urine Urobilinogen Normal, Ur Leukocyte Esterase Negative, Urine RBC 0 SEEN, Urine WBC 0 SEEN 04/08/18 06:15: Sodium 145, Potassium 3.6, Chloride 108 H, Carbon Dioxide 27.0, Anion Gap 10, BUN 29 H, Creatinine 2.59 H, Est GFR (MDRD) Af Amer 31 L, Est GFR (MDRD) Non-Af 26 L, BUN/Creatinine Ratio 11.2, Glucose 129 H, Calcium 8.8 Rhythm: EKG: ECHO: Stress Test: Cardiac Cath: PCI: CT Surgery: Holter monitor: EPS: PPM: CXR: Chest CT Scan: Medical Necessity - Tobacco Use Smoking Status: Never smoker Assessment/Plan 1. Congestive heart failure: Patient apparently has normal LV function with what appears to be bilateral pleural effusions, right greater than left. However, they appear to be too small for ultrasound-guided thoracenteses. Patient responded very well to IV diuretic therapy, with a net -2700 cc diuresis since admission. Recommend switching him to Lasix 40 mg p.o. daily. He was on no diuretic at home prior to this. He recently underwent a walking treadmill echocardiogram in 2016 which was negative for inducible ischemia. Prior to that in 2015 he underwent repeat catheterization which showed widely patent grafts and no intervention was performed. CT scan of his chest was negative for pulmonary emboli. Patient had abdominal CT with results pending later on today. Echocardiogram done yesterday demonstrated severe pulmonary hypertension with an RVSP of 66 mmHg. Again recommend diuretic therapy for pulmonary hypertension. Continue losartan and amlodipine for hypertension. Will hold beta-hari therapy given his congestive heart failure symptoms, and may resume at 25 mg p.o. daily assuming his heart rate and blood pressure are stable. 2. Coronary artery disease: The patient has no anginal symptoms and his most recent stress test in March 2017 was negative for inducible ischemia. Do not believe a repeat stress test or catheterization is indicated at this time. His troponins have been negative thus far. 3. Hyperlipidemia: Continue Lipitor therapy. 4. Paroxysmal atrial fibrillation: Patient's EKG showed sinus bradycardia with intermittent type I second-degree AV block. And this is most likely contributing to the patient's congestive heart failure symptoms and overall fatigue. He is currently on low-dose amiodarone therapy and may require a dual-chamber pacemaker to be implanted by Dr. Rosas when he returns this Monday. My suspicion is the patient may require long-standing amiodarone therapy to protect against paroxysmal atrial fibrillation. In the meantime recommend discontinuation of Lopressor, and we use the beta-hari component of amiodarone for heart rate control. If the patient continues to have intermittent high-grade AV block, particularly if it symptomatic, he will require a dual-chamber pacemaker at some point in the near future. At this point, with cessation of his beta-hari he has had no further Wenkebach. Would recommend a 30-day event monitor to determine if the patient has intermittent symptomatic low-grade or high-grade block which may mandate dual-chamber pacemaker in order for the patient to enjoy the benefits of beta-ahri therapy. He will follow-up with Dr. Rosas. 5. Thank you very much for the opportunity to participate in the cardiac care of your patient. Patient may be discharged home today morning assuming he has no spikes in his blood pressure or heart rate. He will follow-up with Dr. Rosas going forward. Code Visit Inpatient E&M: 81258 Subs Hosp L2
--- NOTE | 2018-04-08 12:43 | PN.CARD_ITS ---
Subjectve: Patient doing very well today. Ambulated without difficulty. Telemetry shows normal sinus rhythm with PAC, no low-grade or high-grade blocks. Lower extremity edema markedly improved and shortness of breath resolved. Objective: Vital Signs Temp Pulse Resp BP Pulse Ox 97.8 F 69 16 112/60 98 04/08/18 09:34 04/08/18 09:34 04/08/18 09:34 04/08/18 09:34 04/08/18 09:34 Oxygen Flow Rate (L/min) 1 Oxygen Delivery Method Room Air Weight: 202 lb 2.622 oz Body Mass Index (BMI) 30.8 Finger Stick Blood Glucose 113 Intake and Output for Last 24 Hours 04/06/18 04/07/18 04/08/18 23:59 23:59 23:59 Intake Total 1000 / 1000 1680 / 1680 600 / 600 Output Total 3125 / 3125 2460 / 2460 450 / 450 Balance -2125 / -2125 -780 / -780 150 / 150 General: Awake, Alert, Oriented x 3 HEENT: PERRL, EOMI, Sclera Non Icteric Neck: Supple, Good ROM, No Lymph Node Enlargement Lungs: Clear to auscultation Cardiovascular: Regular Rhythm, Normal S1, Normal S2, No Murmurs, No Rubs, No Gallops Vascular: No Carotid Bruits, Normal Femoral Pulses, Normal Radial Pulses, Normal Dorsalis Pedal Pulse, Normal Posterior Tibial Pulses Abdomen: Bowel Sounds Present, Soft, Non Tender, No HSM, No Organomegaly Extremities: No Cyanosis, No Clubbing, No edema Neurological: No Focal Motor or Sensory Deficit 04/07/18 20:15: Urine Color Yellow, Urine Clarity Clear, Urine pH 8.0, Ur Specific [place] 1.010, Urine Protein 30 H, Urine Glucose (UA) Normal, Urine Ketones Negative, Urine Occult Blood Negative, Urine Nitrite Negative, Urine Bilirubin Negative, Urine Urobilinogen Normal, Ur Leukocyte Esterase Negative, Urine RBC 0 SEEN, Urine WBC 0 SEEN 04/08/18 06:15: Sodium 145, Potassium 3.6, Chloride 108 H, Carbon Dioxide 27.0, Anion Gap 10, BUN 29 H, Creatinine 2.59 H, Est GFR (MDRD) Af Amer 31 L, Est GFR (MDRD) Non-Af 26 L, BUN/Creatinine Ratio 11.2, Glucose 129 H, Calcium 8.8 Rhythm: EKG: ECHO: Stress Test: Cardiac Cath: PCI: CT Surgery: Holter monitor: EPS: PPM: CXR: Chest CT Scan: Medical Necessity - Tobacco Use Smoking Status: Never smoker Assessment/Plan 1. Congestive heart failure: Patient apparently has normal LV function with what appears to be bilateral pleural effusions, right greater than left. However, they appear to be too small for ultrasound-guided thoracenteses. Patient responded very well to IV diuretic therapy, with a net -2700 cc diuresis since admission. Recommend switching him to Lasix 40 mg p.o. daily. He was on no diuretic at home prior to this. He recently underwent a walking treadmill echocardiogram in 2016 which was negative for inducible ischemia. Prior to that in 2015 he underwent repeat catheterization which showed widely patent grafts and no intervention was performed. CT scan of his chest was negative for pulmonary emboli. Patient had abdominal CT with results pending later on today. Echocardiogram done yesterday demonstrated severe pulmonary hypertension with an RVSP of 66 mmHg. Again recommend diuretic therapy for pulmonary hypertension. Continue losartan and amlodipine for hypertension. Will hold beta-hari therapy given his congestive heart failure symptoms, and may resume at 25 mg p.o. daily assuming his heart rate and blood pressure are stable. 2. Coronary artery disease: The patient has no anginal symptoms and his most recent stress test in March 2017 was negative for inducible ischemia. Do not believe a repeat stress test or catheterization is indicated at this time. His troponins have been negative thus far. 3. Hyperlipidemia: Continue Lipitor therapy. 4. Paroxysmal atrial fibrillation: Patient's EKG showed sinus bradycardia with intermittent type I second-degree AV block. And this is most likely contributing to the patient's congestive heart failure symptoms and overall fatigue. He is currently on low-dose amiodarone therapy and may require a dual- chamber pacemaker to be implanted by Dr. Rosas when he returns this Monday. My suspicion is the patient may require long-standing amiodarone therapy to protect against paroxysmal atrial fibrillation. In the meantime recommend discontinuation of Lopressor, and we use the beta- hari component of amiodarone for heart rate control. If the patient continues to have intermittent high-grade AV block, particularly if it symptomatic, he will require a dual-chamber pacemaker at some point in the near future. At this point, with cessation of his beta-hari he has had no further Wenkebach. Would recommend a 30-day event monitor to determine if the patient has intermittent symptomatic low-grade or high-grade block which may mandate dual- chamber pacemaker in order for the patient to enjoy the benefits of beta-hari therapy. He will follow-up with Dr. Rosas. 5. Thank you very much for the opportunity to participate in the cardiac care of your patient. Patient may be discharged home today morning assuming he has no spikes in his blood pressure or heart rate. He will follow-up with Dr. Rosas going forward. Code Visit Inpatient E&M: 96945 Subs Hosp L2
[2018-04-09 16:08] LABS: Cytoplasmic Ab (C-ANCA) <1:20 titer (Neg:<1:20)
[2018-04-09 16:09] LABS: Albumin 3.6 g/dL (2.9-4.4); Alpha-1-Globulins 0.3 g/dL (0.0-0.4); Alpha-2-Globulins 0.8 g/dL (0.4-1.0); Gamma Globulin 1.2 g/dL (0.4-1.8); Immunoglobulin A 313 mg/dL (61-437); Immunoglobulin G 1153 mg/dL (700-1600); Immunoglobulin M 75 mg/dL (15-143)
[2018-04-10 11:20] LABS: Angiotensin Convert Enzyme 28 U/L (14-82)
[2018-04-10 11:21] LABS: Perinuclear Ab (P-ANCA) <1:20 titer (Neg:<1:20)
--- NOTE | 2018-04-10 16:23 | CASEMGMT ---
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 In the short time this RN CM did have him on the phone, pt states has been doing 'pretty good' since discharge and states no questions regarding discharge instructions or medications at this time. Pt voices no further concerns/needs at this time. [place] RN RODNEY
== END 2018-04-08 12:53 | disposition home or self-care (01) | DRG 291 ==
LOC: ED 07:25 → PCU 07:50
PROVIDERS: Internal Medicine Nephrology; Admitting Provider Internal Medicine; Emergency Provider Emergency Medicine; Family Provider Internal Medicine; PCP Internal Medicine; Visit Provider Internal Medicine
DX: I13.0 Hypertensive heart and chronic kidney disease with heart failure and stage 1 through stage 4 chronic kidney disease, or unspecified chronic kidney disease (principal); I50.33 Acute on chronic diastolic (congestive) heart failure; N17.9 Acute kidney failure, unspecified; J91.8 Pleural effusion in other conditions classified elsewhere; Z23 Encounter for immunization; N18.3 Chronic kidney disease, stage 3 (moderate); I25.10 Atherosclerotic heart disease of native coronary artery without angina pectoris; I44.1 Atrioventricular block, second degree; E11.22 Type 2 diabetes mellitus with diabetic chronic kidney disease; R06.89 Other abnormalities of breathing; R09.02 Hypoxemia; E78.5 Hyperlipidemia, unspecified; N40.0 Benign prostatic hyperplasia without lower urinary tract symptoms; I48.0 Paroxysmal atrial fibrillation; Z95.3 Presence of xenogenic heart valve; Z95.1 Presence of aortocoronary bypass graft; Z79.4 Long term (current) use of insulin
CPT/HCPCS: 36415; 71046; 71250; 74176; 76604; 80048; 80061; 80076; 81001; 82164; 82570; 82784; 82962; 83615; 83880; 84165; 84300; 84443; 84484; 85025; 85379; 85610; 85730; 86256; 86334; 93005; 93306; 93970; 94640; 97802; 99285; 90686; A4216; J1940

== ENCOUNTER → 2018-04-10 10:36 | Outpatient (REF) | payer SELFPAY | LOC: CVS 10:36 | PROVIDERS: Family Provider Internal Medicine; PCP Internal Medicine; Referring Provider Internal Medicine; Visit Provider Internal Medicine | DX: R00.1 Bradycardia, unspecified (principal); I48.0 Paroxysmal atrial fibrillation ==

== ENCOUNTER → 2018-05-07 08:26 | Outpatient (CLI) | payer MEDICARE, OTHER, SELFPAY ==
[2018-04-27 09:56] VITALS: BMI 29.4
--- NOTE | 2018-05-07 09:00 | PET_ITS ---
EXAMINATION: FDG PET/CT INDICATIONS: A 72-year-old male with reported history of pulmonary nodularity and mediastinal lymphadenopathy. COMPARISON EXAMINATION: CT of the chest, abdomen and pelvis reports dated 04/06/18 INDEX LESION SIZE SUV INTERPRETATION Mediastinum, bilateral thoracic perihilum (n=multiple) 40.1-mm (largest) (frame) 220 4.6 (max) May necessitate histopathologic investigation, if a conservative management appropriate is undertaken, repeat FDG PET imaging in 9-12 weeks is recommended to ensure stability, involution NON-INDEX LESION SIZE SUV INTERPRETATION Bilateral adrenal glands 1.6 Quantitative criteria for viable neoplasm are not fulfilled TECHNIQUE: Following the intravenous administration of 14.4 mCi of F-18 deoxyglucose via the left antecubital fossa, multiplanar image acquisitions of the neck, chest, abdomen and pelvis to level of mid thigh, obtained at one hour post radiopharmaceutical administration contemporaneously interpreted with the current CT of the neck, chest, abdomen and pelvis to level of mid thigh, dated 05/07/[address] of the chest, abdomen and pelvis reports dated 04/06/18 reveal: SERUM GLUCOSE LEVEL: 127 mg/dl. HEIGHT: 70 inches. WEIGHT: 201 lbs. FINDINGS: 1. Multifocal increased glucose metabolism is defined in the pre-subcarinal mediastinum and bilateral thoracic perihilar regions generating a calculated maximal standard uptake value of 4.6. The maximal axial diameter of the largest individual non-calcified hypermetabolic soft tissue density on review of CT of the chest dated 05/07/18 is approximately 40.1-mm (AP). 2. Mild increased glucose concentration is observed in the bilateral upper abdomen contiguous to the right and left adrenal glands generating a calculated maximal standard uptake value of 1.6. Quantitative criteria for viable neoplasm are not fulfilled. 3. Normal physiologic distribution of the radiopharmaceutical is apparent in the hepatic (3.2) and splenic parenchyma, both renal units, bladder and visualized intestinal tract. The visualized portion of the cerebral cortex demonstrate symmetric and preserved glucose metabolism. Diffuse radiopharmaceutical concentration is noted in all four quadrants of the abdomen and pelvis, most accentuated at the level of the proximal ascending colon. There are no corresponding morphologic changes noted in the analogous location on review of the diagnostic CT of the abdomen and pelvis report dated 04/06/18 in the analogous location. Pertinent CT findings are as follows: CHEST: Bilateral axillary soft tissue densities demonstrate no evidence of increased glucose metabolism. There is evidence of prior median sternotomy. There is atherosclerotic calcification defined in the thoracic aorta without evidence of dilatation-aneurysm formation. Coronary arterial calcification is observed. A prosthetic aortic valve is defined. A calcified density demonstrated in the right lower anterior lung field is non-glucose avid. There are no parenchymal densities-nodules noted in the right-left hemithorax demonstrating discernible increased glucose metabolism. ABDOMEN AND PELVIS: Soft tissue densities noted in the left upper abdomen presumably representing splenule formation are ametabolic. There is atherosclerotic calcification defined in the abdominal aorta without evidence of dilatation-aneurysm formation. Abdominal-pelvic arterial calcification is observed. Calcifications are defined within the left kidney. Right-left inguinal soft tissue densities are ametabolic. SKELETAL: Degenerative changes are noted in the cervical, thoracic and lumbar spine. PET/PET/CT Tumor Base -Thigh Init IMPRESSION: 1. Increased glucose concentration multifocally apparent in the mediastinal structures, bilateral thoracic perihilum may necessitate histopathologic investigation secondary to the quantitative degree of uptake. If a conservative management approach is undertaken, repeat FDG PET imaging in 9-12 weeks is recommended to ensure stability, involution. 2. Mild enhanced FDG concentration noted in the bilateral adrenal glands does not fulfill quantitative criteria for viable adrenal gland neoplasm. (Joel and Lenore, Journal of Nuclear Medicine 42:151 P2002 Vidhi manning al, Journal of Nuclear Medicine 45:1340, 2004). 3. Prominent intestinal tract distribution of radiopharmaceutical noted in the right mid pelvic mesentery in the region of the proximal ascending colon is most consistent with physiologic distribution of the radiopharmaceutical. (Florencia et al, Journal of Nuclear Medicine, 30:S276, 2003). Electronic Signature José Manuel Hercules D.O. Electronically Signed: José Manuel Hercules DO at 22:34 EST Tel , Service support ,
== END ==
PROVIDERS: Family Provider Internal Medicine; PCP Internal Medicine; Referring Provider Internal Medicine; Visit Provider Internal Medicine
DX: R91.1 Solitary pulmonary nodule (principal)
CPT/HCPCS: 78815; A9552

== ENCOUNTER 2018-05-25 11:23 | Day surgery (SDC) | payer MEDICARE, OTHER, SELFPAY ==
[2018-04-27 09:56] VITALS: BMI 29.4
[2018-05-21 15:22] LABS: Absolute Neutrophil Count 5.6 X10^3/uL (2.0-7.7); Basophil# 0.03 X10^3/uL; Basophil% 0.4 % (0-1); Eosinophil# 0.28 X10^3/uL; Eosinophils% 3.8 % (0-5); Hematocrit 40.5 % (40-54); Hemoglobin 13.2 g/dl (13.0-16.5); Lymphocyte % 12.1 % (19-41); Mean Corp Hgb Conc 32.6 g/gl (32-36); Mean Corpuscular Hgb 31.4 pg (27.0-32.0); Mean Corpuscular Volume 96.2 fL (80-94); Mean Platelet Vol. 10.5 fl (6.2-12.0); Monocyte# 0.56 X10^3/uL; Monocyte% 7.5 % (0-10); Neutrophil # 5.64 X10^3/uL (2.7-7.7); Neutrophil % 75.9 % (47-70); Platelet Count 264 K/mm3 (150-450); RBC Distribution Width CV 12.5 % (11.6-14.6); RBC Distribution Width SD 42.3 fl (35.1-43.9); Red Blood Count 4.21 M/mm3 (4.6-6.2); White Blood Count 7.4 K/mm3 (4.4-11.0)
[2018-05-21 15:23] LABS: POSITIVE COUNT NO; POSITIVE DIFFERENTIAL NO; POSITIVE MORPHOLOGY NO
[2018-05-21 15:45] LABS: BUN 34 mg/dL (7-18); Creatinine, Serum 2.12 mg/dL (0.70-1.30); EST Glomerular Filtration Rate 33 mL/min (>60); Est Glom Filt Rate - Afr Amer 40 mL/min (>60)
[2018-05-21 15:58] LABS: Partial Thromboplast Time 32.5 Seconds (24.1-36.2); Prothrombin Time (Protime)PT. 13.5 SECONDS (11.7-14.9)
[2018-05-25] VITALS (8 sets, daily range): BP systolic 83–142; BP diastolic 52–92; PULSE 56–77; RESP 16–18; TEMP 36.2–36.6; O2SAT 94–100; BMI 28.8
--- NOTE | 2018-05-25 | ASPS_PTH ---
PATIENT: OMAIRA MATTHEWS LOC: EN U#:[id number] AGE/SX: 72/M ROOM: RE05/25/[address]: Dr. Bo Almanza DO : 1945 BED: DIS: 05/25/2018 SPEC #: [id number] RECD: 05/25/18 04:54 STATUS: JOYCE REMarcio #: [id number] ASHLYN: 05/25/18 00:[address]: Bo Almanza DEPT: CYTOLOGY RECD BY: José Manuel Oneill ENTERED: 05/28/18 04:57 SP TYPE: ASPIRATION OTHR DR: Dr. Richa Barrientos MD Tissues: A - Lung, NOS B - Lung, NOS C - Lung, NOS D - Lung, NOS E - Lung, NOS F - Lung, NOS G - Lung, NOS H - Lung, NOS I - Lung, NOS Procedures: Special Stain Group II Surgery Specimen Level IV Diff Quik Stain (control) Cell Block Cytology Other HEADER OPERATION: Endobronchial ultrasound, TBNA PRE-OP DIAGNOSIS: Mediastinal LAD TISSUE SUBMITTED: A & B - EBUS FNA site 7, C & D - EBUS FNA site 4R, E & F - EBUS FNA site 10L, G - Site 7, H - Site 4R, I - Site 10L DIAGNOSIS CYTOLOGY A. EBUS aspiration #1, site 7: Adequate for evaluation. Negative for malignant cells. B. EBUS aspiration #2, site 7: Suboptimal for evaluation. Blood. Negative for malignant cells. C. EBUS aspiration #3, site 4R: Adequate for evaluation. Negative for malignant cells. D. EBUS aspiration #4, site 4R: Nondiagnostic. Blood and bronchial epithelial cells. E. EBUS aspiration #5, site 10L: Adequate for evaluation. Negative for malignant cells. F. EBUS aspiration #6, site 10L: Nondiagnostic. Blood. G. EBUS aspiration, site 7 (cell block): Negative for malignant cells. H. EBUS aspiration, site 4R (cell block): Negative for malignant cells. I. EBUS aspiration, site 10L (cell block): Negative for malignant cells. AM:[place] 05/29/18 COMMENT The specimen is evaluated at the time of procedure by Dr. Alvarado. Immediate Evaluation: A. EBUS aspiration #1, site 7: Adequate for evaluation. Negative for malignant cells. B. EBUS aspiration #2, site 7: Suboptimal for evaluation. Blood. Negative for malignant cells. C. EBUS aspiration #3, site 4R: Adequate for evaluation. Negative for malignant cells. D. EBUS aspiration #4, site 4R: Nondiagnostic. Blood and bronchial epithelial cells. E. EBUS aspiration #5, site 10L: Adequate for evaluation. Negative for malignant cells. F. EBUS aspiration #6, site 10L: Nondiagnostic. Blood. Flow cytometric analysis of aspirate material reveals no immunophenotypic evidence of a monoclonal B-cell or aberrant T-cell population. The complete flow cytometric analysis report is viewable in patient's EMR. Case has been reviewed in consultation with Dr. Solano who concurs with the above diagnosis. IDC:SJ CYTOLOGY STUDY Slides are reviewed. CYTOLOGY GROSS A - Received labeled with the patient's name and and designated EBUS FNA, aspiration #1, site 7. The specimen consists of two smears. The smears are submitted for immediate cytologic evaluation (wet read). B - Received labeled with the patient's name and and designated EBUS FNA, aspiration #2, site 7. The specimen consists of two smears. The smears are submitted for immediate cytologic evaluation (wet read). C - Received labeled with the patient's name and and designated EBUS FNA, aspiration #3, site 4R. The specimen consists of two smears. The smears are submitted for immediate cytologic evaluation (wet read). D - Received labeled with the patient's name and and designated EBUS FNA, aspiration #4, site 4R. The specimen consists of two smears. The smears are submitted for immediate cytologic evaluation (wet read). E - Received labeled with the patient's name and and designated EBUS FNA, aspiration #5, site 10L. The specimen consists of two smears. The smears are submitted for immediate cytologic evaluation (wet read). F - Received labeled with the patient's name and and designated EBUS FNA, aspiration #6, site 10L. The specimen consists of two smears. The smears are submitted for immediate cytologic evaluation (wet read). G - Received in RPMI media with the patient's name and and designated site 7. The specimen is submitted for cell block preparation. H - Received in RPMI media with the patient's name and and designated site 4R. The specimen is submitted for cell block preparation. I - Received in RPMI media with the patient's name and and designated site 10L. The specimen is submitted for cell block preparation. / AM:[place] 05/25/18 TC:5 CPT: 50297 x3, 09089 x6, 34054 x3
--- NOTE | 2018-05-25 09:46 | PCM.HP.STD ---
History of Present Illness Date of Admission: 05/25/18 Chief Complaint: PET positive mediastinal lymphadenopathy The patient is a 72-year-old male, who I initially saw in consultation when he was admitted to the hospital in March 2018 with shortness of breath. The patient has a history of coronary artery disease for which he is status post CABG x3, aortic valve replacement and paroxysmal atrial fibrillation. Chest imaging in the form of a CAT scan obtained during that hospitalization revealed evidence of cardiomegaly, interstitial edema and mediastinal/hilar lymphadenopathy, along with bilateral pleural effusions. Prior chest imaging from February 2017 did not reveal the adenopathy noted on that study. The patient then went on to complete a PET scan, ordered by his PCP, in April 2018. PET scan did reveal increased glucose concentration apparent in the mediastinal structures, bilateral thoracic perihilum, necessitating further histopathologic investigation. Therefore, the decision was made to proceed with mediastinal lymph node sampling via EBUS. Past Medical History Past Medical History (Chronic Problems): Chronic Problems (Last Reviewed 04/27/18 @ 10:49 by Clint Rosas MD) Chronic kidney disease (CKD) (Chronic) Secondary pulmonary arterial hypertension (Chronic) Acute on chronic diastolic (congestive) heart failure (Chronic) Essential (primary) hypertension (Chronic) Paroxysmal atrial fibrillation (Chronic) H/O aortic valve replacement (Chronic 11/29/12) 25 mm Felix-Wilcox Perimount Magna Valve ([facility]: 11/29/2012) Atherosclerosis of coronary artery of [place] heart without angina pectoris (Chronic) CABG x 3 PATEL to LAD, SVG-Ramus, SVG-PLB of RCA 11/29/2012 H/O coronary artery bypass surgery (Chronic 11/29/12) CABG x 3 PATEL to LAD, SVG-Ramus, SVG-PLB of RCA 11/29/2012 HLD (hyperlipidemia) (Chronic) Medical History: Medical History (Last Reviewed 04/27/18 @ 10:49 by Clint Rosas MD) Mediastinal lymphadenopathy (Acute) R59.0 Chronic kidney disease (CKD) (Chronic) N18.9 Secondary pulmonary arterial hypertension (Chronic) I27.21 Acute on chronic diastolic (congestive) heart failure (Chronic) I50.33 Essential (primary) hypertension (Chronic) I10 Paroxysmal atrial fibrillation (Chronic) I48.0 Atherosclerosis of coronary artery of [place] heart without angina pectoris (Chronic) I25.10 CABG x 3 PATEL to LAD, SVG-Ramus, SVG-PLB of RCA 11/29/2012 HLD (hyperlipidemia) (Chronic) E78.5 BPH (benign prostatic hyperplasia) N40.0 DVT (deep venous thrombosis) I82.409 GERD (gastroesophageal reflux disease) K21.9 Obstructive sleep apnea G47.33 Type 2 diabetes mellitus without complications E11.9 Bicuspid aortic valve Q23.1 Allergies No Known Allergies Allergy (Verified 05/23/18 13:05) Home Medications: Ambulatory Orders Medication Instructions Recorded Atorvastatin Calcium [Lipitor] 20 mg PO QHS 07/02/13 Insulin Aspart [Novolog] 10 units SC TID 07/02/13 Aspirin [Aspirin, Baby] 81 mg PO DAILY@0800 02/09/15 Doxazosin Mesylate 4 mg PO DAILY 02/09/15 Insulin Glargine,Hum.rec.anlog 30 unit SQ BID 02/09/15 [Lantus] Methyl-B12/l-Mefolate/B6 Phos 1 ea PO DAILY 12/09/15 [Foltanx Tablet] Temazepam [Restoril] 15 mg PO QHS PRN PRN 07/19/16 amiodarone 200 mg tablet 100 mg PO DAILY tab 12/19/17 Furosemide [Lasix] 20 mg PO DAILY #30 tab 04/08/18 gabapentin 300 mg capsule 300 mg PO DAILY cap 04/20/18 liraglutide 0.6 mg/0.1 mL (18 mg/3 0.6 mg SC BID 04/27/18 mL) subcutaneous pen injector Amlodipine Besylate [Norvasc] 10 mg PO DAILY 05/23/18 Cholecalciferol (VIT D3) [Vitamin 2,000 unit PO DAILY 05/23/18 D] Surgical History: Surgical History (Last Reviewed 04/27/18 @ 10:49 by Clint Rosas MD) H/O aortic valve replacement (Chronic) Onset Date: 11/29/12 Z95.2 25 mm Felix-Wilcox Perimount Magna Valve ([facility]: 11/29/2012) H/O coronary artery bypass surgery (Chronic) Onset Date: 11/29/12 Z95.1 CABG x 3 PATEL to LAD, SVG-Ramus, SVG-PLB of RCA 11/29/2012 History of left heart catheterization Onset Date: 12/09/15 Z98.890 History of transurethral resection of prostate Z98.890, Z90.79 Hx of cholecystectomy Z90.49 Surgical History: cholecystectomy, coronary bypass surgery, TURP, - Smoking Status: Never smoker Tobacco Use: Non-smoker - *Family History Maternal Family History: Family History (Last Reviewed 04/27/18 @ 10:49 by Clint Rosas MD) Father CAD (coronary artery disease) Brother CAD (coronary artery disease) History Items: No pertinent history Paternal Family History: Family History (Last Reviewed 04/27/18 @ 10:49 by Clint Rosas MD) Father CAD (coronary artery disease) Brother CAD (coronary artery disease) History Items: Heart Disease Sibling Family History: Family History (Last Reviewed 04/27/18 @ 10:49 by Clint Rosas MD) Father CAD (coronary artery disease) Brother CAD (coronary artery disease) History Items: Heart Disease Review of Systems Constitutional: Denies: Chills, Fever, Weight Change HEENT: Denies: Head Aches, Sinus Congestion, Sinus Drainage Cardiovascular: Denies: Chest Pain, Palpitations Respiratory: Denies: Cough, Shortness of breath at rest, Sputum production Gastrointestinal: Denies: Abdominal Pain, Nausea, Vomiting Genitourinary: Denies: Dysuria Musculoskeletal: Denies: Joint Pain, Joint Tenderness Skin: Denies: Rash, Wounds Neurological: Denies: Numbness, Tingling, Focal weakness Psychiatric: Denies: Anxiety, Depression, Homicidal Ideations, Suicidal Ideations Hematologic/ Lymphatic: Denies: Easy Bruising, Easy Bleeding VTE Information - Inpt Only VTE Present on Admission: No VTE Mechan Device Prophylaxis: None VTE Pharm Prophylaxis ordered?: No Reason prophylaxis not ordered:: Treatment Not Indicated - Physical Exam General: Alert, Oriented x3, Cooperative HEENT: Atraumatic, PERRLA, EOMI, Normocephalic Neck: Supple, No JVD, Negative Carotid Bruits Lungs: Clear to auscultation, Normal air movement Cardiovascular: Regular rate, No murmurs Abdomen: Bowel Sounds Present, Soft, Non Tender Extremities: No edema, Capillary Refill Less than 3 Seconds Skin: No rashes, No breakdown Musculoskeletal: No Tenderness to Palpation of Joints or Extremities Neurological: Cranial nerves II-XII grossly intact, Neuro grossly intact Psych/Mental Status: Normal Affect, Appropriate Body Mass Index (BMI) 29.4 Finger Stick Blood Glucose 113 Assessment/Plan All Active Problems (Last Reviewed 04/27/18 @ 10:49 by Clint Rosas MD) Mediastinal lymphadenopathy (Acute) Pleural effusion, bilateral (Acute) Mobitz (type) I (Wenckebach's) atrioventricular block (Acute) Chest pressure (Resolved) Hypoxemia (Resolved) Pulmonary edema (Resolved) Mediastinal and hilar lymphadenopathy The patient underwent a PET scan in April which revealed avidity in the mediastinal and hilar structures, necessitating further evaluation with direct lymph node sampling via EBUS. The risks and benefits of such a procedure were discussed with the patient at length. Questions were answered accordingly. The patient is in agreement to proceed. The patient will need to have a CBC and coags obtained prior to his procedure today.
[2018-05-25 11:55] LABS: Bedside Glucose 161 mg/dL (70-110)
--- NOTE | 2018-05-25 13:46 | OP.ENDO_ITS ---
Patient Name: Kulwant Cobos Procedure Date: 05/25/2018 11:56 AM Date of : 1945 Age: 72 Procedure: Bronchoscopy Indications: Mediastinal adenopathy Providers: Bo Almanza MD Referring MD: Bo Almanza MD Medicines: General Anesthesia Complications: No immediate complications Procedure: Pre-Anesthesia Assessment: - [place] Protocol: - Pre-procedure Verification: Prior to the procedure, the patient's identity was verified by full name and date of . The patient's identity was verified on all pertinent medical records, including History and Physical. Also prior to the procedure, a History and Physical was performed, and patient medications, allergies and sensitivities were reviewed. The patient's tolerance of previous anesthesia was reviewed. The risks and benefits of the procedure and the sedation options and risks were discussed with the patient. All questions were answered and informed consent was obtained. - Time-Out: Prior to the start of the procedure, the patient's identification, proposed procedure, accurate signed consent, correctly labeled images and records, and need for prophylactic antibiotics were verified by the physician and the nurse in the procedure room. - The risks and benefits of the procedure and the sedation options and risks were discussed with the patient. All questions were answered and informed consent was obtained. After I obtained informed consent, the scope was passed under direct vision. Throughout the procedure, the patient's blood pressure, pulse, and oxygen saturations were monitored continuously. The bronchoscope was introduced through the mouth, via laryngeal mask airway and advanced to the tracheobronchial tree. The procedure was accomplished without difficulty. The patient tolerated the procedure well. Findings: The laryngeal mask airway is in good position. The vocal cords appear normal. The subglottic space is normal. The trachea is of normal caliber. The verónica is sharp. The tracheobronchial tree was examined to at least the first subsegmental level. Bronchial mucosa and anatomy are normal; there are no endobronchial lesions, and no secretions. The scope was withdrawn and replaced with the EBUS bronchoscope to accomplish the ultrasound examination. Lymph Nodes: An endobronchial ultrasound endoscope was utilized to systematically examine the right lower paratracheal region (level 4R), subcarinal mediastinum (level 7) and left hilar region (level 10L) in order to assist with fine needle aspiration. Lymph node sizing was performed via endobronchial ultrasound. Sampling by transbronchial needle aspiration was also performed using an Olympus EBUS-TBNA 19 gauge needle in the right lower paratracheal region (level 4R), subcarinal mediastinum (level 7) and left hilar region (level 10L). - The 7 (subcarinal) node was sampled. Two samples with the needle were obtained. - The 4R (lower paratracheal) node was sampled. Two samples with the needle were obtained. - The 10L (hilar) node was sampled. Two samples with the needle were obtained. Impression: - Mediastinal adenopathy - The airway examination was normal. - Endobronchial ultrasound was performed. - Lymph node sizing and sampling was performed. Recommendation: - Await cytology and flow cytometry results. - Follow up in clinic as previously scheduled. Procedure Code(s): --- Professional --- 97212, Bronchoscopy, rigid or flexible, including fluoroscopic guidance, when performed; with endobronchial ultrasound (EBUS) guided transtracheal and/or transbronchial sampling (eg, aspiration[s]/biopsy[ies]), 3 or more mediastinal and/or hilar lymph node stations or structures CPT copyright 2017 [employer] [place] [employer]. All rights reserved. The codes documented in this report are preliminary and upon helmet coverer review may be revised to meet current compliance requirements. DO Bo Kirby MD 05/25/2018 1:46:09 PM This report has been signed electronically. Number of Addenda: 0 Note Initiated On: 05/25/2018 11:56 AM
--- OUTSIDE RECORDS SUMMARY | 2018-07-11 04:47 | XMS RPT_ITS ---
:1945 Author Organization OHIP Support Name Relationship Address Phone SERGIO COBOS [address] + [place] [address] R Unknown Unavailable Unavailable SERGIO COBOS [address] + [place] [address] R Unknown Unavailable Unavailable SERGOI COBOS [address] + [place] [address] R Unknown Unavailable Unavailable SERGIO COBOS [address] + [place] [address] R Unknown Unavailable Unavailable SERGIO COBOS [address] + [place] [address] R Unknown Unavailable Unavailable SERGIO COBOS [address] + [place] [address] R Unknown Unavailable Unavailable SERGIO COBOS [address] + [place] [address] R Unknown Unavailable Unavailable SERGIO COBOS [address] + [place] [address] R Unknown Unavailable Unavailable SERGIO COBOS [address] + [place] [address] R Unknown Unavailable Unavailable SERGIO COBOS [address] + [place] [address] R Unknown Unavailable Unavailable SERGIO COBOS [address] + [place] [address] R Unknown Unavailable Unavailable SERGIO COBOS [address] + [place] [address] R Unknown Unavailable Unavailable SERGIO COBOS [address] + [place] [address] R Unknown Unavailable Unavailable BYRONSERGIO SIMENTAL [address] + [place] [address] R Unknown Unavailable Unavailable SERGIO COBOS [address] + [place] [address] R Unknown Unavailable Unavailable SERGIO COBOS [address] + [place] [address] R Unknown Unavailable Unavailable SERGIO COBOS [address] + [place] [address] R Unknown Unavailable Unavailable SERGIO COBOS [address] + [place] [address] R Unknown Unavailable Unavailable SERGIO COBOS [address] + [place] [address] R Unknown Unavailable Unavailable SERGIO COBOS [address] + [place] [address] R Unknown Unavailable Unavailable SERGIO COBOS[address] + [place] [address] R Unknown Unavailable Unavailable SERGIO COBOS NA + [place], [place] R Unknown Unavailable Unavailable SERGIO COBOS [place] + [place], [place] R Unknown Unavailable Unavailable SERIGO COBOS NA + [place], [place] R Unknown Unavailable Unavailable Care Team Providers Name Role Phone Katya Woods MD Attending Unavailable Katya Woods MD Referring Unavailable Katya Woods MD Consulting Unavailable Bo Almanza D.O. Attending Unavailable Bo Almanza D.O. Referring Unavailable Katya Woods Primary Care Unavailable Bo Almanza D.O. Consulting Unavailable Clint Santiago Attending Unavailable Clint Santiago Referring Unavailable Katya Woods Attending Unavailable Katya Woods Referring Unavailable Iliana Katya Primary Care Unavailable Eli Sepncer Attending Unavailable Ralph, Clint Attending Unavailable Iliana Katya Referring Unavailable Bonezzi, Katya Primary Care Unavailable Stacey Fitch Attending Unavailable Bonezzi, Katya Referring Unavailable Bonezzi, Katya Attending Unavailable Bonezzi, Katya Referring Unavailable Bonezzi, Katya Primary Care Unavailable Bonezzi, Katya Primary Care Unavailable Will, Kamar Admitting Unavailable Bo Almanza D.O. Consulting Unavailable Paintsil, Brandon Attending Unavailable Armani Coughlin Consulting Unavailable Wes, Jayaprakash Consulting Unavailable Will, Kamar Admitting Unavailable Will, Kamar Attending Unavailable Bonezzi, Katya Primary Care Unavailable Bo Almanza D.O. Consulting Unavailable Armani Coughlin Consulting Unavailable Will, Kamar Consulting Unavailable Will, Kamar Admitting Unavailable Bo Almanza D.O. Attending Unavailable Bonezzi, Katya Primary Care Unavailable Bo Almanza D.O. Consulting Unavailable Armani Coughlin Consulting Unavailable Wes, Jayaprakash Consulting Unavailable Will, Kamar Consulting Unavailable Will, Kamar Admitting Unavailable Armani Coughlin Attending Unavailable Bonezzi, Katya Primary Care Unavailable Bo Almanza D.O. Consulting Unavailable Armani Coughlin Consulting Unavailable Wes, Jayaprakash Consulting Unavailable Will, Kamar Consulting Unavailable Will, Kamar Admitting Unavailable Armani Coughlin Attending Unavailable Bonezzi, Katya Primary Care Unavailable Bo Almanza D.O. Consulting Unavailable Armani Coughlin Consulting Unavailable Wes, Jayaprakash Consulting Unavailable Paintsil, Brandon Consulting Unavailable Will, Kamar Admitting Unavailable Paintsil, Brandon Attending Unavailable Bonezzi, Katya Primary Care Unavailable Bo Almanza D.O. Consulting Unavailable Armani Coughlin Consulting Unavailable Wes, Jayaprakash Consulting Unavailable Paintsil, Brandon Consulting Unavailable Will, Kamar Admitting Unavailable Bo Almanza D.O. Attending Unavailable Bonezzi, Katya Primary Care Unavailable Bo Almanza D.O. Consulting Unavailable Armani Coughlin Consulting Unavailable Wes, Jayaprakash Consulting Unavailable Paintsil, Brandon Consulting Unavailable Will, Kamar Admitting Unavailable Bo Almanza D.O. Attending Unavailable Bonezzi, Katya Primary Care Unavailable Bo Almanza D.O. Consulting Unavailable Armani Coughlin Consulting Unavailable Wes, Jayaprakash Consulting Unavailable Paintsil, Brandon Consulting Unavailable Will, Kamar Admitting Unavailable Paintsil, Brandon Attending Unavailable Bonezzi, Katya Primary Care Unavailable Bo Almanza D.O. Consulting Unavailable Armani Coughlin Consulting Unavailable Wes, Pauly Consulting Unavailable Paintsil, Brandon Consulting Unavailable Paintsil, Brandon Attending Unavailable Paintsil, Brandon Referring Unavailable Bonezzi, Katya Primary Care Unavailable Logan Choudhary Attending Unavailable Will, Kamar Referring Unavailable Stacey Fitch Attending Unavailable Bonezzi, Katya Referring Unavailable Armani Coughlin Attending Unavailable Will, Kamar Referring Unavailable Eli Spencer Attending Unavailable Ralph, Clint Attending Unavailable Bonezzi, Katya Referring Unavailable Bonezzi, Katya Attending Unavailable Bonezzi, Katya Referring Unavailable Bonezzi, Katya Primary Care Unavailable Bo Almanza D.O. Attending Unavailable Bo Almanza D.O. Referring Unavailable Bonezzi, Katya Primary Care Unavailable Purpose Purpose PROBLEMS PROBLEMS DATE TYPE CONDITION / CODE ATTENDING STATUS SOURCE 06/07/2018 Unknown R59.0 - Localized Bo Almanza, Active [facility] enlarged lymph nodes / D.O[facility] Community R59.0(ICD-10) Hospital Repository 05/25/2018 Unknown I27.21 - Secondary Bo Almanza, Active [facility] pulmonary arterial D.O. Community hypertension / Hospital I27.21(ICD-10) Repository 05/25/2018 Unknown J90 - Pleural Bo Almanza, Active [facility] effusion, not D.O. Community elsewhere classified / Hospital J90(ICD-10) Repository 05/25/2018 Unknown N18.9 - Chronic kidney Bo Almanza, Active [facility] disease, unspecified / D.O. Community N18.9(ICD-10) Hospital Repository 04/27/2018 Unknown Z95.2 - Presence of Ralph, Griffith Active [facility] prosthetic heart valve Community / Z95.2(ICD-10) Hospital Repository 04/27/2018 Unknown I10 - Essential Ralph, Griffith Active [facility] (primary) hypertension Community / I10(ICD-10) Hospital Repository 04/27/2018 Unknown E78.00 - Pure Ralph, Griffith Active [facility] hypercholesterolemia, Community unspecified / Hospital E78.00(ICD-10) Repository 04/27/2018 Unknown I50.33 - Acute on Ralph, Griffith Active [facility] chronic diastolic Community (congestive) heart Hospital failure / Repository I50.33(ICD-10) 04/27/2018 Unknown Z95.1 - Presence of Ralph, Clint Active [facility] aortocoronary bypass Community graft / Z95.1(ICD-10) Hospital Repository 04/27/2018 Unknown I44.1 - Ralph, Clint Active [facility] Atrioventricular Community block, second degree / Hospital I44.1(ICD-10) Repository 05/28/2018 Unknown R00.1 - Bradycardia, Ralph, Griffith Active [facility] unspecified / Community R00.1(ICD-10) Hospital Repository 04/19/2018 Unknown J98.9 - Respiratory Cebul, Logan Active [facility] disorder, unspecified Community / J98.9(ICD-10) Hospital Repository 12/19/2017 Unknown I25.10 - Ralph, Griffith Active [facility] Atherosclerotic heart Community disease of [facility] coronary artery Repository without angina pectoris / I25.10(ICD-10) 12/19/2017 Unknown I48.0 - Paroxysmal Ralph, Griffith Active [facility] atrial fibrillation / Community I48.0(ICD-10) Hospital Repository 08/02/2017 Unknown R94.6 - Abnormal Bonezzi, Katya Active [facility] results of thyroid Community function studies / Hospital R94.6(ICD-10) Repository PROCEDURES PROCEDURES No Procedure Records FoundVITAL SIGNS VITAL SIGNS No Vital Signs Records FoundRESULTS RESULTS PULMONARY VISIT REPORT Observed: 05/31/2018 Status: F Source: [place] 9:45 AM [facility] REPOSITORY [facility] Pulmonary Medicine [address] [place] [address] OFFICE VISIT Date of Service: 05/31/18 MR#: [id number] Acct: [id number] Name: OMAIRA COBOS Rep #: [id number] : 1945 Provider: Stacey Fitch Age/Sex: 72/M Location: [facility] Status: Signed Assessment AND Plan 1. Mediastinal lymphadenopathy R59.0 Plan Biopsy results negative. No further imaging at this time. Follow-up with Dr. Almanza in 6 months. Contact the office with any new or worsening symptoms in the meantime. 2. Acute on chronic diastolic (congestive) heart failure I50.33 Plan No shortness of breath at this time. No additional testing at this time. Contact the office if shortness of breath returns, otherwise follow-up with Dr. Almanza in 6 months. Plan Detail Follow Up 6 Months (DMB) HPI EBUS RESULTS: Chief Complaint: none HPI Comments Details: Presents the office today to follow-up after recently having a biopsy completed. He is ambulatory, currently in room air and accompanied today by his . The patient reports that overall he feels good, did report some soreness on Monday which was just 2 days after his biopsy. He does have an occasional dry cough, denies any sputum production or hemoptysis. He denies any shortness of breath at rest, during conversation or even on exertion. He denies any wheezing, chest tightness, chest pain or palpitations. He denies any fever, chills or body aches. He denies any lower extremity edema. He reports weighing himself daily watching for fluid changes. Is not currently on any maintenance inhalers. He is compliant with 20 mg of Lasix daily. He does watch his sodium intake. He is not currently on any rescue inhalers. Endobronchial ultrasound-guided biopsy completed on May 25, 2018, 9 total passes were obtained. 7 passes were found to be negative for malignant cells and 2 passes were found to be nondiagnostic. 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 Accompanied by: Allergies No Known Allergies Allergy (Verified 05/31/18 09:12) Medications Atorvastatin Calcium [Lipitor] 20 mg PO QHS 07/02/13 [History Confirmed 05/31/18] Insulin Aspart [Novolog] 10 units SC TID 07/02/13 [History Confirmed 05/31/18] Aspirin [Aspirin, Baby] 81 mg PO DAILY@0800 02/09/15 [History Confirmed 05/31/18] Doxazosin Mesylate 4 mg PO DAILY 02/09/15 [History Confirmed 05/31/18] Insulin Glargine,Hum.rec.anlog [Lantus] 30 unit SQ BID 02/09/15 [History Confirmed 05/31/18] Methyl-B12/l-Mefolate/B6 Phos [Foltanx Tablet] 1 ea PO DAILY 12/09/15 [History Confirmed 05/31/18] Temazepam [Restoril] 15 mg PO QHS PRN PRN 07/19/16 [History Confirmed 05/31/18] amiodarone 200 mg tablet 100 mg PO DAILY tab 12/19/17 [History Confirmed 05/31/18] Furosemide [Lasix] 20 mg PO DAILY #30 tab 04/08/18 [Rx Confirmed 05/31/18] gabapentin 300 mg capsule 300 mg PO DAILY cap 04/20/18 [History Confirmed 05/31/18] liraglutide 0.6 mg/0.1 mL (18 mg/3 mL) subcutaneous pen injector 0.6 mg SC BID 04/27/18 [History Confirmed 05/31/18] Amlodipine Besylate [Norvasc] 10 mg PO DAILY 05/23/18 [History Confirmed 05/31/18] Cholecalciferol (VIT D3) [Vitamin D] 2,000 unit PO DAILY 05/23/18 [History Confirmed 05/31/18] COUNTS INCLUDE 234 BEDS AT THE [facility] Medical History Mediastinal lymphadenopathy (Acute) Chronic kidney disease (CKD) (Chronic) Secondary pulmonary arterial hypertension (Chronic) Acute on chronic diastolic (congestive) heart failure (Chronic) Essential (primary) hypertension (Chronic) Paroxysmal atrial fibrillation (Chronic) Atherosclerosis of coronary artery of [place] heart without angina pectoris (Chronic) HLD (hyperlipidemia) (Chronic) BPH (benign prostatic hyperplasia) (Chronic) DVT (deep venous thrombosis) (Chronic) GERD (gastroesophageal reflux disease) (Chronic) Obstructive sleep apnea (Chronic) Type 2 diabetes mellitus without complications (Chronic) Bicuspid aortic valve (Resolved) Surgical History H/O aortic valve replacement (Chronic 11/29/12) H/O coronary artery bypass surgery (Chronic 11/29/12) History of left heart catheterization (Chronic 12/09/15) History of transurethral resection of prostate (Chronic) Hx of cholecystectomy (Chronic) Family History Father CAD (coronary artery disease) Brother CAD (coronary artery disease) Social History Smoking Status: Never smoker Review of Systems Const CONSTITUTIONAL: Negative anorexia, body ache, chills, daytime sleepiness, fever(s), night sweats, oral thrush, stops breathing during sleep, weight loss, sleeping in chair, fatigue, weight loss, weight gain, frequent colds, seasonal allergies, other, headache(s) or orthopnea EETM Ear Nose Throat Mouth: Positive hearing normal; negative hard of hearing, hoarseness, dry mouth in morning, change in vision, itchy eyes, eye pain, swallowing Difficulty, ear pain, nose bleed, headache(s), mouth pain, nasal congestion, nasal discharge, post nasal drip, sinus pain, sinus pressure, sore throat or other Cardio Cardiovascular: Positive murmur; negative chest pain, chest pain at rest, chest pain with activity, irregular heart rhythm, edema, shortness of breath when lying down, palpitations or other Resp Respiratory: Positive as per HPI and cough cough: Positive non-productive; negative shortness of breath, pain with cough, wheezing, chest congestion, chest tightness, pain on inspiration, inhalers, increase use of rescue inhalers, snoring, apnea or other Gastro Gastrointestional: Negative bloody stools, change in appetite, difficulty swallowing, reflux, hematemesis, melena stool, loose stool, constipation or other Genitourinary: Negative blood in urine, nocturia, pain with urination or other Musc Musculoskeletal: Negative body pain, back pain, neck pain or other Skin/Breast Skin/Breast: Negative dry skin, itching, rash, unusual bruising, breast lump or other Neuro Neurological: Negative restless legs, confusion, weakness or other Psych Psychocological: Negative abnormal sleep pattern, anxiety, thoughts of hurting self/others, hopelessness or other Lymph Lymphatic: Negative easy bleeding, easy bruising, swollen lymph nodes or other Exam Const Constitutional: Positive conversant, cooperative, in no acute respiratory distress, healthy appearing, well developed, well nourished and good hygiene Head Head: Positive normocephalic and atraumatic; negative cyanosis of lips/distal nose Eyes Eye: Positive clear conjunctiva; negative nystagmus or scleral abnormality Ears Ear: Positive hearing normal and external ears normal; negative hard of hearing Nose Nose: Positive external nose normal and no nasal discharge; negative epistaxis Mouth Mouth: Positive oral mucosae normal, no lesions, dentures and crowded posterior oropharynx; negative post nasal drip, malodorous breath or oral thrush present Mallampati Score: III: Mallampati Score Neck Neck: Positive normal visual inspection, full ROM, trachea midline and thick neck; negative lymphadenopathy, JVD or tender Chest Wall Chest: Positive normal inspection of the chest and symmetric chest movement; negative increased A/P diameter Resp lung sounds: Positive clear to auscultation, good air exchange, normal expiratory time and normal respiratory effort; negative diminished, wheezes, rhonchi, rales, dullness to percussion or wheeze present on forced exhalation Cardio Cardiac: Positive murmur murmur: Positive systolic and LUSB, regular rate, regular rhythm, S1 normal and S2 normal GI GI: Positive normal to inspection; negative distended Genitourinary: Positive deferred Musc Musculoskeletal: Positive steady gait and ROM normal; negative kyphosis or scoliosis Skin Pulmonary Skin Exam: Positive intact; negative rash Pulses Pulse: Yes pulses normal x4 extremities Extremities Extremities: Yes capillary refill normal, No clubbing, No cyanosis, No edema Neuro Neurologic: Yes conversant, Yes no focal neuro deficits, Yes normal concentration, Yes understands questions, Yes cooperative, Yes normal cognition, Yes normal coordination, No tremor Lymph Lymphatic: No lymphadenopathy, No tenderness, No cervical adenopathy Psych Appearance: Positive grossly normal, eye contact and well kempt Mental Status: Positive mental status grossly normal Mood: Positive congruent mood Affect: Positive normal affect Coding Level of Care Code Off vis,est,level 3 Diagnoses Mediastinal lymphadenopathy R59.0 Acute on chronic diastolic (congestive) heart failure I50.33 05/31/18 0945 <Electronically signed by Stacey MORALES> Date Stacey MORALES Cosigner Signature: Date (if applicable) CC: Katya Woods MD MISCELLANEOUS LAB Collected: 05/25/2018 Status: F Source: [place] PROCEDURE 2:00 PM [facility] [place] [place] REPOSITORY Order Comment: Comments: [id number] EBUS subcarina 7, right paratracheal 4R, left hilar 10L Test(s) Ordered: Flow [id number] TYPE CODE TESTS RESULT OUT OF RANGE REFERENCE UNITS LAB L801.1541 Normal [facility] LAB FLOW SEE PATH TEST Performed By: #### L801.1541 #### [facility] [address] [place], [address] HISTORY AND PHYSICAL Observed: 05/25/2018 Status: F Source: [place] EXAM 1:58 PM [facility] [place] [place] REPOSITORY [facility] Medical Records Department [address] [place] [address] History and Physical 05/25/18 0946 MR#: [id number] Acct: [id number] Name: OMAIRA COBOS Rep #: [id number] : 1945 72 From: Bo Almanza DO PCP: Katya Woods MD Status: [facility] Location: [place] [address] History of Present Illness Date of Admission: 05/25/18 Chief Complaint: PET positive mediastinal lymphadenopathy The patient is a 72-year-old male, who I initially saw in consultation when he was admitted to the hospital in March 2018 with shortness of breath. The patient has a history of coronary artery disease for which he is status post CABG x3, aortic valve replacement and paroxysmal atrial fibrillation. Chest imaging in the form of a CAT scan obtained during that hospitalization revealed evidence of cardiomegaly, interstitial edema and mediastinal/hilar lymphadenopathy, along with bilateral pleural effusions. Prior chest imaging from February 2017 did not reveal the adenopathy noted on that study. The patient then went on to complete a PET scan, ordered by his PCP, in April 2018. PET scan did reveal increased glucose concentration apparent in the mediastinal structures, bilateral thoracic perihilum, necessitating further histopathologic investigation. Therefore, the decision was made to proceed with mediastinal lymph node sampling via EBUS. Past Medical History Past Medical History (Chronic Problems): Chronic Problems (Last Reviewed 04/27/18 @ 10:49 by Clint Santiago MD) Chronic kidney disease (CKD) (Chronic) Secondary pulmonary arterial hypertension (Chronic) Acute on chronic diastolic (congestive) heart failure (Chronic) Essential (primary) hypertension (Chronic) Paroxysmal atrial fibrillation (Chronic) H/O aortic valve replacement (Chronic 11/29/12) 25 mm Felix-Wilcox Perimount Magna Valve ([facility]: 11/29/2012) Atherosclerosis of coronary artery of [place] heart without angina pectoris (Chronic) CABG x 3 PATEL to LAD, SVG-Ramus, SVG-PLB of RCA 11/29/2012 H/O coronary artery bypass surgery (Chronic 11/29/12) CABG x 3 PATEL to LAD, SVG-Ramus, SVG-PLB of RCA 11/29/2012 HLD (hyperlipidemia) (Chronic) Medical History: Medical History (Last Reviewed 04/27/18 @ 10:49 by Clint Santiago MD) Mediastinal lymphadenopathy (Acute) R59.0 Chronic kidney disease (CKD) (Chronic) N18.9 Secondary pulmonary arterial hypertension (Chronic) I27.21 Acute on chronic diastolic (congestive) heart failure (Chronic) I50.33 Essential (primary) hypertension (Chronic) I10 Paroxysmal atrial fibrillation (Chronic) I48.0 Atherosclerosis of coronary artery of [place] heart without angina pectoris (Chronic) I25.10 CABG x 3 PATEL to LAD, SVG-Ramus, SVG-PLB of RCA 11/29/2012 HLD (hyperlipidemia) (Chronic) E78.5 BPH (benign prostatic hyperplasia) N40.0 DVT (deep venous thrombosis) I82.409 GERD (gastroesophageal reflux disease) K21.9 Obstructive sleep apnea G47.33 Type 2 diabetes mellitus without complications E11.9 Bicuspid aortic valve Q23.1 Allergies No Known Allergies Allergy (Verified 05/23/18 13:05) Home Medications: Ambulatory Orders Medication Instructions Recorded Surgical History: Surgical History (Last Reviewed 04/27/18 @ 10:49 by Clint Santiago MD) H/O aortic valve replacement (Chronic) Onset Date: 11/29/12 Z95.2 25 mm Felix-Wilcox Perimount Magna Valve ([facility]: 11/29/2012) H/O coronary artery bypass surgery (Chronic) Onset Date: 11/29/12 Z95.1 CABG x 3 PATEL to LAD, SVG-Ramus, SVG-PLB of RCA 11/29/2012 History of left heart catheterization Onset Date: 12/09/15 Z98.890 History of transurethral resection of prostate Z98.890, Z90.79 Hx of cholecystectomy Z90.49 Surgical History: cholecystectomy, coronary bypass surgery, TURP, - Smoking Status: Never smoker Tobacco Use: Non-smoker - *Family History Maternal Family History: Family History (Last Reviewed 04/27/18 @ 10:49 by Clint Santiago MD) Father CAD (coronary artery disease) Brother CAD (coronary artery disease) History Items: No pertinent history Paternal Family History: Family History (Last Reviewed 04/27/18 @ 10:49 by Clint Santiago MD) Father CAD (coronary artery disease) Brother CAD (coronary artery disease) History Items: Heart Disease Sibling Family History: Family History (Last Reviewed 04/27/18 @ 10:49 by Clint Santiago MD) Father CAD (coronary artery disease) Brother CAD (coronary artery disease) History Items: Heart Disease Review of Systems Constitutional: Denies: Chills, Fever, Weight Change HEENT: Denies: Head Aches, Sinus Congestion, Sinus Drainage Cardiovascular: Denies: Chest Pain, Palpitations Respiratory: Denies: Cough, Shortness of breath at rest, Sputum production Gastrointestinal: Denies: Abdominal Pain, Nausea, Vomiting Genitourinary: Denies: Dysuria Musculoskeletal: Denies: Joint Pain, Joint Tenderness Skin: Denies: Rash, Wounds Neurological: Denies: Numbness, Tingling, Focal weakness Psychiatric: Denies: Anxiety, Depression, Homicidal Ideations, Suicidal Ideations Hematologic/ Lymphatic: Denies: Easy Bruising, Easy Bleeding VTE Information - Inpt Only VTE Present on Admission: No VTE Mechan Device Prophylaxis: None VTE Pharm Prophylaxis ordered?: No Reason prophylaxis not ordered:: Treatment Not Indicated - Physical Exam General: Alert, Oriented x3, Cooperative HEENT: Atraumatic, PERRLA, EOMI, Normocephalic Neck: Supple, No JVD, Negative Carotid Bruits Lungs: Clear to auscultation, Normal air movement Cardiovascular: Regular rate, No murmurs Abdomen: Bowel Sounds Present, Soft, Non Tender Extremities: No edema, Capillary Refill Less than 3 Seconds Skin: No rashes, No breakdown Musculoskeletal: No Tenderness to Palpation of Joints or Extremities Neurological: Cranial nerves II-XII grossly intact, Neuro grossly intact Psych/Mental Status: Normal Affect, Appropriate Body Mass Index (BMI) 29.4 Finger Stick Blood Glucose 113 Assessment/Plan All Active Problems (Last Reviewed 04/27/18 @ 10:49 by Clint Santiago MD) Mediastinal lymphadenopathy (Acute) Pleural effusion, bilateral (Acute) Mobitz (type) I (Wenckebach's) atrioventricular block (Acute) Chest pressure (Resolved) Hypoxemia (Resolved) Pulmonary edema (Resolved) Mediastinal and hilar lymphadenopathy The patient underwent a PET scan in April which revealed avidity in the mediastinal and hilar structures, necessitating further evaluation with direct lymph node sampling via EBUS. The risks and benefits of such a procedure were discussed with the patient at length. Questions were answered accordingly. The patient is in agreement to proceed. The patient will need to have a CBC and coags obtained prior to his procedure today. 05/25/18 1358 <Electronically signed by Bo Almanza DO> Date Bo Almanza DO Cosigner Signature: Date (if applicable) CC: Katya Woods MD; Bo Almanza D.O. Signed OPERATIVE REPORT - Observed: 05/25/2018 Status: F Source: [facility] 1:46 PM [facility] [place], [place] REPOSITORY [facility] Medical Records Department [address] [place] [id number] Operative Report - Endoscopy MR#: [id number] Acct: [id number] Name: OMAIRA COBOS Rep #: [id number] : 1945 72 From: Bo Almanza DO PCP: Katya Woods MD Status: REG [facility] [place] Patient Name: Omaira Cobos Procedure Date: 05/25/2018 11:56 AM Date of : 1945 Age: 72 Procedure: Bronchoscopy Indications: Mediastinal adenopathy Providers: Bo Almanza MD Referring MD: Bo Almanza MD Medicines: General Anesthesia Complications: No immediate complications Procedure: Pre-Anesthesia Assessment: - [place] Protocol: - Pre-procedure Verification: Prior to the procedure, the patient's identity was verified by full name and date of . The patient's identity was verified on all pertinent medical records, including History and Physical. Also prior to the procedure, a History and Physical was performed, and patient medications, allergies and sensitivities were reviewed. The patient's tolerance of previous anesthesia was reviewed. The risks and benefits of the procedure and the sedation options and risks were discussed with the patient. All questions were answered and informed consent was obtained. - Time-Out: Prior to the start of the procedure, the patient's identification, proposed procedure, accurate signed consent, correctly labeled images and records, and need for prophylactic antibiotics were verified by the physician and the nurse in the procedure room. - The risks and benefits of the procedure and the sedation options and risks were discussed with the patient. All questions were answered and informed consent was obtained. After I obtained informed consent, the scope was passed under direct vision. Throughout the procedure, the patient's blood pressure, pulse, and oxygen saturations were monitored continuously. The bronchoscope was introduced through the mouth, via laryngeal mask airway and advanced to the tracheobronchial tree. The procedure was accomplished without difficulty. The patient tolerated the procedure well. Findings: The laryngeal mask airway is in good position. The vocal cords appear normal. The subglottic space is normal. The trachea is of normal caliber. The verónica is sharp. The tracheobronchial tree was examined to at least the first subsegmental level. Bronchial mucosa and anatomy are normal; there are no endobronchial lesions, and no secretions. The scope was withdrawn and replaced with the EBUS bronchoscope to accomplish the ultrasound examination. Lymph Nodes: An endobronchial ultrasound endoscope was utilized to systematically examine the right lower paratracheal region (level 4R), subcarinal mediastinum (level 7) and left hilar region (level 10L) in order to assist with fine needle aspiration. Lymph node sizing was performed via endobronchial ultrasound. Sampling by transbronchial needle aspiration was also performed using an Olympus EBUS- TBNA 19 gauge needle in the right lower paratracheal region (level 4R), subcarinal mediastinum (level 7) and left hilar region (level 10L). - The 7 (subcarinal) node was sampled. Two samples with the needle were obtained. - The 4R (lower paratracheal) node was sampled. Two samples with the needle were obtained. - The 10L (hilar) node was sampled. Two samples with the needle were obtained. Impression: - Mediastinal adenopathy - The airway examination was normal. - Endobronchial ultrasound was performed. - Lymph node sizing and sampling was performed. Recommendation: - Await cytology and flow cytometry results. - Follow up in clinic as previously scheduled. Procedure Code(s): --- Professional --- 84083, Bronchoscopy, rigid or flexible, including fluoroscopic guidance, when performed; with endobronchial ultrasound (EBUS) guided transtracheal and/or transbronchial sampling (eg, aspiration[s]/biopsy[ies]), 3 or more mediastinal and/or hilar lymph node stations or structures CPT copyright 2017 [employer] [place] [employer]. All rights reserved. The codes documented in this report are preliminary and upon circulation supervisor review may be revised to meet current compliance requirements. DO Bo Kirby MD 05/25/2018 1:46:09 PM This report has been signed electronically. Number of Addenda: 0 Note Initiated On: 05/25/2018 11:56 AM 05/25/18 1346 Date Bo Almanza DO Cosigner Signature: Date (if indicated) CC: Katya Woods; Katya Woods MD; Bo Almanza D.O. Date Dictated: 05/25/18 1156 Date Transcribed: Overweaver: JORGE Signed CBC W/DIFF, AUTOMATED Collected: 05/25/2018 Status: F Source: [facility] 12:00 PM [facility] [place], [place] REPOSITORY TYPE CODE TESTS RESULT OUT OF RANGE REFERENCE UNITS LAB L100.1000 4.4-11.0 K/mm3 Normal WBC 7.4 LAB L100.1200 4.6-6.2 M/mm3 Low RBC 4.21 LAB L100.1300 13.0-16.5 g/dl Normal HGB 13.2 LAB L100.1400 40-54 % Normal HCT 40.5 LAB L100.1500 80-94 fL High MCV 96.2 LAB L100.1600 27.0-32.0 pg Normal MCH 31.4 LAB L100.1700 32-36 g/gl Normal MCHC 32.6 LAB L100.1810 11.6-14.6 % Normal RDW CV 12.5 LAB L100.1820 35.1-43.9 fl Normal RDW SD 42.3 LAB L100.1900 150-450 K/mm3 Normal PLT 264 LAB L100.2000 6.2-12.0 fl Normal MPV 10.5 LAB L100.2100 47-70 % High NEUT% 75.9 LAB L100.2200 19-41 % Low LY% 12.1 LAB L100.2300 0-10 % Normal MONO% 7.5 LAB L100.2400 0-5 % Normal EO% 3.8 LAB L100.2500 0-1 % Normal BASO% 0.4 LAB L100.2550 0.0-0.9 % Normal IM GRAN % 0.300 Result Comment: IG% - Immature Granulocytes (promyelocytes, myelocytes and metamyelocytes) > 1% indicates that a LEFT SHIFT is Present. LAB L100.2620 2.0-7.7 X10 3/uL Normal Absolute Neut 5.6 LAB L100.2720 0.83-4.51 X10 3/ul Normal Absolute Lymph 0.90 Performed By: #### L100.0100 #### [facility] [address] [place], [place], [address] BUN Collected: 05/25/2018 Status: F Source: [facility] 12:00 PM [facility] [place], [place] REPOSITORY TYPE CODE TESTS RESULT OUT OF RANGE REFERENCE UNITS LAB L501.1000 7-18 mg/dL High BUN 34 Performed By: #### L501.1000, L501.1105 #### [facility] [address] [place], [address] SERUM CREATININE AND Collected: 05/25/2018 Status: F Source: [facility] GFR 12:00 PM [facility] [place] [place] REPOSITORY TYPE CODE TESTS RESULT OUT OF RANGE REFERENCE UNITS LAB L501.1100 0.70-1.30 mg/dL High 2.12 CREAT,SERUM Result Comment: The validity of the calculated GFR AND GFRAA in patients over 70 years has not been determined. Clinical correlation is essential. LAB L501.1110 >60 mL/min Low EST GFR 33 Result Comment: Non- GFR Calc LAB L501.1115 >60 mL/min Low EST GFR - AA 40 Result Comment: GFR Calc Performed By: #### L501.1000, L501.1105 #### [facility] [address] [place], [address] PROTHROMBIN TIME W/INR Collected: 05/25/2018 Status: F Source: [facility] 12:00 PM [facility] [place] [place] REPOSITORY TYPE CODE TESTS RESULT OUT OF RANGE REFERENCE UNITS LAB L300.4150 11.7-14.9 SECONDS Normal PROTIME 13.5 LAB L300.4200 Normal INR 1.0 Performed By: #### L300.3900, L300.4310 #### [facility] [address] [place], [address] PARTIAL THROMBOPLAST Collected: 05/25/2018 Status: F Source: [facility] TIME 12:00 PM [facility] [place] [place] REPOSITORY TYPE CODE TESTS RESULT OUT OF RANGE REFERENCE UNITS LAB L300.4310 24.1-36.2 Seconds Normal PTT 32.5 Performed By: #### L300.3900, L300.4310 #### [facility] [address] [place], [address] BEDSIDE GLUCOSE Collected: 05/25/2018 Status: F Source: [facility] 11:48 AM [facility] [place] [place] REPOSITORY TYPE CODE TESTS RESULT OUT OF REFERENCE UNITS RANGE LAB L501.080 70-110 mg/dL High BEDSIDE GLU 161 Result Comment: MANAGEMENT OF PATIENT CARE PER NURSING PROTOCOL Performed By: #### L501.080 #### [facility] Point of Care [address] [place] [address] ASPIRATION (SLIDES Observed: 05/25/2018 Status: F Source: [facility] ONLY) 12:00 AM [facility] [place] [place] REPOSITORY Patient: OMAIRA COBOS : 1945 (72/M) Acct Num: [id number] Phys: Bo Almanza D.O. Unit Num: [id number] Loc: EN Specimen: [id number] Received: 05/25/18 - 0454 Spec Type: ASPIRATION TISSUES 1 TISSUES: A. Lung, NOS B. Lung, NOS C. Lung, NOS D. Lung, NOS E. Lung, NOS F. Lung, NOS G. Lung, NOS H. Lung, NOS I. Lung, NOS COMMENT The specimen is evaluated at the time of procedure by Dr. Alvarado. Immediate Evaluation: A. EBUS aspiration #1, site 7: Adequate for evaluation. Negative for malignant cells. B. EBUS aspiration #2, site 7: Suboptimal for evaluation. Blood. Negative for malignant cells. C. EBUS aspiration #3, site 4R: Adequate for evaluation. Negative for malignant cells. D. EBUS aspiration #4, site 4R: Nondiagnostic. Blood and bronchial epithelial cells. E. EBUS aspiration #5, site 10L: Adequate for evaluation. Negative for malignant cells. F. EBUS aspiration #6, site 10L: Nondiagnostic. Blood. Flow cytometric analysis of aspirate material reveals no immunophenotypic evidence of a monoclonal B-cell or aberrant T-cell population. The complete flow cytometric analysis report is viewable in patient's EMR. Case has been reviewed in consultation with Dr. Solano who concurs with the above diagnosis. IDC:SJ CYTOLOGY GROSS A - Received labeled with the patient's name and and designated EBUS FNA, aspiration #1, site 7. The specimen consists of two smears. The smears are submitted for immediate cytologic evaluation (wet read). B - Received labeled with the patient's name and and designated EBUS FNA, aspiration #2, site 7. The specimen consists of two smears. The smears are submitted for immediate cytologic evaluation (wet read). C - Received labeled with the patient's name and and designated EBUS FNA, aspiration #3, site 4R. The specimen consists of two smears. The smears are submitted for immediate cytologic evaluation (wet read). D - Received labeled with the patient's name and and designated EBUS FNA, aspiration #4, site 4R. The specimen consists of two smears. The smears are submitted for immediate cytologic evaluation (wet read). E - Received labeled with the patient's name and and designated EBUS FNA, aspiration #5, site 10L. The specimen consists of two smears. The smears are submitted for immediate cytologic evaluation (wet read). F - Received labeled with the patient's name and and designated EBUS FNA, aspiration #6, site 10L. The specimen consists of two smears. The smears are submitted for immediate cytologic evaluation (wet read). G - Received in RPMI media with the patient's name and and designated site 7. The specimen is submitted for cell block preparation. H - Received in RPMI media with the patient's name and and designated site 4R. The specimen is submitted for cell block preparation. I - Received in RPMI media with the patient's name and and designated site 10L. The specimen is submitted for cell block preparation. / AM:[place] 05/25/18 TC:5 CPT: 64883 x3, 86204 x6, 07991 x3 CYTOLOGY STUDY Slides are reviewed. DIAGNOSIS CYTOLOGY A. EBUS aspiration #1, site 7: Adequate for evaluation. Negative for malignant cells. B. EBUS aspiration #2, site 7: Suboptimal for evaluation. Blood. Negative for malignant cells. C. EBUS aspiration #3, site 4R: Adequate for evaluation. Negative for malignant cells. D. EBUS aspiration #4, site 4R: Nondiagnostic. Blood and bronchial epithelial cells. E. EBUS aspiration #5, site 10L: Adequate for evaluation. Negative for malignant cells. F. EBUS aspiration #6, site 10L: Nondiagnostic. Blood. G. EBUS aspiration, site 7 (cell block): Negative for malignant cells. H. EBUS aspiration, site 4R (cell block): Negative for malignant cells. I. EBUS aspiration, site 10L (cell block): Negative for malignant cells. AM:[place] 05/29/18 HEADER OPERATION: Endobronchial ultrasound, TBNA PRE-OP DIAGNOSIS: Mediastinal LAD TISSUE SUBMITTED: A AND B - EBUS FNA site 7, C AND D - EBUS FNA site 4R, E AND F - EBUS FNA site 10L, G - Site 7, H - Site 4R, I - Site 10L Signed Darrinpraful AlvaradoDO 05/29/18 <signature on file> Performed By: #### PASPS #### [facility] [address] [place], [address] PET/CT TUMOR BASE Observed: 05/07/2018 Status: F Source: [facility] -THIGH INIT 5:46 AM [facility] [place] [place] REPOSITORY [facility] Imaging Services [address] [place] [address] PET/CT Tumor Base -Thigh Init MR#: [id number] Acct: [id number] Name: OMAIRA COBOS Rep #: [id number] : 1945 M 72 From: José Manuel Hercules DO PCP: Katya Woods MD Status: REG CLI Study: PET/CT Tumor Base -Thigh Init Date of Exam: 05/07/18 Exam# [id number] Ordering Dr: Katya Woods MD EXAMINATION: FDG PET/CT INDICATIONS: A 72-year-old male with reported history of pulmonary nodularity and mediastinal lymphadenopathy. COMPARISON EXAMINATION: CT of the chest, abdomen and pelvis reports dated 04/06/18 INDEX LESION SIZE SUV INTERPRETATION Mediastinum, bilateral thoracic perihilum (n=multiple) 40.1- mm (largest) (frame) 220 4.6 (max) May necessitate histopathologic investigation, if a conservative management appropriate is undertaken, repeat FDG PET imaging in 9-12 weeks is recommended to ensure stability, involution NON-INDEX LESION SIZE SUV INTERPRETATION Bilateral adrenal glands 1.6 Quantitative criteria for viable neoplasm are not fulfilled TECHNIQUE: Following the intravenous administration of 14.4 mCi of F-18 deoxyglucose via the left antecubital fossa, multiplanar image acquisitions of the neck, chest, abdomen and pelvis to level of mid thigh, obtained at one hour post radiopharmaceutical administration contemporaneously interpreted with the current CT of the neck, chest, abdomen and pelvis to level of mid thigh, dated 05/07/[address] of the chest, abdomen and pelvis reports dated 04/06/18 reveal: SERUM GLUCOSE LEVEL: 127 mg/dl. HEIGHT: 70 inches. WEIGHT: 201 lbs. FINDINGS: 1. Multifocal increased glucose metabolism is defined in the pre-subcarinal mediastinum and bilateral thoracic perihilar regions generating a calculated maximal standard uptake value of 4.6. The maximal axial diameter of the largest individual non-calcified hypermetabolic soft tissue density on review of CT of the chest dated 05/07/18 is approximately 40.1-mm (AP). 2. Mild increased glucose concentration is observed in the bilateral upper abdomen contiguous to the right and left adrenal glands generating a calculated maximal standard uptake value of 1.6. Quantitative criteria for viable neoplasm are not fulfilled. 3. Normal physiologic distribution of the radiopharmaceutical is apparent in the hepatic (3.2) and splenic parenchyma, both renal units, bladder and visualized intestinal tract. The visualized portion of the cerebral cortex demonstrate symmetric and preserved glucose metabolism. Diffuse radiopharmaceutical concentration is noted in all four quadrants of the abdomen and pelvis, most accentuated at the level of the proximal ascending colon. There are no corresponding morphologic changes noted in the analogous location on review of the diagnostic CT of the abdomen and pelvis report dated 04/06/18 in the analogous location. Pertinent CT findings are as follows: CHEST: Bilateral axillary soft tissue densities demonstrate no evidence of increased glucose metabolism. There is evidence of prior median sternotomy. There is atherosclerotic calcification defined in the thoracic aorta without evidence of dilatation-aneurysm formation. Coronary arterial calcification is observed. A prosthetic aortic valve is defined. A calcified density demonstrated in the right lower anterior lung field is non- glucose avid. There are no parenchymal densities-nodules noted in the right-left hemithorax demonstrating discernible increased glucose metabolism. ABDOMEN AND PELVIS: Soft tissue densities noted in the left upper abdomen presumably representing splenule formation are ametabolic. There is atherosclerotic calcification defined in the abdominal aorta without evidence of dilatation-aneurysm formation. Abdominal-pelvic arterial calcification is observed. Calcifications are defined within the left kidney. Right-left inguinal soft tissue densities are ametabolic. SKELETAL: Degenerative changes are noted in the cervical, thoracic and lumbar spine. PET/PET/CT Tumor Base -Thigh Init IMPRESSION: 1. Increased glucose concentration multifocally apparent in the mediastinal structures, bilateral thoracic perihilum may necessitate histopathologic investigation secondary to the quantitative degree of uptake. If a conservative management approach is undertaken, repeat FDG PET imaging in 9-12 weeks is recommended to ensure stability, involution. 2. Mild enhanced FDG concentration noted in the bilateral adrenal glands does not fulfill quantitative criteria for viable adrenal gland neoplasm. (Joel and Lenore, Journal of Nuclear Medicine 42:151 P2002 Devyn, Journal of Nuclear Medicine 45:1340, 2004). 3. Prominent intestinal tract distribution of radiopharmaceutical noted in the right mid pelvic mesentery in the region of the proximal ascending colon is most consistent with physiologic distribution of the radiopharmaceutical. (Florencia et al, Journal of Nuclear Medicine, 30:S256, 2003). Electronic Signature José Manuel Hercules D.O. Electronically Signed: José Manuel Hercules DO at 22:34 EST Tel , Service support , CC: Katya Woods MD Overweaver: Signed CARDIOLOGY VISIT Observed: 04/27/2018 Status: F Source: [facility] 10:58 AM [facility] [place] [place] REPOSITORY [facility] [address] [place] [address] OFFICE VISIT Date of Service: 04/27/18 MR#: [id number] Acct: [id number] Name: OMAIRA COBOS Rep #: [id number] : 1945 Provider: Clint Santiago MD Age/Sex: 72/M Location: [facility] Status: Signed HPI HPI Details: OMAIRA COBOS, is a 72 M who presents to the office today for follow-up visit. He has a history of coronary artery disease with bypass surgery and aortic valve replacement. He had an PATEL to the LAD, SVG to the ramus intermedius, posterior circumflex and RCA. He has a [employer] bioprosthetic aortic valve. He also has a history of hypertension, hyperlipidemia and diabetes. You remember he had complained of not feeling well and therefore he had a heart catheterization in 2017 which demonstrated patency of all vessels. He was recently admitted to the hospital with an episode of congestive heart failure he required intravenous diuresis with Lasix and an echocardiogram was performed. It demonstrated preserved ejection fraction of 65% as well as pulmonary artery systolic pressures noted in the 60s. 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 Thus far no high-grade AV block has been noted. He has been doing well since denying any chest pain or shortness breath or paroxysmal nocturnal dyspnea pedal edema he still feels pretty active and has been compliant with all his medications. He has had no neck arm or jaw discomfort suggest angina no dizziness or diaphoresis no near syncope or syncope and no claudication. His physical exam demonstrates clear lung de la fuente regular rate and rhythm soft 1/6 systolic murmur noted left sternal border Intake Vital Signs04/27/18 Height 5 ft 10 in Intake Visit Reasons: DC 10- (2-4 wk f/up) Allergies No Known Allergies Allergy (Verified 04/27/18 09:56) Medications Atorvastatin Calcium [Lipitor] 20 mg PO QHS 07/02/13 [History Confirmed 04/27/18] Insulin Aspart [Novolog] 10 units SC TID 07/02/13 [History Confirmed 04/27/18] Aspirin [Aspirin, Baby] 81 mg PO DAILY@0800 02/09/15 [History Confirmed 04/27/18] Doxazosin Mesylate 4 mg PO DAILY 02/09/15 [History Confirmed 04/27/18] Insulin Glargine,Hum.rec.anlog [Lantus] 30 unit SQ BID 02/09/15 [History Confirmed 04/27/18] Methyl-B12/l-Mefolate/B6 Phos [Foltanx Tablet] 2 - 3 ea PO DAILY 12/09/15 [History Confirmed 04/27/18] Temazepam [Restoril] 15 - 30 mg PO QHS PRN PRN 07/19/16 [History Confirmed 04/27/18] amiodarone 200 mg tablet 100 mg PO DAILY tab 12/19/17 [History Confirmed 04/27/18] Furosemide [Lasix] 20 mg PO DAILY #30 tab 04/08/18 [Rx Confirmed 04/27/18] gabapentin 300 mg capsule 600 mg PO DAILY cap 04/20/18 [History Confirmed 04/27/18] amlodipine 5 mg tablet 5 mg PO DAILY #90 tab 04/27/18 [Rx Confirmed 04/27/18] liraglutide 0.6 mg/0.1 mL (18 mg/3 mL) subcutaneous pen injector 0.6 mg SC DAILY 04/27/18 [History Confirmed 04/27/18] COUNTS INCLUDE 234 BEDS AT THE [facility] Medical History Mediastinal lymphadenopathy (Acute) Chronic kidney disease (CKD) (Chronic) Secondary pulmonary arterial hypertension (Chronic) Acute on chronic diastolic (congestive) heart failure (Chronic) Essential (primary) hypertension (Chronic) Paroxysmal atrial fibrillation (Chronic) Atherosclerosis of coronary artery of [place] heart without angina pectoris (Chronic) HLD (hyperlipidemia) (Chronic) Bicuspid aortic valve (Resolved) BPH (benign prostatic hyperplasia) (Chronic) DVT (deep venous thrombosis) (Chronic) GERD (gastroesophageal reflux disease) (Chronic) Obstructive sleep apnea (Chronic) Type 2 diabetes mellitus without complications (Chronic) Surgical History H/O aortic valve replacement (Chronic 11/29/12) H/O coronary artery bypass surgery (Chronic 11/29/12) History of left heart catheterization (Chronic 12/09/15) History of transurethral resection of prostate (Chronic) Hx of cholecystectomy (Chronic) Family History Father CAD (coronary artery disease) Brother CAD (coronary artery disease) Social History Smoking Status: Never smoker ROS Const Const: Negative for fatigue, weakness, difficulty sleeping, frequent falls, excessive sweating or headache(s) Eyes Eyes: Negative for loss of peripheral vision, transient loss of vision, blurry vision, tunnel vision or double vision ENT ENT: Negative for headache(s), dizziness, Nosebleed/epistaxis or balance problems Cardio Chest Pain: No Palpitations: No Edema: None Muscle aches with walking: None Resp Respiratory: Negative for SOB with activity, SOB at rest, SOB orthopnea\SOB lying down, paroxysmal nocturnal dyspnea or Cough GI GI: Negative nausea, heartburn, black,tarry stools or vomiting : Negative for hematuria Musc Musc: Negative for balance problems, muscle aches/ myalgia, muscle weakness or joint pain Skin Skin: Negative non-healing lesions, unusual bruising or rash Neuro Neuro: Positive for orthostatic symptoms (occasional); negative for weakness, frequent falls, headache(s), blurry vision, double vision, dizziness, lightheadedness, near syncope, syncope or lack of coordination Estrada Hematologic/Lymphatic: Negative for easy bruising or easy bleeding Endo Endo: Negative for fatigue, excessive sweating or increased thirst/drinking Psych Psych: Negative for anxiety or depression Allergy Allergy/Immunology: Negative for hives, Negative for rash Cardiology Exam Const Appearance: cooperative, healthy appearing, well developed, well groomed and no acute distress Nutritional Appearance: well nourished and average body habitus Orientation: alert, awake and oriented x3 Head Head: normal to inspection, normocephalic and atraumatic Ears: hearing grossly normal bilaterally and external ears normal Nose: external nose normal, nasal mucous membranes and turbinates normal, nares normal, septum normal, no nasal discharge Face and Sinus: face symmetric Mouth: oral mucosae normal, tongue normal, oropharynx normal and moist mucous membranes Teeth and gingiva: dentition normal Throat: posterior oropharynx normal, tonsils normal and uvula midline Eyes General: appearance normal, both eyes and all related structures Eyelids: eyelids normal Conjunctivae: conjunctivae normal Pupils: PERRL, normal by confrontation and accommodation normal EOM: EOM intact bilaterally Neck Neck: normal visual inspection, trachea midline and no JVD JVD: +5 Carotids: normal carotid upstroke and bounding pulses Chest Chest inspection: normal inspection of the chest, symmetric chest movement and normal respiratory effort Auscultation: Bilateral: Clear to Auscultation Cardio Palpation: normal PMI Rate: regular rate Rhythm: regular rhythm Heart sounds: S1 normal, S2 normal and normal, physiologic split S2; negative rub, gallop or murmur GI GI: normal to inspection, soft, no hepatosplenomegaly and bowel sounds present Neuro General: alert, awake, oriented x3, no focal sensory deficit, gait normal and moves all extremities Skin Skin: no rashes or lesions noted Extremities Pulses: Normal: Right Femoral Pulse, Left Femoral Pulse, Right Dorsalis Pedis Pulse, Left Dorsalis Pedis Pulse, Right Posterior Tibial Pulse, Left Posterior Tibial Pulse, Right Radial Pulse, Left Radial Pulse Lower Extremity Edema: None: Bilateral Musculoskel Musculoskeletal: No joint tenderness Psych Psychological: normal affect Assessment AND Plan 1. Acute on chronic diastolic (congestive) heart failure I50.33 Plan He does have evidence of acute on chronic diastolic heart failure he appears to have come out of this and currently is on a stable dose of diuretic. His ejection fraction as I noted was 65% with pulmonary systolic pressure noted to be in the high 60s. He apparently has been evaluated as well by the syrup mixer. I suspect this is likely all secondary to left ventricular and valve issues. 2. Essential (primary) hypertension I10 Plan He does have a history of hypertension. He tells me that his recent visits to primary care physicians have demonstrated normal blood pressures. He will therefore remain on his current dose of his calcium channel hari. 3. H/O aortic valve replacement Z95.2 25 mm Felix-Wilcox Perimount Magna Valve ([facility]: 11/29/2012) Plan He does have a history of aortic valve replacement. His most recent echocardiogram demonstrated a stable bioprosthetic aortic valve. We will continue to monitor this serially. Unfortunately however his pulmonary pressures were noted to be elevated. 4. H/O coronary artery bypass surgery Z95.1 CABG x 3 PATEL to LAD, SVG-Ramus, SVG-PLB of RCA 11/29/2012 Plan He is status post coronary bypass surgery. He underwent a treadmill in 2017 which was negative for inducible ischemia and a cardiac catheterization in 2016 which demonstrated widely patent grafts. No intervention was performed he will continue with medical therapy. 5. Pure hypercholesterolemia E78.00 Plan He does have a history of hyperlipidemia and will continue with aggressive risk factor modification and lipid-lowering. His most recent lipid profile demonstrated total cholesterol 103, LDL 36, and HDL of 43. 6. Mobitz (type) I (Wenckebach's) atrioventricular block I44.1 Plan He was noted to have episodes of Wenckebach periodicity. His event monitor thus far has not demonstrated any evidence of high-grade AV block. At this time I do not think that there is any indication for permanent pacemaker implantation. He has not had any syncope or presyncope. He remains on amiodarone 100 mg a day which will be continued. 7. Chronic kidney disease (CKD) N18.9 Plan He does have evidence of chronic kidney disease. He continues to follow-up with a construction technician. They decline in his renal function is not entirely clear to me at this particular time. I suspect that it was on the basis of the above that he presented with heart failure because of evidence of diuretic resistance. Plan Detail Other Medications New: Follow Up 4 Months (jhr) Coding Level of Care Code Off vis,est,level 5 Diagnoses Acute on chronic diastolic (congestive) heart failure I50.33 Essential (primary) hypertension I10 H/O aortic valve replacement Z95.2 H/O coronary artery bypass surgery Z95.1 Pure hypercholesterolemia E78.00 Hyperlipidemia type: pure hypercholesterolemia Mobitz (type) I (Wenckebach's) atrioventricular block I44.1 Chronic kidney disease (CKD) N18.9 Coding Level of Care Code Off vis,est,level 5 Diagnoses Acute on chronic diastolic (congestive) heart failure I50.33 Essential (primary) hypertension I10 H/O aortic valve replacement Z95.2 H/O coronary artery bypass surgery Z95.1 Pure hypercholesterolemia E78.00 Hyperlipidemia type: pure hypercholesterolemia Mobitz (type) I (Wenckebach's) atrioventricular block I44.1 Chronic kidney disease (CKD) N18.9 04/27/18 1058 <Electronically signed by Clint Santiago MD> Date Clint Santiago MD Cosigner Signature: Date (if applicable) CC: Katya Woods MD PULMONARY VISIT REPORT Observed: 04/20/2018 Status: F Source: [place] 3:20 PM [facility] [place], [place] REPOSITORY [facility] [address] [place] [address] OFFICE VISIT Date of Service: 04/20/18 MR#: [id number] Acct: [id number] Name: BYRONOMAIRA E Rep #: [id number] : 1945 Provider: Stacey Fitch Age/Sex: 72/M Location: [facility] Status: Signed Assessment AND Plan 1. Pleural effusion, bilateral J90 Plan Symptoms have improved. No additional testing at this time. Repeat CT of the chest in 3 months. Contact the office with any new or worsening symptoms in the meantime. 2. Mediastinal lymphadenopathy R59.0 Plan Lengthy discussion about the possible pathophysiology of the lymphadenopathy. Plan for repeat surveillance, CT of the chest in 3 months, follow-up with Dr. Almanza after discuss test results. If malignancy is suspected patient will likely require a PET scan and/or biopsy. This was discussed at length with the patient today. Orders Orders: 3. LEO on CKD stage 3 Plan Complicates exam, plan, care and prognosis. Further management to nephrology. Patient Instructions Thank you for the consultation and the opportunity to participate in this patient's care. This note was generated with [employer] dictation software. It may contain incorrect words, spelling, and punctuation that were not noted in checking the note before signing. Plan Detail Follow Up 3 Months (DMB) HPI hospital f/u: Chief Complaint: None HPI Comments Details: This is a 72 year old very pleasant M, currently under the care of Katya Woods, here to follow up after a recent hospitalization at [facility], from April 06 - April 08, 2018 for acute hypoxemia secondary to bilateral pleural effusions, pulmonary edema and mediastinal lymphadenopathy. The hospital stay was complicated by temporary requirement of supplemental oxygen. 40 pages of hospital documentation was reviewed, and found to be significant for chest x-ray completed on April 06 showing cardiomegaly with central vascular congestion changes and a small left-sided pleural effusion, multiple nodular densities in the right lower lobe metastatic disease suspected. CT of the chest completed on April 06 showed cardiomegaly with central vascular congestion changes and interstitial edema, bilateral pleural effusions, more on the right and the left, extensive mediastinal lymphadenopathy, lymphoma proliferative disorder suspected, no indication of any metastatic lung disease. A calcified granuloma in the right middle lobe and a 1.1 cm nodular density in the lingula division of the left upper lobe. Chest ultrasound completed on April 06 showed small bilateral pleural effusions, unable to perform a thoracentesis secondary to inadequate fluid. Upon discharge, the patient placed on Lasix 20 mg daily. Today, the patient presents to the office ambulatory, currently on room air and accompanied by his . He states that he has completely returned to his baseline. He denies any shortness of breath at rest, during conversation or even on exertion. He denies any cough, sputum production or hemoptysis. He denies any hematemesis, hematochezia or melena stools. He denies any unintentional weight loss. He denies any lymphadenopathy. He denies any wheezing, chest tightness, chest pain or palpitations. He also denies any fever, chills or body aches. See complete review of systems. 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 Accompanied by: Is patient in pain?: No Allergies No Known Allergies Allergy (Verified 04/20/18 11:24) Medications Atorvastatin Calcium [Lipitor] 20 mg PO QHS 07/02/13 [History Confirmed 04/20/18] Insulin Aspart [Novolog] 10 units SC TID 07/02/13 [History Confirmed 04/20/18] Aspirin [Aspirin, Baby] 81 mg PO DAILY@0800 02/09/15 [History Confirmed 04/20/18] Doxazosin Mesylate 4 mg PO DAILY 02/09/15 [History Confirmed 04/20/18] Insulin Glargine,Hum.rec.anlog [Lantus] 30 unit SQ BID 02/09/15 [History Confirmed 04/20/18] Methyl-B12/l-Mefolate/B6 Phos [Foltanx Tablet] 2 - 3 ea PO DAILY 12/09/15 [History Confirmed 04/20/18] Temazepam [Restoril] 15 - 30 mg PO QHS PRN PRN 07/19/16 [History Confirmed 04/20/18] amiodarone 200 mg tablet 100 mg PO DAILY tab 12/19/17 [History Confirmed 04/20/18] Furosemide [Lasix] 20 mg PO DAILY #30 tab 04/08/18 [Rx Confirmed 04/20/18] amlodipine 10 mg tablet 5 mg PO DAILY tab 04/20/18 [History Confirmed 04/20/18] gabapentin 300 mg capsule 600 mg PO DAILY cap 04/20/18 [History Confirmed 04/20/18] COUNTS INCLUDE 234 BEDS AT THE [facility] Medical History Paroxysmal atrial fibrillation (Chronic) Atherosclerosis of coronary artery of [place] heart without angina pectoris (Chronic) HTN (hypertension) (Chronic) HLD (hyperlipidemia) (Chronic) BPH (benign prostatic hyperplasia) (Chronic) DVT (deep venous thrombosis) (Chronic) GERD (gastroesophageal reflux disease) (Chronic) Obstructive sleep apnea (Chronic) Type 2 diabetes mellitus without complications (Chronic) Surgical History H/O aortic valve replacement (Chronic 11/29/12) H/O coronary artery bypass surgery (Chronic 11/29/12) History of left heart catheterization (Chronic 12/09/15) History of transurethral resection of prostate (Chronic) Hx of cholecystectomy (Chronic) Family History Father CAD (coronary artery disease) Brother CAD (coronary artery disease) Social History Smoking Status: Never smoker Review of Systems Const CONSTITUTIONAL: Negative anorexia, body ache, chills, daytime sleepiness, fever(s), night sweats, oral thrush, stops breathing during sleep, weight loss, sleeping in chair, fatigue, weight loss, weight gain, frequent colds, seasonal allergies, other, headache(s) or orthopnea EETM Ear Nose Throat Mouth: Positive hearing normal; negative hard of hearing, hoarseness, dry mouth in morning, change in vision, itchy eyes, eye pain, swallowing Difficulty, ear pain, nose bleed, headache(s), mouth pain, nasal congestion, nasal discharge, post nasal drip, sinus pain, sinus pressure, sore throat or other Cardio Cardiovascular: Positive murmur; negative chest pain, chest pain at rest, chest pain with activity, irregular heart rhythm, edema, shortness of breath when lying down, palpitations or other Resp Respiratory: Positive as per HPI; negative shortness of breath, pain with cough, wheezing, chest congestion, cough, chest tightness, pain on inspiration, inhalers, increase use of rescue inhalers, snoring, apnea or other Gastro Gastrointestional: Negative bloody stools, change in appetite, difficulty swallowing, reflux, hematemesis, melena stool, loose stool, constipation or other Genitourinary: Negative blood in urine, nocturia, pain with urination or other Musc Musculoskeletal: Negative body pain, back pain, neck pain or other Skin/Breast Skin/Breast: Negative dry skin, itching, rash, unusual bruising, breast lump or other Neuro Neurological: Negative restless legs, confusion, weakness or other Psych Psychocological: Negative abnormal sleep pattern, anxiety, thoughts of hurting self/others, hopelessness or other Lymph Lymphatic: Negative easy bleeding, easy bruising, swollen lymph nodes or other Exam Const Constitutional: Positive conversant, cooperative, in no acute respiratory distress, healthy appearing, well developed, well nourished and good hygiene Head Head: Positive normocephalic and atraumatic; negative cyanosis of lips/distal nose Eyes Eye: Positive clear conjunctiva; negative nystagmus or scleral abnormality Ears Ear: Positive hearing normal and external ears normal; negative hard of hearing Nose Nose: Positive external nose normal and no nasal discharge; negative epistaxis Mouth Mouth: Positive oral mucosae normal, no lesions, good dentition and posterior oropharynx is adequate; negative post nasal drip, malodorous breath or oral thrush present Mallampati Score: I: Mallampati Score Neck Neck: Positive normal visual inspection, full ROM and trachea midline; negative lymphadenopathy, JVD or tender Chest Wall Chest: Positive normal inspection of the chest and symmetric chest movement; negative increased A/P diameter Resp lung sounds: Positive clear to auscultation, good air exchange, normal expiratory time and normal respiratory effort; negative diminished, wheezes, rhonchi, rales, dullness to percussion or wheeze present on forced exhalation Cardio Cardiac: Positive murmur murmur: Positive systolic, LUSB and RUSB, regular rate, regular rhythm, S1 normal and S2 normal GI GI: Positive normal to inspection; negative distended Genitourinary: Positive deferred Musc Musculoskeletal: Positive steady gait and ROM normal; negative kyphosis or scoliosis Skin Pulmonary Skin Exam: Positive intact; negative rash Pulses Pulse: Yes pulses normal x4 extremities Extremities Extremities: Yes capillary refill normal, No clubbing, No cyanosis, No edema Neuro Neurologic: Yes conversant, Yes no focal neuro deficits, Yes normal concentration, Yes understands questions, Yes cooperative, Yes normal cognition, Yes normal coordination, No tremor Lymph Lymphatic: No lymphadenopathy, No tenderness, No cervical adenopathy, No axillary adenopathy Patient plans to do weekly lymph node checks at home Psych Appearance: Positive grossly normal, eye contact and well kempt Mental Status: Positive mental status grossly normal Mood: Positive congruent mood Affect: Positive normal affect Coding Level of Care Code Off vis,est,level 4 Diagnoses Pleural effusion, bilateral J90 Mediastinal lymphadenopathy R59.0 LEO on CKD stage 3 04/20/18 1520 <Electronically signed by Stacey HENRYC> Date Stacey Fitch NP-C Cosigner Signature: Date (if applicable) CC: Katya Woods MD 12 LEAD ELECTROCARDIOGRAM Observed: 04/10/2018 Status: F Source: [place] 12:50 PM [facility] [place] [place] REPOSITORY [facility] Cardiovascular Services [facility] [place] [address] 12 Lead EKG 04/06/18 1026 MR#: [id number] Acct: [id number] Name: OMAIRA COBOS Rep #: [id number] : 1945 72 From: Armani Coughlin MD Attending Dr: Maryse Sandhu MD Status: DIS IN Ordering Dr: Kamar Ayoub MD Date: 04/06/18 Location: [facility] Sex: M C Admitted: 04/06/18 Test Reason : CP ADMISSION Blood Pressure : / mmHG Vent. Rate : 052 BPM Atrial Rate : 052 BPM P-R Int : 272 ms QRS Dur : 100 ms QT Int : 474 ms P-R-T Axes : 021 043 123 degrees QTc Int : 440 ms Sinus bradycardia with marked sinus arrhythmia with 1st degree A-V block ST AND T wave abnormality, consider lateral ischemia Abnormal ECG When compared with ECG of 06-APR-2018 02:05, MANUAL COMPARISON REQUIRED, DATA IS UNCONFIRMED Confirmed by ARMANI COUGHLIN ([id number]), food expeditor SUSY ANGELO ([id number]) on 04/10/2018 12:50:17 PM Referred By: KAMAR AYOUB Confirmed By:ARMANI COUGHLIN 04/10/18 1250 Date Armani Coughlin MD CC: Maryse Sandhu MD; Katya Woods MD; Kamar Ayoub MD Signed 12 LEAD ELECTROCARDIOGRAM Observed: 04/10/2018 Status: F Source: [place] 8:43 AM [facility] [place] [place] REPOSITORY [facility] Cardiovascular Services [address] [place] [address] 12 Lead EKG 04/06/18 0205 MR#: [id number] Acct: [id number] Name: OMAIRA COBOS Rep #: [id number] : 1945 72 From: Armani Coughlin MD Attending Dr: Maryse Sandhu MD Status: DIS IN Ordering Dr: Zander Thompson MD Date: 04/06/18 Location: [facility] Sex: M C Admitted: 04/06/18 Test Reason : SOB Blood Pressure : / mmHG Vent. Rate : 048 BPM Atrial Rate : 048 BPM P-R Int : 312 ms QRS Dur : 100 ms QT Int : 496 ms P-R-T Axes : -10 043 153 degrees QTc Int : 443 ms Sinus bradycardia with Type I 2nd degree AVB (wenkebach) ST AND T wave abnormality, consider lateral ischemia Abnormal ECG Confirmed by ARMANI COUGHLIN ([id number]), food expeditor SUSY ANGELO ([id number]) on 04/10/2018 8:43:31 AM Referred By: BB Confirmed By:ARMANI COUGHLIN 04/10/18 0843 Date Armani Coughlin MD CC: Maryse Sandhu MD; ZANDER THOMPSON MD; Katya Woods MD Signed DISCHARGE SUMMARY Observed: 04/09/2018 Status: F Source: [place] 5:19 PM [facility] [place] [place] REPOSITORY [facility] Medical Records Department [address] [place] [address] Discharge Summary 04/08/18 1133 MR#: [id number] Acct: [id number] Name: OMAIRA COBOS Rep #: [id number] : 1945 72 From: Maryse Sandhu MD PCP: Katya Woods MD Status: DIS IN Y Location: [place] [id number] Discharge Date and Diagnosis Date of Admission: 04/06/18 Date of Discharge: 04/08/18 - Primary Discharge Diagnosis Active and Suspected Problems (Last Reviewed 12/19/17 @ 13:51 by Clint Santiago MD) Pleural effusion, bilateral (Acute) Hypoxemia (Acute) Pulmonary edema (Acute) Mediastinal lymphadenopathy (Acute) Mobitz (type) I (Wenckebach's) atrioventricular block (Acute) CHF exacerbation (Acute), acute on chronic diastolic CHF LEO on CKD stage 3 (Acute) Acute hypoxic respiratory failure - Secondary Discharge Diagnosis Chronic Problems (Last Reviewed 12/19/17 @ 13:51 by Clint Santiago MD) CRF (chronic renal failure) (Chronic) Paroxysmal atrial fibrillation (Chronic) H/O aortic valve replacement (Chronic 11/29/12) 25 mm Felix-Wilcox Perimount Magna Valve ([facility]: 11/29/2012) Atherosclerosis of coronary artery of [place] heart without angina pectoris (Chronic) CABG x 3 PATEL to LAD, SVG-Ramus, SVG-PLB of RCA 11/29/2012 H/O coronary artery bypass surgery (Chronic 11/29/12) CABG x 3 PATEL to LAD, SVG-Ramus, SVG-PLB of RCA 11/29/2012 HTN (hypertension) (Chronic) HLD (hyperlipidemia) (Chronic) Hospital Course and Treatment Imaging Results: Clinical Impression(s) from Imaging Studies Chest X-Ray 04/06/18 03:35 IMPRESSION: Cardiomegaly with central vascular congestive changes and a small left-sided pleural effusion. Multiple nodular densities in the right lower lobe. Metastatic disease suspected Electronically Signed: Tez Hurst MD at 4:14 EDT Tel , Service support , Chest CT 04/06/18 05:47 IMPRESSION: Cardiomegaly with central vascular congestive changes and interstitial edema. Bilateral pleural effusions; more on the right than the left Extensive mediastinal adenopathy. Lymphoproliferative disorder suspected. No indication of any metastatic lung disease. A calcified granuloma in the right middle lobe and a 1.1 cm nodular density in the lingula division of the left upper lobe Electronically Signed: Tez Hurst MD at 7:02 EDT Tel , Service support , Chest Ultrasound 04/06/18 08:06 IMPRESSION: Small bilateral pleural effusions. Electronically Signed: Mark Waller MD at 14:42 EDT Tel [phone], Service support , Abdomen/Pelvis CT 04/06/18 12:48 IMPRESSION: 1. Bilateral lower lobe atelectasis. 2. Moderate sized right-sided pleural effusion and small left-sided effusion. 3. Nonvisualization of the gallbladder. 4. Low-attenuation right adrenal nodule measuring 1.7 x 1.3 cm consistent with an adenoma. This is slightly increased in size from the prior study. 5. 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 6. Nonobstructing 3 mm calculus of the lower pole of the left kidney. 1.6 cm left renal cyst. 7. Colonic diverticulosis with no evidence of associated diverticulitis. 8. Small fat-containing umbilical hernia. 9. There is no evidence of free intra-abdominal or intrapelvic air or fluid. Electronically Signed: Paul Dozier MD at 17:34 EDT , Service support , Cardiology Nephrology Operations: None, TURP Procedures: 2-D Echocardiogram Summary of Care Provided: 72 y/o male with CAD status post CABG x3, status post bioprosthetic aortic valve replacement, follows with cardiology admitted with progressive shortness of breath and managed as acute on chronic heart failure. 1. Acute hypoxic respiratory insufficiency secondary to acute on chronic CHF exacerbation/bilateral pleural effusion, resolved, patient did not qualify for home oxygen 2. Acute on chronic diastolic CHF, improved, discharged on Lasix 20 mg p.o. daily, CHF education was given 3. Paroxysmal atrial fibrillation, sinus rhythm, admitting EKG shows sinus bradycardia with type I second-degree AV block, Discharged on a beta-hari account of bradycardia Discharged in a 30-day event monitor continued on amiodarone, will follow-up with cardiology in the outpatient 4. Bilateral pleural effusion secondary to acute on chronic CHF, improving, thoracocentesis was not done as planned because pleural effusion that appears to have improved. Follow-up with pulmonology in the outpatient 5. LEO on CKD stage III, creatinine appears to have trended up, nephrology was consulted, discharge creatinine was 2.59, he would repeat labs in the outpatient and follow with nephrology 6. Type II DM, on Lantus and premeal insulin 7. Hypertension, on amlodipine and doxazosin 8. Hyperlipidemia, on statin 9. BPH, on cardura Subjective: On the day of discharge, patient was seen and examined. Denied any new complaints. Eager to be discharged. No acute events on telemetry. Plan of care was discussed with the patient and his at the bedside on discharge. Objective: General: Alert, Oriented x3, Cooperative, No apparent distress HEENT: Atraumatic, PERRLA, EOMI, Normocephalic Neck: Supple, No JVD Lungs: Clear to auscultation, Normal air movement Cardiovascular: Regular rate, Regular Rhythm, Normal S1, Normal S2, No murmurs Abdomen: Bowel Sounds Present, Soft, Non Tender, Non-Distended, No Hepato-splenomegaly Extremities: No edema Skin: No rashes, No breakdown Musculoskeletal: No Tenderness to Palpation of Joints or Extremities Lymphatic: No Cervical, Supraclavicular, or Inguinal Adenopathy Neurological: Cranial nerves II-XII grossly intact, Neuro grossly intact Psych/Mental Status: Normal Affect, Appropriate - Physical Exam Vital Signs Temp Pulse Resp BP Pulse Ox 97.8 F 69 16 112/60 98 04/08/18 09:34 04/08/18 09:34 04/08/18 09:34 04/08/18 09:34 04/08/18 09:34 Oxygen Flow Rate (L/min) 1 Oxygen Delivery Method Room Air Weight: 91.7 kg Body Mass Index (BMI) 30.8 Finger Stick Blood Glucose 113 Intake and Output for Last 24 Hours Intake Total 1000 / 1000 1680 / 1680 600 / 600 Output Total 3125 / 3125 2460 / 2460 450 / 450 Balance -2125 / -2125 -780 / -780 150 / 150 Laboratory Tests Past 24 Hrs Sodium 145 Potassium 3.6 POC Glucose POC Glucose 133 H 143 H 186 H POC Glucose 201 H Discharge Diet: Low fat/ Low Cholesterol, 8 Cup Fluid Restriciton, 2000 mg Sodium Diet Discharge Activity: Return to Normal Activity Home Medications: Medications to take at Discharge Amlodipine Besylate 10 mg PO DAILY 07/02/13 Atorvastatin Calcium [Lipitor] 20 mg PO QHS 07/02/13 Insulin Aspart [Novolog] 10 units SC TID 07/02/13 Aspirin [Aspirin, Baby] 81 mg PO DAILY@0800 02/09/15 Doxazosin Mesylate 4 mg PO DAILY 02/09/15 Insulin Glargine,Hum.rec.anlog [Lantus] 30 unit SQ BID 02/09/15 Methyl-B12/l-Mefolate/B6 Phos [Foltanx Tablet] 2 - 3 ea PO DAILY 12/09/15 Temazepam [Restoril] 15 - 30 mg PO QHS PRN PRN 07/19/16 amiodarone 200 mg tablet 100 mg PO DAILY tab 12/19/17 Furosemide [Lasix] 20 mg PO DAILY #30 tablet 04/08/18 Following Prescrptions Were Given to Patient: Furosemide [Lasix] 20 mg PO DAILY #30 tablet Other Amb Orders: 30-Day Event Recorder [[facility]] Location: None Selected Basic Metabolic Profile (BMP) Location: Laboratory Primary Care Physician: Katya Woods MD [Primary Care Provider] - Please follow up with your Primary Care Physician in: within 1-2 weeks Please Follow Up With: Armani Coughlin MD When: in 2 weeks When: Wes Please Follow Up With: within 1-2 weeks Disposition: Home Minutes spent on discharge:: 45 Patient Condition:: Stable Medical Necessity - Tobacco Use Smoking Status: Never smoker Meaningful Use Info Meaningful Use Diagnoses (Choose all that apply): CHF - CHF SANIA/ARB ordered at discharge?: Yes Documented LVEF (%): 65 Code Visit Inpatient E AND M: [id number] Disch Hosp 04/09/18 1119 <Electronically signed by Maryse Sandhu MD> Date Maryse Sandhu MD Cosigner Signature (if applicable): Date CC: Maryse Sandhu MD; Katya Woods MD Signed DISCHARGE INSTRUCTION Observed: 04/08/2018 Status: F Source: [place] 11:54 AM [facility] [place], [place] REPOSITORY [facility] Medical Records Department [address] [place] [address] Instructions for Home/Discharge Instructions 04/08/18 1124 MR#: [id number] Acct: [id number] Name: OMAIRA COBOS Rep #: [id number] : 1945 72 From: Maryse Sandhu MD PCP: Katya Woods MD Status: ADM IN ADDENDUM by Maryse Sandhu MD on 04/08/18 at 1154 You will be discharged with a 30 day event monitor. You have to come back tomorrow and have that placed. You should follow-up with pulmonology, Dr. Almanza in the outpatient in 2 weeks. You will follow-up with Dr. Santiago in 2 weeks 04/08/18 1154 Date Maryse Sandhu MD cc: Katya Woods MD; Armani Coughlin MD; Bo Almanza D.O.; Pauly Harvey M.D. * Signed - Discharge Diagnoses Current Active Problems: Current Active and Chronic Problems (Last Reviewed 12/19/17 @ 13:51 by Clint Santiago MD) Pleural effusion, bilateral (Acute) Hypoxemia (Acute) Pulmonary edema (Acute) Mediastinal lymphadenopathy (Acute) CRF (chronic renal failure) (Chronic) Mobitz (type) I (Wenckebach's) atrioventricular block (Acute) CHF exacerbation (Acute) LEO on CKD stage 3 (Acute) Reason(s) for Visit for Discharge Instructions: Shortness of breath You will use the following diet at home:: Calorie/Carbohydrate Controlled (specify 1200, 1400, etc), Cardiac, Fluid restricted (specify 2000 mls, 1500 mls) - 1500mls Your food should be the consistency of: Regular Your liquids should be the consistency of: Regular/Thin Discharge Activity: Return to Normal Activity Additional Instructions: Please follow a low salt diet. Continue to remain active. Follow-up closely with pulmonology, nephrology and cardiology in the outpatient in 2 weeks. Weigh daily; let your doctor know if you gain weight more 4 pounds. Allergies/Adverse Reactions: Allergies No Known Allergies Allergy (Verified 04/06/18 01:55) Medications to take at Discharge Amlodipine Besylate 10 mg PO DAILY 07/02/13 Atorvastatin Calcium [Lipitor] 20 mg PO QHS 07/02/13 Insulin Aspart [Novolog] 10 units SC TID 07/02/13 Aspirin [Aspirin, Baby] 81 mg PO DAILY@0800 02/09/15 Doxazosin Mesylate 4 mg PO DAILY 02/09/15 Insulin Glargine,Hum.rec.anlog [Lantus] 30 unit SQ BID 02/09/15 Methyl-B12/l-Mefolate/B6 Phos [Foltanx Tablet] 2 - 3 ea PO DAILY 12/09/15 Temazepam [Restoril] 15 - 30 mg PO QHS PRN PRN 07/19/16 amiodarone 200 mg tablet 100 mg PO DAILY tab 12/19/17 Furosemide [Lasix] 20 mg PO DAILY #30 tablet 04/08/18 The following prescriptions were given: Furosemide [Lasix] 20 mg PO DAILY #30 tablet Orders to be completed after discharge: Basic Metabolic Profile (BMP) Location: Laboratory Primary Care Physician: Katya Woods MD [Primary Care Provider] - Please follow up with your Primary Care Physician in: within 1-2 weeks Test Results: Test results from this visit will be discussed in further detail at your follow-up appointment, if applicable. Please Follow Up With: Armani Coughlin MD When: in 2 weeks When: Wes Please Follow Up With: within 1-2 weeks Proposed Discharge Date: 04/08/18 04/08/18 1133 <Electronically signed by Maryse Sandhu MD> Date Maryse Sandhu MD CC: Katya Woods MD; Armani Coughlin MD; Bo Almanza D.O.; Pauly Harvey M.D. BEDSIDE GLUCOSE Collected: 04/08/2018 Status: F Source: [place] 11:17 AM [facility] [place], [place] REPOSITORY TYPE CODE TESTS RESULT OUT OF REFERENCE UNITS RANGE LAB L501.080 70-110 mg/dL High BEDSIDE GLU 162 Result Comment: MANAGEMENT OF PATIENT CARE PER NURSING PROTOCOL Performed By: #### L501.080 #### [facility] Laboratory Point of Care [address] [place] [address] BEDSIDE GLUCOSE Collected: 04/08/2018 Status: F Source: [place] 6:44 AM [facility] [place], [place] REPOSITORY TYPE CODE TESTS RESULT OUT OF REFERENCE UNITS RANGE LAB L501.080 70-110 mg/dL High BEDSIDE GLU 133 Result Comment: MANAGEMENT OF PATIENT CARE PER NURSING PROTOCOL Performed By: #### L501.080 #### [facility] Laboratory Point of Care [address] [place] [address] BASIC METABOLIC Collected: 04/08/2018 Status: F Source: [place] PROFILE (BMP) 6:15 AM [facility] [place], [place] REPOSITORY TYPE CODE TESTS RESULT OUT OF RANGE REFERENCE UNITS LAB L501.0100 74-106 mg/dL High GLU 129 Result Comment: Fasting Glucose result greater than or equal to 126 mg/dL suggests DIABETES MELLITUS per A.D.A. criteria. Please note revised GLUCOSE reference range effective 2017. LAB L501.1000 7-18 mg/dL High BUN 29 LAB L501.1100 0.70-1.30 mg/dL High CREAT,SERUM 2.59 Result Comment: The validity of the calculated GFR AND GFRAA in patients over 70 years has not been determined. Clinical correlation is essential. LAB L501.1110 >60 mL/min Low EST GFR 26 Result Comment: Non- GFR Calc LAB L501.1115 >60 mL/min Low EST GFR - AA 31 Result Comment: GFR Calc LAB L501.1255 ml/min Normal Estimated CRCL 26.23 LAB L501.1300 10-20 RATIO Normal BUN/CRE 11.2 LAB L501.2200 8.5-10 mg/dL Normal .1 CA 8.8 LAB L501.5300 136-14 mmol/L Normal 5 NA 145 LAB L501.5600 3.5-5. mmol/L Normal 1 K 3.6 LAB L501.5900 98-107 mmol/L High CL 108 LAB L501.6100 21.0-3 mmol/L Normal 2.0 CO2 27.0 LAB L501.6200 5-15 Normal GAP 10 Performed By: #### L500.2500 #### [facility] [address] [place], [address] BEDSIDE GLUCOSE Collected: 04/07/2018 Status: F Source: [place] 9:30 PM [facility] [place] [place] REPOSITORY TYPE CODE TESTS RESULT OUT OF REFERENCE UNITS RANGE LAB L501.080 70-110 mg/dL High BEDSIDE GLU 143 Result Comment: MANAGEMENT OF PATIENT CARE PER NURSING PROTOCOL Performed By: #### L501.080 #### [facility] Point of Care [address] [place] [address] URINALYSIS, COMPLETE Collected: 04/07/2018 Status: F Source: [place] 8:15 PM [facility] [place] [place] REPOSITORY Order Comment: Order Date: 04/07/18 How was Urine Obtained? TRAFFIC SIGNAL MECHANIC TO SPECIFY TYPE CODE TESTS RESULT OUT OF RANGE REFERENCE UNITS LAB L400.3000 Yellow COLOR Normal Yellow LAB L400.3050 Clear Normal CLARITY Clear LAB L400.3200 Normal mg/dl Normal GLUCOSE, UR Normal LAB L400.3300 Negative mg/dL Normal BILIRUBIN URINE Negative LAB L400.3400 Negative mg/dl Normal KETONE UR Negative LAB L400.3465 1.002-1.030 Normal SP.GR. DIPSTX 1.010 LAB L400.3550 5.0 - 8.0 pH UR Normal 8.0 LAB L400.3600 Negative mg/dl High PROT 30 DIPSTX LAB L400.3700 Normal mg/dl Normal UROBILI Normal LAB L400.3750 Negative Normal NITRITE UR Negative LAB L400.3780 Negative /ul Normal OCCULT BLOOD-UR Negative LAB L400.3800 Negative /ul LEUK Normal ESTERASE Negative LAB L400.4050 0-5 /hpf WBC 0 Normal SEEN LAB L400.4100 0-5 /hpf 0 Normal RBC-UA SEEN LAB L400.4150 0-5 /hpf SQUAM 0 Normal EPI SEEN LAB L400.4300 None Seen /hpf 0 Normal BACTERIA SEEN LAB L400.4350 <or=2+ /hpf 0 Normal MUCUS, URINE SEEN Performed By: #### L400.0001 #### [facility] [address] [place], [address] URINE SODIUM Collected: 04/07/2018 Status: F Source: [place] 8:15 PM [facility] [place] [place] REPOSITORY Order Comment: Order Date: 04/07/18 TYPE CODE TESTS RESULT OUT OF RANGE REFERENCE UNITS LAB L501.5500 Not Establ. mmol/L Normal UR NA 89 Performed By: #### L501.5500 #### [facility] [address] [facility] [place], [address] CREATININE, URINE Collected: 04/07/2018 Status: F Source: [place] 8:15 PM [facility] [place] [place] REPOSITORY Order Comment: Order Date: 04/07/18 TYPE CODE TESTS RESULT OUT OF RANGE REFERENCE UNITS LAB L502.0300 NO RANGE EST. mg/dL Normal URINE 106.00 CREAT Performed By: #### L502.0300 #### [facility] [address] [place], [address] BEDSIDE GLUCOSE Collected: 04/07/2018 Status: F Source: [place] 4:30 PM [facility] [place] [place] REPOSITORY TYPE CODE TESTS RESULT OUT OF REFERENCE UNITS RANGE LAB L501.080 70-110 mg/dL High BEDSIDE GLU 186 Result Comment: MANAGEMENT OF PATIENT CARE PER NURSING PROTOCOL Performed By: #### L501.080 #### [facility] Point of Care [address] [place] [address] BEDSIDE GLUCOSE Collected: 04/07/2018 Status: F Source: [place] 11:19 AM [facility] [place] REPOSITORY TYPE CODE TESTS RESULT OUT OF REFERENCE UNITS RANGE LAB L501.080 70-110 mg/dL High BEDSIDE GLU 201 Result Comment: MANAGEMENT OF PATIENT CARE PER NURSING PROTOCOL Performed By: #### L501.080 #### [facility] Point of Care [address] [place] [address] BEDSIDE GLUCOSE Collected: 04/07/2018 Status: F Source: [place] 6:48 AM [facility] [place] REPOSITORY TYPE CODE TESTS RESULT OUT OF REFERENCE UNITS RANGE LAB L501.080 70-110 mg/dL High BEDSIDE GLU 121 Result Comment: MANAGEMENT OF PATIENT CARE PER NURSING PROTOCOL Performed By: #### L501.080 #### [facility] Point [place] [address] CBC W/DIFF, AUTOMATED Collected: 04/07/2018 Status: F Source: [place] 6:20 AM [facility] [place] REPOSITORY TYPE CODE TESTS RESULT OUT OF RANGE REFERENCE UNITS LAB L100.1000 4.4-11.0 K/mm3 Normal WBC 7.0 LAB L100.1200 4.6-6.2 M/mm3 Low RBC 3.73 LAB L100.1300 13.0-16.5 g/dl Low HGB 11.9 LAB L100.1400 40-54 % Low HCT 37.0 LAB L100.1500 80-94 fL High MCV 99.2 LAB L100.1600 27.0-32.0 pg Normal MCH 31.9 LAB L100.1700 32-36 g/gl Normal MCHC 32.2 LAB L100.1810 11.6-14.6 % Normal RDW CV 13.3 LAB L100.1820 35.1-43.9 fl High RDW SD 46.0 LAB L100.1900 150-450 K/mm3 Normal PLT 263 LAB L100.2000 6.2-12.0 fl Normal MPV 10.1 LAB L100.2100 47-70 % High NEUT% 75.6 LAB L100.2200 19-41 % Low LY% 12.8 LAB L100.2300 0-10 % Normal MONO% 7.8 LAB L100.2400 0-5 % Normal EO% 3.4 LAB L100.2500 0-1 % Normal BASO% 0.1 LAB L100.2550 0.0-0.9 % Normal IM GRAN % 0.300 Result Comment: IG% - Immature Granulocytes (promyelocytes, myelocytes and metamyelocytes) > 1% indicates that a LEFT SHIFT is Present. LAB L100.2620 2.0-7.7 X10 3/uL Normal Absolute Neut 5.3 LAB L100.2720 0.83-4.51 X10 3/ul Normal Absolute Lymph 0.90 Performed By: #### L100.0100 #### [facility] [address] [place], [address] BASIC METABOLIC Collected: 04/07/2018 Status: F Source: [place] PROFILE (BMP) 6:20 AM [facility] [place] REPOSITORY TYPE CODE TESTS RESULT OUT OF RANGE REFERENCE UNITS LAB L501.0100 74-106 mg/dL Normal GLU 105 Result Comment: Fasting Glucose result from 100 to 125 mg/dL suggests IMPAIRED HOMEOSTASIS per A.D.A. criteria. Please note revised GLUCOSE reference range effective 2017. LAB L501.1000 7-18 mg/dL High BUN 29 LAB L501.1100 0.70-1.30 mg/dL High CREAT,SERUM 2.45 Result Comment: The validity of the calculated GFR AND GFRAA in patients over 70 years has not been determined. Clinical correlation is essential. LAB L501.1110 >60 mL/min Low EST GFR 28 Result Comment: Non- GFR Calc LAB L501.1115 >60 mL/min Low EST GFR - AA 33 Result Comment: GFR Calc LAB L501.1255 ml/min Normal Estimated CRCL 27.73 LAB L501.1300 10-20 RATIO Normal BUN/CRE 11.8 LAB L501.2200 8.5-10 mg/dL Normal .1 CA 8.9 LAB L501.5300 136-14 mmol/L Normal 5 NA 144 LAB L501.5600 3.5-5. mmol/L Normal 1 K 3.8 LAB L501.5900 98-107 mmol/L Normal CL 107 LAB L501.6100 21.0-3 mmol/L Normal 2.0 CO2 28.0 LAB L501.6200 5-15 Normal GAP 9 Performed By: #### L500.2500, L500.4100, L501.9520, L504.2610 #### [facility] [address] [place], [place], [address] LIPID PROFILE Collected: 04/07/2018 Status: F Source: [place] 6:20 AM [facility] [place] REPOSITORY TYPE CODE TESTS RESULT OUT OF RANGE REFERENCE UNITS LAB L501.4900 200 mg/dL Normal CHOL 103 Result Comment: <200 mg/dL Desirable 200-240 mg/dL Borderline >240 mg/dL High Risk LAB L501.5000 mg/dL Normal TRIG 119 Result Comment: The drugs N-Acetylcysteine and Metamizole may falsely depress this assay. Serum Triglycerides Reference Interval Normal <150 mg/dL Borderline high 150 - 199 mg/dL High 200 - 499 mg/dL Very High > or = 500 mg/dL LAB L501.6400 mg/dL Normal HDL 43 Result Comment: The drugs N-Acetylcysteine and Metamizole may falsely depress this assay. Reference Range HDL <40 mg/dL Low HDL Cholesterol HDL >or= 60 mg/dL High HDL Cholesterol LAB L501.6500 0-130 mg/dL Normal LDL 36 LAB L501.6600 5-40 mg/dL Normal VLDL 24 Performed By: #### L500.2500, L500.4100, L501.9520, L504.2610 #### [facility] [address] [place], [address] THYROID STIM HORMONE Collected: 04/07/2018 Status: F Source: [place] (TSH) 6:20 AM [facility] [place] REPOSITORY TYPE CODE TESTS RESULT OUT OF RANGE REFERENCE UNITS LAB L501.9520 0.358-3.74 uIU/mL Normal TSH 3.06 Performed By: #### L500.2500, L500.4100, L501.9520, L504.2610 #### [facility] [address] [place], [address] LDH Collected: 04/07/2018 Status: F Source: [place] 6:20 AM [facility] [place] REPOSITORY TYPE CODE TESTS RESULT OUT OF RANGE REFERENCE UNITS LAB L504.2610 87-241 U/L Normal LDH 218 Performed By: #### L500.2500, L500.4100, L501.9520, L504.2610 #### [facility] [address] [place], [address] ALEIDA + PROTEIN ELECT, Collected: 04/07/2018 Status: F Source: [place] SERUM 6:20 AM [facility] [place] REPOSITORY TYPE CODE TESTS RESULT OUT OF RANGE REFERENCE UNITS LAB L3100.3500 6.0-8.5 g/dL Normal PROTEIN,TOTAL 7.0 LAB L3200.3892 563-9994 mg/dL Normal IMMUNO G 1153 LAB L3200.1400 61-437 mg/dL Normal IMMUNO A 313 LAB L3200.1500 15-143 mg/dL Normal IMMUNOGL M 75 LAB L3200.1510 2.9-4.4 g/dL Normal ALBUMIN 3.6 LAB L3200.1520 0.0-0.4 g/dL Normal PDFUE-7-SDSU 0.3 LAB L3200.1530 0.4-1.0 g/dL Normal KXOXF-3-OFOS 0.8 LAB L3200.1540 0.7-1.3 g/dL Normal BETA GLOBULIN 1.1 LAB L3200.1550 0.4-1.8 g/dL Normal GAMMA GLOBULIN 1.2 LAB L3200.1560 Normal M-SPIKE Result Comment: Not Observed LAB L3200.1570 2.2-3.9 g/dL Normal GLOBULIN, TOTAL 3.4 LAB L3200.1580 0.7-1.7 A/G Normal RATIO 1.1 LAB L3200.1590 . ALEIDA Normal RESULT,S Comment Result Comment: No monoclonality detected. LAB L3200.1594 . Normal NOTE: Comment Result Comment: Protein electrophoresis scan will follow via computer, mail, or stage rigger delivery. Performed By: #### L3100.3425, L3100.6900 #### [facility] (refer to report for specific site) refer to report for address and phone number ANGIOTENSIN CONVERT Collected: 04/07/2018 Status: F Source: [place] ENZYME 6:20 AM [facility] [place] [place] REPOSITORY TYPE CODE TESTS RESULT OUT OF RANGE REFERENCE UNITS LAB L3100.6900 14-82 U/L Normal SANIA [address] 28 Result Comment: Performed at: - [facility] [id number] Clinic Lead: Vivek Alexander PhD, Phone: [phone] Performed By: #### L3100.3425, L3100.6900 #### [facility] (refer to report for specific site) refer to report for address and phone number ANCA Collected: 04/07/2018 Status: F Source: [place] 6:20 AM [facility] [place] REPOSITORY TYPE CODE TESTS RESULT OUT OF RANGE REFERENCE UNITS LAB L3300.1225 Neg:<1:20 titer CYTOPLASMIC Normal Ab <1:20 LAB L3300.1250 Neg:<1:20 titer PERINUCLEAR Normal Ab <1:20 Result Comment: The presence of positive fluorescence exhibiting P-ANCA or C-ANCA patterns alone is not specific for the diagnosis of Benja's Granulomatosis (WG) or microscopic polyangiitis. Decisions about treatment should not be based solely on ANCA IFA results. The International ANCA Group Consensus recommends follow up testing of positive sera with both HI- 3 and MPO-ANCA enzyme immunoassays. As many as 5% serum samples are positive only by EIA. Ref. AM J Clin Pathol 1999;111:507-513. LAB L3300.1285 Neg:<1:20 titer Normal Atypical pANCA <1:20 Result Comment: The atypical pANCA pattern has been observed in a significant percentage of patients with ulcerative colitis, primary sclerosing cholangitis and autoimmune hepatitis. Performed at: [facility] [address] [id number] Clinic Lead: Vivek Alexander PhD, Phone: [phone] Performed By: #### L3300.1200 #### [facility] (refer to report for specific site) refer to report for address and phone number BEDSIDE GLUCOSE Collected: 04/06/2018 Status: F Source: [place] 9:34 PM [facility] [place] REPOSITORY TYPE CODE TESTS RESULT OUT OF REFERENCE UNITS RANGE LAB L501.080 70-110 mg/dL High BEDSIDE GLU 203 Result Comment: MANAGEMENT OF PATIENT CARE PER NURSING PROTOCOL Performed By: #### L501.080 #### [facility] Point of Care [address] [place] [address] VENOUS DUPLEX LOWER Observed: 04/06/2018 Status: F Source: [place] EXTREMITY 5:31 PM [facility] [place] [place] REPOSITORY [facility] Cardiovascular Services [address] [place] [address] Venous Duplex US - Jarrett Extrem 04/06/18 1507 MR#: [id number] Acct: [id number] Name: OMAIRA COBOS Rep #: [id number] : 1945 72 From: Logan Choudhary MD Attending Dr: Kamar Ayoub MD Status: ADM IN Ordering Dr: Kamar Ayoub MD Date: 04/06/18 Location: [facility] Sex: M C Admitted: 04/06/18 [id number] TAG_START Cardiovascular Services Venous Doppler [address] [place] [address] Ordering Physician: Kamar Ayoub TAG_ENDED TAG_START Name: OMAIRA COBOS Study Date: 04/06/2018 03:07 PM Patient Location: [facility] : 1945 Gender: Male Age: 72 yrs TAG_ENDED Reason For Study: SHORTNESS OF BREATH RIGHT LEFT GSV is normal. CFV is compressible, spontaneous, phasic, CFV is compressible, spontaneous, phasic, competent, and demonstrates normal competent and demonstrates normal augmentation. augmentation. FV is compressible, spontaneous, phasic, FV is compressible, spontaneous, phasic, competent and demonstrates normal competent and demonstrates normal augmentation. augmentation. POP V is compressible, spontaneous, phasic, POP V is compressible, spontaneous, phasic, competent and demonstrates normal competent and demonstrates normal augmentation. augmentation. T/P Trunk is compressible. T/P Trunk is compressible. PTV is compressible. PTV is compressible. LT PerV is compressible. RT PerV is compressible. GSV harvested. Procedure Exam performed portable in patient room. A preliminary report was called and/or faxed to [facility]. <> Interpretation Summary No evidence for acute deep venous thrombosis bilateral lower extremities with patent and compressible right great saphenous and surgically absent left great saphenous vein. TAG_START TAG_ENDED Ordering Physician: Kamar Ayoub Referring Physician: Katya Woods M.D. Performed By: Sera Doe RVT 04/06/18 173 Date Logan Choudhary MD CC: Katya Woods MD; Kamar Ayoub MD Date Dictated: 04/06/18 1507 Date Transcribed: 04/06/181729 Overweaver: Signed ECHOCARDIOGRAM COMPLETE Observed: 04/06/2018 Status: F Source: [place] 5:23 PM [facility] [place] [place] REPOSITORY [facility] Cardiovascular Services [address] [place] [address] Echo Complete 04/06/18 1407 MR#: [id number] Acct: [id number] Name: ORAL COBOSPONCHO Horne Rep #: [id number] : 1945 72 From: Armani Coguhlin MD Attending Dr: Kamar Ayoub MD Status: ADM IN Ordering Dr: Kamar Ayoub MD Date: 04/06/18 Location: [facility] Sex: M C Admitted: 04/06/18 [id number] ECHO [id number] [facility] Cardiovascular Services Echocardiogram [address] [place], [place] [address] Ordering Physician: Kamar Ayoub TAG_ENDED TAG_START Name: BYRONOMAIRA TRAN Study Date: 04/06/2018 02:07 PM BP: 142/41 mmHg Patient Location: [facility] [place] BSA: 2.1 m2 : 1945 Gender: Male Height: 70 in Age: 72 yrs Weight: 214 lb History: ASHD, CABG X 3, HX DVT, GERD, HTN, HLD, MAYE, PAF, DM II., Hx AVR ( 23 mm Felix-Wilcox [facility] Magna Valave - @[facility] 11/29/2012) TAG_ENDED Reason For Study: B/L EFFUSION Procedure This was a 2D Doppler, Color Flow transthoracic echocardiogram. Exam performed portable in patient room. Left Ventricle Normal size and thickness. The estimated ejection fraction is 65 %. Septal motion consistent with IVCD. Stage 2 diastolic dysfunction. No regional wall motion abnormalities noted. TAG_START I Segments Size 1-2 small X - Cannot 1 - Normal 2 - 3 - Akinetic 4 - Dyskinetic3-5 moderate Interpret Hypokinetic 6-14 large 5 - Aneurysmal 15-16 diffuse TAG_ENDED Right Ventricle Mildly dilated right ventricle. Normal systolic function. Atria The left atrium is severely enlarged. Normal right atrium. Normal atrial septum. Mitral Valve Mild diffuse mitral valve thickening. Trivial mitral valve insufficiency. Tricuspid Valve Normal tricuspid valve. Mild (1+) tricuspid valve insufficiency. Right ventricular systolic pressure estimated to be 66 mmHg. Severe pulmonary hypertension. Aortic Valve Peak aortic valve gradient is 24 mmHg. Mean aortic valve gradient is 13 mmHg. Bioprosthetic aortic valve. Stable appearing bioprosthetic aortic valve apparatus. Pulmonic Valve Normal pulmonic valve. Great Vessels Normal aortic root. Normal arch. Normal inferior vena cava. Inferior vena cava collapse with sniff. Pericardium/Pleural No pericardial effusion. MMode/2D Measurements AND Calculations LVIDd: 4.8 cm IVSd: 0.89 cm LVOT diam: 2.0 cm LVIDs: 3.2 cm LVPWd: 1.0 cm LVOT area: 3.2 cm2 RVDd: 4.1 cm FS: 34.0 % Ao root diam: 3.6 cm LAV(MOD-bp): 87.2 ml LA A4 area: 27.6 cm2 LA dimension: 5.6 cm LAV(MOD-bp) Indexed: 40.6 ml/m2 LAV(MOD-sp2): 69.8 ml LAV(MOD-sp4): 93.9 ml LA dimension(2D): 5.3 cm RA A4 area: 15.2 cm2 Time Measurements MV dec time: 0.20 sec Doppler Measurements AND Calculations MV E max topher: 105.4 cm/sec Lat Peak E' Topher: 11.1 cm/sec Med Peak E' Topher: 5.8 cm/sec MV A max topher: 49.1 cm/sec E/E' lat: 9.5 E/E' med: 18.1 MV E/A: 2.1 Ao V2 max: 213.2 cm/sec LV V1 max: 119.5 cm/sec SV(LVOT): 93.6 ml Ao max P.2 mmHg LV V1 max P.7 mmHg Ao V2 mean: 157.6 cm/sec LV V1 mean P.3 mmHg Ao mean P.9 mmHg LV V1 mean: 85.6 cm/sec Ao V2 VTI: 51.6 cm LV V1 VTI: 29.0 cm DEANDRE(I,D): 1.8 cm2 DEANDRE(V,D): 1.8 cm2 PA V2 max: 115.3 cm/sec TR max topher: 389.3 cm/sec TR max P.6 mmHg Interpretation Summary The estimated ejection fraction is 65 %. Stage 2 diastolic dysfunction. Mildly dilated right ventricle. The left atrium is severely enlarged. Trivial mitral valve insufficiency. Mild (1+) tricuspid valve insufficiency. Right ventricular systolic pressure estimated to be 66 mmHg. Severe pulmonary hypertension. Bioprosthetic aortic valve. Stable appearing bioprosthetic aortic valve apparatus. Compared to echo report dated 10/22/2016, LV Function and AVR have remained the same. RVSP not noted on that exam. TAG_START TAG_ENDED Ordering Physician: Kamar Ayoub Referring Physician: KATYA WOODS Performed By: Kimmy Sultana, MICHELLE, RVT 04/06/18 1722 Date Armani Coughlin MD CC: Katya Woods MD; Kamar Ayoub MD Date Dictated: 04/06/18 1407 Date Transcribed: 04/06/181722 Overweaver: Signed CONSULTATION Observed: 04/06/2018 Status: F Source: [place] 4:58 PM [facility] [place] [place] REPOSITORY [facility] Medical Records Department [address] [place] [address] Consultation 04/06/18 1641 MR#: [id number] Acct: [id number] Name: OMAIRA COBOS Coleen Rep #: [id number] : 1945 72 From: Armani Coughlin MD PCP: Katya Woods MD Status: ADM IN Y Location: [place] [id number] Problem List (1) Pleural effusion, bilateral Status: Acute (2) Hypoxemia Status: Acute (3) Pulmonary edema Status: Acute (4) Mobitz (type) I (Wenckebach's) atrioventricular block Status: Acute (5) CHF exacerbation Status: Acute (6) LEO on CKD stage 3 Status: Acute (7) Paroxysmal atrial fibrillation Status: Chronic (8) H/O aortic valve replacement Status: Chronic Comment: 25 mm Felix-Wilcox Perimount Magna Valve ([facility]: 11/29/2012) (9) Atherosclerosis of coronary artery of [place] heart without angina pectoris Status: Chronic Comment: CABG x 3 PATEL to LAD, SVG-Ramus, SVG-PLB of RCA 11/29/2012 (10) H/O coronary artery bypass surgery Status: Chronic Comment: CABG x 3 PATEL to LAD, SVG-Ramus, SVG-PLB of RCA 11/29/2012 (11) HTN (hypertension) Status: Chronic Qualifiers: Hypertension type: essential hypertension Qualified Code(s): I10 - Essential (primary) hypertension; I10 - Essential (primary) hypertension; I10 - Essential (primary) hypertension (12) HLD (hyperlipidemia) Status: Chronic Qualifiers: Hyperlipidemia type: pure hypercholesterolemia Qualified Code(s): E78.00 - Pure hypercholesterolemia, unspecified; E78.00 - Pure hypercholesterolemia, unspecified; E78.00 - Pure hypercholesterolemia, unspecified; E78.0 - Pure hypercholesterolemia Reason for Consult Date of Consultation: 04/06/18 Reason for Consultation: Coronary artery disease status post bypass, aortic valve replacement, hypertension, hyperlipidemia, diabetes, paroxysmal atrial fibrillation History of Present Illness: The patient is a 72 year old M, patient of Dr. Garrett, last seen on 12/19/17 with a history of hypertension, hypercholesterolemia, coronary artery disease status post bypass surgery as well as aortic valve replacement. He underwent a PATEL to the LAD, saphenous vein graft to the ramus intermedius, saphenous vein graft to the posterior circumflex, and saphenous vein graft to the RCA as well as a compartment TA Wilcox bioprosthetic aortic valve on 11/29/12 at [facility]. Apparently his most recent catheterization took place on 12/09/15 which showed severe three-vessel coronary disease, and widely patent grafts. No additional intervention was performed at that time. Addition the patient apparently has a history of atrial fibrillation and is on chronic amiodarone therapy. He does not appear to be on anticoagulation. The patient was in normal health up into the last 2-1/2-3 weeks but actually his symptoms started around 6 months ago. Recently he has had increasing fatigue, exhaustion, shortness of breath and dyspnea on exertion. He denies any fevers, chills, dizziness. Patient underwent a walking stress echocardiogram on 03/30/17 which was negative for inducible ischemia at an average workload. Apparently last evening he took 2 sleeping pills as well as a gabapentin for his lower extremity neuropathy, and became somewhat confused and slurred his speech. With his shortness of breath he was brought to the emergency room where he was evaluated and underwent a chest x-ray which showed a small left pleural effusion. He underwent a CTA which showed bilateral pleural effusions, right greater than left. He was evaluated with ultrasound for possible thoracentesis but was then canceled due to small amount of fluid. [] Past Medical History Allergies/Adverse Reactions: Allergies No Known Allergies Allergy (Verified 04/06/18 01:55) Home Medications: Ambulatory Orders Medication Instructions Recorded Amlodipine Besylate 10 mg PO DAILY 07/02/13 Atorvastatin Calcium [Lipitor] 20 mg PO QHS 07/02/13 Past Medical History (Chronic Problems): Chronic Problems (Last Reviewed 12/19/17 @ 13:51 by Clint Santiago MD) CRF (chronic renal failure) (Chronic) Paroxysmal atrial fibrillation (Chronic) H/O aortic valve replacement (Chronic 11/29/12) 25 mm Felix-Wilcox Perimount Magna Valve ([facility]: 11/29/2012) Atherosclerosis of coronary artery of [place] heart without angina pectoris (Chronic) CABG x 3 PATEL to LAD, SVG-Ramus, SVG-PLB of RCA 11/29/2012 H/O coronary artery bypass surgery (Chronic 11/29/12) CABG x 3 PATEL to LAD, SVG-Ramus, SVG-PLB of RCA 11/29/2012 HTN (hypertension) (Chronic) HLD (hyperlipidemia) (Chronic) Surgical History: cholecystectomy, coronary bypass surgery, TURP, - - *Family History Maternal Family History: Family History (Last Reviewed 12/19/17 @ 13:51 by Clint Santiago MD) Father CAD (coronary artery disease) Brother CAD (coronary artery disease) History Items: No pertinent history Paternal Family History: Family History (Last Reviewed 12/19/17 @ 13:51 by Clint Santiago MD) Father CAD (coronary artery disease) Brother CAD (coronary artery disease) History Items: Heart Disease Sibling Family History: Family History (Last Reviewed 12/19/17 @ 13:51 by Clint Santiago MD) Father CAD (coronary artery disease) Brother CAD (coronary artery disease) History Items: Heart Disease Lives: Spouse/ Significant Other Smoking Status: Never smoker Review of Systems - Review of Systems General: Reports: Weakness. Denies: Fever, Fatigue, Night Sweats Cardiovascular: Reports: Shortness of Breath, Shortness of Breath at Rest. Denies: Chest Discomfort, Orthopnea, PND, Peripheral Edema, Palpitations, Lightheadedness, Dizziness, Near Syncope, Syncope Respiratory: Denies: Cough, Sputum Production, Hemoptysis Gastrointestinal: Denies: Hematemesis, Hematochezia, Melena Genitourinary: Denies: Dysuria, Hematuria Skin: Denies: Rash Subjectve: Patient laying in bed, no acute distress. Objective: Vital Signs Temp Pulse Resp BP Pulse Ox 98.9 F 57 L 16 121/45 H 93 04/06/18 14:31 04/06/18 14:45 04/06/18 14:31 04/06/18 14:31 04/06/18 14:50 Oxygen Flow Rate (L/min) 1 Oxygen Delivery Method Nasal Cannula Weight: 214 lb 11.684 oz Body Mass Index (BMI) 30.8 Finger Stick Blood Glucose 113 Intake and Output for Last 24 Hours Intake Total 360 / 360 Output Total 600 / 600 Balance -240 / -240 General: Awake, Alert, Oriented x 3 HEENT: PERRL, EOMI, Sclera Non Icteric Neck: Supple, Good ROM, No Lymph Node Enlargement Lungs: Clear to auscultation Cardiovascular: Regular Rhythm, Normal S1, Normal S2, No Murmurs, No Rubs, No Gallops 04/06/18 04:40: WBC 7.7, RBC 3.13 L, Hgb 10.1 L, Hct 31.5 L, MCV 100.6 H, MCH 32.3 H, MCHC 32.1, RDW 13.2, RDW Differential 46.3 H, Plt Count 239, MPV 10.0, Immature Gran % (Auto) 0.100, Neut % (Auto) 74.3 H, Lymph % (Auto) 14.0 L, Sumner % (Auto) 8.3, Eos % (Auto) 3.0, Baso % (Auto) 0.3, Absolute Neuts (auto) 5.8, Total Counted Not Reportable 04/06/18 04:40: D-Dimer Quant (PE/DVT) 0.61 H* 04/06/18 04:40: Sodium 146 H, Potassium 4.0, Chloride 114 H, Carbon Dioxide 25.0, Anion Gap 7, BUN 35 H, Creatinine 2.41 H, Est GFR (MDRD) Af Amer 34 L, Est GFR (MDRD) Non-Af 28 L, BUN/Creatinine Ratio 14.5, Glucose 117 H, Calcium 8.6, Troponin I 0.016 04/06/18 04:40: B-Natriuretic Peptide 440.1 H 04/06/18 04:40: PT 14.7, INR 1.2, APTT 33.7 04/06/18 04:40: Total Bilirubin 0.60, Direct Bilirubin 0.17 04/06/18 08:58: B-Natriuretic Peptide 420.3 H 04/06/18 09:23: Troponin I < 0.015 04/06/18 12:05: Troponin I < 0.015 Rhythm: EKG: Sinus bradycardia with type I second-degree AV block, nonspecific ST and T wave changes. ECHO: Pending Stress Test: Cardiac Cath: PCI: CT Surgery: Holter monitor: EPS: PPM: CXR: Chest CT Scan: Assessment/Plan 1. Congestive heart failure: Patient apparently has normal LV function with what appears to be bilateral pleural effusions, right greater than left. However, they appear to be too small for ultrasound-guided thoracenteses. Would recommend Lasix 40 mg IV twice daily until his pleural effusions improve to the point where he is able to lay down flat. He recently underwent a walking treadmill echocardiogram in 2016 which was negative for inducible ischemia. Prior to that in 2015 he underwent repeat catheterization which showed widely patent grafts and no intervention was performed. CT scan of his chest was negative for pulmonary emboli. Patient had abdominal CT with results pending later on today. 2. Coronary artery disease: The patient has no anginal symptoms and his most recent stress test in March 2017 was negative for inducible ischemia. Do not believe a repeat stress test or catheterization is indicated at this time. I would however recommend a repeat echocardiogram and if his LV function has deteriorated since his last one he may require repeat catheterization. His troponins have been negative thus far. 3. Hyperlipidemia: Continue Lipitor therapy. 4. Paroxysmal atrial fibrillation: Patient's EKG showed sinus bradycardia with intermittent type I second-degree AV block. And this is most likely contributing to the patient's congestive heart failure symptoms and overall fatigue. He is currently on low-dose amiodarone therapy and may require a dual-chamber pacemaker to be implanted by Dr. Santiago when he returns this Monday. My suspicion is the patient may require long- standing amiodarone therapy to protect against paroxysmal atrial fibrillation. In the meantime recommend discontinuation of Lopressor, and we use the beta-hari component of amiodarone for heart rate control. If the patient continues to have intermittent high-grade AV block, particularly if it symptomatic, he will require a dual-chamber pacemaker at some point in the near future. We will check an echocardiogram tomorrow to evaluate his bioprosthetic aortic valve as well. He has had no fevers or chills, so my suspicion of endocarditis is low, but he has been fairly fatigued. 5. Thank you very much for the opportunity to participate in the cardiac care of your patient. Consultation time took place between 930 and 10 AM. Code Visit Inpatient E AND M: [id number] Init Hosp L2 04/06/18 1658 <Electronically signed by Armani Coughlin MD> Date Armani Coughlin MD Cosigner Signature (if applicable): Date CC: Katya Woods MD; Armani Coughlin MD; Bo Almanza D.O.; Pauly Harvey M.D. Signed BEDSIDE GLUCOSE Collected: 04/06/2018 Status: F Source: [place] 4:03 PM [facility] [place], [place] REPOSITORY TYPE CODE TESTS RESULT OUT OF REFERENCE UNITS RANGE LAB L501.080 70-110 mg/dL High BEDSIDE GLU 155 Result Comment: MANAGEMENT OF PATIENT CARE PER NURSING PROTOCOL Performed By: #### L501.080 #### [facility] Point of Care [facility] [place] [address] ABDOMEN/PELVIS WITHOUT Observed: 04/06/2018 Status: F Source: [place] CONT 12:50 PM [facility] [place], [place] REPOSITORY [facility] Imaging Services [place] [address] Abdomen/Pelvis without Cont MR#: [id number] Acct: [id number] Name: OMAIRA COBOS Rep #: [id number] : 1945 M 72 From: Paul Dozier MD PCP: Katya Woods MD Status: ADM IN Study: Abdomen/Pelvis without Cont Date of Exam: 04/06/18 Exam# [id number] Ordering Dr: Caleb Harvey MD STUDY: CT ABDOMEN AND PELVIS WITHOUT CONTRAST REASON FOR EXAM: Male, 72 years old. Lymphadenopathy RADIATION DOSAGE (If Supplied By Facility): CTDIvol = ( ) mGy, DLP = ( 858.96 ) mGycm TECHNIQUE: Transaxial images were obtained from the dome of the diaphragm to the symphysis pubis with oral contrast, and without intravenous contrast. Sagittal and coronal images were reconstructed. Individualized dose optimization techniques were used for this CT. COMPARISON: Previous study of 02/09/2015 FINDINGS: There is bilateral lower lobe atelectasis. There is a moderate-sized right-sided pleural effusion and small left-sided effusion. The heart size is within normal limits. There is no pericardial effusion. Coronary arterial calcifications are present. Normal liver. There is non-visualization of the gallbladder, which may be secondary to either contraction or a prior cholecystectomy. Normal spleen. Normal pancreas. There is a low-attenuation nodule of the right adrenal measuring 1.7 x 1.3 cm consistent with an adenoma. 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 Normal right kidney. There is a nonobstructing 3 mm calculus of the lower pole of the left kidney. There is a 1.6 cm left renal cyst. Normal visualized stomach. Normal small intestine. There is colonic diverticulosis with no evidence of associated diverticulitis. There is non-visualization of the appendix. There are calcified plaques of the abdominal aorta. Normal inferior vena cava. Normal retroperitoneum. Normal urinary bladder. The prostate, seminal vesicles, and seminal vesicle angles appear within normal limits. There is a small fat-containing umbilical hernia. There are diffuse degenerative changes of the visualized thoracolumbar spine. CT/Abdomen/Pelvis without Cont IMPRESSION: 1. Bilateral lower lobe atelectasis. 2. Moderate sized right-sided pleural effusion and small left-sided effusion. 3. Nonvisualization of the gallbladder. 4. Low-attenuation right adrenal nodule measuring 1.7 x 1.3 cm consistent with an adenoma. This is slightly increased in size from the prior study. 5. 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 6. Nonobstructing 3 mm calculus of the lower pole of the left kidney. 1.6 cm left renal cyst. 7. Colonic diverticulosis with no evidence of associated diverticulitis. 8. Small fat-containing umbilical hernia. 9. There is no evidence of free intra-abdominal or intrapelvic air or fluid. Electronically Signed: Paul Dozier MD at 17:34 EDT , Service support , CC: Katya Woods MD; Pauly Harvey M.D. Overweaver: Signed CONSULTATION Observed: 04/06/2018 Status: F Source: [place] 12:47 PM [facility] [place], [place] REPOSITORY [facility] Medical Records Department [facility] [place] [address] Consultation 04/06/18 1237 MR#: [id number] Acct: [id number] Name: OMAIRA COBOS Rep #: [id number] : 1945 72 From: Caleb Harvey MD PCP: Katya Woods MD Status: ADM IN Y Location: [place] [address] Problem List (1) CRF (chronic renal failure) Status: Chronic (2) CHF exacerbation Status: Acute (3) LEO on CKD stage 3 Status: Acute Consultation - Renal 04/06/18 PCP/ Referring MD: Requesting physician: Dr Ayoub Primary care physician: Katya Woods Reason for Consultation:: LEO - History of Present Illness History of Present Illness: The patient is a 72 year old M known to us from office. he has known history of CKD stage 3 with baseline creatinine around 1.4. recently creatinine increased from 1.4 to 2.1 within last 3 months. Renal USG last year was ok. ordered serology and other work up and was supposed to see me next week in office. now admitted to hospital with progressively worsening abdominal distention and dyspnea. CT chest showed effusions, lymphadenopathy. going for pleural tap today - Allergies Allergies: Allergies No Known Allergies Allergy (Verified 04/06/18 01:55) - Current Medications Current Medications: Current Medications Acetaminophen (Tylenol) 650 mg PO Q6H PRN PRN PRN Reason: Mild Pain (scale 0-3)/T>100.7 Al Hydroxide/Mg Hydroxide (Mylanta Ii) 30 ml PO Q6H PRN PRN PRN Reason: Gastric Burning Amiodarone HCl (Cordarone) 100 mg PO DAILY [facility] Last Admin: 04/06/18 10:34 Dose: 100 mg Amlodipine Besylate (Norvasc) 10 mg PO DAILY [facility] Last Admin: 04/06/18 10:35 Dose: 10 mg Aspirin (Aspirin, Baby) 81 mg PO DAILY@0800 EFRAÍN Atorvastatin Calcium (Lipitor) 20 mg PO QHS EFRA[facility]N Bisacodyl (Dulcolax) 10 mg RECTAL DAILY PRN PRN PRN Reason: Constipation Dextrose (D50w Syringe) 0 gm IV X1 PRN; Protocol PRN Reason: Hypoglycemia Docusate Sodium (Colace) 200 mg PO BID PRN PRN PRN Reason: Constipation Doxazosin Mesylate (Cardura) 4 mg PO DAILY [facility] Last Admin: 04/06/18 10:34 Dose: 4 mg Furosemide (Lasix) 40 mg IV BIDLX [facility] Last Admin: 04/06/18 10:35 Dose: 40 mg Glucagon () 1 mg IM .X1 PRN PRN Reason: Hypoglycemia Heparin Sodium (Porcine) (Heparin Na) 5,000 unit SC BID [facility] Last Admin: 04/06/18 10:50 Dose: Not Given Insulin Glargine (Lantus (Bkc)) 30 units SC 0800,2200 EFRAÍN Insulin Human Lispro (Humalog Kwikpen (Bk)) 10 unit SC 0800,1200,1700 [facility] Last Admin: 04/06/18 10:50 Dose: Not Given Insulin Human Lispro (Humalog Kwikpen (Bkc)) 0 unit SQ ACHS [facility]; Protocol Last Admin: 04/06/18 10:50 Dose: Not Given Metoprolol Tartrate (Lopressor (Beta Hari)) 12.5 mg PO BID [facility] Last Admin: 04/06/18 10:35 Dose: 12.5 mg Ondansetron HCl (Zofran) 4 mg IV Q8H PRN PRN PRN Reason: Nausea Oxycodone HCl (Oxyir) 5 mg PO Q4H PRN PRN PRN Reason: Moderate Pain (pain scale 4-5) Polyethylene Glycol (Miralax) 17 gm PO DAILY [facility] Last Admin: 04/06/18 10:35 Dose: 17 gm Temazepam (Restoril) 15 mg PO QHS PRN PRN PRN Reason: SLEEP - Past Medical History Past Medical History (Chronic Problems): Chronic Problems (Last Reviewed 12/19/17 @ 13:51 by Clint Santiago MD) CRF (chronic renal failure) (Chronic) Paroxysmal atrial fibrillation (Chronic) H/O aortic valve replacement (Chronic 11/29/12) 25 mm Felix-Wilcox Perimount Magna Valve ([facility]: 11/29/2012) Atherosclerosis of coronary artery of [place] heart without angina pectoris (Chronic) CABG x 3 PATEL to LAD, SVG-Ramus, SVG-PLB of RCA 11/29/2012 H/O coronary artery bypass surgery (Chronic 11/29/12) CABG x 3 PATEL to LAD, SVG-Ramus, SVG-PLB of RCA 11/29/2012 HTN (hypertension) (Chronic) HLD (hyperlipidemia) (Chronic) - Past Surgical History Surgical History: cholecystectomy, coronary bypass surgery, TURP, - - Social History Smoking Status: Never smoker - Family History Maternal Family History: Family History (Last Reviewed 12/19/17 @ 13:51 by Clint Santiago MD) Father CAD (coronary artery disease) Brother CAD (coronary artery disease) History Items: No pertinent history Paternal Family History: Family History (Last Reviewed 12/19/17 @ 13:51 by Clint Santiago MD) Father CAD (coronary artery disease) Brother CAD (coronary artery disease) History Items: Heart Disease Sibling Family History: Family History (Last Reviewed 12/19/17 @ 13:51 by Clint Santiago MD) Father CAD (coronary artery disease) Brother CAD (coronary artery disease) History Items: Heart Disease Review of Systems Comment: ROS negative except above Patient Problems: Active and Suspected Problems (Last Reviewed 12/19/17 @ 13:51 by Clint Santiago MD) Pleural effusion, bilateral (Acute) Hypoxemia (Acute) Pulmonary edema (Acute) Mediastinal lymphadenopathy (Acute) Mobitz (type) I (Wenckebach's) atrioventricular block (Acute) CHF exacerbation (Acute) LEO on CKD stage 3 (Acute) - Physical Exam General: Alert, Oriented x3, Cooperative HEENT: Atraumatic, PERRLA, EOMI, Normocephalic Neck: Supple, No JVD, Negative Carotid Bruits Lungs: Clear to auscultation, Normal air movement Cardiovascular: Regular rate, No murmurs Abdomen: Bowel Sounds Present, Soft, Non Tender Extremities: No edema, Capillary Refill Less than 3 Seconds Skin: No rashes, No breakdown Musculoskeletal: No Tenderness to Palpation of Joints or Extremities Neurological: Cranial nerves II-XII grossly intact Psych/Mental Status: Normal Affect, Appropriate Vital Signs Temp Pulse Resp BP Pulse Ox 98.0 F 66 16 142/41 H 93 04/06/18 08:31 04/06/18 10:58 04/06/18 08:31 04/06/18 08:31 04/06/18 08:31 Oxygen Flow Rate (L/min) 2 Oxygen Delivery Method Nasal Cannula Weight: 97.4 kg Body Mass Index (BMI) 30.8 Finger Stick Blood Glucose 113 Intake and Output for Last 24 Hours Intake Total 360 / 360 Output Total 600 / 600 Balance -240 / -240 Laboratory Tests Past 24 Hrs WBC 7.7 WBC RBC Hgb Hct MCV MCH MCHC WBC RBC Hgb Hct WBC RBC Hgb Hct MCV MCH MCHC RDW RDW Differential Plt Count MPV Immature Gran % (Auto) POC Glucose POC Glucose 98 Assessment/Plan All Active Problems (Last Reviewed 12/19/17 @ 13:51 by Clint Santiago MD) Pleural effusion, bilateral (Acute) Hypoxemia (Acute) Pulmonary edema (Acute) Mediastinal lymphadenopathy (Acute) Mobitz (type) I (Wenckebach's) atrioventricular block (Acute) CHF exacerbation (Acute) LEO on CKD stage 3 (Acute) Chest pressure (Resolved) LEO CKD stage 3 CKD stage 3 was likely related to diabetes and HTN. last baseline from November was 1.6 creatinine is at 2.1 in february and now at 2.4 CT chest shows effusions, diffuse interstitial edema, lymphadenopathy ? infiltrative process will check ACEI, SPEP, complements and ANCA UA in office was benign. will repeat UA now will check USG abdomen to see if he has any ascitis and to r/o obstruction CHF. continue lasix IV 04/06/18 1247 <Electronically signed by Caleb Harvey MD> Date Caleb Harvey MD Cosigner Signature (if applicable): Date CC: Katya Woods MD; Armani Coughlin MD; Bo Almanza D.O.; Pauly Harvey M.D. Signed CONSULTATION Observed: 04/06/2018 Status: F Source: [place] 12:34 PM [facility] [place], [place] REPOSITORY [facility] Medical Records Department [address] [place] [address] Consultation 04/06/18 0848 MR#: [id number] Acct: [id number] Name: OMAIRA COBOS Rep #: [id number] : 1945 72 From: Bo Almanza DO PCP: Katya Woods MD Status: ADM IN Location: [address] Reason for Consult Date of Consultation: 04/06/18 Reason for Consultation: Bilateral pleural effusions/mediastinal lymphadenopathy History of Present Illness: The patient is a 72-year-old male, with a history as outlined below, who presented to the emergency department on April 06 with complaints of shortness of breath. It appears that the patient follows with Dr. Santiago on an outpatient basis due to a history of coronary artery disease for which he is status post CABG x3, aortic valve replacement and paroxysmal atrial fibrillation. The patient's last surface echocardiogram revealed normal LV size and function with an ejection fraction of 55%. The patient denies a current or remote smoking history. On presentation to the emergency department, the patient was noted to be afebrile hemodynamically stable. He was hypoxic, requiring 3 L/min of supplemental oxygen to maintain appropriate saturations. Laboratory evaluation revealed no evidence of a leukocytosis. Chemistry profile revealed evidence of acute on chronic kidney disease with a creatinine of 2.41. D-dimer was elevated to 0.61. Troponin was negative. BNP was elevated to 440. CT chest was obtained. That imaging study revealed cardiomegaly and interstitial edema, along with mediastinal and hilar lymphadenopathy and bilateral pleural effusions. Prior chest CT from February 2017 did not reveal the adenopathy noted on this study. The patient was subsequently started on diuretics and admitted to the progressive care unit for ongoing management. Past Medical History Past Medical History (Chronic Problems): Chronic Problems (Last Reviewed 12/19/17 @ 13:51 by Clint Santiago MD) CRF (chronic renal failure) (Chronic) Paroxysmal atrial fibrillation (Chronic) H/O aortic valve replacement (Chronic 11/29/12) 25 mm Felix-Wilcox Perimount Magna Valve ([facility]: 11/29/2012) Atherosclerosis of coronary artery of [place] heart without angina pectoris (Chronic) CABG x 3 PATEL to LAD, SVG-Ramus, SVG-PLB of RCA 11/29/2012 H/O coronary artery bypass surgery (Chronic 11/29/12) CABG x 3 PATEL to LAD, SVG-Ramus, SVG-PLB of RCA 11/29/2012 HTN (hypertension) (Chronic) HLD (hyperlipidemia) (Chronic) Medical History: Medical History (Last Reviewed 12/19/17 @ 13:51 by Clint Santiago MD) Paroxysmal atrial fibrillation (Chronic) I48.0 Atherosclerosis of coronary artery of [place] heart without angina pectoris (Chronic) I25.10 CABG x 3 PATEL to LAD, SVG-Ramus, SVG-PLB of RCA 11/29/2012 HTN (hypertension) (Chronic) I10 HLD (hyperlipidemia) (Chronic) E78.5 BPH (benign prostatic hyperplasia) N40.0 DVT (deep venous thrombosis) I82.409 GERD (gastroesophageal reflux disease) K21.9 Obstructive sleep apnea G47.33 Type 2 diabetes mellitus without complications E11.9 Allergies No Known Allergies Allergy (Verified 04/06/18 01:55) Home Medications: Ambulatory Orders Medication Instructions Recorded Amlodipine Besylate 10 mg PO DAILY 07/02/13 Atorvastatin Calcium [Lipitor] 20 mg PO QHS 07/02/13 Surgical History: Surgical History (Last Reviewed 12/19/17 @ 13:51 by Clint Santiago MD) H/O aortic valve replacement (Chronic) Onset Date: 11/29/12 Z95.2 25 mm Felix-Wilcox Perimount Magna Valve ([facility]: 11/29/2012) H/O coronary artery bypass surgery (Chronic) Onset Date: 11/29/12 Z95.1 CABG x 3 PATEL to LAD, SVG-Ramus, SVG-PLB of RCA 11/29/2012 History of left heart catheterization Onset Date: 12/09/15 Z98.890 History of transurethral resection of prostate Z98.890, Z90.79 Hx of cholecystectomy Z90.49 Surgical History: cholecystectomy, coronary bypass surgery, TURP, - Lives: Spouse/ Significant Other Smoking Status: Never smoker - *Family History Maternal Family History: Family History (Last Reviewed 12/19/17 @ 13:51 by Clint Santiaog MD) Father CAD (coronary artery disease) Brother CAD (coronary artery disease) History Items: No pertinent history Paternal Family History: Family History (Last Reviewed 12/19/17 @ 13:51 by Clint Santiago MD) Father CAD (coronary artery disease) Brother CAD (coronary artery disease) History Items: Heart Disease Sibling Family History: Family History (Last Reviewed 12/19/17 @ 13:51 by Clint Santiago MD) Father CAD (coronary artery disease) Brother CAD (coronary artery disease) History Items: Heart Disease Review of Systems Constitutional: Denies: Chills, Fever, Fatigue Eyes: Denies: Blurred vision, Double vision HEENT: Denies: Head Aches, Sinus Congestion, Sinus Drainage Cardiovascular: Denies: Chest Pain, Palpitations Respiratory: Reports: Shortness of Breath. Denies: Cough Gastrointestinal: Denies: Abdominal Pain, Nausea, Vomiting Genitourinary: Denies: Dysuria Musculoskeletal: Denies: Joint Pain, Joint Tenderness Skin: Denies: Rash, Wounds Neurological: Denies: Numbness, Tingling, Focal weakness Psychiatric: Denies: Anxiety, Depression, Homicidal Ideations, Suicidal Ideations Hematologic/ Lymphatic: Denies: Easy Bruising, Easy Bleeding Patient Problems: Active and Suspected Problems (Last Reviewed 12/19/17 @ 13:51 by Clint Santiago MD) Pleural effusion, bilateral (Acute) Hypoxemia (Acute) Pulmonary edema (Acute) Mediastinal lymphadenopathy (Acute) Mobitz (type) I (Wenckebach's) atrioventricular block (Acute) CHF exacerbation (Acute) LEO on CKD stage 3 (Acute) Objective: The patient's most recent lab work, culture data and imaging studies have all been personally reviewed. - Physical Exam General: Alert, Oriented x3, Cooperative, No apparent distress, - - is present at the bedside. HEENT: Atraumatic, PERRLA, Normocephalic Oral: No Gingival or Mucosal Lesions/ Ulcerations Neck: Supple, No Nodes, Trachea Midline Lungs: No rhonchi, No wheeze, No rales, Diminished Cardiovascular: Normal S1, Normal S2, Bradycardic, Murmur - Click Abdomen: Bowel Sounds Present, Soft, Non Tender, Obese Extremities: No clubbing, No cyanosis, Edema Skin: No breakdown Musculoskeletal: No Tenderness to Palpation of Joints or Extremities, No Muscle Wasting Lymphatic: No Cervical, Supraclavicular, or Inguinal Adenopathy Neurological: Cranial nerves II-XII grossly intact, Neuro grossly intact Psych/Mental Status: Alert and oriented to time, place, person, mood and affect Vital Signs Temp Pulse Resp BP Pulse Ox 98.0 F 57 L 16 142/41 H 93 04/06/18 08:31 04/06/18 08:31 04/06/18 08:31 04/06/18 08:31 04/06/18 08:31 Oxygen Flow Rate (L/min) 2 Oxygen Delivery Method Nasal Cannula Weight: 214 lb 11.684 oz Body Mass Index (BMI) 30.8 Finger Stick Blood Glucose 113 Laboratory Tests Past 24 Hrs WBC 7.7 RBC 3.13 L WBC RBC Hgb Hct MCV MCH MCHC RDW RDW Differential Plt Count MPV Immature Gran % (Auto) Neut % (Auto) Lymph % (Auto) Sumner % (Auto) Clinical Impression(s) from Imaging Studies Chest X-Ray 04/06/18 03:35 IMPRESSION: Cardiomegaly with central vascular congestive changes and a small left-sided pleural effusion. Multiple nodular densities in the right lower lobe. Metastatic disease suspected Electronically Signed: Tez Hurst MD at 4:14 EDT Tel , Service support , Chest CT 04/06/18 05:47 IMPRESSION: Cardiomegaly with central vascular congestive changes and interstitial edema. Bilateral pleural effusions; more on the right than the left Extensive mediastinal adenopathy. Lymphoproliferative disorder suspected. No indication of any metastatic lung disease. A calcified granuloma in the right middle lobe and a 1.1 cm nodular density in the lingula division of the left upper lobe Electronically Signed: Tez Hurst MD at 7:02 EDT Tel , Service support , Assessment/Plan All Active Problems (Last Reviewed 12/19/17 @ 13:51 by Clint Santiago MD) Pleural effusion, bilateral (Acute) Hypoxemia (Acute) Pulmonary edema (Acute) Mediastinal lymphadenopathy (Acute) Mobitz (type) I (Wenckebach's) atrioventricular block (Acute) CHF exacerbation (Acute) LEO on CKD stage 3 (Acute) Chest pressure (Resolved) RECOMMENDATIONS: 1. Agree with IV diuretics. 2. Obtain ultrasound guided thoracentesis. 3. Send pleural fluid for LDH, total protein, cell count, cultures and cytology. 4. In addition to the above, given the patient's adenopathy noted on CT chest, send pleural fluid for flow cytometry. 5. Wean supplemental oxygen as tolerated. 6. Encourage incentive spirometer use and mobilize patient as tolerated. IMPRESSIONS: 1. Acute hypoxic respiratory insufficiency in the setting of bilateral pleural effusions Initial concern for decompensated heart failure with preserved ejection fraction. Cardiology is following. Agree with volume optimization with IV diuretics. An order has been placed for an ultrasound-guided thoracentesis. Please send pleural fluid studies, including LDH, total protein, cell count, cultures and cytology. In addition, given the patient's mediastinal adenopathy noted on CT chest, recommend adding flow cytometry as well. Wean supplemental oxygen to maintain saturations at or above 90%. Encourage incentive spirometer use. Mobilize patient as tolerated. Additional recommendations will be forthcoming, pending the results of his pleural fluid analysis. 2. Mediastinal and hilar lymphadenopathy Unclear etiology, although it does not appear that this degree of adenopathy was present on his prior chest CT. Considerations include infectious, inflammatory and malignant etiologies. Will await pleural fluid analysis. If additional workup is to be undertaken, this would need to be accomplished on an outpatient basis. This can be discussed and coordinated further pending the outcome of his current hospital course. 3. Acute on chronic kidney disease Agree with diuretics. Continue to monitor urine output. No indication for renal replacement therapy at this time. 4. Obesity/diabetes/hyperlipidemia/hypertension Complicates care, management, recovery and prognosis. Likely okay to continue home medications at this time. This note was generated with [employer] dictation software. It may contain incorrect words, spelling, and punctuation that were not noted in checking the note before signing. Code Visit Inpatient E AND M: 61340 Init Hosp L3 04/06/18 1234 <Electronically signed by Bo Almanza DO> Date Bo Almanza DO Cosigner Signature (if applicable): Date CC: Katya Woods MD; Armani Coughlin MD; Bo Almanza D.O.; Pauly Harvey M.D. Signed TROPONIN-I Collected: 04/06/2018 Status: F Source: [place] 12:05 PM [facility] [place], [place] REPOSITORY Order Comment: 'TROP' Serial specimen #1, #2 or #3: 3 TYPE CODE TESTS RESULT OUT OF RANGE REFERENCE UNITS LAB L501.4010 <0.045 ng/mL Normal < 0.015 TROPONIN-I Result Comment: TROPONIN-I EXPECTED VALUES <0.045 Negative 0.045 - 0.590 Consistent with Cardiac Damage > OR = 0.600 Critical Value Not every elevated troponin is indicative of NM. These values should be used with clinical judgement in examining the patient's clinical picture for diagnosis. To establish a diagnosis of NM versus myocardial injury, there must be a demonstrated rise and/or fall in the troponin values, in addition to ischemic symptoms, EKG changes, new regional wall motion abnormality, and/or angiographical evidence. PLEASE NOTE: REFERENCE RANGES EDITED 17 Performed By: #### L501.4010 #### [facility] [address] [place], [address] BEDSIDE GLUCOSE Collected: 04/06/2018 Status: F Source: [place] 10:[address] [facility] TYPE CODE TESTS RESULT OUT OF RANGE REFERENCE UNITS LAB L501.080 70-110 mg/dL Normal BEDSIDE GLU 98 Result Comment: MANAGEMENT OF PATIENT CARE PER NURSING PROTOCOL Performed By: #### L501.080 #### [facility] Point of Care [address] [place] [address] BNP,B-TYPE NATRIURETIC Collected: 04/06/2018 Status: F Source: [place] 8:58 AM [facility] [place], [place] REPOSITORY TYPE CODE TESTS RESULT OUT OF RANGE REFERENCE UNITS LAB L503.6620 0-100 pg/mL High B-TYPE 420.3 NORBERTO PEP Performed By: #### L503.6620 #### [facility] [address] [place] [place], [address] HISTORY AND PHYSICAL Observed: 04/06/2018 Status: F Source: [place] EXAM 8:52 AM [facility] Medical Records Department [address] [place] [address] History and Physical 04/06/18 0822 MR#: [id number] Acct: [id number] Name: OMAIRA COBOS Rep #: [id number] : 1945 72 From: Kamar Ayoub MD PCP: Katya Woods MD Status: ADM IN Y Location: [place] [address] Problem List (1) CHF exacerbation Status: Acute (2) Pleural effusion, bilateral Status: Acute (3) Hypoxemia Status: Acute (4) Pulmonary edema Status: Acute (5) Mediastinal lymphadenopathy Status: Acute (6) CRF (chronic renal failure) Status: Chronic (7) Mobitz (type) I (Wenckebach's) atrioventricular block Status: Acute (8) Paroxysmal atrial fibrillation Status: Chronic (9) H/O aortic valve replacement Status: Chronic Comment: 25 mm Felix-Wilcox Perimount Magna Valve ([facility]: 11/29/2012) (10) Atherosclerosis of coronary artery of [place] heart without angina pectoris Status: Chronic Comment: CABG x 3 PATEL to LAD, SVG-Ramus, SVG-PLB of RCA 11/29/2012 (11) H/O coronary artery bypass surgery Status: Chronic Comment: CABG x 3 PATEL to LAD, SVG-Ramus, SVG-PLB of RCA 11/29/2012 (12) HTN (hypertension) Status: Chronic Qualifiers: Hypertension type: essential hypertension Qualified Code(s): I10 - Essential (primary) hypertension; I10 - Essential (primary) hypertension; I10 - Essential (primary) hypertension (13) HLD (hyperlipidemia) Status: Chronic Qualifiers: Hyperlipidemia type: pure hypercholesterolemia Qualified Code(s): E78.00 - Pure hypercholesterolemia, unspecified; E78.00 - Pure hypercholesterolemia, unspecified; E78.00 - Pure hypercholesterolemia, unspecified; E78.0 - Pure hypercholesterolemia (14) LEO on CKD stage 3 Status: Acute History of Present Illness Date of Admission: 04/06/18 Chief Complaint: Progressive worsening of shortness of breath for 1 month The patient is a 72 year old M with multiple comorbidities as listed including coronary artery disease status post CABG x3 in 2012, bioprosthetic aortic valve replacement [place] [address] santiago came to ED with progressive worsening of shortness of breath for about 1 month. Patient also gets chest tightness, localized in midsternal region on exertion and takes about 5-10 minutes to relieve after taking rest. He denies chest tightness/pressure at rest. No palpitation, near syncope or syncope. In ED, In ED, chest x-ray shows pulmonary vascular congestion which led to chest CT scan which further showed bilateral pleural effusion, right more than left. It also shows extensive interstitial edema and nodular density in the lingular division of left upper lobe. Shows hilar and mediastinal lymphadenopathy EKG shows sinus bradycardia at 48 bpm with first-degree AV block and PACs in a pattern of bigeminy. Similar EKG in April 2017. Patient had echo in October 2016 reported as EF 55% with no regional wall motion abnormality. LA mildly enlarged. RA mildly enlarged. Normal RV size and systolic function. Normal mitral valve with trivial MR. Normal tricuspid valve with trivial TR. No pericardial effusion. the patient is further admitted for evaluation and management [] Past Medical History Past Medical History (Chronic Problems): Chronic Problems (Last Reviewed 12/19/17 @ 13:51 by Clint Santiago MD) CRF (chronic renal failure) (Chronic) Paroxysmal atrial fibrillation (Chronic) H/O aortic valve replacement (Chronic 11/29/12) 25 mm Felix-Wilcox Perimount Magna Valve ([facility]: 11/29/2012) Atherosclerosis of coronary artery of [place] heart without angina pectoris (Chronic) CABG x 3 PATEL to LAD, SVG-Ramus, SVG-PLB of RCA 11/29/2012 H/O coronary artery bypass surgery (Chronic 11/29/12) CABG x 3 PATEL to LAD, SVG-Ramus, SVG-PLB of RCA 11/29/2012 HTN (hypertension) (Chronic) HLD (hyperlipidemia) (Chronic) Medical History: Medical History (Last Reviewed 12/19/17 @ 13:51 by Clint Santiago MD) Paroxysmal atrial fibrillation (Chronic) I48.0 Atherosclerosis of coronary artery of [place] heart without angina pectoris (Chronic) I25.10 CABG x 3 PATEL to LAD, SVG-Ramus, SVG-PLB of RCA 11/29/2012 HTN (hypertension) (Chronic) I10 HLD (hyperlipidemia) (Chronic) E78.5 BPH (benign prostatic hyperplasia) N40.0 DVT (deep venous thrombosis) I82.409 GERD (gastroesophageal reflux disease) K21.9 Obstructive sleep apnea G47.33 Type 2 diabetes mellitus without complications E11.9 Allergies No Known Allergies Allergy (Verified 04/06/18 01:55) Home Medications: Ambulatory Orders Medication Instructions Recorded Amlodipine Besylate 10 mg PO DAILY 07/02/13 Atorvastatin Calcium [Lipitor] 20 mg PO QHS 07/02/13 Surgical History: Surgical History (Last Reviewed 12/19/17 @ 13:51 by Clint Santiago MD) H/O aortic valve replacement (Chronic) Onset Date: 11/29/12 Z95.2 25 mm Felix-Wilcox Perimount Magna Valve ([facility]: 11/29/2012) H/O coronary artery bypass surgery (Chronic) Onset Date: 11/29/12 Z95.1 CABG x 3 PATEL to LAD, SVG-Ramus, SVG-PLB of RCA 11/29/2012 History of left heart catheterization Onset Date: 12/09/15 Z98.890 History of transurethral resection of prostate Z98.890, Z90.79 Hx of cholecystectomy Z90.49 Surgical History: cholecystectomy, coronary bypass surgery, TURP, - Lives: Spouse/ Significant Other Smoking Status: Never smoker - *Family History Maternal Family History: Family History (Last Reviewed 12/19/17 @ 13:51 by Clint Santiago MD) Father CAD (coronary artery disease) Brother CAD (coronary artery disease) History Items: No pertinent history Paternal Family History: Family History (Last Reviewed 12/19/17 @ 13:51 by Clint Santiago MD) Father CAD (coronary artery disease) Brother CAD (coronary artery disease) History Items: Heart Disease Sibling Family History: Family History (Last Reviewed 12/19/17 @ 13:51 by Clint Santiago MD) Father CAD (coronary artery disease) Brother CAD (coronary artery disease) History Items: Heart Disease Review of Systems Constitutional: Denies: Chills, Fever, Weight Change Eyes: Reports: - HEENT: Reports: - - Denies URI symptoms/flulike symptoms. Denies: Head Aches, Sinus Congestion, Sinus Drainage Cardiovascular: Reports: Chest Pressure, Chest Tightness, Edema, Orthopnea. Denies: Chest Pain, Palpitations Respiratory: Reports: Shortness of breath upon exertion. Denies: Cough, Shortness of breath at rest, Sputum production Gastrointestinal: Denies: Abdominal Pain, Nausea, Vomiting Genitourinary: Denies: Dysuria, Frequency, Hematuria, Nocturia Musculoskeletal: Denies: Joint Pain, Joint Tenderness Skin: Denies: Rash, Wounds Neurological: Denies: Numbness, Tingling, Focal weakness Psychiatric: Denies: Anxiety, Depression, Homicidal Ideations, Suicidal Ideations Hematologic/ Lymphatic: Denies: Easy Bruising, Easy Bleeding VTE Information - Inpt Only VTE Present on Admission: No VTE Mechan Device Prophylaxis: None VTE Pharm Prophylaxis ordered?: Yes Patient Problems: Active and Suspected Problems (Last Reviewed 12/19/17 @ 13:51 by Clint Santiago MD) Pleural effusion, bilateral (Acute) Hypoxemia (Acute) Pulmonary edema (Acute) Mediastinal lymphadenopathy (Acute) Mobitz (type) I (Wenckebach's) atrioventricular block (Acute) CHF exacerbation (Acute) LEO on CKD stage 3 (Acute) - Physical Exam General: Alert, Oriented x3, Cooperative HEENT: Atraumatic, PERRLA, EOMI, Normocephalic Oral: Moist Mucosa Neck: Supple, No JVD, Negative Carotid Bruits Lungs: Clear to auscultation, No rhonchi, No wheeze, No rales, Diminished - Entry diminished bilaterally, more on the right posterior half of lung., Short of Breath Cardiovascular: Normal S1, Normal S2, No murmurs, Bradycardic, - - Additional aortic valve click Abdomen: Bowel Sounds Present, Soft, Non Tender, Distended - Bursitis Extremities: Capillary Refill Less than 3 Seconds, Edema Skin: No rashes, No breakdown Musculoskeletal: No Tenderness to Palpation of Joints or Extremities, Arthritic Changes Neurological: Cranial nerves II-XII grossly intact Psych/Mental Status: Normal Affect, Appropriate Vital Signs Temp Pulse Resp BP Pulse Ox 98.0 F 56 L 17 141/73 H 95 04/06/18 01:52 04/06/18 07:33 04/06/18 07:33 04/06/18 07:33 04/06/18 07:33 Oxygen Flow Rate (L/min) 3 Oxygen Delivery Method Nasal Cannula Weight: 218 lb 11.177 oz Body Mass Index (BMI) 31.4 Finger Stick Blood Glucose 113 Laboratory Tests Past 24 Hrs WBC 7.7 RBC 3.13 L WBC RBC Hgb Hct MCV MCH MCHC RDW RDW Differential Plt Count MPV Immature Gran % (Auto) Neut % (Auto) Lymph % (Auto) Sumner % (Auto) Assessment/Plan All Active Problems (Last Reviewed 12/19/17 @ 13:51 by Clint Santiago MD) Pleural effusion, bilateral (Acute) Hypoxemia (Acute) Pulmonary edema (Acute) Mediastinal lymphadenopathy (Acute) Mobitz (type) I (Wenckebach's) atrioventricular block (Acute) CHF exacerbation (Acute) LEO on CKD stage 3 (Acute) Chest pressure (Resolved) The patient is a 72 year old M with multiple comorbidities as listed including coronary artery disease status post CABG x3 in 2012, bioprosthetic aortic valve replacement in [address] santiago came to ED with progressive worsening of shortness of breath for about 1 month. Patient also gets chest tightness, localized in midsternal region on exertion and takes about 5-10 minutes to relieve after taking rest. He denies chest tightness/pressure at rest. No palpitation, near syncope or syncope. patient also complained of orthopnea. Has mild abdominal distention over 1 month probably from ascites and also bilateral lower extremity edema. In ED, chest x-ray shows pulmonary vascular congestion which led to chest CT scan which further showed bilateral pleural effusion, right more than left. It also shows extensive interstitial edema and nodular density in the lingular division of left upper lobe. Shows hilar and mediastinal lymphadenopathy EKG shows sinus bradycardia at 48 bpm with first-degree AV block and PACs in a pattern of bigeminy. Similar EKG in April 2017. Patient had echo in October 2016 reported as EF 55% with no regional wall motion abnormality. LA mildly enlarged. RA mildly enlarged. Normal RV size and systolic function. Normal mitral valve with trivial MR. Normal tricuspid valve with trivial TR. No pericardial effusion. the patient is further admitted for evaluation and management 1. Acute on chronic heart failure most probably HFpEF: Patient is being admitted in PCU. It is slowly progressive and exact precipitating factor unclear but will rule ACS. Serial cardiac enzymes. Cardiology consult. Repeat 2D echo. On Lasix 40 mg IV twice daily. Hold on beta-hari and SANIA inhibitor as patient is bradycardic and has LEO on CKD. BNP elevated. Chest x-ray and CT chest suggestive of heart failure. 2. Bilateral pleural effusion, right more than left with hilar and mediastinal adenopathy: Ultrasound-guided thoracocentesis ordered. PT/PTT ordered. Thoracocentesis panel ordered. Pulmonary consult for further opinion and recommendation. Chest x-ray and CT chest reviewed. 3. Probably unstable angina: Patient is on baby aspirin, nitro sublingual as needed. Rest as mentioned above. 4. LEO on CKD stage III: Admitting BUN/creatinine is 35/2.4. Baseline harbors around 1.5. Monitor intake and output. Monitor electrolytes and kidney function. If needed will consult construction technician. 5. Other cardiac history: Arrhythmia, sinus bradycardia, Wenckebach Mobitz type I type I AV block coronary artery disease status post CABG and bioprosthetic aortic valve: 6. Diabetes mellitus type 2: On Accu-Cheks before meals and at bedtime and cover with NovoLog sliding scale. Continue home dose of NovoLog insulin. 7. Other comorbidities include dyslipidemia, BPH, hypertension and DVT joint disease: Home medication reconciliation done. DVT prophylaxis: On heparin 500 seconds twice daily. Hold the patient is going for thoracocentesis now Total time spent: 60 minutes in history, review of labs, imaging, previous record, and explanation of plan of management to the patient in the room. This note was generated with [employer] dictation software. Every effort was made to ensure accuracy, however computerized internet webmaster mistakes may persist. Code Visit Inpatient E AND M: 36790 Init Hosp L3 04/06/18 0852 <Electronically signed by Kamar Ayoub MD> Date Kamar Ayoub MD Cosigner Signature: Date (if applicable) CC: Katya Woods MD; Kamar Ayoub MD Signed CHEST Observed: 04/06/2018 Status: F Source: [place] 8:17 AM [facility] [place] [place] REPOSITORY [facility] Imaging Services [address] [place] [address] Chest MR#: [id number] Acct: [id number] Name: OMAIRA COBOS Rep #: [id number] : 1945 M 72 From: Mark Waller MD PCP: Katya Woods MD Status: ADM IN Study: Chest Date of Exam: 04/06/18 Exam# [id number] Ordering Dr: Kamar Ayoub MD STUDY: SUPERFICIAL ULTRASOUND - PLEURAL SPACES. REASON FOR EXAM: Male, 72 years old. Pleural effusions. TECHNIQUE: A superficial ultrasound was performed with real- time and static lama-scale imaging. COMPARISON: None. FINDINGS: There are small bilateral pleural effusions. Not enough fluid for adequate thoracentesis. US/Chest IMPRESSION: Small bilateral pleural effusions. Electronically Signed: Mark Waller MD at 14:42 EDT Tel [phone], Service support , CC: Katya Woods MD; Kamar Ayoub MD Overweaver: Signed EMERGENCY DEPARTMENT Observed: 04/06/2018 Status: F Source: [place] SUMMARY 7:26 AM [facility] [place] [place] REPOSITORY [facility] Medical Records Department [address] [place] [id number] Emergency Department Summary 04/06/18 0218 MR#: [id number] Acct: [id number] Name: OMAIRA COBOS Rep #: [id number] : 1945 72 From: Zander Thompson MD PCP: Katya Woods MD Status: REG ER History of Present Illness Chief Complaint: Shortness of Breath Informant: Patient, Family Onset: Days - 2-3 Context: Gradual Onset Timing: Intermittent Quality: wheezing Location: chest Current Severity: Mild Maximum Severity: Severe - panting at home earlier Worsened by: exertion Relieved by: rest Associated Symptoms: AR MANAGER cough, rhinorrhea Narrative: No chest pain, fevers, sore throat, earache, GI symptoms, or other symptoms with this. Tonight, he had drank some caffeinated tea, so he took his usual gabapentin x2 and sleeping pill which is temazepam 15 mg, but took an additional temazepam to try to counteract the caffeine and get to sleep. states that he was a little more somnolent than usual after this, and was panting/dyspnea, hence coming to the emergency department. He does not have any history of lung problems. He had a CABG remotely and takes aspirin but no other anticoagulants or antiplatelets and no other history of heart problems that he knows of. - Past Medical History (1) H/O aortic valve replacement Status: Chronic Comment: 25 mm Felix-Wilcox Perimount Magna Valve ([facility]: 11/29/2012) (2) H/O coronary artery bypass surgery Status: Chronic Comment: CABG x 3 PATEL to LAD, SVG-Ramus, SVG-PLB of RCA 11/29/2012 (3) HLD (hyperlipidemia) Status: Chronic (4) HTN (hypertension) Status: Chronic (5) Paroxysmal atrial fibrillation Status: Chronic Past Medical History - Allergies and Home Meds Allergies/Adverse Reactions: Allergies No Known Allergies Allergy (Verified 04/06/18 01:55) Primary Care Physician: Katya Woods MD [Primary Care Provider] - Surgical History: cholecystectomy, coronary bypass surgery, TURP, - Lives: Spouse/ Significant Other Smoking Status: Never smoker - Family History Maternal Family History: Family History (Last Reviewed 12/19/17 @ 13:51 by Clint Santiago MD) Father CAD (coronary artery disease) Brother CAD (coronary artery disease) Family History: Reports: No pertinent history Paternal Family History: Family History (Last Reviewed 12/19/17 @ 13:51 by Clint Santiago MD) Father CAD (coronary artery disease) Brother CAD (coronary artery disease) Family History: Reports: Heart Disease Sibling Family History: Family History (Last Reviewed 12/19/17 @ 13:51 by Clint Santiago MD) Father CAD (coronary artery disease) Brother CAD (coronary artery disease) Family History: Reports: Heart Disease Review of Systems General: Reports: Malaise. Denies: Chills, Fever, Sweats Eyes: Denies: Visual changes - bilaterally, Diplopia ENT: Denies: Bilateral ear pain, Sore throat Cardiovascular: Denies: Chest pain, Palpitations, Heart racing Respiratory: Reports: Dyspnea, Cough, Dyspnea on exertion. Denies: Sputum, Orthopnea Gastrointestinal: Denies: Abdominal pain, Nausea, Vomiting, Diarrhea, Melena, Hematochezia Genitourinary: Denies: Dysuria, Hematuria, Frequency Musculoskeletal: Reports: Swelling - BLE, chronic. Denies: Neck pain, Back pain, Extremity Pain Skin: Denies: Rash, Wounds Neurological: Denies: Headache, Weakness, Numbness Physical Exam Vital Signs/Narrative: Vital Signs 04/06/18 01:52 98.0 F 51 L 20 H 147/65 H 85 Inital Vital Signs reviewed: Yes General: Well nourished, Well developed Head: Normocephalic, Atraumatic Eyes: Perrl, EOMI ENT: Moist mucous membranes, No rhinorrhea. Negative for: Sinus tenderness Neck: Supple, Nontender, No lymphadenopathy, No JVD Cardiovascular: Regular rate, Regular rhythm, No murmurs, Irregular - occasionally Respiratory: No distress - conversational, CTA bilaterally, Chest nontender Abdomen: Soft, Nontender, Nondistended, Normal bowel sounds Back: Nontender, Normal Inspection Extremities: Nontender, Edema - 1+ BLE symmetric Skin: Normal color, No rash Neurological: Alert, Oriented x3, Cranial nerves II-XII grossly intact, Normal Strength, Normal Sensation Psychological: Normal affect Diagnostic/Tx/Re-eval Laboratory Tests WBC (4.4-11.0) K/mm3 RBC (4.6-6.2) M/mm3 Hgb (13.0-16.5) g/dl WBC 7.7 (4.4-11.0) K/mm3 RBC 3.13 L (4.6-6.2) M/mm3 Clinical Impression(s) from Imaging Studies Chest X-Ray 04/06/18 03:35 IMPRESSION: Cardiomegaly with central vascular congestive changes and a small left-sided pleural effusion. Multiple nodular densities in the right lower lobe. Metastatic disease suspected Electronically Signed: Tez Hurst MD at 4:14 EDT Tel , Service support , Chest CT 04/06/18 05:47 IMPRESSION: Cardiomegaly with central vascular congestive changes and interstitial edema. Bilateral pleural effusions; more on the right than the left Extensive mediastinal adenopathy. Lymphoproliferative disorder suspected. No indication of any metastatic lung disease. A calcified granuloma in the right middle lobe and a 1.1 cm nodular density in the lingula division of the left upper lobe Electronically Signed: Tez Hurst MD at 7:02 EDT Tel , Service support , - Rhythm Strip Rhythm Strip: Sinus Rhythm Rate: 55 Ectopy: None - EKG Initial EKG Interpretation: Sinus Bradycardia, AV Block - Mobitz I / Wenchebach, Inverted T-Waves - lat - Medical Decision Making Labs show an elevated creatinine at 2.4, this is significantly elevated compared to his last creatinine less than 2 although that was a year ago. He states his last creatinine done by his construction technician was 2.6, so that is relatively reassuring. His d-dimer is technically abnormal at 0.61, however when correcting for age, this is well within normal limits for a 72-year-old male, essentially ruling out acute pulmonary embolus in him at this time. His chest x-ray was interpreted by radiology as suspicious for metastatic disease. He had imaging a year ago including CT that simply showed 2 nodules, one in each lung. He does not need CT angiography, and the contrast could injure his kidneys further, so CT of the chest without contrast is performed and shows bilateral pleural effusions, significant mediastinal lymphadenopathy that could be related to a lymphoproliferative disorder. Discussed with Dr. Ayoub for admission and further workup and treatment. Clinically, on oxygen and resting in bed, he is doing well and feeling okay. With any little exertion he is dyspneic. His monitor has shown bradycardia throughout his visit, and he appears to be in Wenkebach according to his EKG. That will be continued to be monitored. ED Disposition - Plan for ED Patient: Disposition: Acute Care Hospital [facility] Chief Complaint: Overdose Diagnosis: Pleural effusion, bilateral, Hypoxemia, Pulmonary edema, Mediastinal lymphadenopathy, CRF (chronic renal failure), Mobitz (type) I (Wenckebach's) atrioventricular block Referrals: Katya Woods MD [Primary Care Provider] - What to do if you have Problems For any increased pain, shortness of breath, bleeding, nausea or vomiting, chest pain, or any unexpected problems, contact your Primary Care Provider. Call [facility] ([phone]) or report to the closest Emergency Room. Call 911 if necessary. 04/06/18 0726 <Electronically signed by Zander Thompson MD> Date Zander Thompson MD Cosigner Signature (If Indicated): Date CC: Katya Woods MD CHEST WITHOUT Observed: 04/06/2018 Status: F Source: [place] CONTRAST 5:48 AM [facility] [place], [place] REPOSITORY [facility] Imaging Services [address] [place] [id number] Chest without Contrast MR#: [id number] Acct: [id number] Name: OMAIRA COBOS Rep #: [id number] : 1945 M 72 From: Tez Hurst MD PCP: Katya Woods MD Status: REG ER Study: Chest without Contrast Date of Exam: 04/06/18 Exam# [id number] Ordering Dr: Zander Thompson MD STUDY: CT CHEST WITHOUT CONTRAST REASON FOR EXAM: Male, 72 years old. Shortness of breath RADIATION DOSAGE (If Supplied By Facility): CTDIvol = ( 18.82 ) mGy, DLP = ( 677.30 ) mGycm TECHNIQUE: Transaxial imaging was performed without the administration of intravenous contrast material. Individualized dose optimization techniques were used for this CT. COMPARISON: None. FINDINGS: : TRACHEA, THYROID, ESOPHAGUS: No tracheomalacia,stricture or wall thickening. Thyroid and esophagus are normal CARDIOVASCULAR SYSTEM: The thoracic aorta is grossly within normal limits. The pulmonary trunk and the left and right pulmonary arteries are also grossly within normal limits. There is mild cardiomegaly with aortic valve prosthesis in place. RYAN AND LYMPH NODES: A 1.9 x 1.1 cm Station 3 lymph node (prevascular). Multiple stations 6 lymph nodes (projecting over the arch) with the largest measuring 2.6 x 1.7 cm. A 2.7 x 1.7 cm Station 4R lymph node (right lower paratracheal). A 2.6 x 1.4 cm station 7 lymph node (subcarinal). Bilateral Station 10 lymph nodes (hilar) LUNGS, LOW-ATTENUATION: No traction bronchiectasis, honeycombing,emphysema, lung cysts or cavitations LUNGS, HIGH ATTENUATION: Extensive interstitial edema. A 1.2 cm calcified granuloma in the right middle lobe.. A 1.1 cm nodular density in the lingula division of the left upper lobe LUNGS, MOSAIC/CRAZY PAVING: Not evident PLEURA AND CHEST WALL: Bilateral pleural effusions. More on the right than the left UPPER ABDOMEN: A 2.3 cm benign nodule in the right adrenal gland . CT/Chest without Contrast IMPRESSION: Cardiomegaly with central vascular congestive changes and interstitial edema. Bilateral pleural effusions; more on the right than the left Extensive mediastinal adenopathy. Lymphoproliferative disorder suspected. No indication of any metastatic lung disease. A calcified granuloma in the right middle lobe and a 1.1 cm nodular density in the lingula division of the left upper lobe Electronically Signed: Tez Hurst MD at 7:02 EDT Tel , Service support , CC: ZANDER THOMPSON MD; Katya Woods MD Overweaver: Signed CBC W/DIFF, AUTOMATED Collected: 04/06/2018 Status: F Source: [place] 4:40 AM [facility] [place], [place] REPOSITORY TYPE CODE TESTS RESULT OUT OF RANGE REFERENCE UNITS LAB L100.1000 4.4-11.0 K/mm3 Normal WBC 7.7 LAB L100.1200 4.6-6.2 M/mm3 Low RBC 3.13 LAB L100.1300 13.0-16.5 g/dl Low HGB 10.1 LAB L100.1400 40-54 % Low HCT 31.5 LAB L100.1500 80-94 fL High MCV 100.6 LAB L100.1600 27.0-32.0 pg High MCH 32.3 LAB L100.1700 32-36 g/gl Normal MCHC 32.1 LAB L100.1810 11.6-14.6 % Normal RDW CV 13.2 LAB L100.1820 35.1-43.9 fl High RDW SD 46.3 LAB L100.1900 150-450 K/mm3 Normal PLT 239 LAB L100.2000 6.2-12.0 fl Normal MPV 10.0 LAB L100.2100 47-70 % High NEUT% 74.3 LAB L100.2200 19-41 % Low LY% 14.0 LAB L100.2300 0-10 % Normal MONO% 8.3 LAB L100.2400 0-5 % Normal EO% 3.0 LAB L100.2500 0-1 % Normal BASO% 0.3 LAB L100.2550 0.0-0.9 % Normal IM GRAN % 0.100 Result Comment: IG% - Immature Granulocytes (promyelocytes, myelocytes and metamyelocytes) > 1% indicates that a LEFT SHIFT is Present. LAB L100.2620 2.0-7.7 X10 3/uL Normal Absolute Neut 5.8 LAB L100.2720 0.83-4.51 X10 3/ul Normal Absolute Lymph 1.08 Performed By: #### L100.0100 #### [facility] [address] [place] [address]. [place], [place], [address] BASIC METABOLIC Collected: 04/06/2018 Status: F Source: [place] PROFILE (BMP) 4:40 AM [facility] [place], [place] REPOSITORY TYPE CODE TESTS RESULT OUT OF RANGE REFERENCE UNITS LAB L501.0100 74-106 mg/dL High GLU 117 Result Comment: Fasting Glucose result from 100 to 125 mg/dL suggests IMPAIRED HOMEOSTASIS per A.D.A. criteria. Please note revised GLUCOSE reference range effective 2017. LAB L501.1000 7-18 mg/dL High BUN 35 LAB L501.1100 0.70-1.30 mg/dL High CREAT,SERUM 2.41 Result Comment: The validity of the calculated GFR AND GFRAA in patients over 70 years has not been determined. Clinical correlation is essential. LAB L501.1110 >60 mL/min Low EST GFR 28 Result Comment: Non- GFR Calc LAB L501.1115 >60 mL/min Low EST GFR - AA 34 Result Comment: GFR Calc LAB L501.1255 ml/min Normal Estimated CRCL 28.19 LAB L501.1300 10-20 RATIO Normal BUN/CRE 14.5 LAB L501.2200 8.5-10 mg/dL Normal .1 CA 8.6 LAB L501.5300 136-14 mmol/L High 5 NA 146 LAB L501.5600 3.5-5. mmol/L Normal 1 K 4.0 LAB L501.5900 98-107 mmol/L High CL 114 LAB L501.6100 21.0-3 mmol/L Normal 2.0 CO2 25.0 LAB L501.6200 5-15 Normal GAP 7 Performed By: #### L500.2500, L501.4010 #### [facility] [address] [facility] [place], [place], [address] TROPONIN-I Collected: 04/06/2018 Status: F Source: [place] 4:40 AM [facility] [place], [place] REPOSITORY TYPE CODE TESTS RESULT OUT OF RANGE REFERENCE UNITS LAB L501.4010 <0.045 ng/mL Normal 0.016 TROPONIN-I Result Comment: TROPONIN-I EXPECTED VALUES <0.045 Negative 0.045 - 0.590 Consistent with Cardiac Damage > OR = 0.600 Critical Value Not every elevated troponin is indicative of NM. These values should be used with clinical judgement in examining the patient's clinical picture for diagnosis. To establish a diagnosis of NM versus myocardial injury, there must be a demonstrated rise and/or fall in the troponin values, in addition to ischemic symptoms, EKG changes, new regional wall motion abnormality, and/or angiographical evidence. PLEASE NOTE: REFERENCE RANGES EDITED 17 Performed By: #### L500.2500, L501.4010 #### [facility] [address] [place], [place], [address] BNP,B-TYPE NATRIURETIC Collected: 04/06/2018 Status: F Source: [place] PEPTIDE 4:40 AM [facility] [place], [place] REPOSITORY TYPE CODE TESTS RESULT OUT OF RANGE REFERENCE UNITS LAB L503.6620 0-100 pg/mL High B-TYPE 440.1 NORBERTO PEP Performed By: #### L503.6620 #### [facility] [address] [place], [address] D-DIMER QUANTITATIVE Collected: 04/06/2018 Status: F Source: [place] (DVT/PE) 4:40 AM [facility] [place] [place] REPOSITORY TYPE CODE TESTS RESULT OUT OF RANGE REFERENCE UNITS LAB L300.8000 0.27-0.49 FEU/ug/m High alert D-DIMER 0.61 QUANT Result Comment: D-Dimer ELEVATED (>0.49): Additional studies and clinical assessments are indicated to conclude diagnosis of: Deep Vein Thrombosis (DVT) or Pulmonary Embolism (PE) CRITICAL VALUE VERIFIED. CALLED TO DAVID KNOX IN ED 04/06/18 0617 Liv Hartman. RESULTS READ BACK BY SAME . Performed By: #### L300.8000 #### [facility] [address] [place], [address] PROTHROMBIN TIME W/INR Collected: 04/06/2018 Status: F Source: [place] 4:40 AM [facility] [place] [place] REPOSITORY TYPE CODE TESTS RESULT OUT OF RANGE REFERENCE UNITS LAB L300.4150 11.7-14.9 SECONDS Normal PROTIME 14.7 LAB L300.4200 Normal INR 1.2 Performed By: #### L300.3900, L300.4310 #### [facility] [address] [place], [address] PARTIAL THROMBOPLAST Collected: 04/06/2018 Status: F Source: [place] TIME 4:40 AM [facility] [place] REPOSITORY TYPE CODE TESTS RESULT OUT OF RANGE REFERENCE UNITS LAB L300.4310 24.1-36.2 Seconds Normal PTT 33.7 Performed By: #### L300.3900, L300.4310 #### [facility] [address] [place], [address] LIVER PROFILE Collected: 04/06/2018 Status: F Source: [place] 4:40 AM [facility] [place] REPOSITORY TYPE CODE TESTS RESULT OUT OF RANGE REFERENCE UNITS LAB L501.1500 6.4-8.2 g/dL Normal T PROT 6.8 LAB L501.1800 3.2-5.0 g/dL Normal ALB 3.2 LAB L501.1950 2.2-4.2 g/dL Normal GLOB 3.6 LAB L501.4100 15-37 U/L Normal AST 17 LAB L501.4305 45-117 U/L Normal ALK P 91 LAB L501.4405 16-61 U/L Normal ALT 23 LAB L501.4600 0.20-1.00 mg/dL Normal T BILI 0.60 LAB L501.4700 0.00-0.30 mg/dL Normal D BILI 0.17 Performed By: #### L500.3400 #### [facility] [address] [facility] [place], [address] LDH Collected: 04/06/2018 Status: F Source: [place] 4:40 AM [facility] [place] REPOSITORY TYPE CODE TESTS RESULT OUT OF RANGE REFERENCE UNITS LAB L504.2610 87-241 U/L Normal LDH 201 Performed By: #### L504.2610 #### [facility] [address] [place], [address] CHEST PA AND LATERAL Observed: 04/06/2018 Status: F Source: [place] 2:17 AM [facility] [place] REPOSITORY [facility] Imaging Services [address] [place] [address] Chest PA and Lateral MR#: [id number] Acct: [id number] Name: OMAIRA COBOS Rep #: [id number] : 1945 M 72 From: Tez Hurst MD PCP: Katya Woods MD Status: REG ER Study: Chest PA and Lateral Date of Exam: 04/06/18 Exam# [id number] Ordering Dr: Zander Thompson MD STUDY: X-RAY CHEST REASON FOR EXAM: Male, 72 years old. Shortness of breath TECHNIQUE: 2 views COMPARISON: March 19, 2017 FINDINGS: There is cardiomegaly with central vascular congestion and left-sided pleural effusion. Nodular densities are seen in the right lower lobe. Metastatic disease suspected.. Degenerative changes of the thoracic spine. Normal visualized ribs, clavicles, and shoulders. There is no demonstrated abnormality of the visualized soft tissue structures of the upper abdomen. RAD/Chest PA and Lateral IMPRESSION: Cardiomegaly with central vascular congestive changes and a small left-sided pleural effusion. Multiple nodular densities in the right lower lobe. Metastatic disease suspected Electronically Signed: Tez Hurst MD at 4:14 EDT Tel , Service support , CC: ZANDER THOMPSON MD; Katya Woods MD Overweaver: Signed CAROTID DUPLEX Observed: 02/23/2018 Status: F Source: [place] ULTRASOUND 6:25 PM [facility] [place] REPOSITORY [facility] Cardiovascular Services [address] [place] [address] Carotid Duplex Ultrasound 02/23/18 0856 MR#: [id number] Acct: [id number] Name: OMAIRA COBOS Rep #: [id number] : 1945 72 From: Salomon Whitt MD Attending Dr: Katya Woods MD Status: REG CLI Ordering Dr: Katya Woods MD Date: 02/23/18 Location: [facility] Sex: M C Admitted: Reason For Study: Carotid Atherosclerosis Rt. Velocities/BP Lt. Velocities/BP Prox CCA 61/19 cm/sec. Prox CCA 72/18 cm/sec. Mid CCA 72/19 cm/sec. Mid CCA 89/16 cm/sec. Dist CCA 68/17 cm/sec. Dist CCA 62/20 cm/sec. Prox ICA 82/20 cm/sec. Prox ICA 62/22 cm/sec. Mid ICA 87/21 cm/sec. Mid ICA 66/21 cm/sec. Dist ICA 58/20 cm/sec. Dist ICA 68/25 cm/sec. Rt. ICA/CCA = 1.21. Lt. ICA/CCA = 0.76. Prox ECA 103/13 cm/sec. Prox ECA 118/18 cm/sec. Rt. Vert. 41/9 cm/sec. Lt. Vert. 32/10 cm/sec. Right Extracranial There is heterogeneous, irregular atherosclerotic plaque noted in the right common carotid artery. There is heterogeneous, irregular atherosclerotic plaque noted in the right internal carotid artery. There is heterogeneous, irregular atherosclerotic plaque noted in the right external carotid artery. Antegrade flow is noted in the right vertebral artery. Left Extracranial There is heterogeneous, irregular atherosclerotic plaque noted in the left common carotid artery. There is heterogeneous, irregular atherosclerotic plaque noted in the left internal carotid artery. There is heterogeneous, irregular atherosclerotic plaque noted in the left external carotid artery. Antegrade flow is noted in the left vertebral artery. Procedure Carotid Duplex 99702. Exam performed in department. Interpretation Summary Mild (<50%) stenosis right extracranial internal carotid. Mild (<50%) stenosis left extracranial internal carotid. Flow within the vertebral arteries is antegrade bilaterally. Ordering Physician: Katya Woods Referring Physician: Katya Woods Performed By: Maribel Bhatt, RDCS, RVT 02/23/18 1824 Date Salomon Whitt MD CC: Katya Woods MD Date Dictated: 02/23/18 0856 Date Transcribed: 02/23/181823 Overweaver: Signed RENAL ARTERY DUPLEX Observed: 02/23/2018 Status: F Source: [place] 6:21 PM [facility] [place] REPOSITORY [facility] Cardiovascular Services [address] [place] [address] Renal Artery Duplex Ultrasound 02/23/18914 MR#: [id number] Acct: [id number] Name: OMAIRA COBOS Rep #: [id number] : 1945 72 From: Salomon Whitt MD Attending Dr: Katya Woods MD Status: REG CLI Ordering Dr: Katya Woods MD Date: 02/23/18 Location: [facility] Sex: M C Admitted: Reason For Study: CKD stage III Right Renal Artery Left Renal Artery Right renal artery ostium 63/14 Left renal artery ostium 59/12 RSV/EDV. PSV/EDV. Right renal artery proximal 66/16 Left renal artery proximal PSV/EDV PSV/EDV. 55/12 . Right renal artery mid 73/14 Left renal artery mid 61/13 PSV/EDV. PSV/EDV . Right renal artery distal 48/10 Left renal artery distal 75/20 PSV/EDV. PSV/EDV. Right RAR 0.89. Left RAR 0.91. Right Renal Parenchyma Left Renal Parenchyma Upper Pole Medula 18/5 PSV/EDV. Left upper pole medulla 19/4 Right upper pole medulla EDR 0.28 . PSV/EDV . Right upper pole medulla R.I. Left upper pole medulla EDR 0.21 . 0.71 . Left upper pole medulla R.I. 0.79 . Upper Reilly Cortx 14/4 PSV/EDV. UP Cortex 9/3 PSV/EDV. Right upper pole cortex EDR 0.29 . Left upper pole cortex EDR 0.33 . Right upper pole cortex R.I. 0.70 . Left upper pole cortex R.I. 0.63 . Right lower Pole medulla 16/4 Left lower Pole medulla 17/4 PSV/EDV . PSV/EDV . Right lower pole medulla EDR 0.25 . Left lower pole medulla EDR 0.24 . Right lower pole medulla R.I. Left lower pole medulla R.I. 0.74 . 0.78 . Lower Pole Cortx 12/4 PSV/EDV. Lower Pole Cortex 14/5 PSV/EDV. Left lower pole cortex EDR 0.33 . Right lower pole cortex EDR 0.36 . Left lower pole cortex R.I. 0.70 . Right lower pole cortex R.I. 0.62 . Left Renal Hilar Right Renal Hilar LT Hilar avg 31/7 PSV/EDV . Right Hilar avg 21/5 PSV/EDV. Left hilar acceleration time 44 Right hilar acceleration time 29 m/sec. m/sec. Left Renal Dimensions Right Renal Dimensions Left kidney size 11.7 cm . Right kidney size 12.9 cm . Left cortical dimension 1.38 cm . Right cortical dimension 1.33 cm . Aorta Proximal abdominal aorta 1.90cm x 1.91 cm . Proximal abdominal aorta peak systolic velocity is 82 cm/sec . Distal abdominal aorta 1.84cm x 1.82 cm . Distal abdominal aorta peak systolic velocity is 90 cm/sec . Interpretation Summary Dimensions of the intra-abdominal aorta appear normal, without evidence of aneurysmal dilatation. Renal artery velocities are bilaterally normal. Acceleration times are normal bilaterally. Renal- aortic ratios are also bilaterally normal. There is no evidence of hemodynamically significant renal artery stenosis on either side. Cortical dimensions are bilaterally normal. Kidneys are normal in size bilaterally, though the right kidney is more than one centimeter larger than the left kidney. Ordering Physician: Katya Woods Referring Physician: Katya Woods Performed By: Maribel Bhatt, RDGURVINDER, RVT 02/23/181820 Date Salomon Whitt MD CC: Katya Woods MD Date Dictated: 02/23/18914 Date Transcribed: 02/23/181820 Overweaver: Signed CARDIOLOGY VISIT Observed: 12/19/2017 Status: F Source: [place] REPORT 1:56 PM [facility] [place] [place] REPOSITORY [facility] [address] [place] [address] OFFICE VISIT Date of Service: 12/19/17 MR#: [id number] Acct: [id number] Name: OMAIRA COBOS Rep #: [id number] : 1945 Provider: Clint Santiago MD Age/Sex: 72/M Location: [facility] [place] Status: Signed HPI HPI Chief Complaint: Follow-up visits. Details: OMAIRA COBOS, is a 72 M who presents to the office today for a cardiovascular follow-up visit. He has a history of coronary artery disease with bypass surgery and aortic valve replacement. He had an PATEL to the LAD, SVG to the ramus intermedius, posterior circumflex and RCA. He has a [employer] bioprosthetic aortic valve. He also has a history of hypertension, hyperlipidemia and diabetes. You remember he had complained of not feeling well and therefore he had a heart catheterization in 2017 which demonstrated patency of all vessels. He has been doing well since denying any chest pain or shortness breath or paroxysmal nocturnal dyspnea pedal edema he still feels pretty active and has been compliant with all his medications. He has had no neck arm or jaw discomfort suggest angina no dizziness or diaphoresis no near syncope or syncope and no claudication. His physical exam demonstrates clear lung de la fuente regular rate and rhythm soft 1/6 systolic murmur noted left sternal border Intake Vital Signs12/19/17 Height 5 ft 10 in 12/19/17 Weight: 200 lb 12/19/17 Body Mass Index (BMI) 28.7 12/19/17 Blood Pressure 110/52 12/19/17 Respiratory Rate 18 12/19/17 Pulse Rate 60 Intake Visit Reasons: 6 M FU Allergies No Known Allergies Allergy (Verified 12/19/17 13:07) Medications Amlodipine Besylate 10 mg PO DAILY 07/02/13 [History Confirmed 12/19/17] Atorvastatin Calcium [Lipitor] 20 mg PO QHS 07/02/13 [History Confirmed 12/19/17] Insulin Aspart [Novolog] 10 units SC TID 07/02/13 [History Confirmed 12/19/17] Aspirin [Aspirin, Baby] 81 mg PO DAILY@0800 02/09/15 [History Confirmed 12/19/17] Doxazosin Mesylate 4 mg PO DAILY 02/09/15 [History Confirmed 12/19/17] Insulin Glargine,Hum.rec.anlog [Lantus] 30 unit SQ BID 02/09/15 [History Confirmed 12/19/17] Losartan Potassium [Cozaar] 100 mg PO DAILY 12/09/15 [History Confirmed 12/19/17] Methyl-B12/l-Mefolate/B6 Phos [Foltanx Tablet] 2 - 3 ea PO DAILY 12/09/15 [History Confirmed 12/19/17] Temazepam [Restoril] 15 - 30 mg PO QHS PRN PRN 07/19/16 [History Confirmed 12/19/17] Metoprolol Tartrate [Lopressor (beta hari)] 50 mg PO BID #60 tab 10/24/16 [Rx Confirmed 12/19/17] Liraglutide [Victoza] See Protocol SQ DAILY 03/19/17 [History Confirmed 12/19/17] amiodarone 200 mg tablet 100 mg PO DAILY tab 12/19/17 [History] COUNTS INCLUDE 234 BEDS AT THE [facility] Medical History Paroxysmal atrial fibrillation (Chronic) Atherosclerosis of coronary artery of [place] heart without angina pectoris (Chronic) HTN (hypertension) (Chronic) HLD (hyperlipidemia) (Chronic) BPH (benign prostatic hyperplasia) (Chronic) DVT (deep venous thrombosis) (Chronic) GERD (gastroesophageal reflux disease) (Chronic) Obstructive sleep apnea (Chronic) Type 2 diabetes mellitus without complications (Chronic) Surgical History H/O aortic valve replacement (Chronic 11/29/12) H/O coronary artery bypass surgery (Chronic 11/29/12) History of left heart catheterization (Chronic 12/09/15) History of transurethral resection of prostate (Chronic) Hx of cholecystectomy (Chronic) Family History Father CAD (coronary artery disease) Brother CAD (coronary artery disease) Social History Smoking Status: Never smoker ROS Const Const: Negative for fatigue, weakness, difficulty sleeping, frequent falls, headache(s) or excessive sweating Eyes Eyes: Negative for loss of peripheral vision, transient loss of vision, blurry vision or double vision ENT ENT: Negative for headache(s), dizziness, Nosebleed/epistaxis or balance problems Cardio Chest Pain: No Edema: None Muscle aches with walking: None Resp Respiratory: Negative for SOB with activity, SOB at rest, SOB orthopnea\SOB lying down or paroxysmal nocturnal dyspnea GI GI: Negative nausea or heartburn : Negative for hematuria Musc Musc: Negative for muscle aches/ myalgia, muscle weakness, joint pain or balance problems Skin Skin: Negative non-healing lesions, unusual bruising or rash Neuro Neuro: Negative for weakness, frequent falls, blurry vision, headache(s), dizziness, lightheadedness, orthostatic symptoms or double vision Estrada Hematologic/Lymphatic: Negative for easy bruising Endo Endo: Negative for fatigue, excessive sweating or increased thirst/drinking Psych Psych: Negative for anxiety or depression Allergy Allergy/Immunology: Negative for hives, Negative for rash Cardiology Exam Const Appearance: cooperative, healthy appearing, well developed, well groomed and no acute distress Nutritional Appearance: well nourished and average body habitus Orientation: alert, awake and oriented x3 Head Head: normal to inspection, normocephalic and atraumatic Ears: hearing grossly normal bilaterally and external ears normal Nose: external nose normal, nasal mucous membranes and turbinates normal, nares normal, septum normal, no nasal discharge Face and Sinus: face symmetric Mouth: oral mucosae normal, tongue normal, oropharynx normal and moist mucous membranes Teeth and gingiva: dentition normal Throat: posterior oropharynx normal, tonsils normal and uvula midline Eyes General: appearance normal, both eyes and all related structures Eyelids: eyelids normal Conjunctivae: conjunctivae normal Pupils: PERRL, normal by confrontation and accommodation normal EOM: EOM intact bilaterally Neck Neck: normal visual inspection, trachea midline and no JVD JVD: +5 Carotids: normal carotid upstroke and bounding pulses Chest Chest inspection: normal inspection of the chest, symmetric chest movement and normal respiratory effort Auscultation: Bilateral: Clear to Auscultation Cardio Palpation: normal PMI Rate: regular rate Rhythm: regular rhythm Heart sounds: S1 normal and S2 normal Murmur: Grade 1/6, early systolic and LLSB GI GI: normal to inspection, soft, no hepatosplenomegaly and bowel sounds present Neuro General: alert, awake, oriented x3, no focal sensory deficit, gait normal and moves all extremities Skin Skin: no rashes or lesions noted Extremities Pulses: Normal: Right Femoral Pulse, Left Femoral Pulse, Right Dorsalis Pedis Pulse, Left Dorsalis Pedis Pulse, Right Posterior Tibial Pulse, Left Posterior Tibial Pulse, Right Radial Pulse, Left Radial Pulse Lower Extremity Edema: None: Bilateral Musculoskel Musculoskeletal: No joint tenderness Psych Psychological: normal affect Assessment AND Plan 1. H/O aortic valve replacement Z95.2 25 mm Felix-Wilcox Perimount Magna Valve ([facility]: 11/29/2012) Plan He is status post aortic valve replacement with the Wilcox magna valve and his last echocardiogram last year demonstrated preserved ejection fraction with adequate gradients across the valve. At this time I will not suggest that we make any change he will continue with antibiotic prophylaxis. 2. Atherosclerosis of coronary artery of [place] heart without angina pectoris I25.10 CABG x 3 PATEL to LAD, SVG-Ramus, SVG-PLB of RCA 11/29/2012 Plan He is status post carotid bypass surgery the plan recommendation will be for him to continue the current medical therapy without as making any changes. 3. Essential hypertension I10 Plan His blood pressure appears to be under good control on the current medical therapy he has lost some weight which is also commendable. He will remain on the current dosages of medications without as making any changes. 4. Paroxysmal atrial fibrillation I48.0 Plan He does have a history of paroxysmal atrial fibrillation and at this time appears to be maintaining sinus rhythm on the beta-hari as well as the amiodarone. We have elected not to anticoagulate him at this time. 5. Pure hypercholesterolemia E78.00 Plan He is due to have a lipid profile performed through your office or the [facility] and I would not recommend at this time that we make any changes. Overall I am quite pleased with his status. Thank you for allowing me to participate in the care of your patient. 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) Coding Level of Care Code Off vis,est,level 4 Diagnoses H/O aortic valve replacement Z95.2 Atherosclerosis of coronary artery of [place] heart without angina pectoris I25.10 Essential hypertension I10 Hypertension type: essential hypertension Paroxysmal atrial fibrillation I48.0 Pure hypercholesterolemia E78.00 Hyperlipidemia type: pure hypercholesterolemia Coding Level of Care Code Off vis,est,level 4 Diagnoses H/O aortic valve replacement Z95.2 Atherosclerosis of coronary artery of [place] heart without angina pectoris I25.10 Essential hypertension I10 Hypertension type: essential hypertension Paroxysmal atrial fibrillation I48.0 Pure hypercholesterolemia E78.00 Hyperlipidemia type: pure hypercholesterolemia 12/19/17 1356 <Electronically signed by Clint Santiago MD> Date Clint Santiago MD Cosigner Signature: Date (if applicable) CC: Katya Woods MD CBC-COMPLETE BLOOD CNT Collected: 08/02/2017 Status: F Source: [place] NO DIFF 2:21 PM [facility] [place], [place] REPOSITORY TYPE CODE TESTS RESULT OUT OF RANGE REFERENCE UNITS LAB L100.1000 4.4-11.0 K/mm3 Normal WBC 9.2 LAB L100.1200 4.6-6.2 M/mm3 Low RBC 3.84 LAB L100.1300 13.0-16.5 g/dl Low HGB 12.4 LAB L100.1400 40-54 % Low HCT 37.9 LAB L100.1500 80-94 fL High MCV 98.7 LAB L100.1600 27.0-32.0 pg High MCH 32.3 LAB L100.1700 32-36 g/gl Normal MCHC 32.7 LAB L100.1810 11.6-14.6 % Normal RDW CV 12.8 LAB L100.1820 35.1-43.9 fl High RDW SD 45.1 LAB L100.1900 150-450 K/mm3 Normal PLT 283 LAB L100.2000 6.2-12.0 fl Normal MPV 9.8 Performed By: #### L100.0500 #### [facility] [address] [place], [place], [address] FREE T3 Collected: 08/02/2017 Status: F Source: [place] 2:21 PM [facility] [place], [place] REPOSITORY TYPE CODE TESTS RESULT OUT OF RANGE REFERENCE UNITS LAB L501.43854 2.18-3.98 pg/mL Low FREE T3 1.9 Performed By: #### L501.17767, L501.9520, L503.6550, L506.0400 #### [facility] [address] [place], [address] THYROID STIM HORMONE Collected: 08/02/2017 Status: F Source: [place] (TSH) 2:21 PM [facility] [place] [place] REPOSITORY TYPE CODE TESTS RESULT OUT OF RANGE REFERENCE UNITS LAB L501.9520 0.358-3.74 uIU/mL Normal TSH 1.94 Performed By: #### L501.10374, L501.9520, L503.6550, L506.0400 #### [facility] [address] [place], [address] FERRITIN Collected: 08/02/2017 Status: F Source: [place] 2:21 PM [facility] [place] [place] REPOSITORY TYPE CODE TESTS RESULT OUT OF RANGE REFERENCE UNITS LAB L503.6550 26-388 ng/mL Normal FERRITIN 87 Performed By: #### L501.49895, L501.9520, L503.6550, L506.0400 #### [facility] [address] [place], [address] T4 FREE DIRECT Collected: 08/02/2017 Status: F Source: [place] 2:21 PM [facility] [place] [place] REPOSITORY TYPE CODE TESTS RESULT OUT OF RANGE REFERENCE UNITS LAB L506.0400 0.76-1.46 ng/dL Normal T4 FREE 0.92 DIRECT Performed By: #### L501.80551, L501.9520, L503.6550, L506.0400 #### [facility] [address] [place], [address] THYROID PEROXIDASE AB Collected: 08/02/2017 Status: F Source: [place] 2:21 PM [facility] [place] [place] REPOSITORY TYPE CODE TESTS RESULT OUT OF RANGE REFERENCE UNITS LAB L3300.6900 0-34 IU/mL Normal TPO AB 12 6676 Result Comment: Performed at: - [facility] [address] [id number] Clinic Lead: Vivek Alexander PhD, Phone: [phone] Performed By: #### L3300.6900 #### [facility] (refer to report for specific site) refer to report for address and phone number ALLERGIES ALLERGIES DATE TYPE / CODE NAME / CODE REACTION SEVERITY SOURCE 05/31/2018 Drug No Known Unknown Crystal [facility] Allergy/4160 Allergies/F00 [facility] 75996(SNOMED 1544445(RXNOR Repository CT) M) ENCOUNTERS ENCOUNTERS ADMIT/DISCHARGE ACCOUNT ADMITTING ENCOUNTER LOCATION SOURCE NUMBER CLASS 06/26/2018 [id number] Ambulatory Building:[facility] Repository 05/31/2018/ [id number] Ambulatory BMSBuilding:B [place] 8 0 [place].[facility] Repository 05/25/2018/ [id number] Ambulatory Alva Alva 8 2 [facility] ing:ENRoom: Repository AC15 05/25/2018 [id number] Ambulatory BMSBuilding:B Crystal 7 MS.CF.[facility] Repository 05/07/2018 [id number] Ambulatory Al[place] Crystal 1 [facility] ing:ONC Repository 04/27/2018/ [id number] Ambulatory BMSBuilding:B Alva 8 6 [facility] Repository 04/26/2018 [id number] Ambulatory BMSBuilding:B [place] 9 [facility] Repository 04/20/2018/ [id number] Ambulatory BMSBuilding:B Alva 8 0 MS.[facility] Repository 04/10/2018 [id number] Ambulatory BMSBuilding:W Crystal 9 [facility] Repository 04/10/2018 [id number] Ambulatory Crystal Alva 5 [facility] ing:CVS Repository 04/06/2018/ [id number] Will, Inpatient Crystal Alva 8 5 [facility] ing:PCURoom: Repository [id number]: 1 04/06/2018 [id number] Will, Ambulatory BMSBuilding:B Alva 5 Kamar MS.[facility] Repository 04/06/2018 [id number] [facility], Ambulatory BMSBuilding:B Crystal 8 Kamar MS.CF.[facility] Repository 04/06/2018 [id number] [facility], Ambulatory BMSBuilding:B Alva 9 Kamar MS.CF.[facility] Repository 04/06/2018 [id number] [facility], Ambulatory BMSBuilding:B Alva 8 Kamar MS.CF.[facility] Repository 04/06/2018 [id number] [facility], Ambulatory BMSBuilding:B Alva 3 Kamar MS.[facility] Repository 04/06/2018 [id number] [facility], Ambulatory BMSBuilding:B Crystal 9 Kamar MS.CF.[facility] Repository 04/06/2018 [id number] [facility], Ambulatory BMSBuilding:B Crystal 0 Kamar MS.CF.[facility] Repository 04/06/2018 [id number] [facility], Ambulatory BMSBuilding:B Alva 6 Kamar MS.[facility] Repository 04/06/2018/ [id number] Ambulatory BMSBuilding:B [place] 8 [facility] 04/06/2018/ [id number] Ambulatory BMSBuilding:W Alva 8 4 [facility] Repository 02/23/2018 [id number] Ambulatory [address] Hospital ing:CVS Repository 12/19/2017/ [id number] Ambulatory BMSBuilding:B Alva 8 4 MS.[facility] Repository 12/18/2017 [id number] Ambulatory BMSBuilding:B [place] 8 MS.[facility] Repository 08/02/2017 [id number] Ambulatory [address] Hospital ing:LAB Repository FUNCTIONAL STATUS FUNCTIONAL STATUS No Functional Status Records FoundEQUIPMENT EQUIPMENT No Equipment Records FoundPAYERS PAYERS ENCOUNTER GUARANTOR PAYER SUBSCRIBER SOURCE 06/26/2018 OMAIRA Mcneil PEACOCKDOB: Insurance:MedicarePol PEACOCKDOB: Repository [id number] W icy Number: [id number] [place], [place] Date:2000-23-09Iz[address] RdRich[place], [place] [address]Vwi: (330) Name:VET TECH Benji [address]Hto: 888[address]Umtalnoz, [place] [phone] (HP) (HP)Tel: [phone]: (wp) [phone] 06/26/2018 Secondary OMAIRA E OHIP Practices Insurance:Rudyard PEACOCKDOB: Repository [facility] InsPolicy [id number] Number: [id number], [place] Date:1080-75-23Zckz [address]Eor: Name:Elodia Bertrand ~(3 [place], [place] [address]KZ: 30 (GL) 06/26/2018 Tertiary Gaile OHIP Practices Insurance:Medical PeacockDOB: Repository [facility] [id number] Number: [address] [id number] [address]Oxford, [place] Date: [address]Znv: 330 8889-32-26Ifzu [phone] (HP) Name:O Benji [address], [place] [id number]: 06/26/2018 Tertiary OMAIRA E OHIP Practices Insurance:MedicarePol PEACOCKDOB: Repository icy Number: [id number] [address] Date:2009-06-12 - [place], [place] 8513-27-39Fecc [address]Chc: Name:VET TECH Box ~(3 [id number], [place] 30 (HP) [address]RD: 06/26/2018 Tertiary OMAIRA E OHIP Practices Insurance:[facility] HospitalFOX[facility].COM PEACOCKDOB: Repository Ins/MedicarePolicy [id number] Number: [address] [id number] RdWest [place], [place] Date:2016-06-1217404Fbo: 2620-95-61Tlvk ~(3 Name:CARLA O Benji 30 () [address]Ib BOB Avendaño [id number]: 05/31/2018 OMAIRA E Primary OMAIRA E Alva [id number] W Insurance:MEDICARE PEACOCKDOB: [facility] [address] PART A [facility] [id number] Number: Repository [address]Hjm: 330 [id number] [phone] (HP) Date:2018-05-30 05/31/2018 Secondary OMAIRA E [place] Insurance:MUTUAL OF PEACOCKDOB: [facility] Number: [id number] Hospital [id number] Repository Date:3804-86-30QELGEK [place], [place] [address]QU: 05/31/2018 Tertiary NOT GIVENUNK Crystal Insurance:SELF PAY [facility] Number: Effective Repository Date:2018-05-30 05/25/2018 OMAIRA E Primary OMAIRA E Crystal [id number] W Insurance:MEDICARE PEACOCKDOB: [facility] [id number]-[facility] [place] Number: Repository [address]Lta: (181) [id number] [phone] () Date:2018-05-10 05/25/2018 Secondary OMAIRA E Alva Insurance:MUTUAL OF PEACOCKDOB: [facility] Number: [id number] Hospital [id number] Repository Date:3095-77-10LPSAIS OF [place], [place] [address]TT: 05/25/2018 Tertiary NOT GIVENUNK Crystal Insurance:SELF PAY [facility] Number: Effective Repository Date:2018-05-10 05/25/2018 OMAIRA E Primary OMAIRA E Alva [id number] W Insurance:MEDICARE PEACOCKDOB: [facility] [id number]-[facility] Number: Repository [address]Ozk: 330 [id number] [phone] (HP) Date:2018-05-10 05/25/2018 Secondary OMAIRA E Crystal Insurance:MUTUAL OF PEACOCKDOB: [facility] Number: [id number] Hospital [id number] Repository Date:4709-90-10FRGNVH OF [place], [place] [address]JN: 05/25/2018 Tertiary NOT GIVENUNK Crystal Insurance:SELF PAY [facility] Number: Effective Repository Date:2018-05-25 05/07/2018 OMAIRA E Primary OMAIRA E Alva [id number] W Insurance:MEDICARE PEACOCKDOB: [facility] PART A [facility] [id number]-[facility] Number: Repository [address]Ttx: 330 [id number] [phone] (HP) Date:2018-05-02 05/07/2018 Secondary OMAIRA E Alva Insurance:MUTUAL OF PEACOCKDOB: [facility] Number: [id number] Hospital [id number] Repository Date:9375-63-25NASSRS [place], [place] [address]KI: 05/07/2018 Tertiary NOT GIVENUNK Crystal Insurance:SELF PAY [facility] Number: Effective Repository Date:2018-05-02 04/27/2018 OMAIRA E Primary OMAIRA E Crystal [id number] W Insurance:MEDICARE PEACOCKDOB: [facility] PART A [facility] [id number]-[facility] [place] Number: Repository [address]Vve: (219) [id number] [phone] (HP) Date:2018-04-09 04/27/2018 Secondary OMAIRA E Alva Insurance:MUTUAL OF PEACOCKDOB: [facility] Number: [id number] Hospital [id number] Repository Date:1010-36-44WTEGAP [place], [place] [address]CV: 04/27/2018 Tertiary NOT GIVENUNK Crystal Insurance:SELF PAY [facility] Number: Effective Repository Date:2018-04-27 04/26/2018 OMAIRA E Primary OMAIRA E Crystal [id number] W Insurance:MEDICARE PEACOCKDOB: Community [address] olic [id number]-[facility] Number: Repository [address]Nsy: 330 [id number] [phone] (HP) Date:2018-04-26 04/26/2018 Secondary OMAIRA E Crystal Insurance:MUTUAL OF PEACOCKDOB: [facility] Number: [id number] Hospital [id number] Repository Date:7187-17-42PREZZF [place], [place] [address]BE: 04/26/2018 Tertiary NOT GIVENUNK Crystal Insurance:SELF PAY [facility] Number: Effective Repository Date:2018-04-26 04/20/2018 OMAIRA E Primary OMAIRA E Alva [id number] W Insurance:MEDICARE PEACOCKDOB: [facility] RDWEST PART A [facility] [id number]-[facility] [place] Number: Repository [address]Isj: 330 [id number] [phone] () Date:2018-04-17 04/20/2018 Secondary OMAIRA E Alva Insurance:MUTUAL OF PEACOCKDOB: [facility] Number: [id number] Hospital [id number] Repository Date:0756-81-22GYDIHH [facility] [place] [address]MY: 04/20/2018 Tertiary NOT GIVENUNK Alva Insurance:SELF PAY [facility] Number: Effective Repository Date:2018-04-17 04/10/2018 OMAIRA E Primary OMAIRA E Alva [id number] W Insurance:MEDICARE PEACOCKDOB: Community [address] PART A [facility] [id number]-[facility] [place] Number: Repository [address]Xym: 330 [id number] [phone] (HP) Date:2018-04-09 04/10/2018 Secondary OMAIRA E Alva Insurance:MUTUAL OF PEACOCKDOB: [facility] Number: [id number] Hospital [id number] Repository Date:1309-15-77UYUNBZ OF [facility] [place], [place] [address]BA: 04/10/2018 Tertiary NOT GIVENUNK Crystal Insurance:SELF PAY [facility]: Effective Repository Date:2018-04-10 04/10/2018 OMAIRA E Primary OMAIRA E Crystal [id number] W Insurance:MEDICARE PEACOCKDOB: [facility] [id number] Number: Repository [address]Zxo: (117) [id number] [phone] () Date:2018-04-09 04/10/2018 Secondary OMAIRA E Crystal Insurance:MUTUAL OF PEACOCKDOB: [facility] Number: [id number] Hospital [id number] Repository Date:4875-63-71ERJABL OF [place], [place] [address]LR: 04/10/2018 Tertiary NOT GIVENUNK [place] Insurance:SELF PAY [facility] Number: Effective Repository Date:2018-04-09 04/06/2018 OMAIRA E Primary OMAIRA E Crystal [id number] W Insurance:MEDICARE PEACOCKDOB: [facility] [id number], [place] Number: Repository [id number]: (183) [id number] [phone] (HP) Date:2018-04-06 04/06/2018 Secondary OMAIRA E Crystal Insurance:MUTUAL OF PEACOCKDOB: [facility] Number: [id number] Hospital [id number] Repository Date:8759-03-70TNUBAQ OF [facility] [place], [place] [address]TZ: 04/06/2018 Tertiary NOT GIVENUNK Alva Insurance:SELF PAY [facility] Number: Effective Repository Date:2018-04-06 04/06/2018 OMAIRA E Primary OMAIRA E Crystal [id number] W Insurance:MEDICARE PEACOCKDOB: [facility] RDWEST PART A [facility] [id number], [place] Number: Repository [address]Amm: 330 [id number] [phone] () Date:2018-04-06 04/06/2018 Secondary OMAIRA E Crystal Insurance:MUTUAL OF PEACOCKDOB: [facility] Number: [id number] Hospital [id number] Repository Date:9607-25-30DINNXP [place], [place] [address]IC: 04/06/2018 Tertiary NOT GIVENUNK Alva Insurance:SELF PAY [facility] Number: Effective Repository Date:2018-04-06 04/06/2018 OMAIRA E Primary OMAIRA E Crystal [id number] W Insurance:MEDICARE PEACOCKDOB: [facility] [id number] [place] Number: Repository [address]Kuv: 330 [id number] [phone] () Date:2018-04-06 04/06/2018 Secondary OMAIRA E Crystal Insurance:MUTUAL OF PEACOCKDOB: [facility] Number: [id number] Hospital [id number] Repository Date:3441-01-29ENWEZK OF [place], [place] [address]XU: 04/06/2018 Tertiary NOT GIVENUNK Alva Insurance:SELF PAY [facility] Number: Effective Repository Date:2018-04-06 04/06/2018 OMAIRA E Primary OMAIRA E Crystal [id number] W Insurance:MEDICARE PEACOCKDOB: [facility] RDWEST PART A [facility] [id number] Number: Repository [address]Kzx: 330 [id number] [phone] () Date:2018-04-06 04/06/2018 Secondary OMAIRA E Crystal Insurance:MUTUAL OF PEACOCKDOB: [facility] Number: [id number] Hospital [id number] Repository Date:5058-58-30ZODALL [place], [place] [address]BX: 04/06/2018 Tertiary NOT GIVENUNK Crystal Insurance:SELF PAY [facility] Number: Effective Repository Date:2018-04-06 04/06/2018 OMAIRA E Primary OMAIRA E Alva [id number] W Insurance:MEDICARE PEACOCKDOB: [facility] [id number]-[facility] Number: Repository [address]Cli: (140) [id number] [phone] (HP) Date:2018-04-06 04/06/2018 Secondary OMAIRA E Crystal Insurance:MUTUAL OF PEACOCKDOB: [facility] Number: [id number] Hospital [id number] Repository Date:7711-82-32DTEUNG OF [place], [place] [address]IT: 04/06/2018 Tertiary NOT GIVENUNK Crystal Insurance:SELF PAY [facility] Number: Effective Repository Date:2018-04-06 04/06/2018 OMAIRA E Primary OMAIRA E Alva [id number] W Insurance:MEDICARE PEACOCKDOB: [facility] [id number] Number: Repository [address]Wrf: ([phone]) [id number] [phone] () Date:2018-04-06 04/06/2018 Secondary OMAIRA E [place] Insurance:MUTUAL OF PEACOCKDOB: [facility] Number: [id number] Hospital [id number] Repository Date:5078-82-86LVJHPK OF [place], [place] [address]GW: 04/06/2018 Tertiary NOT GIVENUNK Alva Insurance:SELF PAY [facility] Number: Effective Repository Date:2018-04-06 04/06/2018 OMAIRA E Primary OMAIRA E Crystal [id number] W Insurance:MEDICARE PEACOCKDOB: [facility] [id number]-[facility] [place] Number: Repository [address]Xbu: [id number] [phone] (HP) Date:2018-04-06 04/06/2018 Secondary OMAIRA E Alva Insurance:MUTUAL OF [place]OB: [facility] Number: [id number] Hospital [id number] Repository Date:9722-61-90FJVXFV [place], [place] [address]LB: 04/06/2018 Tertiary NOT GIVENUNK Alva Insurance:SELF PAY [facility] Number: Effective Repository Date:2018-04-06 04/06/2018 OMAIRA E Primary OMAIRA E Crystal [id number] W Insurance:MEDICARE PEACOCKDOB: [facility] PART A [facility] [id number] Number: Repository [address]Hwg: 330 [id number] [phone] () Date:2018-04-06 04/06/2018 Secondary OMAIRA E Alva Insurance:[place]UTUAL OF [place]OB: [facility] Number: [id number] Hospital [id number] Repository Date:4598-76-94PYQNCH [place], [place] [address]JV: 04/06/2018 Tertiary NOT GIVENUNK Alva Insurance:SELF PAY [facility] Number: Effective Repository Date:2018-04-06 04/06/2018 OMAIRA E Primary OMAIRA E Alva [id number] W Insurance:MEDICARE PEACOCKDOB: [facility] PART A [facility] [id number] Number: Repository [phone]: 330 [id number] [phone] () Date:2018-04-06 04/06/2018 Secondary OMAIRA E Crystal Insurance:MUTUAL OF [place]OB: [facility] Number: [id number] Hospital [id number] Repository Date:6113-52-63SBYQMI [place], [place] [address]RA: 04/06/2018 Tertiary NOT GIVENUNK Alva Insurance:SELF PAY [facility] Number: Effective Repository Date:2018-04-06 04/06/2018 OMAIRA E Primary OMAIRA E Alva [id number] W Insurance:MEDICARE PEACOCKDOB: [facility] PART A [id number] [place] Number[facility] Repository [address]Mvd: 330 [id number] [phone] (HP) Date:2018-04-06 04/06/2018 Secondary OMAIRA E Crystal Insurance:MUTUAL OF [place]OB: [facility] Number: [id number] Hospital [id number] Repository Date:0946-54-44IZNWNJ [place], [place] [address]AF: 04/06/2018 Tertiary NOT GIVENUNK Alva Insurance:SELF PAY [facility] Number: Effective Repository Date:2018-04-06 04/06/2018 OMAIRA E Primary OMAIRA E Alva [id number] W Insurance:MEDICARE PEACOCKDOB: [facility] PART A [facility] [id number]-[facility] Number: Repository [id number]: 330 [id number] [phone] (HP) Date:2018-04-06 04/06/2018 Secondary OMAIRA E Crystal Insurance:MUTUAL OF [place]OB: [facility] Number: [id number] Hospital [id number] Repository Date:3260-99-96WNTLRI [place], [place] [address]MG: 04/06/2018 Tertiary NOT GIVENUNK Crystal Insurance:SELF PAY [facility] Number: Effective Repository Date:2018-04-06 02/23/2018 OMAIRA E Primary OMAIRA E Alva [id number] W Insurance:MEDICARE PEACOCKDOB: [facility] [address] PART A [facility] [id number]-[facility] Number: Repository [id number]: 330 [id number] [phone] (HP) Date:2018-02-13 02/23/2018 Secondary OMAIRA E Alva Insurance:MUTUAL OF [place]OB: [facility] Number: [id number] Hospital [id number] Repository Date:8659-83-64THRDUB [place], [place] [address]ZH: 02/23/2018 Tertiary NOT GIVENUNK Alva Insurance:SELF PAY [facility] Number: Effective Repository Date:2018-02-13 12/19/2017 OMAIRA E Primary OMAIRA E Alva [id number] W Insurance:MEDICARE [place]DOB: Community [address] PART A [facility] [id number] Number: Repository [id number]: [phone] [id number] [phone] () Date:2017-06-08 12/19/2017 Secondary OMAIRA E Alva Insurance:MUTUAL OF [place]OB: [facility] Number: [id number] Hospital [id number] Repository Date:8312-30-55HMVTSR [place], [place] [address]MZ: 12/19/2017 Tertiary NOT GIVENUNK Crystal Insurance:SELF PAY [facility] Number: Effective Repository Date:2017-12-19 12/18/2017 OMAIRA E Primary OMAIRA E Crystal [id number] W Insurance:MEDICARE PEACOCKDOB: [facility] [address] PART A [id number] [place] Number[facility] Repository [phone]: [phone] [id number] [phone] () Date:2017-12-18 12/18/2017 Secondary OMAIRA E Crystal Insurance:MUTUAL OF [place]OB: [facility] Number: [id number] Hospital [id number] Repository Date:9300-62-40YUCOST [place], [place] [address]WF: 12/18/2017 Tertiary NOT GIVENUNK Crystal Insurance:SELF PAY [facility] Number: Effective Repository Date:2017-12-18 08/02/2017 OMAIRA E Primary OMAIRA E Crystal [id number] W Insurance:MEDICARE PEAC[place]DOB: Community [address] PART A BPolicy [id number] Number: Repository [id number]: [phone] [id number] [phone] () Date:2017-08-02 08/02/2017 Secondary OMAIRA E Alva Insurance:MUTUAL OF [facility] [place]MP[place]B: [facility] Number: [id number] Hospital [id number] Repository Date:2835-43-03SVULMT OF [place], [place] [address]AO: 08/02/2017 Tertiary NOT GIVENUNK Alva Insurance:SELF PAY [facility] Number: Effective Repository Date:2017-08-02 SOCIAL HISTORY SOCIAL HISTORY No Social History Records FoundFAMILY HISTORY FAMILY HISTORY No Family History Records FoundPREGNANCY No Status Records FoundADVANCE DIRECTIVES ADVANCE DIRECTIVES No Advanced Directives Records FoundINFORMATION SOURCE INFORMATION SOURCE DATE CREATED AUTHOR AUTHOR'S ORGANIZATION 07/04/2018 [facility]
== END 2018-05-25 15:43 | disposition home or self-care (01) ==
LOC: EN 11:23 → AC 11:25
PROVIDERS: Nurse Practitioner Acute Care; Family Provider Internal Medicine; PCP Internal Medicine; Referring Provider Internal Medicine Critical Care Medicine; Visit Provider Internal Medicine Critical Care Medicine
PROC: BB4BZZZ Ultrasonography of Pleura (ICD-10-PCS; principal; 2018-05-25 12:00)
DX: R59.0 Localized enlarged lymph nodes (principal); I13.0 Hypertensive heart and chronic kidney disease with heart failure and stage 1 through stage 4 chronic kidney disease, or unspecified chronic kidney disease; N18.9 Chronic kidney disease, unspecified; I50.33 Acute on chronic diastolic (congestive) heart failure; E11.22 Type 2 diabetes mellitus with diabetic chronic kidney disease; I27.21 Secondary pulmonary arterial hypertension; I48.0 Paroxysmal atrial fibrillation; I25.10 Atherosclerotic heart disease of native coronary artery without angina pectoris; Q23.1 Congenital insufficiency of aortic valve; I44.1 Atrioventricular block, second degree; E78.5 Hyperlipidemia, unspecified; N40.0 Benign prostatic hyperplasia without lower urinary tract symptoms; G47.33 Obstructive sleep apnea (adult) (pediatric); K21.9 Gastro-esophageal reflux disease without esophagitis; Z79.82 Long term (current) use of aspirin; Z79.4 Long term (current) use of insulin; Z79.899 Other long term (current) drug therapy; Z95.1 Presence of aortocoronary bypass graft; Z95.2 Presence of prosthetic heart valve; Z86.718 Personal history of other venous thrombosis and embolism; Z85.828 Personal history of other malignant neoplasm of skin; F41.9 Anxiety disorder, unspecified
CPT/HCPCS: 31653; 36415; 82565; 82962; 84520; 85025; 85610; 85730; 88161; 88305; 88313; J7120; J2405

== ENCOUNTER → 2018-07-17 10:13 | Outpatient (CLI) | payer MEDICARE, OTHER, SELFPAY ==
[2018-05-31 09:14] VITALS: BMI 28.8
[2018-07-17 11:55] LABS: Anion Gap 7 (5-15); BUN 36 mg/dL (7-18); BUN/Creat Ratio 17.9 RATIO (10-20); Chloride 108 mmol/L (98-107); Creatinine, Serum 2.01 mg/dL (0.70-1.30); EST Glomerular Filtration Rate 35 mL/min (>60); Est Glom Filt Rate - Afr Amer 42 mL/min (>60); Glucose 203 mg/dL (74-106); Potassium 4.1 mmol/L (3.5-5.1); Sodium Level 141 mmol/L (136-145)
== END ==
PROVIDERS: Family Provider Internal Medicine; PCP Internal Medicine; Referring Provider Internal Medicine Nephrology; Visit Provider Internal Medicine Nephrology
DX: N18.3 Chronic kidney disease, stage 3 (moderate) (principal)
CPT/HCPCS: 36415; 80048

== ENCOUNTER → 2018-08-06 12:45 | Outpatient (CLI) | payer MEDICARE, OTHER, SELFPAY ==
[2018-05-31 09:14] VITALS: BMI 28.8
--- NOTE | 2018-08-06 12:48 | CT_ITS ---
STUDY: CT CHEST/THORAX WITHOUT CONTRAST REASON FOR EXAM: Male, 73 years old. Mediastinal lymphadenopathy. RADIATION DOSAGE (If Supplied By Facility): CTDIvol = ( 14.53 ) mGy, DLP = ( 449.68 ) mGycm TECHNIQUE: Transaxial imaging was performed without the administration of intravenous contrast material. Multiplanar coronal and sagittal images were reformatted. Individualized dose optimization techniques were used for this CT. COMPARISON: PET CT May 07, 2018. FINDINGS: There is a stable 14.5 mm calcified granuloma in the superior margin of the right middle lobe with mild distortion of the adjacent minor fissure. Minor focal scarring in the lingula of the left upper lobe. No acute consolidation. There is no demonstrated pleural abnormality. The heart size is upper normal. Normal pericardium. There are stable atherosclerotic calcifications of the coronary arteries. Sternal cerclage wires are present from a prior sternotomy. There are numerous mildly enlarged mediastinal and central hilar lymph nodes, generally stable to decreased in size from prior study. No distinctly new adenopathy. Normal unenhanced pulmonary arteries. There is stable calcification and prosthesis at the aortic valve There is stable atherosclerotic calcification of the aortic arch. There are degenerative changes of the thoracic spine with multilevel bridging right anterolateral endplate osteophytes. There is a stable 18 mm low-density lesion consistent with a lipid laden adenoma in the right adrenal gland. 20 mm accessory spleen incidentally noted medial to the lower pole of the spleen, and a second 8.5 mm transverse plane anterior to the lateral upper to midpole. CT/Chest without Contrast IMPRESSION: 1. Enlarged mediastinal lymph nodes are generally stable to decreased in size. No new adenopathy. 2. Stable calcified granuloma in the right middle lobe and minor scarring in the lingula of the left upper lobe. 3. Prior median sternotomy and aortic valve replacement. Heart size upper normal. 4. Atherosclerotic vascular calcifications again noted. 5. Stable 18 mm lipid laden adenoma in the right adrenal gland. Electronically Signed: Clifford Alarcon MD at 20:05 EST , Service support ,
--- NOTE | 2018-08-06 13:06 | ECHOCS_ITS ---
Reason For Study: PHTN Procedure This was a 2D Doppler, Color Flow transthoracic echocardiogram. Exam performed in department. Left Ventricle Normal LV size. Left ventricular systolic function is normal. The estimated ejection fraction is 53 %. No evidence for diastolic dysfunction. No regional wall motion abnormalities noted. Right Ventricle Normal RV size. Normal systolic function. Atria Normal left atrium. Normal right atrium. Mitral Valve Mild focal mitral valve thickening. Tricuspid Valve Normal tricuspid valve. Mild (1+) tricuspid valve insufficiency. Pulmonary artery systolic pressure is 28 mmHg. Aortic Valve Mean aortic valve gradient 10 mmHg. Stable appearing bioprosthetic aortic valve apparatus. Pulmonic Valve Normal pulmonic valve. Great Vessels Mildly dilated aortic root. The pulmonary artery is normal size. Normal inferior vena cava. Pericardium/Pleural No pericardial effusion. Medication Definity0.2ml given slow IV push to enhance endocardial definition. MMode/2D Measurements & Calculations LVIDd: 4.8 cm IVSd: 1.2 cm LVOT diam: 2.1 cm LVIDs: 3.3 cm LVPWd: 1.1 cm RVDd: 5.1 cm FS: 31.2 % LVOT area: 3.6 cm2 Ao root diam: 3.6 cm LAV(MOD-bp): 64.2 ml LVAd ap4: 36.8 cm2 LAV(MOD-bp) Indexed: 30.6 ml/m2 EDV(MOD-sp4): 126.7 ml LAV(MOD-sp2): 62.8 ml EDV(sp4-el): 134.2 ml LAV(MOD-sp4): 63.7 ml LVAs ap4: 23.3 cm2 ESV(MOD-sp4): 56.0 ml ESV(sp4-el): 57.7 ml EF(MOD-sp4): 55.8 % EF(sp4-el): 57.0 % SV(MOD-sp4): 70.7 ml SV(sp4-el): 76.5 ml LA A4 area: 21.5 cm2 LA dimension(2D): 5.5 cm RA A4 area: 15.6 cm2 Doppler Measurements & Calculations MV E max ger: 90.6 cm/sec Lat Peak E' Ger: 8.5 cm/sec Med Peak E' Ger: 3.8 cm/sec MV A max ger: 80.0 cm/sec E/E' lat: 10.6 E/E' med: 23.8 MV E/A: 1.1 Ao V2 max: 222.6 cm/sec LV V1 max: 129.8 cm/sec SV(LVOT): 102.8 ml Ao max P.8 mmHg LV V1 max P.7 mmHg Ao V2 mean: 150.1 cm/sec LV V1 mean P.8 mmHg Ao mean P.3 mmHg LV V1 mean: 92.1 cm/sec Ao V2 VTI: 46.6 cm LV V1 VTI: 28.4 cm DEANDRE(I,D): 2.2 cm2 EDANDRE(V,D): 2.1 cm2 PA V2 max: 114.5 cm/sec TR max ger: 243.7 cm/sec TR max P.8 mmHg Interpretation Summary Normal LV size. Left ventricular systolic function is normal. The estimated ejection fraction is 53 %. No evidence for diastolic dysfunction. Stable appearing bioprosthetic aortic valve apparatus. Mild (1+) tricuspid valve insufficiency. Contrast injection was performed. Ordering Physician: Richa Barrientos Referring Physician: Richa Barrientos Performed By: Maribel Bhatt, MICHELLE, RVT
== END ==
PROVIDERS: Family Provider Internal Medicine; PCP Internal Medicine; Referring Provider Internal Medicine; Visit Provider Internal Medicine
DX: I27.20 Pulmonary hypertension, unspecified (principal); R59.0 Localized enlarged lymph nodes
CPT/HCPCS: 71250; 93306; Q9957; A4216; C8929

== ENCOUNTER → 2018-08-07 11:24 | Outpatient (CLI) | payer MEDICARE, OTHER, SELFPAY ==
[2018-05-31 09:14] VITALS: BMI 28.8
[2018-08-07 13:08] LABS: Vitamin B12 1700 pg/mL (211-911)
[2018-08-07 13:09] LABS: Ferritin 75 ng/mL (26-388); Thyroid Stim Hormone (TSH) 3.87 uIU/mL (0.358-3.74)
[2018-08-07 13:32] LABS: Anion Gap 11 (5-15); BUN 33 mg/dL (7-18); BUN/Creat Ratio 15.8 RATIO (10-20); Calcium,Total 9.2 mg/dL (8.5-10.1); Chloride 108 mmol/L (98-107); Creatinine, Serum 2.09 mg/dL (0.70-1.30); EST Glomerular Filtration Rate 33 mL/min (>60); Est Glom Filt Rate - Afr Amer 40 mL/min (>60); Glucose 78 mg/dL (74-106); Potassium 4.5 mmol/L (3.5-5.1); Sodium Level 140 mmol/L (136-145)
== END ==
PROVIDERS: Nurse Practitioner Acute Care; Family Provider Internal Medicine; PCP Internal Medicine; Referring Provider Internal Medicine; Visit Provider Internal Medicine
DX: D50.0 Iron deficiency anemia secondary to blood loss (chronic) (principal); I10 Essential (primary) hypertension; R59.0 Localized enlarged lymph nodes; R74.8 Abnormal levels of other serum enzymes; R79.89 Other specified abnormal findings of blood chemistry
CPT/HCPCS: 36415; 80048; 82607; 82728; 84443

== ENCOUNTER → 2018-10-09 12:45 | Outpatient (CLI) | payer MEDICARE, OTHER, SELFPAY ==
[2018-08-24 10:27] VITALS: BMI 29.9
[2018-10-09 13:44] LABS: Hematocrit 40.8 % (40-54); Hemoglobin 13.4 g/dl (13.0-16.5); Mean Corp Hgb Conc 32.8 g/gl (32-36); Mean Corpuscular Hgb 31.3 pg (27.0-32.0); Mean Corpuscular Volume 95.3 fL (80-94); Mean Platelet Vol. 10.7 fl (6.2-12.0); Platelet Count 245 K/mm3 (150-450); RBC Distribution Width CV 12.6 % (11.6-14.6); RBC Distribution Width SD 42.4 fl (35.1-43.9); Red Blood Count 4.28 M/mm3 (4.6-6.2); White Blood Count 7.9 K/mm3 (4.4-11.0)
[2018-10-09 13:46] LABS: Scan Indicated on CBC? Y/N NO
[2018-10-09 13:53] LABS: Protein, Urine (Random) 75.9 mg/dL (<11.9); Protein:Creat Ratio 350 mg/g CRE (0-200)
[2018-10-09 14:15] LABS: Albumin, Serum 3.8 g/dL (3.2-5.0); BUN 32 mg/dL (7-18); BUN/Creat Ratio 14.8 RATIO (10-20); Calcium,Total 8.9 mg/dL (8.5-10.1); Chloride 107 mmol/L (98-107); Creatinine, Serum 2.16 mg/dL (0.70-1.30); EST Glomerular Filtration Rate 32 mL/min (>60); Est Glom Filt Rate - Afr Amer 39 mL/min (>60); Glucose 172 mg/dL (74-106); Phosphorus 3.5 mg/dL (2.5-4.9); Potassium 4.1 mmol/L (3.5-5.1); Sodium Level 143 mmol/L (136-145)
[2018-10-09 14:29] LABS: PTHIN 79.3 pg/mL (18.4-80.1)
[2018-10-09 17:51] LABS: Vitamin D,25 Hydroxy 31.3 ng/mL (29.95-100.01)
== END ==
PROVIDERS: Family Provider Internal Medicine; PCP Internal Medicine; Referring Provider Internal Medicine Nephrology; Visit Provider Internal Medicine Nephrology
DX: N18.3 Chronic kidney disease, stage 3 (moderate) (principal)
CPT/HCPCS: 36415; 80069; 82306; 82570; 83970; 84156; 85027

== ENCOUNTER → 2019-02-05 07:51 | Outpatient (CLI) | payer MEDICARE, OTHER, SELFPAY ==
[2018-05-31 09:14] VITALS: BMI 28.8
[2018-12-25 09:37] VITALS: BMI 29.2
--- NOTE | 2019-02-05 07:53 | CT_ITS ---
STUDY: CT CHEST WITHOUT CONTRAST REASON FOR EXAM: Male, 73 years old. Follow-up for mediastinal lymph nodes. RADIATION DOSAGE (If Supplied By Facility): CTDIvol = ( 18.24 ) mGy, DLP = ( 688.71 ) mGycm TECHNIQUE: Transaxial imaging was performed without the administration of intravenous contrast material. Multiplanar coronal and sagittal images were reformatted. Individualized dose optimization techniques were used for this CT. COMPARISON: Comparison is made with prior study dated August 06, 2018. FINDINGS: Stable calcified granuloma in the anterior aspect of the right middle lobe. There is no demonstrated pleural abnormality. There are calcifications of the coronary arteries. Sternal cerclage wires and vascular clips are present from a prior sternotomy and coronary artery bypass graft procedure (CABG). Prior aortic valve replacement. Stable appearance of the slightly enlarged mediastinal lymph nodes. Normal hilar regions. Normal unenhanced pulmonary arteries. There is atherosclerotic calcification of the aortic arch with tortuosity and elongation of the aortic arch and descending thoracic aorta. There are multi-level degenerative changes of the thoracic spine. Stable 1.7 cm adenoma in the right adrenal gland. CT/Chest without Contrast IMPRESSION: Stable examination Electronically Signed: Mark Waller, at 15:25 EDT , Service support ,
== END ==
PROVIDERS: Family Provider Internal Medicine; PCP Internal Medicine; Referring Provider Internal Medicine; Visit Provider Internal Medicine
DX: R91.1 Solitary pulmonary nodule (principal)
CPT/HCPCS: 71250

== ENCOUNTER → 2019-04-08 | Outpatient (CLI) | payer MEDICARE, OTHER, SELFPAY ==
[2019-02-27 10:43] VITALS: BMI 29.4
[2019-04-08 12:23] LABS: Hematocrit 42.8 % (40-54); Mean Corp Hgb Conc 32.7 g/dL (32-36); Mean Corpuscular Hgb 31.5 pg (27.0-32.0); Mean Corpuscular Volume 96.2 fL (80-94); Platelet Count 279 K/mm3 (150-450); RBC Distribution Width CV 11.9 % (11.6-14.6); RBC Distribution Width SD 42.2 fl (35.1-43.9); Red Blood Count 4.45 M/mm3 (4.6-6.2); White Blood Count 8.7 K/mm3 (4.4-11.0)
[2019-04-08 12:49] LABS: Vitamin D,25 Hydroxy 41.2 ng/mL (29.95-100.01)
[2019-04-08 12:51] LABS: PTHIN 68.8 pg/mL (18.4-80.1)
[2019-04-08 12:57] LABS: Albumin, Serum 3.6 g/dL (3.2-5.0); BUN 30 mg/dL (7-18); BUN/Creat Ratio 15.2 RATIO (10-20); Calcium,Total 8.7 mg/dL (8.5-10.1); Chloride 108 mmol/L (98-107); Creatinine, Serum 1.98 mg/dL (0.70-1.30); EST Glomerular Filtration Rate 35 mL/min (>60); Est Glom Filt Rate - Afr Amer 43 mL/min (>60); Glucose 58 mg/dL (74-106); Phosphorus 2.9 mg/dL (2.5-4.9); Potassium 3.6 mmol/L (3.5-5.1); Sodium Level 143 mmol/L (136-145)
[2019-04-08 14:08] LABS: Protein, Urine (Random) 13.6 mg/dL (<11.9); Protein:Creat Ratio 201 mg/g CRE (0-200)
== END | disposition home or self-care (01) ==
PROVIDERS: Family Provider Internal Medicine; PCP Internal Medicine; Referring Provider Internal Medicine Nephrology; Visit Provider Internal Medicine Nephrology
DX: N18.3 Chronic kidney disease, stage 3 (moderate) (principal); D50.0 Iron deficiency anemia secondary to blood loss (chronic); R80.9 Proteinuria, unspecified
CPT/HCPCS: 36415; 80069; 82306; 82570; 83970; 84156; 85027

== ENCOUNTER → 2019-04-10 09:33 | Outpatient (CLI) | payer MEDICARE, OTHER, SELFPAY ==
[2019-02-27 10:43] VITALS: BMI 29.4
[2019-04-10 09:44] VITALS: BP 138/67; PULSE 61; RESP 16; TEMP 36.1; O2SAT 99; BMI 29.0
[2019-04-10] MEDS: Cosyntropin 0.25 MG Vial IM (09:58)
== END ==
PROVIDERS: Family Provider Internal Medicine; PCP Internal Medicine; Referring Provider Internal Medicine; Visit Provider Internal Medicine
DX: E27.40 Unspecified adrenocortical insufficiency (principal)
CPT/HCPCS: 36415; 82533; 96372; J0834

== ENCOUNTER → 2020-02-07 12:40 | Outpatient (CLI) | payer MEDICARE, OTHER, SELFPAY ==
[2019-04-10 09:44] VITALS: BMI 29.0
[2019-12-31 11:03] VITALS: BMI 28.1
--- NOTE | 2020-02-07 12:43 | CT_ITS ---
STUDY: CT CHEST WITHOUT CONTRAST REASON FOR EXAM: Male, 74 years old. PT STATED LUNG NODULE F/U, HX 3 vessel CABG, aortic valve replacement, cholecystectomy RADIATION DOSAGE (If Supplied By Facility): CTDIvol = ( 13.26 ) mGy, DLP = ( 436.86 ) mGycm TECHNIQUE: Transaxial imaging was performed without the administration of intravenous contrast material. Multiplanar coronal and sagittal images were reformatted. Individualized dose optimization techniques were used for this CT. COMPARISON: Comparison is made with prior study dated 02/05/2019. FINDINGS: Stable calcified granuloma in the anterior aspect of the right middle lobe. Minimal linear scarring in the lingular segment of the left upper lobe. There is no demonstrated pleural abnormality. Sternal cerclage wires and vascular clips are present from a prior sternotomy and coronary artery bypass graft procedure (CABG). There are calcifications of the coronary arteries. There are multiple small lymph nodes within the mediastinum, which are normal in size and morphology most compatible with reactive lymph hyperplasia. Calcified right paratracheal lymph node and right hilar. Normal hilar regions. Normal unenhanced pulmonary arteries. There is atherosclerotic calcification of the aortic arch with tortuosity and elongation of the aortic arch and descending thoracic aorta. There are multi-level degenerative changes of the thoracic spine. Stable 1.7 cm adenoma in the right adrenal gland. CT/Chest without Contrast IMPRESSION: Stable examination. Electronically Signed: Mark Waller, at 14:29 EDT , Service support ,
== END ==
PROVIDERS: PCP Internal Medicine; Referring Provider Internal Medicine; Visit Provider Internal Medicine
DX: R91.1 Solitary pulmonary nodule (principal)
CPT/HCPCS: 71250

== ENCOUNTER → 2020-02-26 12:25 | Outpatient (CLI) | payer MEDICARE, OTHER, SELFPAY ==
[2019-12-31 11:03] VITALS: BMI 28.1
--- NOTE | 2020-02-26 14:15 | PFTCOMP_ITS ---
COMPLETE PULMONARY FUNCTION TEST INTERPRETATION Brief HPI: Patient is a 74 year old male, currently under the care of Dr. Barrientos, who presents to [facility] for complete pulmonary function tests secondary to diagnosis of CHF. Respiratory therapist reports good effort and reproducible results. Interpretation: Forced expiration spirometry shows no large airways obstructive ventilatory defect with an FEV1 of 102% predicted. There is no significant bronchodilator response by strict ATS criteria. Spirograms are of good quality and plateau slowly, indicating slowly emptying areas of the lungs. The respiratory flow volume loop shows decreased expiratory flow rates at high lung volumes consistent with small airways obstruction. Lung volumes by body plethysmography show a normal total lung capacity at 6.76 L, 105% predicted. All other lung volumes are within normal limits. Diffusion capacity by carbon monoxide is normal at 83% predicted. The airway resistance is normal. No previous pulmonary function tests were available for review. Impression: These pulmonary function tests are within normal limits.
== END ==
PROVIDERS: PCP Internal Medicine; Referring Provider Internal Medicine; Visit Provider Internal Medicine
DX: I50.9 Heart failure, unspecified (principal)
CPT/HCPCS: 94060; 94726; 94729

== ENCOUNTER → 2020-07-31 09:47 | Outpatient (CLI) | payer MEDICARE, OTHER, SELFPAY ==
[2020-05-18 10:38] VITALS: BMI 27.9
--- NOTE | 2020-07-31 09:51 | CDU_ITS ---
Reason For Study: Carotid atherosclerosis Rt. Velocities/BP Lt. Velocities/BP Prox CCA 56.5/10.8 cm/sec. Prox CCA 82.7/13.5 cm/sec. Mid CCA 47.6/11.3 cm/sec. Mid CCA 70.6/12.4 cm/sec. Dist CCA 60.8/13.5 cm/sec. Dist CCA 55.3/11.3 cm/sec. Prox ICA 69.5/14.6 cm/sec. Prox ICA 46.5/9.1 cm/sec. Mid ICA 54.1/17.3 cm/sec. Mid ICA 48.7/14.6 cm/sec. Dist ICA 51.3/14.5 cm/sec. Dist ICA 56.4/15.7 cm/sec. Rt. ICA/CCA = 1.2. Lt. ICA/CCA = 0.8. Prox ECA 126.6/11.5 cm/sec. Prox ECA 139.4/17 cm/sec. Rt. Vert. 40.9/9.7 cm/sec. Lt. Vert. 33.7/8 cm/sec. Right Extracranial There is intimal thickening but no significant atherosclerotic plaque noted in the right common carotid artery. There is intimal thickening but no significant atherosclerotic plaque noted in the right internal carotid artery. There is heterogeneous, irregular atherosclerotic plaque noted in the right external carotid artery. Antegrade flow is noted in the right vertebral artery. Left Extracranial There is intimal thickening but no significant atherosclerotic plaque noted in the left common carotid artery. There is heterogeneous, irregular atherosclerotic plaque noted in the left internal carotid artery. The atherosclerotic plaque causes acoustic shadowing. There is heterogeneous, irregular atherosclerotic plaque noted in the left external carotid artery. Antegrade flow is noted in the left vertebral artery. Procedure Carotid Duplex 95303. This is a Carotid Duplex examination using B-mode, color flow and specral Doppler. Exam performed in department. Interpretation Summary No significant atherosclerotic plaque or stenosis noted in the right internal carotid artery. Mild (<50%) stenosis left extracranial internal carotid. Flow within the vertebral arteries is antegrade bilaterally. Ordering Physician: Richa Barrientos Referring Physician: Richa Barrientos Performed By: Estela Emanuel RVT
== END ==
PROVIDERS: PCP Internal Medicine; Referring Provider Internal Medicine; Visit Provider Internal Medicine
DX: I65.23 Occlusion and stenosis of bilateral carotid arteries (principal)
CPT/HCPCS: 93880

== ENCOUNTER 2020-09-29 17:49 | Observation (INO) | payer OTHER, MEDICARE, SELFPAY ==
[2020-05-18 10:38] VITALS: BMI 27.9
[2020-09-29] VITALS (8 sets, daily range): BP systolic 136–197; BP diastolic 75–89; PULSE 74–82; RESP 16–19; TEMP 36.5–36.8; O2SAT 97–100; BMI 28.9; BMI 28.0
--- NOTE | 2020-09-29 18:04 | EKG12_ITS ---
Test Reason : Blood Pressure : / mmHG Vent. Rate : 073 BPM Atrial Rate : 073 BPM P-R Int : 282 ms QRS Dur : 100 ms QT Int : 400 ms P-R-T Axes : 090 024 092 degrees QTc Int : 440 ms Sinus rhythm with 1st degree A-V block with Premature atrial complexes Otherwise normal ECG Confirmed by ELZA OQUENDO, KAYLIN ([id number]), supervising editor trailer TIFFANY MENDEZ ([id number]) on 10/02/2020 8:06:28 AM Referred By: NADEEM Confirmed By:CATHY BERTRAND MD
--- NOTE | 2020-09-29 18:06 | ED.DCSUM_ITS ---
- ER Visit Summary Date of Service: 09/29/20 Chief Complaint: Midsternal chest pain History of Present Illness: The patient is a 75 M history of prior CHF, A. fib, diabetes, prior DVT, hypertension high cholesterol. Patient is on no blood thinners besides aspirin. His most recent heart cath was about 5 years ago. He has had a prior triple bypass. He states he was at home watching the news around 539 and half hour ago had sudden onset of midsternal chest pain at times does radiate to his left shoulder. No nausea. No diaphoresis. No dyspnea. Denies any recent exertional dyspnea. No hemoptysis. No recent travel, surgery or immobilization. Physical Examination: Older male no acute distress accompanied by his vital signs stable afebrile pulse ox are percent room air no signs of hypoxia. HEENT exam unremarkable. Neck nontender no JVD. Lungs clear to auscultation bilaterally. Heart regular rhythm rate about 70 no murmur. Chest wall nontender. No ecchymosis or bruising. No subcu air crepitance. Due to psoriasis abdomen soft nontender normal bowel sounds no peritoneal signs. Extremities moves all 4. Calves nontender without edema or cords. Equal symmetrical radial pulses. Back nontender. Neurologically is awake alert with no focal motor deficits. Test Results: EKG shows a normal sinus rhythm first-degree AV block with PACs. No signs of VT or ischemia. Emergency Department Course and Treatment: Patient with midsternal chest pain. Not reproducible. His pain is concerning and he may need to be admitted for further evaluation. Treatment Plan: Exam patient is doing well at 7:35 PM. Chest pain greatly resolved within the nature was returning. A repeat EKG was obtained and shows normal sinus rhythm rate of 76 with a first-degree AV block but no acute signs of VT or ischemia no change from the prior or from from March. He will also be given Nitropaste. I have the hospitalist on page for admission. Disposition: Observation Impression: Acute chest pain uncertain etiology History of due to psoriasis CAD and prior triple bypass History of diabetes History of hypertension high cholesterol History of A. fib This note was generated with SolAeroMedation software. It may contain incorrect words, spelling, and punctuation that were not noted in review of the chart prior to signing ED Disposition - Plan for ED Patient: Referrals: Richa Barrientos MD [Primary Care Provider] -
[2020-09-29 18:37] LABS: Absolute Lymphocyte Count 1.02 X10^3/uL (0.83-4.51); Absolute Neutrophil Count 5.2 X10^3/uL (2.0-7.7); Basophil# 0.02 X10^3/uL; Basophil% 0.3 % (0-1); Eosinophil# 0.16 X10^3/uL; Eosinophils% 2.3 % (0-5); Hematocrit 42.7 % (40-54); Hemoglobin 13.8 g/dL (13.0-16.5); Lymphocyte # 1.02 X10^3/ul (0.83-4.51); Lymphocyte % 14.9 % (19-41); Mean Corp Hgb Conc 32.3 g/dL (32-36); Mean Corpuscular Hgb 31.9 pg (27.0-32.0); Mean Corpuscular Volume 98.6 fL (80-94); Monocyte# 0.46 X10^3/uL; Monocyte% 6.7 % (0-10); NRBC Flagged by Analyzer 0 % (0-5); Neutrophil # 5.16 X10^3/uL (2.7-7.7); Neutrophil % 75.5 % (47-70); Platelet Count 246 K/mm3 (150-450); RBC Distribution Width CV 11.9 % (11.6-14.6); RBC Distribution Width SD 43.5 fl (35.1-43.9); Red Blood Count 4.33 M/mm3 (4.6-6.2); White Blood Count 6.8 K/mm3 (4.4-11.0)
[2020-09-29] MEDS: Aspirin 81 MG TAB.CHEW 324 MG PO (18:40)
[2020-09-29] MEDS: Nitroglycerin SL (ED/IMG/CATH) 0.4 MG TABLET SL (18:49)
--- NOTE | 2020-09-29 18:50 | RAD_ITS ---
STUDY: X-RAY CHEST REASON FOR EXAM: Male, 75 years old. chest pain TECHNIQUE: AP portable COMPARISON: CT of the chest 02/05/2019 FINDINGS: The lungs are clear and expanded. There is a well-rounded nodular density in the right middle lobe measuring approximately 11 to 12 mm in size stable since prior study There is no demonstrated pleural abnormality. Postop change status post median sternotomy and CABG. Borderline cardiomegaly.. Normal mediastinum and yuliya. Normal visualized pulmonary arteries. Normal visualized aortic arch and descending thoracic aorta. Dorsal spine and shoulders demonstrate degenerative change. Normal visualized ribs, and clavicles. There is no demonstrated abnormality of the visualized soft tissue structures of the upper abdomen. RAD/Chest 1 View (Portable) IMPRESSION: No acute cardiopulmonary pathology. Electronically Signed: Ifeanyi Pool MD at 19:22 EDT , Service support ,
[2020-09-29 18:56] LABS: Anion Gap 6 (5-15); BUN 24 mg/dL (7-18); BUN/Creat Ratio 12.6 RATIO (10-20); Calcium,Total 8.8 mg/dL (8.5-10.1); Chloride 108 mmol/L (98-107); EST Glomerular Filtration Rate 37 mL/min (>60); Est Glom Filt Rate - Afr Amer 45 mL/min (>60); Estimated Creatinine Clearance 34.15 ml/min; Glucose 183 mg/dL (74-106); Potassium 3.8 mmol/L (3.5-5.1); Sodium Level 143 mmol/L (136-145)
--- NOTE | 2020-09-29 19:43 | EKG12_ITS ---
Test Reason : CP REPEAT Blood Pressure : / mmHG Vent. Rate : 076 BPM Atrial Rate : 076 BPM P-R Int : 282 ms QRS Dur : 100 ms QT Int : 408 ms P-R-T Axes : 105 020 101 degrees QTc Int : 459 ms Sinus rhythm with 1st degree A-V block Otherwise normal ECG Confirmed by ELZA OQUENDO, KAYLIN ([id number]), tape editor TIFFANY MENDEZ ([id number]) on 10/02/2020 8:06:44 AM Referred By: ANISA Confirmed By:CATHY BERTRAND MD
[2020-09-29] MEDS: Nitroglycerin Oint 1 INCH PACKET TD (20:10)
--- NOTE | 2020-09-29 21:04 | HP.PCM_ITS ---
Problem List (1) Chest pain at rest Status: Acute (2) Amiodarone-induced hyperthyroidism Status: Chronic (3) Atherosclerosis of coronary artery of [place] heart without angina pectoris Status: Chronic Qualifiers: Comment: CABG x 3 PATEL to LAD, SVG-Ramus, SVG-RPLB 11/29/2012 (4) Paroxysmal atrial fibrillation Status: Chronic (5) Non-rheumatic aortic stenosis Status: Chronic (6) Chronic diastolic (congestive) heart failure Status: Chronic (7) Essential (primary) hypertension Status: Chronic (8) HLD (hyperlipidemia) Status: Chronic Qualifiers: Hyperlipidemia type: pure hypercholesterolemia (9) H/O aortic valve replacement Status: Resolved Comment: 25 mm Felix-Wilcox Perimount Magna Valve ([facility]: 11/29/2012) (10) H/O coronary artery bypass surgery Status: Resolved Comment: CABG x 3 PATEL to LAD, SVG-Ramus, SVG-RPLB 11/29/2012 History of Present Illness Date of Admission: 09/29/20 Chief Complaint: chest pain The patient is a 75 year old M who presents to the ER today following an episode of chest pressure. Patient states at home he was sitting watching the news and he began to have chest pressure that he describes as substernal. Patient denies that this pressure radiated to neck back or arm. Patient denies any strenuous activity prior to episode however patient does state that he had a root canal earlier in the day and had taken a oxycodone approximately 1 hour prior to onset of chest pressure. Patient states nothing improved the pressure, but ambulating to the car to come to the ER increase the pressure. patient states that he is no t currently having chest pain following the administration of 1 sublingual nitro and Nitropaste in the ER. Past Medical History Past Medical History (Chronic Problems): Chronic Problems (Last Reviewed 05/18/20 @ 14:[address] Johnny Valverde MD) Amiodarone-induced hyperthyroidism (Chronic) Atherosclerosis of coronary artery of [place] heart without angina pectoris (Chronic 11/29/12) CABG x 3 PATEL to LAD, SVG-Ramus, SVG-RPLB 11/29/2012 Paroxysmal atrial fibrillation (Chronic) Non-rheumatic aortic stenosis (Chronic) Chronic diastolic (congestive) heart failure (Chronic) Essential (primary) hypertension (Chronic) HLD (hyperlipidemia) (Chronic) Medical History: Medical History (Last Reviewed 09/29/20 @ 21:09 by Jennifer Rasmussen NP-C) Diastasis recti (Acute) M62.08 Atherosclerosis of coronary artery of [place] heart without angina pectoris (Chronic) Onset Date: 11/29/12 I25.10 CABG x 3 PATEL to LAD, SVG-Ramus, SVG-RPLB 11/29/2012 Paroxysmal atrial fibrillation (Chronic) I48.0 Non-rheumatic aortic stenosis (Chronic) I35.0 Chronic diastolic (congestive) heart failure (Chronic) I50.32 Essential (primary) hypertension (Chronic) I10 HLD (hyperlipidemia) (Chronic) E78.5 BPH (benign prostatic hyperplasia) N40.0 Chronic kidney disease (CKD) N18.9 DVT (deep venous thrombosis) I82.409 GERD (gastroesophageal reflux disease) K21.9 Mediastinal lymphadenopathy R59.0 Mobitz (type) I (Wenckebach's) atrioventricular block I44.1 Obstructive sleep apnea G47.33 Type 2 diabetes mellitus without complications E11.9 Bicuspid aortic valve Q23.1 Pleural effusion, bilateral J90 Secondary pulmonary arterial hypertension I27.21 Acute on chronic diastolic (congestive) heart failure (Inactive) I50.33 Allergies No Known Allergies Allergy (Verified 09/29/20 17:57) Home Medications: Ambulatory Orders Medication Instructions Recorded Atorvastatin Calcium [Lipitor] 20 mg PO QHS 07/02/13 Insulin Aspart [Novolog] 10 units SC TID 07/02/13 Aspirin [Aspirin, Baby] 81 mg PO DAILY@0800 02/09/15 Doxazosin Mesylate 4 mg PO DAILY 02/09/15 Insulin Glargine,Hum.rec.anlog 30 unit SQ BID 02/09/15 [Lantus] Methyl-B12/l-Mefolate/B6 Phos 1 ea PO DAILY 12/09/15 [Foltanx Tablet] Temazepam [Restoril] 15 mg PO QHS PRN PRN 07/19/16 gabapentin 300 mg capsule 300 mg PO DAILY cap 04/20/18 liraglutide 0.6 mg/0.1 mL (18 mg/3 0.6 mg SC BID 04/27/18 mL) subcutaneous pen injector Cholecalciferol (VIT D3) [Vitamin 2,000 unit PO DAILY 05/23/18 D] amlodipine 10 mg tablet 10 mg PO DAILY 08/24/18 furosemide 20 mg tablet 20 mg PO DAILY 08/24/18 losartan 25 mg tablet 25 mg PO DAILY tab 12/31/19 ascorbate calcium (vitamin C) 500 500 mg PO BID 03/26/20 mg tablet methimazole 10 mg tablet 10 mg PO DAILY 03/26/20 zinc 50 mg tablet 50 mg PO DAILY 03/26/20 amiodarone 200 mg tablet 100 mg PO .MoWeFri tab 05/18/20 metoprolol succinate 50 mg 50 mg PO DAILY #30 tab 06/23/20 tablet,extended release 24 hr Surgical History: Surgical History (Last Reviewed 09/29/20 @ 21:10 by CARMEN Carranza) H/O aortic valve replacement (Resolved) Onset Date: 11/29/12 Z95.2 25 mm Felix-Wilcox Perimount Magna Valve ([facility]: 11/29/2012) H/O coronary artery bypass surgery (Resolved) Onset Date: 11/29/12 Z95.1 CABG x 3 PATEL to LAD, SVG-Ramus, SVG-RPLB 11/29/2012 History of left heart catheterization Onset Date: 12/09/15 Z98.890 History of transurethral resection of prostate Z98.890, Z90.79 Hx of cholecystectomy Z90.49 Surgical History: cholecystectomy, coronary bypass surgery, TURP, - Psychiatric History: Anxiety, Depression Lives: Spouse/ Significant Other Smoking Status: Never smoker Tobacco Use: Non-smoker Alcohol: None Drugs: None - *Family History Maternal Family History: Family History (Last Reviewed 09/29/20 @ 21:10 by CARMEN Carranza) Father CAD (coronary artery disease) Brother CAD (coronary artery disease) History Items: No pertinent history Paternal Family History: Family History (Last Reviewed 09/29/20 @ 21:10 by CARMEN Carranza) Father CAD (coronary artery disease) Brother CAD (coronary artery disease) History Items: Heart Disease Sibling Family History: Family History (Last Reviewed 09/29/20 @ 21:10 by CARMEN Carranza) Father CAD (coronary artery disease) Brother CAD (coronary artery disease) History Items: Heart Disease Review of Systems Constitutional: Denies: Chills, Fever, Weight Change HEENT: Denies: Head Aches, Sinus Congestion, Sinus Drainage Cardiovascular: Reports: Chest Pressure, Chest Tightness, Palpitations. Denies: Chest Pain Respiratory: Denies: Cough, Shortness of breath at rest, Sputum production Gastrointestinal: Denies: Abdominal Pain, Nausea, Vomiting Genitourinary: Denies: Dysuria Musculoskeletal: Denies: Joint Pain, Joint Tenderness Skin: Denies: Rash, Wounds Neurological: Denies: Numbness, Tingling, Focal weakness Psychiatric: Denies: Anxiety, Depression, Homicidal Ideations, Suicidal Ideations Hematologic/ Lymphatic: Denies: Easy Bruising, Easy Bleeding VTE Information - Inpt Only VTE Present on Admission: No VTE Mechan Device Prophylaxis: None VTE Pharm Prophylaxis ordered?: No - Physical Exam Vitals/I&O's: Vital Signs Temp Pulse Resp BP Pulse Ox 97.8 F 77 16 136/75 H 97 09/29/20 20:37 09/29/20 20:37 09/29/20 20:37 09/29/20 20:37 09/29/20 20:37 Oxygen Delivery Method Room Air Weight: 201 lb 8.04 oz Body Mass Index (BMI) 28.9 Finger Stick Blood Glucose 113 General: Alert, Oriented x3, Cooperative HEENT: Atraumatic, PERRLA, EOMI, Normocephalic Neck: Supple, No JVD, Negative Carotid Bruits Lungs: Clear to auscultation, Normal air movement, No rhonchi, No wheeze, No rales Cardiovascular: Regular rate, Regular Rhythm, Normal S1, Normal S2, No murmurs Abdomen: Bowel Sounds Present, Soft, Non Tender Extremities: No edema, Capillary Refill Less than 3 Seconds Skin: No rashes, No breakdown Musculoskeletal: No Tenderness to Palpation of Joints or Extremities Neurological: Cranial nerves II-XII grossly intact Psych/Mental Status: Normal Affect, Appropriate Laboratory Results 09/29/20 18:25: WBC 6.8, RBC 4.33 L, Hgb 13.8, Hct 42.7, MCV 98.6 H, MCH 31.9, MCHC 32.3, RDW Std Deviation 43.5, RDW Coeff of Roque 11.9, Plt Count 246, MPV 10.0, Immature Gran % (Auto) 0.300, Neut % (Auto) 75.5 H, Lymph % (Auto) 14.9 L, [place] % (Auto) 6.7, Eos % (Auto) 2.3, Baso % (Auto) 0.3, Absolute Neuts (auto) 5.2, Absolute Lymphs (auto) 1.02, Nucleated RBC % 0 09/29/20 18:25: Sodium 143, Potassium 3.8, Chloride 108 H, Carbon Dioxide 29.0, Anion Gap 6, BUN 24 H, Creatinine 1.90 H, Estim Creat Clear Calc 34.15, Est GFR (MDRD) Af Amer 45 L, Est GFR (MDRD) Non-Af 37 L, BUN/Creatinine Ratio 12.6, Glucose 183 H, Calcium 8.8, Troponin I < 0.015 Current Medications Nitroglycerin (Nitroglycerin Sl (Ed/Img/Cath) 0.4 Mg Tablet) 0.4 mg SL Q5M PRN PRN Reason: Chest pain Last Admin: 09/29/20 18:49 Dose: 0.4 mg Documented by: Assessment/Plan All Active Problems (Last Reviewed 05/18/20 @ 14:[address] Johnny Valverde MD) Chest pain at rest (Acute) Diastasis recti (Acute) Dyspnea on exertion (Acute) Chest pressure (Resolved) H/O aortic valve replacement (Resolved 11/29/12) H/O coronary artery bypass surgery (Resolved 11/29/12) Hypoxemia (Resolved) Pulmonary edema (Resolved) 1. Chest pain at rest -PCU for observation -Nuclear stress test in morning, n.p.o. at midnight -Trend cardiac enzymes -CBC, BMP, lipid, magnesium, phosphorus in a.m. -VS per protocol -O2 per protocol -Consult cardiology 2. Atherosclerosis of coronary artery of [place] without angina pectoris with history of CABG x3 -CABG x3, 11/29/2012 3. Paroxysmal A. fib -Currently NSR, Daily EKG and continuous cardiac monitoring. 4. Nonrheumatic aortic stenosis with aortic valve replacement. -11/29/2012 5. Chronic diastolic congestive heart failure -continue lasix 6. Amiodarone-induced hyperthyroidism -Amiodarone three times weekly at home will continue current regimen -continue methimazole 7. Essential hypertension -Currently well controlled, will continue home medication regimen 8. Hyperlipidemia -Continue atorvastatin 9. Diabetes mellitus type II -Hold Victoza while inpatient -Continue Lantus and Novolog -AC at bedtime blood sugars ordered DVT prophylaxis-subcu Lovenox This patient was seen by Jennifer Rasmussen NP-C under the supervision of Dr. Soni
--- NOTE | 2020-09-29 21:55 | EKG12_ITS ---
Test Reason : AM EKG Blood Pressure : / mmHG Vent. Rate : 058 BPM Atrial Rate : 058 BPM P-R Int : 294 ms QRS Dur : 104 ms QT Int : 448 ms P-R-T Axes : 046 037 102 degrees QTc Int : 439 ms Sinus bradycardia with 1st degree A-V block with Premature atrial complexes Otherwise normal ECG When compared with ECG of 29-SEP-2020 23:00, MANUAL COMPARISON REQUIRED, DATA IS UNCONFIRMED Confirmed by ELZA OQUENDO, KAYLIN ([id number]), design editor TIFFANY MENDEZ ([id number]) on 10/02/2020 8:30:04 AM Referred By: WINSTON Confirmed By:CATHY BERTRAND MD
[2020-09-29] MEDS: Atorvastatin Calcium 40 MG Tablet PO (22:37)
[2020-09-29] MEDS: Insulin Lispro 100 UNIT/ML INSULN.PEN 10 UNIT SC (22:37)
[2020-09-29 22:46] LABS: Bedside Glucose 296 mg/dL (70-110)
[2020-09-29 23:11] LABS: Magnesium 2.1 mg/dL (1.6-2.6)
[2020-09-29] MEDS: Acetaminophen 325 MG Tablet 650 MG PO (23:19)
[2020-09-29] MEDS: Temazepam 15 MG Capsule PO (23:19)
[2020-09-30] MEDS: oxyCODONE 5 MG Tablet PO (00:21)
[2020-09-30] MEDS: 0.9% Saline Lock 10 ML Syringe IV ×2 (00:59→01:01)
[2020-09-30] MEDS: Morphine 2 MG/ML Syringe IV (00:59)
[2020-09-30 03:00] VITALS: PULSE 54
[2020-09-30 04:00] VITALS: BP 171/79; PULSE 60; RESP 18; TEMP 36.6; O2SAT 96
[2020-09-30] MEDS: oxyCODONE 5 MG Tablet 10 MG PO (04:11)
[2020-09-30 05:57] VITALS: BP 145/74; PULSE 60; RESP 18; TEMP 36.3; O2SAT 99
[2020-09-30] MEDS: Losartan Potassium 25 MG Tablet PO (06:01)
[2020-09-30] MEDS: Aspirin 81 MG TAB.CHEW PO (06:01)
[2020-09-30 07:00] VITALS: PULSE 56
[2020-09-30 07:36] VITALS: O2SAT 94
[2020-09-30 07:46] LABS: Absolute Lymphocyte Count 1.23 X10^3/uL (0.83-4.51); Absolute Neutrophil Count 5.5 X10^3/uL (2.0-7.7); Basophil# 0.02 X10^3/uL; Basophil% 0.3 % (0-1); Eosinophil# 0.27 X10^3/uL; Eosinophils% 3.5 % (0-5); Hematocrit 41.3 % (40-54); Hemoglobin 13.2 g/dL (13.0-16.5); Lymphocyte # 1.23 X10^3/ul (0.83-4.51); Lymphocyte % 15.9 % (19-41); Mean Corpuscular Hgb 31.7 pg (27.0-32.0); Mean Corpuscular Volume 99.3 fL (80-94); Mean Platelet Vol. 10.3 fl (6.2-12.0); Monocyte# 0.68 X10^3/uL; Monocyte% 8.8 % (0-10); NRBC Flagged by Analyzer 0 % (0-5); Neutrophil # 5.51 X10^3/uL (2.7-7.7); Neutrophil % 71.1 % (47-70); Platelet Count 242 K/mm3 (150-450); RBC Distribution Width SD 43.8 fl (35.1-43.9); Red Blood Count 4.16 M/mm3 (4.6-6.2); White Blood Count 7.7 K/mm3 (4.4-11.0)
[2020-09-30 07:56] LABS: Bedside Glucose 139 mg/dL (70-110)
[2020-09-30 08:13] LABS: ALB/GLOB Ratio 0.8 RATIO (0.9-2.4); AST(SGOT) 135 U/L (15-37); Alanine Aminotransfer ALT/SGPT 144 U/L (16-61); Albumin, Serum 3.2 g/dL (3.2-5.0); Alkaline Phosphatase 175 U/L (45-117); Anion Gap 6 (5-15); BUN 23 mg/dL (7-18); BUN/Creat Ratio 12.9 RATIO (10-20); Calcium,Total 8.8 mg/dL (8.5-10.1); Chloride 107 mmol/L (98-107); Cholesterol 105 mg/dL (200); Creatinine, Serum 1.78 mg/dL (0.70-1.30); EST Glomerular Filtration Rate 40 mL/min (>60); Est Glom Filt Rate - Afr Amer 48 mL/min (>60); Estimated Creatinine Clearance 36.45 ml/min; Globulin 3.9 g/dL (2.2-4.2); Glucose 129 mg/dL (74-106); High Density Lipoprotein 56 mg/dL; Potassium 3.5 mmol/L (3.5-5.1); Protein, Total 7.1 g/dL (6.4-8.2); Sodium Level 142 mmol/L (136-145); Triglycerides 86 mg/dL; Very Low Density Lipoprotein 17 mg/dL (5-40)
[2020-09-30 08:25] LABS: Bedside Glucose 106 mg/dL (70-110)
[2020-09-30 10:02] VITALS: BP 126/58; PULSE 62; RESP 16; TEMP 36.5; O2SAT 97
[2020-09-30] MEDS: METHIMAZOLE 5 MG TABLET 10 MG PO (10:16)
[2020-09-30] MEDS: Furosemide 20 MG Tablet PO (10:16)
[2020-09-30] MEDS: Amiodarone 200 MG Tablet 100 MG PO (10:16)
[2020-09-30] MEDS: Gabapentin 300 MG Capsule PO (10:16)
[2020-09-30] MEDS: amLODIPine 10 MG Tablet PO (10:16)
--- NOTE | 2020-09-30 11:02 | STRESSREP_ITS ---
Stress Test Report Date: 09-30-2020 Procedure: Exercise tolerance test/imaging study Indications: Pain; CAD; CABG; status post AVR; PAF; CHF Consent: Per the patient Procedure: The patient exercised on a Stephen protocol for 6 minutes completing Stage II to achieving a peak heart rate of 130 bpm (90% predicted maximal heart rate) with a peak blood pressure 160/74 mmHg and a peak MET capacity of 7 METs. The baseline ECG demonstrated sinus rhythm. The peak exercise ECG demonstrated approximately 1 mm of horizontal/downsloping ST segment depression in leads I, aVL, aVF, and approximately 0.5 mm of horizontal/downsloping ST segment depression in leads V5 and V6 with gradual resolution towards baseline in recovery. There is a rare PVC during recovery. The functional capacity was considered average. There was no complaint of chest discomfort during exercise or recovery. The examination was discontinued secondary to dyspnea. Impression: 1. Technically adequate (percent predicted maximal heart rate greater than 85%) exercise tolerance test 2. Peak exercise ECG with approximately 1 mm of horizontal/downsloping ST segment depression in leads I, aVL, aVF, and approximately 0.5 mm horizontal/downsloping ST segment depression in leads V5 and V6 with gradual resolution towards baseline in recovery 3. There was a rare PVC during recovery 4. Nuclear images pending Myocardial perfusion imaging study: Technique: The patient was injected with 14.1 mCi of technetium 99m Cardiolite and subsequently rest SPECT Cardiolite nuclear imaging was obtained in the horizontal long, vertical long, and short axis views. The patient exercised on a Stephen protocol for 6 minutes completing Stage II to achieving a peak heart rate of 130 bpm (90% predicted maximal heart rate) with a peak blood pressure 160/74 mmHg and a peak MET capacity of 7 METs. The patient was injected with 44.7 mCi of technetium 99m Cardiolite and subsequently stress SPECT Cardiolite nuclear imaging was obtained in the horizontal long, vertical long, and short axis views. A gated Cardiolite study at peak stress was obtained. Interpretation: Rest and stress SPECT Cardiolite nuclear imaging status post realignment, normalization, and attenuation correction, demonstrates the appearance of relative uniform tracer uptake and myocardial perfusion appearing within normal limits. There is end systolic thickening and brightening. The gated Cardiolite study demonstrates myocardial thickening and inward wall motion. The reported LVEF is 59%. Impression: 1. Rest and stress SPECT Cardiolite nuclear imaging demonstrate relative uniform tracer uptake and myocardial perfusion appearing within normal limits. 2. The gated Cardiolite study reports an LVEF of 59%. This note was generated with Presidioation software. It may contain incorrect words, spelling, and punctuation that were not noted in checking the note before signing.
[2020-09-30] MEDS: Insulin Lispro 100 UNIT/ML INSULN.PEN 10 UNIT SC (11:26)
[2020-09-30 11:30] LABS: Bedside Glucose 172 mg/dL (70-110)
--- NOTE | 2020-09-30 11:52 | DCINST_ITS ---
- Discharge Diagnoses Current Active Problems: Current Active and Chronic Problems (Last Reviewed 09/29/20 @ 21:09 by Jennifer Rasmussen, CALENDER WORKER HELPER-C) Chest pain at rest (Acute) Amiodarone-induced hyperthyroidism (Chronic) Atherosclerosis of coronary artery of [place] heart without angina pectoris (Chronic 11/29/12) CABG x 3 PATEL to LAD, SVG-Ramus, SVG-RPLB 11/29/2012 Paroxysmal atrial fibrillation (Chronic) Non-rheumatic aortic stenosis (Chronic) Chronic diastolic (congestive) heart failure (Chronic) Essential (primary) hypertension (Chronic) HLD (hyperlipidemia) (Chronic) You will use the following diet at home:: Calorie/Carbohydrate Controlled (specify 1200, 1400, etc) - 1800 anne Your food should be the consistency of: Regular Your liquids should be the consistency of: Regular/Thin Discharge Activity: Return to Normal Activity Weight Bearing Status: Full weight bearing Allergies/Adverse Reactions: Allergies No Known Allergies Allergy (Verified 09/29/20 17:57) Medications to take at Discharge Atorvastatin Calcium [Lipitor] 20 mg PO QHS 07/02/13 Insulin Aspart [Novolog] 10 units SC TID 07/02/13 Aspirin [Aspirin, Baby] 81 mg PO DAILY@0800 02/09/15 Doxazosin Mesylate 4 mg PO DAILY 02/09/15 Insulin Glargine,Hum.rec.anlog [Lantus] 30 unit SQ BID 02/09/15 Methyl-B12/l-Mefolate/B6 Phos [Foltanx Tablet] 1 ea PO DAILY 12/09/15 Temazepam [Restoril] 15 mg PO QHS PRN PRN 07/19/16 gabapentin 300 mg capsule 300 mg PO DAILY cap 04/20/18 liraglutide 0.6 mg/0.1 mL (18 mg/3 mL) subcutaneous pen injector 0.6 mg SC BID 04/27/18 Cholecalciferol (VIT D3) [Vitamin D3] 2,000 unit PO DAILY 05/23/18 amlodipine 10 mg tablet 10 mg PO DAILY 08/24/18 furosemide 20 mg tablet 20 mg PO DAILY 08/24/18 losartan 25 mg tablet 25 mg PO DAILY tab 12/31/19 ascorbate calcium (vitamin C) 500 mg tablet 500 mg PO BID 03/26/20 methimazole 10 mg tablet 10 mg PO DAILY 10/15/20 zinc 50 mg tablet 50 mg PO DAILY 03/26/20 amiodarone 200 mg tablet 100 mg PO .MoWeFri tab 05/18/20 Primary Care Physician: Richa Barrientos MD [Primary Care Provider] - Please follow up with your Primary Care Physician in: in 2-3 weeks Test Results: Test results from this visit will be discussed in further detail at your follow- up appointment, if applicable. Please Follow Up With: Clint Rosas MD When: in 3-4 weeks
--- NOTE | 2020-10-02 09:01 | DS.PCM_ITS ---
Discharge Date and Diagnosis - Problem List Patient Problems: Active and Suspected Problems (Last Reviewed 09/29/20 @ 21:09 by CARMEN Carranza) Chest pain at rest (Acute) Date of Admission: 09/29/20 Date of Discharge: 09/30/20 - Primary Discharge Diagnosis Acute Problems: Active Problems (Last Reviewed 09/29/20 @ 21:09 by CARMEN Carranza) #1 musculoskeletal chest pain #2 atherosclerotic heart disease #3 hyperlipidemia #4 essential hypertension #5 chronic kidney disease stage IIIb - Secondary Discharge Diagnosis Chronic Problems: Chronic Problems (Last Reviewed 09/29/20 @ 21:09 by CARMEN Carranza) Amiodarone-induced hyperthyroidism (Chronic) Atherosclerosis of coronary artery of [place] heart without angina pectoris (Chronic 11/29/12) CABG x 3 PATEL to LAD, SVG-Ramus, SVG-RPLB 11/29/2012 Paroxysmal atrial fibrillation (Chronic) Non-rheumatic aortic stenosis (Chronic) Chronic diastolic (congestive) heart failure (Chronic) Essential (primary) hypertension (Chronic) HLD (hyperlipidemia) (Chronic) Hospital Course and Treatment Operations: None, TURP Procedures: Nuclear stress test Summary of Care Provided: The patient is a 75 year old M was seen in the emergency room at [facility] with a chief complaint of midsternal precordial chest pain. Work-up in the emergency room included a chest x-ray which showed no acute disease, patient's EKG showed normal sinus rhythm with a first-degree AV block and PACs, patient's labs were unremarkable. Patient had a return of his chest discomfort in the emergency room he was placed in observation status on PCU, serial cardiac enzymes were obtained and these remain normal. Patient underwent a nuclear pharmacological stress test which showed no evidence of reversible ischemia on 09/30/2020. Patient was seen and examined on 09/30/2020: On examination he appeared in good health and spirits. Vital signs as documented. Skin warm and dry and without overt rashes. Neck without JVD, neck was supple, trachea midline, thyroid was normal. Lungs clear bilaterally, normal air movement was noted. Heart exam notable for regular rhythm, normal sounds and absence of murmurs, rubs or gallops. Abdomen unremarkable and without evidence of organomegaly, masses, or abdominal aortic enlargement. Bowel sounds are present, abdomen is not distended. Extremities nonedematous, no cyanosis was noted, no clubbing was noted. Neuro: Cranial nerves II through XII are grossly intact, no focal motor deficits were noted, sensation to light touch and pinprick intact, motor exam 5/5 throughout. Psych: Patient is alert and oriented x3, he does not appear anxious or depressed, he does not appear agitated. Patient appears stable for discharge on 09/30/2020. Patient Problems: Active and Suspected Problems (Last Reviewed 09/29/20 @ 21:09 by Jennifer Rasmussen, JUNIOR ACCOUNTANT-C) Chest pain at rest (Acute) - Physical Exam Vitals/I&O's: Vital Signs Temp Pulse Resp BP Pulse Ox 97.7 F L 62 16 126/58 H 97 09/30/20 10:02 09/30/20 10:02 09/30/20 10:02 09/30/20 10:02 09/30/20 10:02 Oxygen Delivery Method Room Air Weight: 89.8 kg Body Mass Index (BMI) 28.0 Finger Stick Blood Glucose 113 Intake and Output for Last 24 Hours 09/30/20 10/01/20 10/02/20 23:59 23:59 23:59 Intake Total 420 / 420 Balance 420 / 420 Discharge Activity: Return to Normal Activity Weight Bearing Status: Full weight bearing Home Medications: Medications to take at Discharge Atorvastatin Calcium [Lipitor] 20 mg PO QHS 07/02/13 Insulin Aspart [Novolog] 10 units SC TID 07/02/13 Aspirin [Aspirin, Baby] 81 mg PO DAILY@0800 02/09/15 Doxazosin Mesylate 4 mg PO DAILY 02/09/15 Insulin Glargine,Hum.rec.anlog [Lantus] 30 unit SQ BID 02/09/15 Methyl-B12/l-Mefolate/B6 Phos [Foltanx Tablet] 1 ea PO DAILY 12/09/15 Temazepam [Restoril] 15 mg PO QHS PRN PRN 07/19/16 gabapentin 300 mg capsule 300 mg PO DAILY cap 04/20/18 liraglutide 0.6 mg/0.1 mL (18 mg/3 mL) subcutaneous pen injector 0.6 mg SC BID 04/27/18 Cholecalciferol (VIT D3) [Vitamin D3] 2,000 unit PO DAILY 05/23/18 amlodipine 10 mg tablet 10 mg PO DAILY 08/24/18 furosemide 20 mg tablet 20 mg PO DAILY 08/24/18 losartan 25 mg tablet 25 mg PO DAILY tab 12/31/19 ascorbate calcium (vitamin C) 500 mg tablet 500 mg PO BID 03/26/20 methimazole 10 mg tablet 10 mg PO DAILY 03/26/20 zinc 50 mg tablet 50 mg PO DAILY 03/26/20 amiodarone 200 mg tablet 100 mg PO .MoWeFri tab 05/18/20 Primary Care Physician: Richa Barrientos MD [Primary Care Provider] - Please follow up with your Primary Care Physician in: in 2-3 weeks Please Follow Up With: Clint Rosas MD When: in 3-4 weeks Disposition: Home Minutes spent on discharge:: 31 Patient Condition:: Stable Medical Necessity - Tobacco Use Smoking Status: Never smoker Tobacco Use: Non-smoker Meaningful Use Info Meaningful Use Diagnoses (Choose all that apply): None applicable OBSV E&M: 03990 Observation care discharge
== END 2020-09-30 11:53 | disposition home or self-care (01) ==
LOC: ED 19:28 → PCU 20:57
PROVIDERS: Nurse Practitioner Family; Admitting Provider Family Medicine; Emergency Provider Emergency Medicine; PCP Internal Medicine; Visit Provider Internal Medicine
DX: R07.89 Other chest pain (principal); I25.10 Atherosclerotic heart disease of native coronary artery without angina pectoris; I13.0 Hypertensive heart and chronic kidney disease with heart failure and stage 1 through stage 4 chronic kidney disease, or unspecified chronic kidney disease; E78.5 Hyperlipidemia, unspecified; N18.32 Chronic kidney disease, stage 3b; E11.22 Type 2 diabetes mellitus with diabetic chronic kidney disease; I50.32 Chronic diastolic (congestive) heart failure; I44.0 Atrioventricular block, first degree; E05.80 Other thyrotoxicosis without thyrotoxic crisis or storm; I48.0 Paroxysmal atrial fibrillation; N40.0 Benign prostatic hyperplasia without lower urinary tract symptoms; F41.9 Anxiety disorder, unspecified; F32.9 Major depressive disorder, single episode, unspecified; K21.9 Gastro-esophageal reflux disease without esophagitis; G47.33 Obstructive sleep apnea (adult) (pediatric); I27.21 Secondary pulmonary arterial hypertension; Z86.718 Personal history of other venous thrombosis and embolism; Z79.4 Long term (current) use of insulin; Z79.899 Other long term (current) drug therapy; Z79.82 Long term (current) use of aspirin; Z95.1 Presence of aortocoronary bypass graft; Z95.2 Presence of prosthetic heart valve
CPT/HCPCS: 36415; 71045; 78452; 80048; 80053; 80061; 82962; 83735; 84484; 85025; 93005; 93017; 96374; 99218; 99285; A9500; A4216; G0378

== ENCOUNTER 2021-09-17 13:56 | Outpatient (CLI) | payer MEDICARE, OTHER, SELFPAY ==
--- NOTE | 2021-09-17 14:02 | ECHOCS_ITS ---
Reason For Study: VALVE REPLACEMENT-eval Procedure This was a 2D Doppler, Color Flow transthoracic echocardiogram. The study was technically difficult. Exam performed in department. Left Ventricle Normal LV size. Left ventricular systolic function is normal. The estimated ejection fraction is 60 %. Stage 2 diastolic dysfunction. No regional wall motion abnormalities noted. Right Ventricle Normal RV size. Normal systolic function. Atria The left atrium is mildly enlarged. Normal right atrium. Mitral Valve Normal mitral valve. Tricuspid Valve Normal tricuspid valve. Mild tricuspid valve insufficiency. Pulmonary artery systolic pressure is 31 mmHg. Aortic Valve Peak aortic valve gradient 19 mmHg. Mean aortic valve gradient 11 mmHg. Stable appearing bioprosthetic aortic valve apparatus. Pulmonic Valve The pulmonic valve is not well visualized. Great Vessels Normal aortic root. The pulmonary artery is normal size. Normal inferior vena cava. Pericardium/Pleural No pericardial effusion. Medication 22 gauge I.V. with prn adaptor inserted into right arm. Diluted definity 3ml given slow IV push to enhance endocardial definition. MMode/2D Measurements & Calculations LVIDd: 5.2 cm IVSd: 1.2 cm LVOT diam: 2.0 cm LVIDs: 3.0 cm LVPWd: 0.81 cm RVDd: 4.3 cm FS: 41.6 % LVOT area: 3.3 cm2 Ao root diam: 3.7 cm LAV(MOD-bp): 82.3 ml LVAd ap4: 43.5 cm2 LAV(MOD-bp) Indexed: 39.0 ml/m2 LVLd ap4: 9.7 cm LAV(MOD-sp2): 80.9 ml EDV(MOD-sp4): 158.2 ml LAV(MOD-sp4): 71.0 ml EDV(sp4-el): 165.5 ml LVAs ap4: 25.1 cm2 LVLs ap4: 8.1 cm ESV(MOD-sp4): 62.2 ml ESV(sp4-el): 65.7 ml EF(MOD-sp4): 60.7 % EF(sp4-el): 60.3 % LVAd ap2: 41.9 cm2 SV(MOD-sp4): 96.1 ml SV(MOD-sp2): 89.1 ml LVLd ap2: 9.9 cm EDV(MOD-sp2): 149.2 ml EDV(sp2-el): 151.0 ml LVAs ap2: 25.7 cm2 LVLs ap2: 8.9 cm ESV(MOD-sp2): 60.1 ml ESV(sp2-el): 62.6 ml EF(MOD-sp2): 59.7 % SV(sp4-el): 99.8 ml LA A4 area: 24.0 cm2 RA A4 area: 17.4 cm2 Doppler Measurements & Calculations MV E max ger: 111.7 cm/sec Lat Peak E' Ger: 9.5 cm/sec Med Peak E' Ger: 5.1 cm/sec MV A max ger: 71.7 cm/sec E/E' lat: 11.8 E/E' med: 21.9 MV E/A: 1.6 Ao V2 max: 220.1 cm/sec LV V1 max: 146.1 cm/sec SV(LVOT): 102.8 ml Ao max P.4 mmHg LV V1 max P.5 mmHg Ao V2 mean: 162.3 cm/sec LV V1 mean P.8 mmHg Ao mean P.4 mmHg LV V1 mean: 104.6 cm/sec Ao V2 VTI: 48.7 cm LV V1 VTI: 31.3 cm DEANDRE(I,D): 2.1 cm2 DEANDRE(V,D): 2.2 cm2 PA V2 max: 115.4 cm/sec TR max ger: 262.4 cm/sec TR max P.5 mmHg ECHO/Echo Complete W/ Contrast Interpretation Summary Normal LV size. Left ventricular systolic function is normal. The estimated ejection fraction is 60 %. Stable appearing bioprosthetic aortic valve apparatus. Mean aortic valve gradient 11 mmHg. Stage 2 diastolic dysfunction. The left atrium is mildly enlarged. Contrast injection was performed. Ordering Physician: Griselda Brennan Referring Physician: Richa Barrientos M.D. Performed By: Jessi Yip RCS
== END 2021-09-17 23:59 | disposition home or self-care (01) ==
LOC: CVS 13:57
PROVIDERS: PCP Internal Medicine; Visit Provider Physician Assistant Medical
DX: I25.10 Atherosclerotic heart disease of native coronary artery without angina pectoris (principal)
CPT/HCPCS: 93306; Q9957; A4216; C8929

== ENCOUNTER → 2021-11-22 | Outpatient (CLI) | payer MEDICARE, OTHER, SELFPAY ==
[2021-11-22 13:36] LABS: T4 Free Direct 0.94 ng/dL (0.76-1.46); Thyroid Stim Hormone (TSH) 2.97 uIU/mL (0.358-3.74)
== END | disposition home or self-care (01) ==
LOC: BIMLAB 11:40
PROVIDERS: PCP Internal Medicine; Referring Provider Internal Medicine Endocrinology, Diabetes & Metabolism; Visit Provider Internal Medicine Endocrinology, Diabetes & Metabolism
DX: E78.5 Hyperlipidemia, unspecified (principal); R94.6 Abnormal results of thyroid function studies
CPT/HCPCS: 36415; 84439; 84443

== ENCOUNTER → 2022-02-17 | Outpatient (CLI) | payer MEDICARE, OTHER, SELFPAY ==
--- NOTE | 2022-02-17 09:53 | CDU_ITS ---
Reason For Study: carotid atherosclerosis Rt. Velocities/BP Lt. Velocities/BP Prox CCA 70.8/12.1 cm/sec. Prox CCA 94.8/17.9 cm/sec. Mid CCA 74.7/14.7 cm/sec. Mid CCA 89.3/15.7 cm/sec. Dist CCA 63.0/14.7 cm/sec. Dist CCA 63.6/13.5 cm/sec. Prox ICA 81.6/17.9 cm/sec. Prox ICA 73.9/15.7 cm/sec. Mid ICA 83.9/20.1 cm/sec. Mid ICA 67.3/19.0 cm/sec. Dist ICA 52.0/14.6 cm/sec. Dist ICA 70.7/20.1 cm/sec. Rt. ICA/CCA = 1.1. Lt. ICA/CCA = .8. Prox ECA 113.8/11.5 cm/sec. Prox ECA 148.5/4.2 cm/sec. Rt. Vert. 42.1/10.2 cm/sec. Lt. Vert. 40.0/9.7 cm/sec. Right Extracranial There is heterogeneous, irregular atherosclerotic plaque noted in the right common carotid artery. There is heterogeneous, irregular atherosclerotic plaque noted in the right internal carotid artery. There is intimal thickening but no significant atherosclerotic plaque noted in the right external carotid artery. Antegrade flow is noted in the right vertebral artery. Left Extracranial There is heterogeneous, irregular atherosclerotic plaque noted in the left common carotid artery. There is heterogeneous, irregular atherosclerotic plaque noted in the left internal carotid artery. There is heterogeneous, irregular atherosclerotic plaque noted in the left external carotid artery. Antegrade flow is noted in the left vertebral artery. Procedure Carotid Duplex [id number]. This is a Carotid Duplex examination using B-mode, color flow and specral Doppler. The exam was diagnostic. Exam performed in department. VL/Carotid Duplex Ultrasound Interpretation Summary Mild (<50%) stenosis right extracranial internal carotid. Mild (<50%) stenosis left extracranial internal carotid. Flow within the vertebral arteries is antegrade bilaterally. Ordering Physician: Richa Barrientos Performed By: Neo Bowles RVT
== END | disposition home or self-care (01) ==
LOC: CVS 09:50
PROVIDERS: PCP Internal Medicine; Referring Provider Internal Medicine; Visit Provider Internal Medicine
DX: I65.23 Occlusion and stenosis of bilateral carotid arteries (principal)
CPT/HCPCS: 93880

== ENCOUNTER → 2022-05-06 | Outpatient (CLI) | payer MEDICARE, OTHER, SELFPAY ==
--- NOTE | 2022-05-06 10:13 | RAD_ITS ---
HISTORY: bilateral hip pain. TECHNIQUE: XR Hips Bilateral with Pelvis when performed; 2 Views. COMPARISON: CT 04/06/2018. FINDINGS: OSSEOUS STRUCTURES: No acute displaced fracture identified. Note that overlapping bowel shadows may obscure osseous detail. Mineralization unremarkable. JOINT SPACES: No dislocation. Mild degenerative changes of the hips with small osteophytes. RAD/Hips B/L min 2 views w/ Pelvis IMPRESSION: No acute displaced fracture or dislocation identified. Electronically Signed: Jojo Alex MD at 10:56 EST ,
--- NOTE | 2022-05-06 10:25 | RAD_ITS ---
HISTORY: bilateral hip pain. TECHNIQUE: XR Spine Lumbar Min 4 Views. COMPARISON: CT 04/06/2018. FINDINGS: VERTEBRAE: Vertebral body heights preserved. Osteophytes at multiple levels. Degenerative changes of the posterior elements. ALIGNMENT: No significant anterior or posterior subluxation. INTERVERTEBRAL DISCS: Mild degenerative endplate changes with intervertebral disc space narrowing particularly at L5-S1. SOFT TISSUES: Left nephrolithiasis and vascular calcifications again noted. RAD/L/S Spine Min 4 Views IMPRESSION: No acute fracture or dislocation identified in the lumbar spine. Mild degenerative change. Electronically Signed: Jojo Alex MD at 10:55 EST ,
== END | disposition home or self-care (01) ==
LOC: MTRAD 10:11
PROVIDERS: PCP Internal Medicine; Referring Provider Internal Medicine; Visit Provider Internal Medicine
DX: M25.551 Pain in right hip (principal); M25.552 Pain in left hip
CPT/HCPCS: 72110; 73521

== ENCOUNTER 2022-11-20 06:32 | Emergency (ER) | payer OTHER, SELFPAY ==
--- NOTE | 2022-11-20 06:20 | EKG12_ITS ---
Test Reason : CP Blood Pressure : / mmHG Vent. Rate : 060 BPM Atrial Rate : 060 BPM P-R Int : 274 ms QRS Dur : 098 ms QT Int : 442 ms P-R-T Axes : 009 029 101 degrees QTc Int : 442 ms Sinus rhythm with 1st degree A-V block with Premature atrial complexes T wave abnormality, consider lateral ischemia Abnormal ECG Confirmed by ELZA OQUENDO, KAYLIN ([id number]), assistant film editor TIFFANY MENDEZ ([id number]) on 11/22/2022 7:46:58 AM Referred By: YONATHAN Confirmed By:CATHY BERTRAND MD
[2022-11-20 06:33] VITALS: BP 110/65; PULSE 58; RESP 15; TEMP 36.2; O2SAT 96; BMI 29.7
[2022-11-20 07:32] VITALS: BP 145/57; PULSE 61; RESP 16; O2SAT 99
[2022-11-20 07:33] LABS: Anion Gap 4 (5-15); BUN 34 mg/dL (7-18); BUN/Creat Ratio 20.9 RATIO (10-20); Calcium,Total 8.6 mg/dL (8.5-10.1); Chloride 113 mmol/L (98-107); Creatinine, Serum 1.63 mg/dL (0.70-1.30); EST Glomerular Filtration Rate 44 mL/min (>60); Est Glom Filt Rate - Afr Amer 53 mL/min (>60); Estimated Creatinine Clearance 38.57 ml/min; Glucose 153 mg/dL (74-106); Magnesium 2.2 mg/dL (1.6-2.6); Potassium 3.6 mmol/L (3.5-5.1); Sodium Level 143 mmol/L (136-145); Troponin-I HS 22 pg/mL (3.0-78.0)
[2022-11-20 07:41] LABS: Absolute Lymphocyte Count 1.52 X10^3/uL (0.83-4.51); Absolute Neutrophil Count 7.9 X10^3/uL (2.0-7.7); Basophil# 0.04 X10^3/uL; Basophil% 0.4 % (0-1); Eosinophil# 0.21 X10^3/uL; Hematocrit 42.8 % (40-54); Hemoglobin 14.1 g/dL (13.0-16.5); Lymphocyte # 1.52 X10^3/ul (0.83-4.51); Lymphocyte % 14.8 % (19-41); Mean Corp Hgb Conc 32.9 g/dL (32-36); Mean Corpuscular Hgb 32.3 pg (27.0-32.0); Mean Corpuscular Volume 97.9 fL (80-94); Monocyte# 0.56 X10^3/uL; Monocyte% 5.5 % (0-10); NRBC Flagged by Analyzer 0 % (0-5); Neutrophil # 7.87 X10^3/uL (2.7-7.7); Neutrophil % 76.8 % (47-70); Platelet Count 243 K/mm3 (150-450); RBC Distribution Width CV 12.1 % (11.6-14.6); RBC Distribution Width SD 43.9 fl (35.1-43.9); Red Blood Count 4.37 M/mm3 (4.6-6.2); White Blood Count 10.3 K/mm3 (4.4-11.0)
--- NOTE | 2022-11-20 07:47 | EX.ED.DYSGE1 ---
HPI History of Present Illness Chief Complaint: Chest Pain Informant: patient and EMS Narrative Narrative: Patient is a 77-year-old male with past medical history of hypertension and hyperlipidemia who states he has been under a great deal of stress recently as both his and son have been admitted to the hospital for various issues. He states he was having difficulty sleeping last night and around 630 this morning developed some right to midsternal chest pressure. He states that the pressure lasted for only 3 to 5 minutes and then spontaneously resolve. He states that there was slight shortness of breath associated with this but he denies any nausea vomiting or diaphoresis. He states there was no radiation of the pain. He reports that because of the recent events around his family he had concerned this could be cardiac in nature and therefore called EMS to bring him in for evaluation. He states EMS did give him aspirin and 1 nitro but his pain had resolved prior to even receiving those medications and he states he is pain-free at this time in the ER [facility] Medical History Abnormal results of thyroid function studies Acute on chronic diastolic (congestive) heart failure Atherosclerosis of coronary artery of [place] heart without angina pectoris (11/29/12) Bicuspid aortic valve BPH (benign prostatic hyperplasia) Chronic diastolic (congestive) heart failure Chronic kidney disease (CKD) Dementia Diastasis recti DVT (deep venous thrombosis) Essential (primary) hypertension GERD (gastroesophageal reflux disease) HLD (hyperlipidemia) Mediastinal lymphadenopathy Mobitz (type) I (Wenckebach's) atrioventricular block Non-rheumatic aortic stenosis Obstructive sleep apnea Paroxysmal atrial fibrillation Pleural effusion, bilateral Secondary pulmonary arterial hypertension Type 2 diabetes mellitus without complications Home Medications insulin aspart U-100 100 unit/mL subcutaneous solution 10 units subcut TID diabetes 07/02/13 [History Last Taken Unknown] aspirin 81 mg chewable tablet 81 mg PO DAILY@0800 heart health 02/09/15 [History Last Taken 09/28/20] doxazosin 8 mg tablet 4 mg PO DAILY blood pressure 02/09/15 [History Last Taken Unknown] insulin glargine 100 unit/mL subcutaneous solution 30 unit SQ BID diabetes 02/09/15 [History Last Taken 10/21/16] temazepam 15 mg capsule 15 mg PO QHS PRN PRN Sleep 07/19/16 [History Last Taken 10/20/16] gabapentin 300 mg capsule 300 mg PO DAILY nerve pain 04/20/18 [History Last Taken Unknown] amlodipine 10 mg tablet 10 mg PO DAILY blood pressure 08/24/18 [History Last Taken Unknown] furosemide 20 mg tablet (Lasix) 20 mg PO DAILY diuretic 08/24/18 [History Last Taken 09/28/20] amiodarone 200 mg tablet 100 mg PO MOWEFR heart rate 08/25/21 [History Last Taken Unknown] ascorbate calcium (vitamin C) 500 mg tablet 500 mg PO DAILY vitamin 08/25/21 [History Last Taken Unknown] cholecalciferol (vitamin D3) 25 mcg (1,000 unit) tablet 1,000 unit PO DAILY vitamin 08/25/21 [History Last Taken Unknown] mecobalamin-levomefolate calcium-pyridoxal phos 3 mg-35 mg-2 mg tablet 1 tab PO DAILY 08/25/21 [History Last Taken Unknown] semaglutide 0.25 mg or 0.5 mg (2 mg/1.5 mL) subcutaneous pen injector (Ozempic) 0.25 mg subcut QWEEK 08/25/21 [History Last Taken Unknown] atorvastatin 40 mg tablet 40 mg PO QHS cholesterol 11/04/22 [History Last Taken Unknown] galantamine 4 mg tablet 4 mg PO BID 11/04/22 [History Last Taken Unknown] losartan 25 mg tablet 50 mg PO DAILY blood pressure 11/04/22 [History Last Taken Unknown] Allergy/AdvReac Type Severity Reaction Status Date / Time No Known Allergies Allergy Verified 11/20/22 06:34 Family History Father CAD (coronary artery disease) Brother CAD (coronary artery disease) Surgical History H/O aortic valve replacement (11/29/12) H/O coronary artery bypass surgery (11/29/12) History of left heart catheterization (12/09/15) History of transurethral resection of prostate Hx of cholecystectomy Social History Smoking Status: Never smoker alcohol intake: never substance use type: does not use caffeine: Yes Type: coffee Number of servings: 2 ROS ROS ED Constitutional Constitutional ED: Denies chills or fever(s) ENT ENT ED: Denies sore throat Cardiovascular Cardiovascular: Reports chest pain; Denies palpitations or racing heartbeat Respiratory/Chest Respiratory/Chest: Denies cough or dyspnea Gastrointestinal Gastrointestinal: Denies abdominal pain, diarrhea, nausea or vomiting Genitourinary Genitourinary ED: Denies dysuria Musculoskeletal Musculoskeletal: Denies back pain or myalgias Integumentary Denies rash Neurologic Neurologic: Denies headache(s) Hematologic/Lymphatic Hematologic/Lymphatic: Denies easy bleeding or easy bruising EXAM Physical Exam Const Vital Signs: 11/20/22 06:33 Temperature 97.2 F L Temperature Source Temporal Pulse Rate 58 L Respiratory Rate 15 Blood Pressure 110/65 Blood Pressure Mean 80 Pulse Ox 96 Oxygen Delivery Method Room Air Positive well nourished and well developed General Appearance ED: well developed HEENT HEENT Narrative: Normocephalic atraumatic Eyes PERRL and EOMs intact bilaterally General Eye ED: Negative for scleral icterus Neck supple and no JVD Chest Wall palpation of chest normal Chest Narrative: No bony deformity or crepitance noted no pain with palpation Resp normal respiratory effort and clear to auscultation bilaterally Cardio regular rate and regular rhythm Rate: other Other Details: Radial pulses are plus 2 out of 4 bilaterally are equal and symmetric GI normal to inspection, nondistended, normoactive bowel sounds, non-tender, non-distended and no masses GI Narrative: No voluntary guarding or rigidity no pulsatile mass or fluid wave noted Auscultation: normoactive bowel sounds Palpation: soft Extremity normal to inspection Extremity Narrative: No asymmetric edema no pitting edema negative Homans' sign bilaterally Neuro oriented x3, CN's II-XII intact bilaterally and no sensory deficits noted Sensorium / Orientation: alert Psych mental status grossly normal Skin no rashes or lesions noted General Skin Exam: Negative for jaundice MDM MDM MDM Narrative Medical decision making narrative: Patient presented to the ER with stable vitals and spontaneous resolution of his chest discomfort. Differential diagnosis for his chest pain includes acute coronary syndrome versus pneumothorax versus pneumonia versus cardiac dysrhythmia. Secondary to this a basic work-up was obtained along with chest x-ray. Patient's initial troponin is normal at 22 and the remainder of his labs show no clinically significant findings with his creatinine at his baseline. As the patient is not hypertensive and not having radiation of the pain or any pain at all at this time I do not feel that a CTA is warranted as he is low risk for a pulmonary embolus and without hypertension or acute persistent pain dissection is less likely. At this time patient remains pain-free and initial troponin is normal at 22. Based on his multiple risk factors a delta troponin will be obtained approximately 9 AM. At that time if the troponin is holding flat and patient remains pain-free he will otherwise be safe for discharge as he has a negative work-up History & Record Review Discussion w/independent historian: EMS personnel and Patient Lab Data Attestation: I reviewed the patient's lab results. Labs: Laboratory Results - last 24 hr 11/20/22 11/20/22 07:05 07:05 WBC 10.3 RBC 4.37 L Hgb 14.1 Hct 42.8 MCV 97.9 H MCH 32.3 H MCHC 32.9 RDW Std Deviation 43.9 RDW Coeff of Roque 12.1 Plt Count 243 MPV 10.0 Immature Gran % (Auto) 0.500 Neut % (Auto) 76.8 H Lymph % (Auto) 14.8 L Terrell % (Auto) 5.5 Eos % (Auto) 2.0 Baso % (Auto) 0.4 Absolute Neuts (auto) 7.9 H Absolute Lymphs (auto) 1.52 Nucleated RBC % 0 Sodium 143 Potassium 3.6 Chloride 113 H Carbon Dioxide 26.0 Anion Gap 4 L BUN 34 H Creatinine 1.63 H Estim Creat Clear Calc 38.57 Est GFR (MDRD) Af Amer 53 L Est GFR (MDRD) Non-Af 44 L BUN/Creatinine Ratio 20.9 H Glucose 153 H Calcium 8.6 Magnesium 2.2 Troponin I High Sens 22 Radiography Diagnostic Testing: Chest x-rays interpreted by the emergency medicine physician reveals no acute infiltrate pneumothorax or pleural effusion Discharge Plan Triage Chief Complaint: Chest Pain ED Provider: Zachary Barnhart Dx/Rx/DC Orders Clinical Impression: Nonspecific chest pain, Essential (primary) hypertension, Insulin dependent diabetes mellitus Instructions: ED Chest Pain, Uncertain Cause Prescriptions: No Action gabapentin 300 mg capsule 300 mg PO DAILY amlodipine 10 mg tablet 10 mg PO DAILY furosemide [Lasix] 20 mg tablet 20 mg PO DAILY losartan 25 mg tablet 50 mg PO DAILY ascorbate calcium (vitamin C) 500 mg tablet 500 mg PO DAILY [id number] 3-35-2 mg tablet 1 tab PO DAILY Ozempic 0.25 mg or 0.5 mg(2 mg/1.5 mL) pen injector 0.25 mg subcut QWEEK Rx Instructions: for 4 doses galantamine 4 mg tablet 4 mg PO BID insulin aspart U-100 100 UNIT/ML solution 10 units SC TID Protocol: 6. Sliding Scale Insulin Custom Condition: mg/dl range Dose/Route: Number of Units Protocol Text: Custom Sliding Scale Label Comments: diabetes/DOSAGE VARIES atorvastatin 40 mg tablet 40 mg PO QHS Label Comments: cholesterol insulin glargine 100 UNIT/ML solution 30 unit SQ BID Label Comments: diabetes doxazosin 8 MG tablet 4 mg PO DAILY Label Comments: BP aspirin 81 MG tablet,chewable 81 mg PO DAILY@0800 Label Comments: heart health/ WAS TOLD TO STOP 10 DAYS PRE OP temazepam 15 MG capsule 15 mg PO QHS PRN PRN (Reason: Sleep) cholecalciferol (vitamin D3) 25 mcg (1,000 unit) tablet 1,000 unit PO DAILY amiodarone 200 mg tablet 100 mg PO MOWEFR Primary Care Provider: Richa Barrientos Referrals: Richa Barrientos MD [Primary Care Provider] - Activity Restrictions/Additional Instructions: Your work-up today does not show any signs of active heart damage. However you do have multiple cardiac risk factors and therefore if symptoms persist please return to the ER for repeat evaluation or discussed with your family doctor further outpatient testing
[2022-11-20 08:32] VITALS: BP 144/71; PULSE 60; RESP 14; O2SAT 97
--- NOTE | 2022-11-20 08:35 | RAD_ITS ---
STUDY: X-RAY CHEST REASON FOR EXAM: Male, 77 years old. Chest pain TECHNIQUE: PA and lateral views of the chest. COMPARISON: September 29, 2020 FINDINGS: There are monitoring devices. The lungs are clear and expanded. There is stable 1.0 cm calcified right lung granuloma. There is no demonstrated pleural abnormality. Sternal cerclage wires are present from a prior sternotomy. There is aortic valve prosthesis. Normal mediastinum and yuliya. Normal visualized pulmonary arteries. There is atherosclerotic calcification of the aortic arch. There are diffuse degenerative changes of the visualized thoracic spine. Normal visualized ribs, clavicles, and shoulders. There is no demonstrated abnormality of the visualized soft tissue structures of the upper abdomen. RAD/Chest PA and Lateral IMPRESSION: Degenerative changes, as described above. No demonstrated acute cardiopulmonary process. Electronically Signed: Zander Mccartney MD at 9:26 EDT ,
[2022-11-20 09:00] VITALS: BP 152/79; PULSE 59; RESP 16; O2SAT 98
[2022-11-20 09:24] LABS: Troponin-I HS 22 pg/mL (3.0-78.0)
[2022-11-20 10:16] VITALS: BP 151/73; PULSE 60; RESP 16; TEMP 36.6; O2SAT 97
== END 2022-11-20 10:19 | disposition home or self-care (01) ==
LOC: ED 07:20
PROVIDERS: Emergency Provider Emergency Medicine; PCP Internal Medicine; Visit Provider Emergency Medicine
DX: R07.9 Chest pain, unspecified (principal); I50.32 Chronic diastolic (congestive) heart failure; I13.0 Hypertensive heart and chronic kidney disease with heart failure and stage 1 through stage 4 chronic kidney disease, or unspecified chronic kidney disease; E11.22 Type 2 diabetes mellitus with diabetic chronic kidney disease; I48.0 Paroxysmal atrial fibrillation; Z79.4 Long term (current) use of insulin; I25.10 Atherosclerotic heart disease of native coronary artery without angina pectoris; N18.9 Chronic kidney disease, unspecified; E78.5 Hyperlipidemia, unspecified; G47.33 Obstructive sleep apnea (adult) (pediatric); K21.9 Gastro-esophageal reflux disease without esophagitis; Z79.82 Long term (current) use of aspirin; Z79.899 Other long term (current) drug therapy; Z95.1 Presence of aortocoronary bypass graft
CPT/HCPCS: 71046; 80048; 83735; 84484; 85025; 93005; 99285; A4216

== ENCOUNTER → 2023-07-17 | Outpatient (CLI) | payer MEDICARE, SELFPAY ==
[2023-07-17 12:37] LABS: Absolute Neutrophil Count 9.2 X10^3/uL (2.0-7.7); Basophil# 0.03 X10^3/uL; Basophil% 0.3 % (0-1); Eosinophil# 0.09 X10^3/uL; Eosinophils% 0.8 % (0-5); Hematocrit 40.9 % (40-54); Hemoglobin 13.1 g/dL (13.0-16.5); Lymphocyte % 8.1 % (19-41); Mean Corpuscular Hgb 30.8 pg (27.0-32.0); Mean Corpuscular Volume 96.2 fL (80-94); Mean Platelet Vol. 10.3 fl (6.2-12.0); Monocyte# 0.84 X10^3/uL; Monocyte% 7.6 % (0-10); NRBC Flagged by Analyzer 0 % (0-5); Neutrophil # 9.19 X10^3/uL (2.7-7.7); Neutrophil % 82.8 % (47-70); Platelet Count 262 K/mm3 (150-450); RBC Distribution Width CV 12.3 % (11.6-14.6); Red Blood Count 4.25 M/mm3 (4.6-6.2); White Blood Count 11.1 K/mm3 (4.4-11.0)
[2023-07-17 12:47] LABS: ALB/GLOB Ratio 0.9 RATIO (0.9-2.4); AST(SGOT) 13 U/L (15-37); Alanine Aminotransfer ALT/SGPT 25 U/L (16-61); Albumin, Serum 3.4 g/dL (3.2-5.0); Alkaline Phosphatase 83 U/L (45-117); Amylase 27 U/L (25-115); Anion Gap 10 (5-15); BUN 26 mg/dL (7-18); BUN/Creat Ratio 14.8 RATIO (10-20); Calcium,Total 8.9 mg/dL (8.5-10.1); Chloride 108 mmol/L (98-107); Creatinine, Serum 1.76 mg/dL (0.70-1.30); EST Glomerular Filtration Rate 40 mL/min (>60); Est Glom Filt Rate - Afr Amer 48 mL/min (>60); Globulin 3.9 g/dL (2.2-4.2); Glucose 191 mg/dL (74-106); Lipase 16 U/L (13-75); Potassium 4.6 mmol/L (3.5-5.1); Protein, Total 7.3 g/dL (6.4-8.2); Sodium Level 142 mmol/L (136-145)
== END | disposition home or self-care (01) ==
PROVIDERS: PCP Internal Medicine; Referring Provider Internal Medicine; Visit Provider Internal Medicine
DX: R11.10 Vomiting, unspecified (principal)
CPT/HCPCS: 80053; 82150; 83690; 85025

== ENCOUNTER → 2023-10-19 | Outpatient (CLI) | payer MEDICARE, SELFPAY ==
[2023-10-19 11:05] LABS: Erythrocyte Sedimentation Rate 4 mm/hr (0-20)
[2023-10-19 11:49] LABS: Free T3 2.3 pg/mL (2.18-3.98); T4 Free Direct 0.95 ng/dL (0.76-1.46); Thyroid Stim Hormone (TSH) 0.26 uIU/mL (0.358-3.74)
== END | disposition home or self-care (01) ==
LOC: LAB 10:33
PROVIDERS: PCP Internal Medicine; Referring Provider Internal Medicine Endocrinology, Diabetes & Metabolism; Visit Provider Internal Medicine Endocrinology, Diabetes & Metabolism
DX: E05.80 Other thyrotoxicosis without thyrotoxic crisis or storm (principal); E78.5 Hyperlipidemia, unspecified
CPT/HCPCS: 36415; 84439; 84443; 84481; 85652

== ENCOUNTER 2023-11-15 10:23 | Emergency (ER) | payer MEDICARE, SELFPAY ==
[2023-11-15 10:24] VITALS: BP 167/83; PULSE 79; RESP 18; TEMP 35.9; O2SAT 97; BMI 27.1
--- NOTE | 2023-11-15 10:36 | CT_ITS ---
STUDY: CT ABDOMEN AND PELVIS WITHOUT CONTRAST REASON FOR EXAM: Male, 78 years old. LLQ pain RADIATION DOSAGE (If Supplied By Facility): CTDIvol = ( 13.18 ) mGy, DLP = ( 694.85 ) mGycm TECHNIQUE: Transaxial images were obtained from the dome of the diaphragm to the symphysis pubis without oral contrast, and without intravenous contrast. Sagittal and coronal images were reconstructed. Individualized dose optimization techniques were used for this CT. COMPARISON: Comparison is made with prior study dated April 06, 2018. FINDINGS: There is a 1.3 cm calcified granuloma in the right lower lobe. Prior aortic valve replacement. Coronary artery calcification. Normal liver. There are surgical clips in the gallbladder fossa consistent with a prior cholecystectomy. Normal spleen. Normal pancreas. Stable 1.3 cm adenoma in the right adrenal gland. 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 Normal right kidney. There is evidence of a left hydronephrosis and hydroureter due to a 4 mm calculus at the base of the bladder on the right side just distal to the ureterovesical junction. There is evidence of a right perinephric stranding. Normal visualized stomach. Normal small intestine. There are scattered colonic diverticula consistent with diverticulosis. The appendix is visualized and appears normal. There is scattered atherosclerotic calcification of the abdominal aorta, without a demonstrated aneurysm. Normal inferior vena cava. Normal retroperitoneum. Normal urinary bladder. Findings suggestive of a prior TURP. There is a small umbilical hernia containing fat. There is evidence of prior umbilical hernia repair. There are degenerative changes of the visualized lumbar spine. CT/Abdomen/Pelvis without Cont IMPRESSION: Left hydronephrosis and hydroureter due to a recently passed 4 mm calculus at the base of the bladder on the left side just distal to the ureterovesical junction. The remainder the examination is unchanged. Electronically Signed: Mark Waller MD at 12:57 EDT ,
--- NOTE | 2023-11-15 10:40 | EX.ED.DYSGE1 ---
HPI History of Present Illness Chief Complaint: Abd Pain Informant: patient Onset/Context/Timing Onset: Today Current Severity: Moderate Maximum Severity: Moderate Narrative Narrative: Patient present secondary left lower quadrant abdominal pain. Patient states that he was up and around this morning without pain, but then developed pain in the left lower quadrant. He called his PCP who recommended he come in to be evaluated for possible diverticulitis. He does report to have a history of. He denies history of kidney stones. [facility] Medical History Dementia Abnormal results of thyroid function studies Diastasis recti Chronic diastolic (congestive) heart failure Non-rheumatic aortic stenosis Mediastinal lymphadenopathy Chronic kidney disease (CKD) Bicuspid aortic valve Secondary pulmonary arterial hypertension Acute on chronic diastolic (congestive) heart failure Essential (primary) hypertension Mobitz (type) I (Wenckebach's) atrioventricular block Pleural effusion, bilateral Paroxysmal atrial fibrillation BPH (benign prostatic hyperplasia) DVT (deep venous thrombosis) Type 2 diabetes mellitus without complications GERD (gastroesophageal reflux disease) Obstructive sleep apnea Atherosclerosis of coronary artery of [place] heart without angina pectoris (11/29/12) HLD (hyperlipidemia) Home Medications ?Medication ?Instructions ?Recorded ?Last Taken ?Type insulin aspart U-100 100 unit/mL 10 units subcut TID diabetes 07/02/13 Unknown History subcutaneous solution doxazosin 8 mg tablet 4 mg PO DAILY blood pressure 02/09/15 Unknown History temazepam 15 mg capsule 15 mg PO QHS PRN PRN Sleep 07/19/16 10/20/16 History amlodipine 10 mg tablet 10 mg PO DAILY blood pressure 08/24/18 Unknown History ascorbate calcium (vitamin C) 500 500 mg PO DAILY vitamin 08/25/21 Unknown History mg tablet semaglutide 0.25 mg or 0.5 mg (2 0.25 mg subcut QWEEK 08/25/21 Unknown History mg/1.5 mL) subcutaneous pen injector (Ozempic) galantamine 4 mg tablet 4 mg PO BID 11/04/22 Unknown History losartan 25 mg tablet 50 mg PO DAILY blood pressure 11/04/22 Unknown History atorvastatin 20 mg tablet 20 mg PO DAILY 09/08/23 Unknown History cholecalciferol (vitamin D3) 25 4,000 unit PO DAILY vitamin 09/08/23 Unknown History mcg (1,000 unit) tablet gabapentin 300 mg capsule 600 mg PO DAILY PRN nerve pain 09/08/23 Unknown History hydrocodone-acetaminophen 5-325mg 1 tab PO BID PRN 09/08/23 Unknown History 5mg-325mg insulin glargine 100 unit/mL 30 unit subcut DAILY diabetes 09/08/23 Unknown History subcutaneous solution loratadine 10 mg tablet 10 mg PO DAILY 09/08/23 Unknown History mecobalamin-levomefolate 1 tab PO DAILY 09/08/23 Unknown History calcium-pyridoxal phos 3 mg-35 mg-2 mg tablet (Foltanx) methimazole 10 mg tablet 20 mg (2 x 10 mg) PO DAILY #60 tabs 09/15/23 Unknown Rx apixaban 5 mg tablet (Eliquis) 5 mg PO BID #60 tabs 09/28/23 Unknown Rx furosemide 20 mg tablet (Lasix) 20 mg PO DAILY 11/02/23 Unknown History omeprazole 40 mg capsule,delayed 40 mg PO DAILY 14 days #14 caps 11/15/23 Unknown Rx release Allergy/AdvReac Type Severity Reaction Status Date / Time No Known Allergies Allergy Verified 11/15/23 10:24 Family History Father CAD (coronary artery disease) Brother CAD (coronary artery disease) Surgical History History of transurethral resection of prostate History of left heart catheterization (12/09/15) Hx of cholecystectomy H/O aortic valve replacement (11/29/12) H/O coronary artery bypass surgery (11/29/12) Social History Smoking Status: Never smoker alcohol intake: never substance use type: does not use caffeine: Yes Type: coffee Number of servings: 2 ROS ROS ED Constitutional Constitutional ED: Denies chills or fever(s) Eyes Eyes: Denies discharge from eye(s) ENT ENT ED: Denies discharge from eye(s), rhinorrhea or sore throat Cardiovascular Cardiovascular: Denies chest pain or palpitations Respiratory/Chest Respiratory/Chest: Denies cough or dyspnea Gastrointestinal Gastrointestinal: Reports abdominal pain and nausea; Denies diarrhea or vomiting Genitourinary Genitourinary ED: Denies dysuria Musculoskeletal Musculoskeletal: Denies back pain or extremity pain Integumentary Denies Abrasions or rash Neurologic Neurologic: Denies headache(s) or weakness Psychiatric Psychiatric: Denies anxiety or depression Allergic/Immunologic Allergic/Immunologic ED: Denies lip swelling or urticaria EXAM Physical Exam Const Vital Signs: 11/15/23 10:24 11/15/23 12:55 11/15/23 14:00 Temperature 96.6 F L Temperature Source Temporal Pulse Rate 79 59 L 67 Respiratory Rate 18 20 H 19 H Blood Pressure 167/83 H 173/63 H 148/61 H Blood Pressure Mean 111 99 90 Pulse Ox 97 100 88 Oxygen Delivery Method Room Air Room Air Room Air Oxygen Flow Rate (L/min) 11/15/23 14:03 11/15/23 16:00 11/15/23 16:06 Temperature 97.3 F L 97.3 F L Temperature Source Temporal Pulse Rate 56 L 56 L Respiratory Rate 20 H 20 H Blood Pressure 147/79 H 147/79 H Blood Pressure Mean 101 101 Pulse Ox 96 98 98 Oxygen Delivery Method Nasal Cannula Nasal Cannula Oxygen Flow Rate (L/min) 2 2 Positive well nourished and well developed General Appearance ED: well developed HEENT Reports moist mucous membranes Eyes EOMs intact bilaterally Chest Wall inspection of chest normal and palpation of chest normal Resp normal respiratory effort and clear to auscultation bilaterally Cardio regular rate and regular rhythm GI GI Narrative: Abdomen soft with moderate tenderness to the left lower quadrant. Hypoactive but present bowel sounds are noted. No CVA tenderness appreciated. Back/Spine Negative for no CVA tenderness Extremity normal to inspection Neuro oriented x3 and no sensory deficits noted Motor Exam: strength 5/5 throughout Psych Mood & Affect: anxious Skin no rashes or lesions noted MDM MDM MDM Narrative Medical decision making narrative: IV line established. Patient given morphine and Zofran for pain and nausea. Labwork obtained to evaluate for leukocytosis, anemia, and electrolyte derangement. Urinalysis obtained to evaluate for infection/hematuria. CT flank obtained to evaluate for potential diverticulitis or kidney stone. Patient does have chronic kidney disease so I will not give him IV contrast. History & Record Review Discussion w/independent historian: Patient and Significant other Lab Data Attestation: I reviewed the patient's lab results. Labs: Laboratory Results - last 24 hr 11/15/23 11/15/2324 11:10 11:22 13:10 WBC 14.5 H RBC 5.18 Hgb 15.6 Hct 48.8 MCV 94.2 H MCH 30.1 MCHC 32.0 RDW Std Deviation 44.0 H RDW Coeff of Roque 12.9 Plt Count 224 MPV 10.6 Immature Gran % (Auto) 0.400 Neut % (Auto) 82.3 H Lymph % (Auto) 10.4 L Vance % (Auto) 6.0 Eos % (Auto) 0.6 Baso % (Auto) 0.3 Absolute Neuts (auto) 11.9 H Absolute Lymphs (auto) 1.51 Nucleated RBC % 0 Sodium 140 Potassium 4.0 Chloride 105 Carbon Dioxide 28.0 Anion Gap 7 BUN 45 H Creatinine 2.48 H Estim Creat Clear Calc 24.94 Est GFR (MDRD) Af Amer 33 L Est GFR (MDRD) Non-Af 27 L BUN/Creatinine Ratio 18.1 Glucose 264 H Calcium 9.4 Troponin I High Sens 19 Urine Color Yellow Urine Clarity Clear Urine pH 5.0 Ur Specific [place] 1.015 Urine Protein 30 H Urine Glucose (UA) 1000 H Urine Ketones Negative Urine Occult Blood 250 H Urine Nitrite Negative Urine Bilirubin Negative Urine Urobilinogen Normal Ur Leukocyte Esterase Negative Urine RBC 25-50 SEEN Urine WBC 0-5 SEEN Ur Squamous Epith Cells 0-5 SEEN Urine Bacteria RARE Urine Mucus 0 SEEN 11/15/23 15:27 WBC RBC Hgb Hct MCV MCH MCHC RDW Std Deviation RDW Coeff of Roque Plt Count MPV Immature Gran % (Auto) Neut % (Auto) Lymph % (Auto) Vance % (Auto) Eos % (Auto) Baso % (Auto) Absolute Neuts (auto) Absolute Lymphs (auto) Nucleated RBC % Sodium Potassium Chloride Carbon Dioxide Anion Gap BUN Creatinine Estim Creat Clear Calc Est GFR (MDRD) Af Amer Est GFR (MDRD) Non-Af BUN/Creatinine Ratio Glucose Calcium Troponin I High Sens 17 Urine Color Urine Clarity Urine pH Ur Specific [place] Urine Protein Urine Glucose (UA) Urine Ketones Urine Occult Blood Urine Nitrite Urine Bilirubin Urine Urobilinogen Ur Leukocyte Esterase Urine RBC Urine WBC Ur Squamous Epith Cells Urine Bacteria Urine Mucus Radiography Diagnostic Testing: Clinical Impression(s) from Imaging Studies Abdomen/Pelvis CT 11/15/23 10:36 IMPRESSION: Left hydronephrosis and hydroureter due to a recently passed 4 mm calculus at the base of the bladder on the left side just distal to the ureterovesical junction. The remainder the examination is unchanged. Electronically Signed: Mark Waller MD at 12:57 EDT , Treatment and Re-Evaluation :: CBC reveals a white count of 14.5 with 82% neutrophils. Hemoglobin is 15.6. Chemistry studies reveal a BUN of 45 and a creatinine of 2.48. It appears his baseline creatinine is between 1.7 and 1.9. His creatinine has been up to 2-1/2 in the past. Urinalysis reveals 25-50 RBCs with rare bacteria. Patient taken for CT scan of the abdomen and pelvis. This reveals left hydronephrosis and hydroureter due to a recently passed 4 mm stone at the base of the bladder on the left side just distal to the UVJ. Patient had received morphine and Zofran along with IV fluids. Just before staff took him to CAT scan he developed chest pain. EKG was obtained per nursing protocol and reveals sinus bradycardia 54 bpm with no evidence of acute ischemia. Patient was given a dose of fentanyl along with a GI cocktail. This did not improve his symptoms. A repeat EKG was obtained and shows continued sinus bradycardia at 54 with no evidence of ischemia. He did receive another dose of morphine. Nursing staff did report the patient was pain-free after the second dose of morphine. Troponin was drawn and was equal to 19. While awaiting his 2-hour repeat troponin he had slight return of pain to about a 4 out of 10. He was given Protonix, Tums, and able to eat. He states this resolved his pain. His repeat troponin returns at 17. At this time patient remains comfortable. Test results been discussed with the patient and his at bedside. I did advise him that he may get occasional mild spasms in his left flank, however the stone has passed into the bladder. I will write him for a 2-week course of Prilosec. Discharge Plan Triage Chief Complaint: Abd Pain ED Provider: Bebe Huggins Dx/Rx/DC Orders Clinical Impression: Kidney stone, Chest pain, Gastroesophageal reflux disease Instructions: ED Chest Pain, Noncardiac, ED GERD (Adult), ED Kidney Stone, Passed Prescriptions: New omeprazole 40 mg capsule,delayed release(DR/EC) 40 mg PO DAILY 14 Days Qty: 14 0RF No Action gabapentin 300 mg capsule 600 mg PO DAILY PRN (Reason: nerve pain) amlodipine 10 mg tablet 10 mg PO DAILY losartan 25 mg tablet 50 mg PO DAILY ascorbate calcium (vitamin C) 500 mg tablet 500 mg PO DAILY Ozempic 0.25 mg or 0.5 mg(2 mg/1.5 mL) pen injector 0.25 mg subcut QWEEK Rx Instructions: for 4 doses galantamine 4 mg tablet 4 mg PO BID furosemide [Lasix] 20 mg tablet 20 mg PO DAILY loratadine 10 mg tablet 10 mg PO DAILY Foltanx 3-35-2 mg tablet 1 tab PO DAILY hydrocodone-acetaminophen 5-325 mg tablet 1 tab PO BID PRN atorvastatin 20 mg tablet 20 mg PO DAILY insulin aspart U-100 100 UNIT/ML solution 10 units SC TID Protocol: 6. Sliding Scale Insulin Custom Condition: mg/dl range Dose/Route: Number of Units Protocol Text: Custom Sliding Scale Patient Comments: diabetes/DOSAGE VARIES doxazosin 8 MG tablet 4 mg PO DAILY Patient Comments: BP insulin glargine 100 unit/mL solution 30 unit subcut DAILY Patient Comments: diabetes temazepam 15 MG capsule 15 mg PO QHS PRN PRN (Reason: Sleep) cholecalciferol (vitamin D3) 25 mcg (1,000 unit) tablet 4,000 unit PO DAILY methimazole 10 mg tablet 20 mg PO DAILY Qty: 60 1RF Eliquis 5 mg tablet 5 mg PO BID Qty: 60 11RF Primary Care Provider: Richa Barrientos Referrals: Richa Barrientos MD [Primary Care Provider] - 1 Week Print Language: Citizen Of [place] Disposition Disposition: Home, Self Care
[2023-11-15] MEDS: Ondansetron 4 MG/2 ML Vial IV ×2 (11:11→13:46)
[2023-11-15] MEDS: Morphine 4 MG/ML Syringe IV ×2 (11:11→13:46)
[2023-11-15] MEDS: 0.9% Normal Saline (1000mL) 1,000 ML 150 ML IV (11:12)
[2023-11-15 11:28] LABS: Mucous, Urine 0 SEEN /hpf (<or=2+)
[2023-11-15 11:28] LABS: Absolute Lymphocyte Count 1.51 X10^3/uL (0.83-4.51); Absolute Neutrophil Count 11.9 X10^3/uL (2.0-7.7); Basophil# 0.05 X10^3/uL; Basophil% 0.3 % (0-1); Eosinophil# 0.08 X10^3/uL; Eosinophils% 0.6 % (0-5); Hematocrit 48.8 % (40-54); Hemoglobin 15.6 g/dL (13.0-16.5); Lymphocyte # 1.51 X10^3/ul (0.83-4.51); Lymphocyte % 10.4 % (19-41); Mean Corpuscular Hgb 30.1 pg (27.0-32.0); Mean Corpuscular Volume 94.2 fL (80-94); Mean Platelet Vol. 10.6 fl (6.2-12.0); Monocyte# 0.87 X10^3/uL; NRBC Flagged by Analyzer 0 % (0-5); Neutrophil # 11.91 X10^3/uL (2.7-7.7); Neutrophil % 82.3 % (47-70); Platelet Count 224 K/mm3 (150-450); RBC Distribution Width CV 12.9 % (11.6-14.6); Red Blood Count 5.18 M/mm3 (4.6-6.2); White Blood Count 14.5 K/mm3 (4.4-11.0)
[2023-11-15 11:33] LABS: Anion Gap 7 (5-15); BUN 45 mg/dL (7-18); BUN/Creat Ratio 18.1 RATIO (10-20); Calcium,Total 9.4 mg/dL (8.5-10.1); Chloride 105 mmol/L (98-107); Creatinine, Serum 2.48 mg/dL (0.70-1.30); EST Glomerular Filtration Rate 27 mL/min (>60); Est Glom Filt Rate - Afr Amer 33 mL/min (>60); Estimated Creatinine Clearance 24.94 ml/min; Glucose 264 mg/dL (74-106); Sodium Level 140 mmol/L (136-145)
[2023-11-15 11:52] LABS: Color, Urine Yellow (Yellow); Glucose, Dipstick 1000 mg/dl (Normal); Ketone-Dipstick Negative (Negative); Leukocyte Esterase-Dipstick Negative /ul (Negative); Nitrite-Dipstick Negative (Negative); Occult Blood-Urine 250 /ul (Negative); Protein-Dipstick 30 mg/dl (Negative); Specific Gravity, Urine 1.015 (1.002-1.030); Urine Bilirubin Dipstick Negative (Negative); Urine Clarity Clear (Clear); Urine Urobilinogen Normal (Normal)
[2023-11-15 11:57] LABS: Red Blood Cells-Urine 25-50 SEEN /hpf (0-5)
[2023-11-15 11:58] LABS: Bacteria RARE /hpf (None Seen); Squamous Epithelial Cells - UA 0-5 SEEN /hpf (0-5); White Blood Cells 0-5 SEEN /hpf (0-5)
[2023-11-15 12:55] VITALS: BP 173/63; PULSE 59; RESP 20; O2SAT 100
[2023-11-15] MEDS: fentaNYL 100 MCG/2 ML Ampul 25 MCG IV (13:06)
[2023-11-15] MEDS: Lidocaine 2% Viscous15 ML UDC 15 ML PO (13:10)
[2023-11-15] MEDS: Mag Hydrox/Al Hydrox/Simeth 30 ML UDC PO (13:10)
[2023-11-15 13:35] LABS: Troponin-I HS (w/2H Reflex) 19 pg/mL (3.0-78.0)
[2023-11-15 14:00] VITALS: BP 148/61; PULSE 67; RESP 19; O2SAT 88
[2023-11-15 14:03] VITALS: O2SAT 96
[2023-11-15 15:14] LABS: Reflex Troponin-HS? (from REC) Y
[2023-11-15] MEDS: Pantoprazole Sodium 40 MG in 0.9% Normal Saline (100mL MB+) 100 ML 330 MG IV (15:14)
[2023-11-15] MEDS: Calcium Carbonate 500 MG Tablet PO (15:26)
[2023-11-15 15:55] LABS: Troponin-I HS 17 pg/mL (3.0-78.0)
[2023-11-15 16:00] VITALS: BP 147/79; PULSE 56; RESP 20; TEMP 36.3; O2SAT 98
[2023-11-15 16:06] VITALS: BP 147/79; PULSE 56; RESP 20; TEMP 36.3; O2SAT 98
== END 2023-11-15 16:20 | disposition home or self-care (01) ==
PROVIDERS: Emergency Provider Emergency Medicine; PCP Internal Medicine; Visit Provider Emergency Medicine
DX: N13.2 Hydronephrosis with renal and ureteral calculous obstruction (principal); I27.21 Secondary pulmonary arterial hypertension; I50.32 Chronic diastolic (congestive) heart failure; I13.0 Hypertensive heart and chronic kidney disease with heart failure and stage 1 through stage 4 chronic kidney disease, or unspecified chronic kidney disease; F03.90 Unspecified dementia, unspecified severity, without behavioral disturbance, psychotic disturbance, mood disturbance, and anxiety; I48.0 Paroxysmal atrial fibrillation; E11.9 Type 2 diabetes mellitus without complications; Z79.4 Long term (current) use of insulin; R07.9 Chest pain, unspecified; K21.9 Gastro-esophageal reflux disease without esophagitis; I25.10 Atherosclerotic heart disease of native coronary artery without angina pectoris; E78.5 Hyperlipidemia, unspecified; N18.9 Chronic kidney disease, unspecified; Z79.899 Other long term (current) drug therapy; Z79.01 Long term (current) use of anticoagulants
CPT/HCPCS: 74176; 80048; 81001; 84484; 85025; 93005; 96361; 96365; 96375; 96376; 99283; J7030; J2405

== ENCOUNTER → 2023-12-21 | Outpatient (CLI) | payer MEDICARE, SELFPAY ==
--- NOTE | 2023-12-21 11:54 | NM_ITS ---
CLINICAL: 78-year-old male with history of chronic nausea. SEMI-SOLID PHASE 99m Tc SULFUR COLLOID GASTRIC EMPTYING STUDY COMPARISON: None available FINDINGS: The patient was administered 1.2 mCi of 99m Tc sulfur colloid mixed with oatmeal and consumed per os. Image acquisitions in the anterior-posterior projections were obtained for 60 minutes. There is prompt visualization of the stomach. There is no gastroesophageal reflux identified. The T ? linear fit was calculated to be 25.66 minutes, (Normal: 12-56 minutes). NM/Gastric Emptying Study IMPRESSION: 1. NORMAL 99m Tc sulfur colloid semi-solid phase (oatmeal) gastric emptying imaging examination. A. There is normal and preserved semi-solid phase gastric emptying compared to normal controls.. (Tim et al, J Nucl Med Tech 38: 186, 2010). Electronically Signed: José Manuel Hercules DO at 9:55 EDT ,
[2023-12-21 13:33] LABS: Absolute Lymphocyte Count 1.81 X10^3/uL (0.83-4.51); Absolute Neutrophil Count 5.2 X10^3/uL (2.0-7.7); Basophil# 0.05 X10^3/uL; Basophil% 0.6 % (0-1); Eosinophil# 0.36 X10^3/uL; Eosinophils% 4.5 % (0-5); Hematocrit 47.1 % (40-54); Lymphocyte # 1.81 X10^3/ul (0.83-4.51); Lymphocyte % 22.7 % (19-41); Mean Corp Hgb Conc 31.8 g/dL (32-36); Mean Corpuscular Hgb 30.9 pg (27.0-32.0); Mean Corpuscular Volume 96.9 fL (80-94); Monocyte# 0.56 X10^3/uL; NRBC Flagged by Analyzer 0 % (0-5); Neutrophil # 5.19 X10^3/uL (2.7-7.7); Neutrophil % 64.9 % (47-70); Platelet Count 198 K/mm3 (150-450); RBC Distribution Width CV 13.2 % (11.6-14.6); RBC Distribution Width SD 47.4 fl (35.1-43.9); Red Blood Count 4.86 M/mm3 (4.6-6.2)
[2023-12-21 13:56] LABS: ALB/GLOB Ratio 0.9 RATIO (0.9-2.4); AST(SGOT) 26 U/L (15-37); Alanine Aminotransfer ALT/SGPT 43 U/L (16-61); Albumin, Serum 3.6 g/dL (3.2-5.0); Alkaline Phosphatase 123 U/L (45-117); Anion Gap 4 (5-15); BUN 31 mg/dL (7-18); BUN/Creat Ratio 18.3 RATIO (10-20); Calcium,Total 9.1 mg/dL (8.5-10.1); Chloride 109 mmol/L (98-107); Creatinine, Serum 1.69 mg/dL (0.70-1.30); EST Glomerular Filtration Rate 42 mL/min (>60); Est Glom Filt Rate - Afr Amer 51 mL/min (>60); Free T3 2.2 pg/mL (2.18-3.98); Globulin 3.9 g/dL (2.2-4.2); Glucose 173 mg/dL (74-106); Potassium 4.5 mmol/L (3.5-5.1); Protein, Total 7.5 g/dL (6.4-8.2); Sodium Level 140 mmol/L (136-145); T4 Free Direct 0.68 ng/dL (0.76-1.46); Thyroid Stim Hormone (TSH) 2.96 uIU/mL (0.358-3.74)
[2023-12-21 14:31] LABS: Microalbumin:Creatinine Ratio 337.1 mg/g CRE (<30 mg/g CRE)
== END | disposition home or self-care (01) ==
PROVIDERS: Internal Medicine Endocrinology, Diabetes & Metabolism; PCP Internal Medicine; Referring Provider Internal Medicine; Visit Provider Internal Medicine
DX: E11.39 Type 2 diabetes mellitus with other diabetic ophthalmic complication (principal); E55.9 Vitamin D deficiency, unspecified; R94.6 Abnormal results of thyroid function studies
CPT/HCPCS: 36415; 78264; 80053; 82043; 82306; 82570; 84439; 84443; 84481; 85025; A9541

== ENCOUNTER → 2024-04-17 | Outpatient (CLI) | payer MEDICARE, SELFPAY ==
[2024-04-17 15:22] LABS: Potassium 4.9 mmol/L (3.5-5.1)
== END | disposition home or self-care (01) ==
LOC: LABSPEC 15:06
PROVIDERS: PCP Internal Medicine; Referring Provider Internal Medicine; Visit Provider Internal Medicine
DX: E87.5 Hyperkalemia (principal)
CPT/HCPCS: 84132

== ENCOUNTER → 2024-11-20 | Outpatient (CLI) | payer MEDICARE, SELFPAY ==
--- NOTE | 2024-11-20 12:51 | CDU_ITS ---
Reason For Study Reason For Study: Carotid bruit Rt. Velocities/BP Lt. Velocities/BP Prox CCA 57/8.8 cm/sec. Prox CCA 84/11.6 cm/sec. Mid CCA 51.3/10.7 cm/sec. Mid CCA 65.7/10.7 cm/sec. Dist CCA 67.4/12.6 cm/sec. Dist CCA 72.7/10.7 cm/sec. Prox ICA 64.2/12.6 cm/sec. Prox ICA 84.6/17 cm/sec. Mid ICA 56.4/16.8 cm/sec. Mid ICA 49.4/12.6 cm/sec. Dist ICA 54.2/15.7 cm/sec. Dist ICA 40.2/9.9 cm/sec. Rt. ICA/CCA = 1.25. Lt. ICA/CCA = 1.29. Prox ECA 163.1/9.4 cm/sec. Prox ECA 143/6 cm/sec. Rt. Vert. 33.4/7.2 cm/sec. Lt. Vert. 32.4/5.7 cm/sec. Right Extracranial There is heterogeneous, irregular atherosclerotic plaque noted in the right common carotid artery. There is heterogeneous, irregular atherosclerotic plaque noted in the right internal carotid artery. There is heterogeneous, irregular atherosclerotic plaque noted in the right external carotid artery. Antegrade flow is noted in the right vertebral artery. Left Extracranial There is heterogeneous, irregular atherosclerotic plaque noted in the left common carotid artery. There is heterogeneous, irregular atherosclerotic plaque noted in the left internal carotid artery. The atherosclerotic plaque causes acoustic shadowing. There is heterogeneous, irregular atherosclerotic plaque noted in the left external carotid artery. Antegrade flow is noted in the left vertebral artery. Procedure Carotid Duplex 81141. This is a Carotid Duplex examination using B-mode, color flow and specral Doppler. Exam performed in department. VL/Carotid Duplex Ultrasound Interpretation Summary Mild (<50%) stenosis right extracranial internal carotid. Mild (<50%) stenosis left extracranial internal carotid. Patent and antegrade vertebrals bilaterally. Ordering Physician: Griselda Brennan Referring Physician: Richa Barrientos M.D. Performed By: Estela Emanuel RVT
== END | disposition home or self-care (01) ==
LOC: CVS 12:48
PROVIDERS: PCP Internal Medicine; Referring Provider Physician Assistant Medical; Visit Provider Physician Assistant Medical
DX: R09.89 Other specified symptoms and signs involving the circulatory and respiratory systems (principal)
CPT/HCPCS: 93880

== ENCOUNTER → 2024-12-10 | Outpatient (CLI) | payer MEDICARE, SELFPAY ==
--- NOTE | 2024-12-10 13:51 | ECHOD_ITS ---
Reason For Study Reason For Study: VALVE REPLACEMENT EVAL Procedure This was a 2D Doppler, Color Flow transthoracic echocardiogram. Exam performed in department. Left Ventricle Normal LV size. Left ventricular systolic function is normal. No regional wall motion abnormalities noted. Right Ventricle Normal RV size. Normal systolic function. Atria Normal left atrium. Normal right atrium. Mitral Valve Normal mitral valve. Tricuspid Valve Normal tricuspid valve. Mild (1+) tricuspid valve insufficiency. Pulmonary artery systolic pressure is 42 mmHg. Aortic Valve Peak aortic valve gradient 17 mmHg. Mean aortic valve gradient 9 mmHg. Bioprosthetic aortic valve. Pulmonic Valve Normal pulmonic valve. Great Vessels Normal aortic root. The pulmonary artery is normal size. Normal inferior vena cava. Pericardium/Pleural No pericardial effusion. MMode/2D Measurements & Calculations LVIDd: 5.1 cm IVSd: 0.96 cm LVOT diam: 2.0 cm LVIDs: 3.9 cm LVPWd: 0.92 cm LVOT area: 3.2 cm2 RVDd: 3.5 cm FS: 23.1 % Ao root diam: 3.7 cm LAV(MOD-bp): 99.3 ml LVAd ap4: 35.9 cm2 LAV(MOD-bp) Indexed: 48.6 ml/m2 LVLd ap4: 8.6 cm LAV(MOD-sp2): 83.9 ml EDV(MOD-sp4): 123.0 ml LAV(MOD-sp4): 108.6 ml EDV(sp4-el): 127.6 ml LVAs ap4: 19.6 cm2 LVLs ap4: 7.8 cm ESV(MOD-sp4): 42.7 ml ESV(sp4-el): 42.0 ml EF(MOD-sp4): 65.3 % EF(sp4-el): 67.0 % SV(MOD-sp4): 80.3 ml SV(sp4-el): 85.5 ml LA A4 area: 29.3 cm2 SI(MOD-sp4): 39.3 ml/m2 LA dimension(2D): 5.4 cm RA A4 area: 19.7 cm2 TAPSE: 1.7 cm Time Measurements MV dec time: 0.18 sec Doppler Measurements & Calculations MV E max ger: 93.6 cm/sec Lat Peak E' Ger: 12.5 cm/sec Med Peak E' Ger: 5.9 cm/sec MV A max ger: 68.0 cm/sec E/E' lat: 7.5 E/E' med: 15.8 MV E/A: 1.4 MV V2 max: 99.2 cm/sec MV P1/2t max ger: 102.5 cm/sec Ao V2 max: 205.8 cm/sec MV max P.9 mmHg MV P1/2t: 47.8 msec Ao max P.0 mmHg MV V2 mean: 49.7 cm/sec Ao V2 mean: 134.9 cm/sec MV mean P.1 mmHg MV dec slope: 627.9 cm/sec2 Ao mean P.7 mmHg MV V2 VTI: 34.0 cm MVA(P1/2t): 4.6 cm2 Ao V2 VTI: 47.5 cm AV (velocity ratio): 0.49 MVA(VTI): 2.2 cm2 DEANDRE(I,D): 1.6 cm2 DEANDRE(V,D): 1.4 cm2 LV V1 max: 92.4 cm/sec SV(LVOT): 74.4 ml PA V2 max: 82.6 cm/sec LV V1 max P.4 mmHg PA V2 mean: 60.2 cm/sec LV V1 mean P.8 mmHg LV V1 mean: 61.9 cm/sec LV V1 VTI: 23.5 cm TR max ger: 308.8 cm/sec TR max P.1 mmHg ECHO/Echo Complete Interpretation Summary Normal LV size. Left ventricular systolic function is normal. Bioprosthetic aortic valve. Mean aortic valve gradient 9 mmHg. Ordering Physician: Griselda Brennan Referring Physician: Richa Barrientos Performed By: Sherron Lovelace RDCS, RVT
== END | disposition home or self-care (01) ==
LOC: CVS 13:45
PROVIDERS: PCP Internal Medicine; Referring Provider Physician Assistant Medical; Visit Provider Physician Assistant Medical
DX: I35.0 Nonrheumatic aortic (valve) stenosis (principal)
CPT/HCPCS: 93306

== ENCOUNTER 2025-01-05 09:01 | Observation (INO) | payer OTHER, SELFPAY ==
[2025-01-05] VITALS (10 sets, daily range): BP systolic 97–154; BP diastolic 48–85; PULSE 67–88; RESP 18–22; TEMP 36.9; O2SAT 94–99; BMI 27.6; BMI 27.8
--- NOTE | 2025-01-05 09:20 | EX.ED.DYSGE1 ---
HPI History of Present Illness Chief Complaint: Fatigue Informant: patient Onset/Context/Timing Onset: Days (3) Context: Sudden Onset Timing: Continuous Quality: Fatigue Location: Generalized Worsened by: Nothing Relieved by: Nothing Narrative Narrative: Patient presents with fatigue and weakness that has been getting worse over the past 3 days. Patient states it began rather suddenly. Patient states he feels tired. Patient states nothing makes it better nothing makes it worse. Patient admits to some subjective chills. Patient also admits to some nausea. Patient was concerned that he may have been bitten by an insect on his right arm. Patient admits to some redness and discomfort over the right upper arm. Patient denies any chest pain. Patient denies any shortness of breath. [facility] Medical History Dementia Abnormal results of thyroid function studies Diastasis recti Chronic diastolic (congestive) heart failure Non-rheumatic aortic stenosis Mediastinal lymphadenopathy Chronic kidney disease (CKD) Bicuspid aortic valve Secondary pulmonary arterial hypertension Acute on chronic diastolic (congestive) heart failure Essential (primary) hypertension Mobitz (type) I (Wenckebach's) atrioventricular block Pleural effusion, bilateral Paroxysmal atrial fibrillation BPH (benign prostatic hyperplasia) DVT (deep venous thrombosis) Type 2 diabetes mellitus without complications GERD (gastroesophageal reflux disease) Obstructive sleep apnea Atherosclerosis of coronary artery of [place] heart without angina pectoris (11/29/12) HLD (hyperlipidemia) Home Medications ?Medication ?Instructions ?Recorded ?Last Taken ?Type insulin aspart U-100 100 unit/mL 10 units subcut TID diabetes 07/02/13 Unknown History subcutaneous solution doxazosin 8 mg tablet 4 mg PO DAILY blood pressure 02/09/15 Unknown History temazepam 15 mg capsule 15 mg PO QHS PRN PRN Sleep 07/19/16 10/20/16 History amlodipine 10 mg tablet 10 mg PO DAILY blood pressure 08/24/18 Unknown History ascorbate calcium (vitamin C) 500 500 mg PO DAILY vitamin 08/25/21 Unknown History mg tablet galantamine 4 mg tablet 4 mg PO BID 11/04/22 Unknown History atorvastatin 20 mg tablet 20 mg PO DAILY 09/08/23 Unknown History gabapentin 300 mg capsule 600 mg PO DAILY PRN nerve pain 09/08/23 Unknown History insulin glargine 100 unit/mL 30 unit subcut DAILY diabetes 09/08/23 Unknown History subcutaneous solution loratadine 10 mg tablet 10 mg PO DAILY 09/08/23 Unknown History mecobalamin-levomefolate 1 tab PO DAILY 09/08/23 Unknown History calcium-pyridoxal phos 2 mg-3 mg-35 mg tablet (Foltanx) furosemide 20 mg tablet (Lasix) 20 mg PO DAILY 11/02/23 Unknown History apixaban 2.5 mg tablet (Eliquis) 2.5 mg PO BID 07/17/24 Unknown History cholecalciferol (vitamin D3) 25 1,000 unit PO DAILY vitamin 10/30/24 Unknown History mcg (1,000 unit) tablet empagliflozin 25 mg tablet 12.5 mg PO DAILY 10/30/24 Unknown History (Jardiance) losartan 25 mg tablet 25 mg PO QDAY blood pressure 10/30/24 Unknown History semaglutide 0.25 mg or 0.5 mg (2 0.5 mg subcut QWEEK 10/30/24 Unknown History mg/1.5 mL) subcutaneous pen injector (Ozempic) Allergy/AdvReac Type Severity Reaction Status Date / Time No Known Allergies Allergy Verified 01/05/25 09:01 Family History Father CAD (coronary artery disease) Brother CAD (coronary artery disease) Surgical History History of transurethral resection of prostate History of left heart catheterization (12/09/15) Hx of cholecystectomy H/O aortic valve replacement (11/29/12) H/O coronary artery bypass surgery (11/29/12) Social History Smoking Status: Never smoker alcohol intake: never substance use type: does not use caffeine: Yes Type: coffee Number of servings: 2 ROS ROS ED Constitutional Constitutional ED: Reports chills; Denies fever(s) Eyes Eyes: Denies blurry vision or change in vision ENT ENT ED: Denies rhinorrhea or sore throat Cardiovascular Cardiovascular: Denies chest pain or palpitations Respiratory/Chest Respiratory/Chest: Denies cough or dyspnea Gastrointestinal Gastrointestinal: Reports nausea; Denies vomiting Genitourinary Genitourinary ED: Denies dysuria or hematuria Musculoskeletal Musculoskeletal: Denies back pain or neck pain Integumentary Reports rash; Denies abscess Neurologic Neurologic: Denies headache(s) or weakness Allergic/Immunologic Allergic/Immunologic ED: Denies mouth swelling or urticaria EXAM Physical Exam Const Vital Signs: 01/05/25 09:01 01/05/25 09:30 01/05/25 11:09 Temperature 98.5 F Temperature Source Oral Pulse Rate 88 67 Respiratory Rate 18 18 Respiratory Effort Normal Non-Labored Respiratory Pattern Normal Blood Pressure 97/63 104/58 L Blood Pressure Mean 74 73 Pulse Ox 98 97 Oxygen Delivery Method Room Air Room Air 01/05/25 11:58 Temperature Temperature Source Pulse Rate 74 Respiratory Rate Respiratory Effort Respiratory Pattern Blood Pressure 130/64 H Blood Pressure Mean Pulse Ox Oxygen Delivery Method Positive well nourished and well developed General Appearance ED: well developed and NAD HEENT Reports moist mucous membranes Neck supple and no JVD Chest Wall palpation of chest normal Resp normal respiratory effort and clear to auscultation bilaterally Cardio regular rate Rhythm: abnormal rhythm irregularly irregular GI non-tender and non-distended Palpation: soft Neuro oriented x3, CN's II-XII intact bilaterally and no sensory deficits noted Sensorium / Orientation: alert Motor Exam: general weakness Skin Skin Narrative: There is erythema and mild warmth over the posterior aspect right upper arm. There is no discharge or drainage. There is no evidence of any abscess. There are no target lesions noted. There are no vesicles or pustules noted. There are no petechia noted. MDM MDM MDM Narrative Medical decision making narrative: Differential diagnosis includes cardiac dysrhythmia, cardiac ischemia, pneumonia, bronchitis, sepsis, electrolyte abnormality, dehydration, and viral illness. EKG will be obtained to assess for cardiac dysrhythmia and cardiac ischemia. Chest x-ray will be obtained to assess for pneumonia or bronchitis. CBC will be obtained to assess for leukocytosis and anemia. Basic metabolic profile will be obtained to assess for metabolic abnormality and renal function. Patient urinalysis will be obtained to assess for urinary tract infection and hematuria. High-sensitivity troponin will be obtained to assess for cardiac ischemia. 2-hour repeat high-sensitivity troponin will be obtained to assess for ongoing cardiac ischemia. Serum lactate will be obtained to assess for sepsis. COVID-19, influenza, and RSV PCR will be obtained to assess for viral illness. Blood culture will be obtained to assess for sepsis. History & Record Review Additional record(s) reviewed:: Prior outpatient record, Prior ED visit and Prior labs Lab Data Attestation: I reviewed the patient's lab results. Lab results narrative: CBC was reviewed. There is a mild leukocytosis of 12.0. The remainder is within normal limits. Basic metabolic profile was reviewed. BUN was slightly elevated at 23 and creatinine was 1.64. Initial high-sensitivity troponin was reviewed and was elevated at 58. Serum lactate was reviewed and was less than 1.0. Urinalysis was reviewed. There is no evidence of urinary tract infection or hematuria. 2-hour repeat high-sensitivity troponin was reviewed and was 54. Labs: Laboratory Results - last 24 hr 01/05/25 01/05/25 01/05/25 09:54 10:04 10:15 WBC 12.0 H RBC 4.87 Hgb 15.8 Hct 46.8 MCV 96.1 H MCH 32.4 H MCHC 33.8 RDW Std Deviation 44.6 H RDW Coeff of Roque 12.5 Plt Count 167 MPV 9.9 Immature Gran % (Auto) 0.500 Neut % (Auto) 79.3 H Lymph % (Auto) 10.3 L [place] % (Auto) 9.2 Eos % (Auto) 0.4 Baso % (Auto) 0.3 Absolute Neuts (auto) 9.5 H Absolute Lymphs (auto) 1.24 Nucleated RBC % 0 Sodium 138 Potassium 3.9 Chloride 104 Carbon Dioxide 19.9 L Anion Gap 14 BUN 23 H Creatinine 1.64 H Estim Creat Clear Calc 37.09 L Est GFR (MDRD) Non-Af 42 L BUN/Creatinine Ratio 13.9 Glucose 101 H Lactic Acid < 1.0 Calcium 8.9 Troponin T High Sens 58 H* Troponin T Hi Sens 2 Hr Urine Color Urine Clarity Urine pH Ur Specific [place] Urine Protein Urine Glucose (UA) Urine Ketones Urine Occult Blood Urine Nitrite Urine Bilirubin Urine Urobilinogen Ur Leukocyte Esterase Urine RBC Urine WBC Ur Squamous Epith Cells Urine Bacteria Urine Mucus POC Glucose 104 01/05/25 01/05/25 10:20 12:02 WBC RBC Hgb Hct MCV MCH MCHC RDW Std Deviation RDW Coeff of Roque Plt Count MPV Immature Gran % (Auto) Neut % (Auto) Lymph % (Auto) [place] % (Auto) Eos % (Auto) Baso % (Auto) Absolute Neuts (auto) Absolute Lymphs (auto) Nucleated RBC % Sodium Potassium Chloride Carbon Dioxide Anion Gap BUN Creatinine Estim Creat Clear Calc Est GFR (MDRD) Non-Af BUN/Creatinine Ratio Glucose Lactic Acid Calcium Troponin T High Sens Troponin T Hi Sens 2 Hr 54 H* Urine Color Yellow Urine Clarity Clear Urine pH 6.0 Ur Specific [place] 1.015 Urine Protein 100 H Urine Glucose (UA) 1000 H Urine Ketones Negative Urine Occult Blood 10 H Urine Nitrite Negative Urine Bilirubin Negative Urine Urobilinogen Normal Ur Leukocyte Esterase Negative Urine RBC 0 SEEN Urine WBC 0 SEEN Ur Squamous Epith Cells 0 SEEN Urine Bacteria 0 SEEN Urine Mucus 0 SEEN POC Glucose Radiography Diagnostic Testing: Clinical Impression(s) from Imaging Studies Chest X-Ray 01/05/25 09:55 IMPRESSION: Asymmetric hazy opacity in the left lower lung more than the right lower lung may represent pulmonary edema or pneumonia. Reading Location: [facility] PA and lateral chest x-ray was obtained. There are 2 views. On my independent interpretation, lung de la fuente show a questionable hazy opacity in the left lower lung that may represent pneumonia or edema. There is normal cardiac silhouette. Bony thorax is normal. There is no acute process noted. Radiologist also interpreted the x-ray and agrees. EKG Initial EKG: Attestation: I personally reviewed and interpreted this EKG as follows: Interpretation: No Acute Injury Pattern and Atrial Flutter (67) Comments: EKG was obtained. On my independent interpretation, it shows atrial flutter with a rate of 67. QRS interval was normal at 96 ms. QTc interval was normal at 105 ms. [place] was normal at 37. There are no acute ST or T wave changes noted. Prior EKG tracings: available for review Prior: Changed (Compared to EKG dated 07/15/2024, the atrial flutter is new. There are no acute ST or T wave changes compared to previous EKG.) Follow-up EKG: Attestation: I personally reviewed and interpreted this EKG as follows: Interpretation: No Acute Injury Pattern and Atrial Flutter (64) Comments: EKG was obtained. On my independent interpretation, shows atrial flutter with a rate of 64. QRS interval is normal at 94 ms. QTc interval is normal at 400 ms. [place] is normal. There are no acute ST or T wave changes noted. This was unchanged compared to previous EKG. Management Discussion w/another healthcare provider: Hospitalist (Dr. Alejandra) Treatment and Re-Evaluation :: Patient was given aspirin initially. Patient was given IV fluids. Patient was given a dose of sublingual nitroglycerin. Patient was also given a dose of morphine. Patient was advised of his findings. Patient has a HEART score of 5. Because of this and the elevated troponins, I recommended admission to the hospital. Patient is agreeable with this. Case was discussed with the hospitalist. He will admit the patient to PCU. Patient understood and was agreeable with the plan. All questions were answered. Discharge Plan Dx/Rx/DC Orders Clinical Impression: Fatigue, Essential (primary) hypertension, Elevated troponin Disposition Disposition: Acute Care Hospital [facility] Discharge Date/Time: 01/05/25 13:26
--- NOTE | 2025-01-05 09:54 | EKG12_ITS ---
Test Reason : WEAKNESS Blood Pressure : */* mmHG Vent. Rate : 67 BPM Atrial Rate : * BPM P-R Int : * ms QRS Dur : 96 ms QT Int : 384 ms P-R-T Axes : * 37 105 degrees QTcB Int : 405 ms Atrial fibrillation Abnormal QRS-T angle, consider primary T wave abnormality Abnormal ECG Confirmed by KENROY OQUENDO, DYLAN ([id number]), commercial production editor TIFFANY MENDEZ ([id number]) on 01/06/2025 1:05:11 PM Referred By: Confirmed By: DYLAN JASMINE MD
--- NOTE | 2025-01-05 09:55 | RAD_ITS ---
PROCEDURE: CHEST PA AND LATERAL 01/05/2025 REASON FOR EXAM: FATIGUE TECHNIQUE: CHEST PA AND LATERAL COMPARISON: Chest x-ray 11/20/2022. FINDINGS: Hardware: Monitor electrodes overlie the chest. Heart: No cardiomegaly. Status post median sternotomy. Mediastinum: Unremarkable. Lungs: Asymmetric hazy opacity in the left lower lung more than the right lower lung may represent pulmonary edema or pneumonia. No pleural effusion or pneumothorax. Bones: No acute bony abnormalities. RAD/Chest PA and Lateral IMPRESSION: Asymmetric hazy opacity in the left lower lung more than the right lower lung m ay represent pulmonary edema or pneumonia. Reading Location: [id number]
[2025-01-05 10:26] LABS: Hematocrit 46.8 % (40-54); Hemoglobin 15.8 g/dL (13.0-16.5); Immature Granulocytes Count 0.060 X10^3/uL (0.0-0.0); Mean Corp Hgb Conc 33.8 g/dL (32-36); Mean Corpuscular Volume 96.1 fL (80-94); Mean Platelet Vol. 9.9 fl (6.2-12.0); NRBC Flagged by Analyzer 0 % (0-5); Platelet Count 167 K/mm3 (150-450); RBC Distribution Width CV 12.5 % (11.6-14.6); RBC Distribution Width SD 44.6 fl (35.1-43.9); Red Blood Count 4.87 M/mm3 (4.6-6.2); White Blood Count 12.0 K/mm3 (4.4-11.0)
[2025-01-05 10:29] LABS: Mucous, Urine 0 SEEN /hpf (<or=2+); Red Blood Cells-Urine 0 SEEN /hpf (0-5); Squamous Epithelial Cells - UA 0 SEEN /hpf (0-5)
[2025-01-05 10:31] LABS: Color, Urine Yellow (Yellow); Glucose, Dipstick 1000 mg/dl (Normal); Ketone-Dipstick Negative (Negative); Leukocyte Esterase-Dipstick Negative /ul (Negative); Nitrite-Dipstick Negative (Negative); Occult Blood-Urine 10 /ul (Negative); Protein-Dipstick 100 mg/dl (Negative); Specific Gravity, Urine 1.015 (1.002-1.030); Urine Bilirubin Dipstick Negative (Negative)
[2025-01-05] MEDS: 0.9% Normal Saline (500mL Bag) 500 ML 1000 ML IV (10:39)
[2025-01-05 10:55] LABS: Anion Gap 14 (5-15); BUN 23 mg/dL (4-19); BUN/Creat Ratio 13.9 RATIO (10-20); Calcium,Total 8.9 mg/dL (7.6-11.0); Carbon Dioxide 19.9 mmol/L (21.0-32.0); Chloride 104 mmol/L (98-108); Estimated Creatinine Clearance 37.09 ml/min (50-250); Glucose 101 mg/dL (70-99); Potassium 3.9 mmol/L (3.3-5.1); Troponin T High Sensitivity 58 ng/L (<=22)
--- NOTE | 2025-01-05 11:48 | EKG12_ITS ---
Test Reason : CP-REPEAT Blood Pressure : */* mmHG Vent. Rate : 64 BPM Atrial Rate : * BPM P-R Int : * ms QRS Dur : 94 ms QT Int : 388 ms P-R-T Axes : * 34 103 degrees QTcB Int : 400 ms Atrial fibrillation Abnormal QRS-T angle, consider primary T wave abnormality Abnormal ECG Confirmed by KENROY OQUENDO, DYLAN ([id number]), supervising editor news reel TIFFANY MENDEZ ([id number]) on 01/06/2025 1:05:03 PM Referred By: Confirmed By: DYLAN JASMINE MD
[2025-01-05] MEDS: Nitroglycerin SL (ED/IMG/CATH) 0.4 MG TABLET SL ×2 (11:58→12:35)
--- NOTE | 2025-01-05 12:23 | PCA ---
[facility]KING [facility] AVAILABILITY FOR PATIENT ADMISSION. OTHERWISE [facility] WILL CONTINUE WITH ADMISSION HERE.
--- NOTE | 2025-01-05 12:27 | PCA ---
[facility] WILL BE CALL[facility] BACK, REACHING OUT TO [facility] IN REGARDS TO BED PLACEMENT AND POSSIBLE AVAILABILITY WITH ADMISSION.
--- NOTE | 2025-01-05 12:28 | HP.PCM.HOS_ITS ---
HPI - General General Date of Admission: 01/05/25 HPI Narrative OMAIRA MATTHEWS, is a 79 M who presents to the hospital with increasing fatigue over the last couple days. He does have a slight leukocytosis but says he has been afebrile. No recent illnesses or shortness of breath. Denies any chest pain or he does have a burning sensation in his chest after he received morphine here in the ER. Because of his burning chest pain a troponin was obtained which was 58 however he does have chronic kidney disease and EKG is nonischemic. He denies any chest pain with physical activity though he does have a history of coronary artery disease status post CABG. Chest x-ray was unremarkable and viral studies are pending. Urine is also noninfected. [facility] Medical History Dementia Abnormal results of thyroid function studies Diastasis recti Chronic diastolic (congestive) heart failure Non-rheumatic aortic stenosis Mediastinal lymphadenopathy Chronic kidney disease (CKD) Bicuspid aortic valve Secondary pulmonary arterial hypertension Acute on chronic diastolic (congestive) heart failure Essential (primary) hypertension Mobitz (type) I (Wenckebach's) atrioventricular block Pleural effusion, bilateral Paroxysmal atrial fibrillation BPH (benign prostatic hyperplasia) DVT (deep venous thrombosis) Type 2 diabetes mellitus without complications GERD (gastroesophageal reflux disease) Obstructive sleep apnea Atherosclerosis of coronary artery of [place] heart without angina pectoris (11/29/12) HLD (hyperlipidemia) Home Medications ?Medication ?Instructions ?Recorded ?Last Taken ?Type insulin aspart U-100 100 unit/mL 10 units subcut TID d iabetes 07/02/13 Unknown History subcutaneous solution doxazosin 8 mg tablet 4 mg PO DAILY blood pressure 02/09/15 Unknown History temazepam 15 mg capsule 15 mg PO QHS PRN PRN Sleep 0 07/19/16 10/20/16 History amlodipine 10 mg tablet 10 mg PO DAILY blood pressur e 08/24/18 Unknown History ascorbate calcium (vitamin C) 500 500 mg PO DAILY jovany min 08/25/21 Unknown History mg tablet galantamine 4 mg tablet 4 mg PO BID 11/04/22 Unknown History atorvastatin 20 mg tablet 20 mg PO DAILY 09/08/23 Unkn own History gabapentin 300 mg capsule 600 mg PO DAILY PRN nerve pa in 09/08/23 Unknown History insulin glargine 100 unit/mL 30 unit subcut DAILY diab etes 09/08/23 Unknown History subcutaneous solution loratadine 10 mg tablet 10 mg PO DAILY 09/08/23 Unkn own History mecobalamin-levomefolate 1 tab PO DAILY 09/08/23 Unkn own History calcium-pyridoxal phos 2 mg-3 mg-35 mg tablet (Foltanx) furosemide 20 mg tablet (Lasix) 20 mg PO DAILY 4 Unknown History apixaban 2.5 mg tablet (Eliquis) 2.5 mg PO BID 5 Unknown History cholecalciferol (vitamin D3) 25 1,000 unit PO DAILY vi tamin 10/30/24 Unknown History mcg (1,000 unit) tablet empagliflozin 25 mg tablet 12.5 mg PO DAILY 10/30/24 U nknown History (Jardiance) losartan 25 mg tablet 25 mg PO QDAY blood pressure 10/30/24 Unknown History semaglutide 0.25 mg or 0.5 mg (2 0.5 mg subcut QWEEK 0 10/30/24 Unknown History mg/1.5 mL) subcutaneous pen injector (Ozempic) Allergy/AdvReac Type Severity Reaction Status Date / Time No Known Allergies Allergy Verified 01/05/25 09:01 Family History Father CAD (coronary artery disease) Brother CAD (coronary artery disease) Surgical History History of transurethral resection of prostate History of left heart catheterization (12/09/15) Hx of cholecystectomy H/O aortic valve replacement (11/29/12) H/O coronary artery bypass surgery (11/29/12) Social History Smoking Status: Never smoker alcohol intake: never substance use type: does not use caffeine: Yes Type: coffee Number of servings: 2 ROS Constitutional Constitutional: Reports fatigue; Denies chills, fever(s) or malaise Eyes Eyes: Denies blurry vision ENT HEENT: Denies headache(s) or nasal discharge Cardiovascular Cardiovascular: Denies chest pain, dyspnea on exertion or syncope Respiratory/Chest Respiratory/Chest: Denies cough, shortness of breath at rest or shortness of breath with exertion Gastrointestinal Gastrointestinal: Denies constipation, diarrhea, nausea or vomiting Genitourinary Genitourinary: Denies dysuria Neurologic Neurologic: Denies focal weakness, numbness or tremor(s) Psychiatric Psychiatric: Denies anxiety or depression Vital Signs Vital Signs Vital Signs: 01/05/25 09:01 01/05/25 09:30 01/05/25 11:09 Temperature 98.5 F Temperature Source Oral Pulse Rate 88 67 Respiratory Rate 18 18 Respiratory Effort Normal Non-Labored Respiratory Pattern Normal Blood Pressure 97/63 104/58 L Blood Pressure Mean 74 73 Pulse Ox 98 97 Oxygen Delivery Method Room Air Room Air 01/05/25 11:58 Temperature Temperature Source Pulse Rate 74 Respiratory Rate Respiratory Effort Respiratory Pattern Blood Pressure 130/64 H Blood Pressure Mean Pulse Ox Oxygen Delivery Method Weight Weight: 192 lb 3.889 oz Body Mass Index (BMI) 27.6 Physical Exam Narrative General: Alert, Oriented x3, Cooperative, No apparent distress HEENT: Atraumatic, PERRLA, EOMI, Normocephalic Oral: Moist Mucosa Neck: Supple, No JVD Lungs: Diminished, Normal air movement, No rhonchi, No wheeze, No rales Cardiovascular: Regular rate, Regular Rhythm, Normal S1, Normal S2, No murmurs Abdomen: Soft, Non Tender, Non-Distended, No Hepato-splenomegaly Extremities: No edema, Capillary Refill Less than 3 Seconds Skin: No rashes, No breakdown Musculoskeletal: No Tenderness to Palpation of Joints or Extremities Neurological: No focal neurological deficits, Motor Exam 5/5 strength throughout, Sensory exam intact to light touch and pain Psych/Mental Status: Normal Affect, Appropriate Results Lab / Micro Data 01/05/25 10:15 01/05/25 10:04 Labs: Laboratory Results - last 24 hr 01/05/25 09:54: POC Glucose 104 01/05/25 10:04: Sodium 138, Potassium 3.9, Chloride 104, Carbon Dioxide 19.9 L, Anion Gap 14, BUN 23 H, Creatinine 1.64 H, Estim Creat Clear Calc 37.09 L, Est GFR (MDRD) Non-Af 42 L, BUN/Creatinine Ratio 13.9, Glucose 101 H, Calcium 8.9, T roponin T High Sens 58 H* 01/05/25 10:15: WBC 12.0 H, RBC 4.87, Hgb 15.8, Hct 46.8, MCV 96.1 H, MCH 32.4 H , MCHC 33.8, RDW Std Deviation 44.6 H, RDW Coeff of Roque 12.5, Plt Count 167, MPV 9.9, Immature Gran % (Auto) 0.500, Neut % (Auto) 79.3 H, Lymph % (Auto) 10.3 L, [place] % (Auto) 9.2, Eos % (Auto) 0.4, Baso % (Auto) 0.3, Absolute Neuts (auto) 9.5 H, Absolute Lymphs (auto) 1.24, Nucleated RBC % 0, Lactic Acid < 1.0 01/05/25 10:20: Urine Color Yellow, Urine Clarity Clear, Urine pH 6.0, Ur Specific [place] 1.015, Urine Protein 100 H, Urine Glucose (UA) 1000 H, Urine Ketones Negative, Urine Occult Blood 10 H, Urine Nitrite Negative, Urine Bilirubin Negative, Urine Urobilinogen Normal, Ur Leukocyte Esterase Negative, Urine RBC 0 SEEN, Urine WBC 0 SEEN, Ur Squamous Epith Cells 0 SEEN, Urine Bacteria 0 SEEN, Urine Mucus 0 SEEN Imaging Radiology Impression Chest X-Ray 01/05/25 09:55 IMPRESSION: Asymmetric hazy opacity in the left lower lung more than the right lower lung may represent pulmonary edema or pneumonia. Reading Location: [facility] Assessment & Plan Assessment/Plan (1) Fatigue: PLAN: Plan 1. Fatigue with generalized illness ? Unclear as to the etiology though viral panel is pending ? Chest pain I think is unrelated and secondary to the morphine will provide a GI cocktail and see if this relieves his pain. ? Blood cultures are pending no obvious signs of infection 2. CAD status post CABG/essential HTN/HLD/paroxysmal A-fib ? Echo 12/10/2024 with a mean aortic gradient of 9 mmHg with a normal EF and PASP of 42 mmHg, previous echocardiogram in 2021 at stage II diastolic dysfunction ? Continue with his home blood pressure medications ? Continue with his home Lasix ? Resume his Eliquis at 2.5 mg p.o. twice daily ? Continue with Jardiance both for his diastolic dysfunction as well as his diabetes 3. DM2 ? Resume his home insulin ? Accu-Cheks ACHS ? Will monitor make adjustments as necessary 4. BPH with obstruction ? Stable ? Continue with doxazosin DVT: Yassine 75 minutes was spent on direct patient care, including documentation as well as chart review and collaboration with colleagues Charges/Coding Visit Charges Inpatient E&M: 71364 Init Hosp L3
[2025-01-05] MEDS: Lidocaine 2% Viscous15 ML UDC 15 ML PO (12:36)
--- NOTE | 2025-01-05 12:40 | NURSING ---
Pt had just been checked on an pain was2/10. minutes later he hit calllight and stated ch was10/10. given nitro SL and GIcocktail. within moments he indicated that his CP was1/10
[2025-01-05 12:46] LABS: Troponin T High Sens 2 HR 54 ng/L (<=22)
[2025-01-05 14:34] LABS: Troponin T High Sens 4 HR 54 ng/L (<=22)
[2025-01-05] MEDS: APIXABAN 2.5 MG TABLET (WCH) PO (20:41)
[2025-01-06 06:05] VITALS: BP 113/49; PULSE 54; RESP 16; TEMP 36.2; O2SAT 93
[2025-01-06 07:30] LABS: Hematocrit 46.3 % (40-54); Hemoglobin 15.2 g/dL (13.0-16.5); Immature Granulocytes Count 0.060 X10^3/uL (0.0-0.0); Mean Corp Hgb Conc 32.8 g/dL (32-36); Mean Corpuscular Volume 98.3 fL (80-94); Mean Platelet Vol. 10.1 fl (6.2-12.0); NRBC Flagged by Analyzer 0 % (0-5); Platelet Count 175 K/mm3 (150-450); RBC Distribution Width CV 12.8 % (11.6-14.6); RBC Distribution Width SD 46.1 fl (35.1-43.9); Red Blood Count 4.71 M/mm3 (4.6-6.2); White Blood Count 10.7 K/mm3 (4.4-11.0)
[2025-01-06 07:46] LABS: Anion Gap 12 (5-15); BUN 25 mg/dL (4-19); BUN/Creat Ratio 14.7 RATIO (10-20); Calcium,Total 8.7 mg/dL (7.6-11.0); Carbon Dioxide 22.1 mmol/L (21.0-32.0); Chloride 104 mmol/L (98-108); Estimated Creatinine Clearance 38.05 ml/min (50-250); Glucose 132 mg/dL (70-99); Potassium 4.1 mmol/L (3.3-5.1)
--- NOTE | 2025-01-06 08:35 | NURSING ---
BS 140 per pts Dexcom.
[2025-01-06 09:28] VITALS: BP 119/67; PULSE 70; RESP 14; TEMP 36.8; O2SAT 97
[2025-01-06] MEDS: APIXABAN 2.5 MG TABLET (WCH) PO (09:44)
--- NOTE | 2025-01-06 10:14 | DCINST_ITS ---
Discharge Instructions DC O2, CPAP, BIPAP needs Home O2 Discharge instructions: No Dressing / Incision Discharge Activity: Return to Normal Activity Dressing / Incision Call your doctor if you observe: Fever of 101 or Higher, Shortness of breath, Dizziness, Fainting spells, Swelling in the ankles, Chest pain and Increased palpitations (irregular heartbeat) Follow Up Care Test Results: Test results from this visit will be discussed in further detail at your follow- up appointment, if applicable. Discharge Plan Admission Admit Date/Time: 01/05/25 12:20 Attending Provider: Roberto Alejandra Primary Care Provider: Richa Barrientos Discharge Orders/Prescriptions Prescriptions: Continued gabapentin 300 mg capsule 600 mg PO DAILY PRN (Reason: nerve pain) amlodipine 10 mg tablet 10 mg PO DAILY losartan 25 mg tablet 25 mg PO QDAY ascorbate calcium (vitamin C) 500 mg tablet 500 mg PO DAILY Ozempic 0.25 mg or 0.5 mg(2 mg/1.5 mL) pen injector 0.5 mg subcut QWEEK Rx Instructions: for 4 doses galantamine 4 mg tablet 4 mg PO BID furosemide [Lasix] 20 mg tablet 20 mg PO DAILY loratadine 10 mg tablet 10 mg PO DAILY Foltanx 3-35-2 mg tablet 1 tab PO DAILY atorvastatin 20 mg tablet 20 mg PO DAILY Jardiance 25 mg tablet 12.5 mg PO DAILY insulin aspart U-100 100 UNIT/ML solution 10 units SC TID Protocol: 6. Sliding Scale Insulin Custom Condition: mg/dl range Dose/Route: Number of Units Protocol Text: Custom Sliding Scale Patient Comments: diabetes/DOSAGE VARIES doxazosin 8 MG tablet 4 mg PO DAILY Patient Comments: BP insulin glargine 100 unit/mL solution 30 unit subcut DAILY Patient Comments: diabetes temazepam 15 MG capsule 15 mg PO QHS PRN PRN (Reason: Sleep) cholecalciferol (vitamin D3) 25 mcg (1,000 unit) tablet 1,000 unit PO DAILY oxycodone 10 mg tablet 10 mg PO QHS Eliquis 2.5 mg tablet 2.5 mg PO BID Referrals / Follow Up: Richa Barrientos MD [Primary Care Provider] - Within 1 Week Disposition Disposition (needs filled in before D/C Order can be placed): Home, Self Care
--- NOTE | 2025-01-06 10:53 | CASEMGMT ---
Patient has order for discharge. RN CM in to discuss needs at discharge. Patient denies needs or help at discharge. Patient had no further questions or concerns.
--- NOTE | 2025-01-06 11:12 | PCM.DC.SUM ---
Providers Date of Admission: 01/05/25 Primary Care Physician: Dr. Richa Barrientos MD Reason For Visit: FATIGUE Diagnosis Discharge Diagnosis (1) Fatigue: Status: Acute Code(s): R53.83 - Other fatigue Medications at Discharge Home Medications insulin aspart U-100 100 unit/mL subcutaneous solution 10 units subcut TID diabetes 07/02/13 doxazosin 8 mg tablet 4 mg PO DAILY blood pressure 02/09/15 temazepam 15 mg capsule 15 mg PO QHS PRN PRN Sleep 07/19/16 amlodipine 10 mg tablet 10 mg PO DAILY blood pressure 08/24/18 ascorbate calcium (vitamin C) 500 mg tablet 500 mg PO DAILY vitamin 08/25/21 galantamine 4 mg tablet 4 mg PO BID 11/04/22 atorvastatin 20 mg tablet 20 mg PO DAILY 09/08/23 gabapentin 300 mg capsule 600 mg PO DAILY PRN nerve pain 09/08/23 insulin glargine 100 unit/mL subcutaneous solution 30 unit subcut DAILY diabetes 09/08/23 loratadine 10 mg tablet 10 mg PO DAILY 09/08/23 mecobalamin-levomefolate calcium-pyridoxal phos 2 mg-3 mg-35 mg tablet (Foltanx) 1 tab PO DAILY 09/08/23 furosemide 20 mg tablet (Lasix) 20 mg PO DAILY 11/02/23 apixaban 2.5 mg tablet (Eliquis) 2.5 mg PO BID 07/17/24 cholecalciferol (vitamin D3) 25 mcg (1,000 unit) tablet 1,000 unit PO DAILY vitamin 10/30/24 empagliflozin 25 mg tablet (Jardiance) 12.5 mg PO DAILY 10/30/24 losartan 25 mg tablet 25 mg PO QDAY blood pressure 10/30/24 semaglutide 0.25 mg or 0.5 mg (2 mg/1.5 mL) subcutaneous pen injector (Ozempic) 0.5 mg subcut QWEEK 10/30/24 oxycodone 10 mg tablet 10 mg PO QHS 01/05/25 Hospital Course Operations None Procedures None Summary of Care Provided Minutes Spent on Discharge: 32 Hospital Course: Per HPI: OMAIRA MATTHEWS, is a 79 M who presents to the hospital with increasing fatigue over the last couple days. He does have a slight leukocytosis but says he has been afebrile. No recent illnesses or shortness of breath. Denies any chest pain or he does have a burning sensation in his chest after he received morphine here in the ER. Because of his burning chest pain a troponin was obtained which was 58 however he does have chronic kidney disease and EKG is nonischemic. He denies any chest pain with physical activity though he does have a history of coronary artery disease status post CABG. Chest x-ray was unremarkable and viral studies are pending. Urine is also noninfected. Hospital Course: 1. Fatigue generalized weakness?79-year-old male presented to the hospital with fatigue. He had a slight leukocytosis to 12 which resolved on its own without any antibiotics, blood cultures were obtained, unclear as to the indication however given his improvement we do not need to wait for these to finalize. During his hospitalization he was given a dose of morphine which led to chest pain which seems to be GI related as it resolved with the GI cocktails. He had an elevated troponin of 58 and then for 2-hour and the 4-hour were 54, he does have a history of chronic kidney disease and is no longer complaining of any chest pain, EKG was nonischemic. He does state that on he was out boating and then on Monday and that he was cleaning his boat which is likely where his fatigue and generalized weakness came from. Today he is feeling much better and would like to go home. Of note he had an echocardiogram on 12/10/2024 with normal EF and a PASP of 42 mmHg consistent with his previous stage II diastolic dysfunction on his echocardiogram in 2021. I do recommend he continue his home medications and follow-up with his PCP in 3 to 5 days. I discussed with him the possibility of discharge today and he expressed understanding of the risks and benefits of going home and would like to go home today. 2. Coronary artery disease status post CABG, essential hypertension, hyperlipidemia, paroxysmal A-fib, type 2 diabetes, BPH with obstruction are all chronic medical conditions which complicate his care. His home medications were continued where appropriate Physical Exam Narrative General: Alert, Oriented x3, Cooperative, No apparent distress HEENT: Atraumatic, PERRLA, EOMI, Normocephalic Oral: Moist Mucosa Neck: Supple, No JVD Lungs: Diminished, Normal air movement, No rhonchi, No wheeze, No rales Cardiovascular: Regular rate, Regular Rhythm, Normal S1, Normal S2, No murmurs Abdomen: Soft, Non Tender, Non-Distended, No Hepato-splenomegaly Extremities: No edema, Capillary Refill Less than 3 Seconds Skin: No rashes, No breakdown Musculoskeletal: No Tenderness to Palpation of Joints or Extremities Neurological: No focal neurological deficits, Motor Exam 5/5 strength throughout, Sensory exam intact to light touch and pain Psych/Mental Status: Normal Affect, Appropriate Weight / BMI Weight Weight: 194 lb Body Mass Index (BMI) 27.8 ABG / Lab / Microbiology Data 01/06/25 06:49 01/06/25 06:49 Laboratory: Laboratory Results - last 24 hr 01/05/25 12:02: Troponin T Hi Sens 2 Hr 54 H* 01/05/25 13:53: Troponin T Hi Sens 4Hr 54 H* 01/05/25 16:50: POC Glucose 183 H 01/06/25 06:49: WBC 10.7, RBC 4.71, Hgb 15.2, Hct 46.3, MCV 98.3 H, MCH 32.3 H, MCHC 32.8, RDW Std Deviation 46.1 H, RDW Coeff of Roque 12.8, Plt Count 175, MPV 10.1, Immature Gran % (Auto) 0.600, Neut % (Auto) 75.3 H, Lymph % (Auto) 13.6 L, [place] % (Auto) 8.8, Eos % (Auto) 1.3, Baso % (Auto) 0.4, Absolute Neuts (auto) 8.1 H, Absolute Lymphs (auto) 1.46, Nucleated RBC % 0, Sodium 139, Potassium 4.1, Chloride 104, Carbon Dioxide 22.1, Anion Gap 12, BUN 25 H, Creatinine 1.73 H, Estim Creat Clear Calc 38.05 L, Est GFR (MDRD) Non-Af 39 L, BUN/Creatinine Ratio 14.7, Glucose 132 H, Calcium 8.7 Microbiology: Microbiology 01/05/25 10:04 Mucosa - Nose SARS-CoV-2, Influenza & RSV (PCR) - Final Radiography Diagnostic Testing: Radiology Impression Chest X-Ray 01/05/25 09:55 IMPRESSION: Asymmetric hazy opacity in the left lower lung more than the right lower lung may represent pulmonary edema or pneumonia. Reading Location: [facility] D/C Instructions Call your doctor if you observe: Fever of 101 or Higher, Shortness of breath, Dizziness, Fainting spells, Swelling in the ankles, Chest pain and Increased palpitations (irregular heartbeat) DC O2, CPAP, BIPAP Needs Home O2 Discharge instructions: No Meaningful Use Info Meaningful Use Meaningful Use Diagnoses (Choose all that apply): None applicable Discharge Plan Admission Admit Date/Time: 01/05/25 12:20 Attending Provider: Roberto Alejandra Primary Care Provider: Richa Barrientos Discharge Orders/Prescriptions Prescriptions: Continued gabapentin 300 mg capsule 600 mg PO DAILY PRN (Reason: nerve pain) amlodipine 10 mg tablet 10 mg PO DAILY losartan 25 mg tablet 25 mg PO QDAY ascorbate calcium (vitamin C) 500 mg tablet 500 mg PO DAILY Ozempic 0.25 mg or 0.5 mg(2 mg/1.5 mL) pen injector 0.5 mg subcut QWEEK Rx Instructions: for 4 doses galantamine 4 mg tablet 4 mg PO BID furosemide [Lasix] 20 mg tablet 20 mg PO DAILY loratadine 10 mg tablet 10 mg PO DAILY Foltanx 3-35-2 mg tablet 1 tab PO DAILY atorvastatin 20 mg tablet 20 mg PO DAILY Jardiance 25 mg tablet 12.5 mg PO DAILY insulin aspart U-100 100 UNIT/ML solution 10 units SC TID Protocol: 6. Sliding Scale Insulin Custom Condition: mg/dl range Dose/Route: Number of Units Protocol Text: Custom Sliding Scale Patient Comments: diabetes/DOSAGE VARIES doxazosin 8 MG tablet 4 mg PO DAILY Patient Comments: BP insulin glargine 100 unit/mL solution 30 unit subcut DAILY Patient Comments: diabetes temazepam 15 MG capsule 15 mg PO QHS PRN PRN (Reason: Sleep) cholecalciferol (vitamin D3) 25 mcg (1,000 unit) tablet 1,000 unit PO DAILY oxycodone 10 mg tablet 10 mg PO QHS Eliquis 2.5 mg tablet 2.5 mg PO BID Referrals / Follow Up: Richa Barrientos MD [Primary Care Provider] - Within 1 Week Disposition Disposition (needs filled in before D/C Order can be placed): Home, Self Care Charges/Coding Visit Charges Inpatient E&M: 12360 Disch Hosp >30min
[2025-01-06 12:12] VITALS: BP 109/69; PULSE 65; RESP 14; TEMP 36.8; O2SAT 98
== END 2025-01-06 12:22 | disposition home or self-care (01) ==
LOC: ED 12:43 → PCU 13:09
PROVIDERS: Admitting Provider Family Medicine; Emergency Provider Emergency Medicine; PCP Internal Medicine; Visit Provider Family Medicine
DX: I13.0 Hypertensive heart and chronic kidney disease with heart failure and stage 1 through stage 4 chronic kidney disease, or unspecified chronic kidney disease (principal); I50.32 Chronic diastolic (congestive) heart failure; I27.21 Secondary pulmonary arterial hypertension; F03.90 Unspecified dementia, unspecified severity, without behavioral disturbance, psychotic disturbance, mood disturbance, and anxiety; I48.0 Paroxysmal atrial fibrillation; E11.22 Type 2 diabetes mellitus with diabetic chronic kidney disease; Z79.4 Long term (current) use of insulin; I25.10 Atherosclerotic heart disease of native coronary artery without angina pectoris; Z95.1 Presence of aortocoronary bypass graft; R79.89 Other specified abnormal findings of blood chemistry; N18.9 Chronic kidney disease, unspecified; Z86.718 Personal history of other venous thrombosis and embolism; E78.5 Hyperlipidemia, unspecified; N40.1 Benign prostatic hyperplasia with lower urinary tract symptoms; N13.8 Other obstructive and reflux uropathy; G47.33 Obstructive sleep apnea (adult) (pediatric); Z79.899 Other long term (current) drug therapy; Z79.01 Long term (current) use of anticoagulants
CPT/HCPCS: 36415; 71046; 80048; 81001; 82962; 83605; 84484; 85025; 87040; 87631; 93005; 96374; 99221; 99285; A4216; G0378

== ENCOUNTER → 2025-01-10 | Outpatient (CLI) | payer MEDICARE, SELFPAY ==
[2025-01-10 15:18] LABS: Hematocrit 44.0 % (40-54); Hemoglobin 14.4 g/dL (13.0-16.5); Immature Granulocytes Count 0.120 X10^3/uL (0.0-0.0); Mean Corp Hgb Conc 32.7 g/dL (32-36); Mean Corpuscular Volume 96.7 fL (80-94); Mean Platelet Vol. 9.8 fl (6.2-12.0); NRBC Flagged by Analyzer 0 % (0-5); Platelet Count 325 K/mm3 (150-450); RBC Distribution Width CV 12.4 % (11.6-14.6); RBC Distribution Width SD 44.8 fl (35.1-43.9); Red Blood Count 4.55 M/mm3 (4.6-6.2); White Blood Count 12.0 K/mm3 (4.4-11.0)
[2025-01-10 16:03] LABS: Pro- Brain NATRIURETIC PEPTIDE 3391 pg/mL (<=1800)
[2025-01-15 16:09] LABS: Lyme Scn Total Ab w/Rflx Negative (Negative)
== END | disposition home or self-care (01) ==
PROVIDERS: PCP Internal Medicine; Referring Provider Internal Medicine; Visit Provider Internal Medicine
DX: R06.02 Shortness of breath (principal)
CPT/HCPCS: 36415; 83880; 85025; 86617; 86618

== ENCOUNTER → 2025-03-04 | Outpatient (CLI) | payer MEDICARE, SELFPAY ==
--- NOTE | 2025-03-04 20:18 | STRESSREP ---
Stress Test Report Pharmacologic myocardial perfusion stress test. 79-year-old man with a history of coronary disease. Resting EKG demonstrates atrial fibrillation with a rate of 68 bpm. Resting blood pressure is 158/88 mmHg. 0.4 mg of regadenoson was infused per usual protocol followed by rapid intravenous saline flush injection. Continuous EKG monitoring was performed. The maximum heart rate was 88 bpm which was 62% of max impacted heart rate the maximum workload was 1 metabolic equivalent. At rest there were no ST or T wave changes noted to suggest ischemia and at peak infusion nonspecific ST changes were noted which did not meet the criteria for ischemia. No clinical angina is noted. The final blood pressure was 120/62 mmHg. Myocardial perfusion protocol. 12 mCi of technetium 99m sestamibi was injected at rest. 0.4 mg of regadenoson was infused per usual protocol. At peak infusion 35 mCi of technetium 99m sestamibi was injected stress images were obtained stress and rest images were reconstructed and compared in the short axis vertical long and horizontal long axis. Gated images were also obtained. Perfusion SPECT analysis: Review of the stress images demonstrate normal uptake of tracer noted in all areas of the myocardium. The resting images similar demonstrated normal uptake of tracer noted in all areas of the myocardium. No areas of reversibility are noted to suggest ischemia and no previous infarct is noted. Gated SPECT analysis: The gated ejection fraction is 62%. Conclusion: Normal pharmacologic myocardial perfusion stress test. Preserved ejection fraction.
== END | disposition home or self-care (01) ==
PROVIDERS: PCP Internal Medicine; Referring Provider Internal Medicine; Visit Provider Internal Medicine
DX: I25.10 Atherosclerotic heart disease of native coronary artery without angina pectoris (principal); I65.23 Occlusion and stenosis of bilateral carotid arteries; R53.83 Other fatigue
CPT/HCPCS: 78452; 93017; A9500; A4216; J2785